=== PATIENT | male | born 1975 | race Caucasian/White ===

== ENCOUNTER 2016-09-19 11:01 | Inpatient (IN) | payer BC ==
[2016-09-19] MEDS ORDERED: SODIUM CHLORIDE 0.9% 1,000 ML IV STA (11:30)
--- NOTE | 2016-09-19 12:14 | ED ---
General Adult HPI - General Chief complaint: Recheck/Abnormal Lab/Rx Stated complaint: renal failure sent by pcp Time Seen by Provider: 09/19/16 11:14 Source: patient, RN notes reviewed Mode of arrival: ambulatory Limitations: no limitations - History of Present Illness Initial comments: Patient 40-year-old male who presents emergency room today with chief complaint of abnormal labs. He states it is all by his family doctor advised come in because the labs showed elevated kidney function. He does admit that last week he was having symptoms of nausea vomiting some diarrhea. He states he was having fevers. States he has been feeling better. He did have an outpatient ultrasound performed today and afterwards was called and advised come here to the emergency room. Patient states does not have any pain. States diarrhea and nausea vomiting have all stopped. He denies any other complaints at this time. Patient denies any recent fever, chills, shortness of breath, chest pain, back pain, numbness or tingling, dysuria or hematuria, constipation, headaches or visual changes, or any other complaints. - Related Data Home Medications Medication Instructions Recorded Confirmed Acetaminophen [Tylenol] 1,500 mg PO Q6H PRN 09/19/16 09/19/16 Cholecalciferol [Vitamin D3] 1,000 units PO DAILY 09/19/16 09/19/16 Levothyroxine Sodium [Synthroid] 137 mcg PO DAILY 09/19/16 09/19/16 Naproxen Sodium [Aleve] 660 mg PO DAILY PRN 09/19/16 09/19/16 [place]-3/Dha/Epa/Fish Oil [Fish Oil 1 cap PO DAILY 09/19/16 09/19/16 1,000 mg Softgel] Allergies Allergy/AdvReac Type Severity Reaction Status Date / Time aspirin AdvReac Swelling Verified 09/19/16 11:42 Review of Systems ROS Statement: Those systems with pertinent positive or pertinent negative responses have been documented in the HPI. ROS Other: All systems not noted in ROS Statement are negative. Past Medical History Past Medical History: No Reported History History of Any Multi-Drug Resistant Organisms: None Reported Additional Past Surgical History / Comment(s): right quad muscle Past Psychological History: No Psychological Hx Reported Smoking Status: Former smoker Past Alcohol Use History: None Reported Past Drug Use History: None Reported General Exam - General Exam Comments Initial Comments: General: The patient is awake and alert, in no distress, and does not appear acutely ill. Eye: Pupils are equal, round and reactive to light, extra-ocular movements are intact. No nystagmus. There is normal conjunctiva bilaterally. No signs of icterus. Ears, nose, mouth and throat: There are moist mucous membranes and no oral lesions. Neck: The neck is supple, there is no tenderness or JVD. Cardiovascular: There is a regular rate and rhythm. No murmur, rub or gallop is appreciated. Respiratory: Lungs are clear to auscultation, respirations are non-labored, breath sounds are equal. No wheezes, stridor, rales, or rhonchi. Gastrointestinal: Soft, non-distended, non-tender abdomen without masses or organomegaly noted. There is no rebound or guarding present. No CVA tenderness. Bowel sounds are unremarkable. Musculoskeletal: Normal ROM, no tenderness. Strength 5/5. Sensation intact. Pulses equal bilaterally 2+. Neurological: A&O x 3. CN II-XII intact, There are no obvious motor or sensory deficits. Coordination appears grossly intact. Speech is normal. Skin: Skin is warm and dry and no rashes or lesions are noted. Psychiatric: Cooperative, appropriate mood & affect, normal judgment. Limitations: no limitations Course Vital Signs 09/19/16 11:04 Temperature 97.5 F L Pulse Rate 82 Respiratory 20 Rate Blood Pressure 165/96 O2 Sat by Pulse 98 Oximetry Medical Decision Making - Medical Decision Making Patient's labs been reviewed. Does show mildly elevated white count and blood sugar. He does admit that he's been on steroids last 3 days. Patient does admit that his sugar was elevated once in the past with pills but has not been taking these for approximately 10 years. Patient's labs reviewed does show mildly elevated AST ALT. Mildly elevated lipase. Does show elevated BUN/ creatinine. 3. This is improved from outpatient labs provided which showed a creatinine greater than 5 just 2 days ago. Patient does admit to symptoms of diarrhea over the past week. States he had decreased appetite. Patient was met that his symptoms have been improving the last few days. he is pain-free at this time has no complaints. He'll be continued on IV fluids. Case was discussed with admitting physician Dr. Christopher. Patient is aware of the plan states understanding. - Lab Data Result diagrams: 09/19/16 12:00 09/19/16 12:00 Lab Results 09/19/16 09/19/16 09/19/16 Range/Units 12:00 12:00 12:00 WBC 14.9 H (3.8-10.6) k/uL RBC 4.02 L (4.30-5.90) m/uL Hgb 13.8 (13.0-17.5) gm/dL Hct 40.0 (39.0-53.0) % MCV 99.5 (80.0-100.0) fL MCH 34.5 (25.0-35.0) pg MCHC 34.6 (31.0-37.0) g/dL RDW 12.6 (11.5-15.5) % Plt Count 206 (150-450) k/uL Neutrophils % 86 % Lymphocytes % 7 % Monocytes % 4 % Eosinophils % 0 % Basophils % 0 % Neutrophils # 12.8 H (1.3-7.7) k/uL Lymphocytes # 1.1 (1.0-4.8) k/uL Monocytes # 0.6 (0-1.0) k/uL Eosinophils # 0.0 (0-0.7) k/uL Basophils # 0.0 (0-0.2) k/uL Sodium 136 L (137-145) mmol/L Potassium 4.7 (3.5-5.1) mmol/L Chloride 104 (98-107) mmol/L Carbon Dioxide 17 L (22-30) mmol/L Anion Gap 15 mmol/L BUN 78 H (9-20) mg/dL Creatinine 3.47 H (0.66-1.25) mg/dL Est GFR (MDRD) Af Amer 24 (>60 ml/min/1.73 sqM) Est GFR (MDRD) Non-Af 20 (>60 ml/min/1.73 sqM) Glucose 235 H (74-99) mg/dL Calcium 9.6 (8.4-10.2) mg/dL Total Bilirubin 1.0 (0.2-1.3) mg/dL AST 78 H (17-59) U/L ALT 92 H (21-72) U/L Alkaline Phosphatase 196 H (38-126) U/L Total Protein 6.9 (6.3-8.2) g/dL Albumin 3.3 L (3.5-5.0) g/dL Amylase 81 (30-110) U/L Lipase 516 H (23-300) U/L Urine Color Yellow Urine Appearance Cloudy (Clear) Urine pH 5.5 (5.0-8.0) Ur Specific [place] 1.014 (1.001-1.035) Urine Protein 1+ H (Negative) Urine Glucose (UA) Trace H (Negative) Urine Ketones Negative (Negative) Urine Blood Small H (Negative) Urine Nitrite Negative (Negative) Urine Bilirubin Negative (Negative) Urine Urobilinogen <2.0 (<2.0) mg/dL Ur Leukocyte Esterase Negative (Negative) Urine RBC 3 (0-5) /hpf Urine WBC 3 (0-5) /hpf Ur Squamous Epith Cells <1 (0-4) /hpf Urine Bacteria Rare H (None) /hpf Hyaline Casts 1 (0-2) /lpf Urine Mucus Rare H (None) /hpf Heterophile Antibody (Negative) 09/19/16 Range/Units 12:00 WBC (3.8-10.6) k/uL RBC (4.30-5.90) m/uL Hgb (13.0-17.5) gm/dL Hct (39.0-53.0) % MCV (80.0-100.0) fL MCH (25.0-35.0) pg MCHC (31.0-37.0) g/dL RDW (11.5-15.5) % Plt Count (150-450) k/uL Neutrophils % % Lymphocytes % % Monocytes % % Eosinophils % % Basophils % % Neutrophils # (1.3-7.7) k/uL Lymphocytes # (1.0-4.8) k/uL Monocytes # (0-1.0) k/uL Eosinophils # (0-0.7) k/uL Basophils # (0-0.2) k/uL Sodium (137-145) mmol/L Potassium (3.5-5.1) mmol/L Chloride (98-107) mmol/L Carbon Dioxide (22-30) mmol/L Anion Gap mmol/L BUN (9-20) mg/dL Creatinine (0.66-1.25) mg/dL Est GFR (MDRD) Af Amer (>60 ml/min/1.73 sqM) Est GFR (MDRD) Non-Af (>60 ml/min/1.73 sqM) Glucose (74-99) mg/dL Calcium (8.4-10.2) mg/dL Total Bilirubin (0.2-1.3) mg/dL AST (17-59) U/L ALT (21-72) U/L Alkaline Phosphatase (38-126) U/L Total Protein (6.3-8.2) g/dL Albumin (3.5-5.0) g/dL Amylase (30-110) U/L Lipase (23-300) U/L Urine Color Urine Appearance (Clear) Urine pH (5.0-8.0) Ur Specific [place] (1.001-1.035) Urine Protein (Negative) Urine Glucose (UA) (Negative) Urine Ketones (Negative) Urine Blood (Negative) Urine Nitrite (Negative) Urine Bilirubin (Negative) Urine Urobilinogen (<2.0) mg/dL Ur Leukocyte Esterase (Negative) Urine RBC (0-5) /hpf Urine WBC (0-5) /hpf Ur Squamous Epith Cells (0-4) /hpf Urine Bacteria (None) /hpf Hyaline Casts (0-2) /lpf Urine Mucus (None) /hpf Heterophile Antibody Negative (Negative) Disposition Clinical Impression: Acute renal injury, Elevated liver enzymes, Elevated lipase Disposition: ADMITTED IP TO THIS [facility] Condition: Stable Referrals: Kareem Randolph MD [Primary Care Provider] - 1-2 days Time of Disposition: 13:27
[2016-09-19 12:25] LABS: Basophils % (A) 0 %; CH 35.5; CHCM 35.8; Eosinophils % (A) 0 %; HDW 2.92; HGB 13.8 gm/dL (13.0-17.5); Luc # (Auto) 0.36; Luc % (Auto) 2; Lymphocytes # (A) 1.1 k/uL (1.0-4.8); Lymphocytes % (A) 7 %; MCH 34.5 pg (25.0-35.0); MCHC 34.6 g/dL (31.0-37.0); MCV 99.5 fL (80.0-100.0); Mean Platelet Volume 9.4; Monocytes # (A) 0.6 k/uL (0-1.0); Monocytes % (A) 4 %; Neutrophils # (A) 12.8 k/uL (1.3-7.7); Neutrophils % (A) 86 %; RBC 4.02 m/uL (4.30-5.90); RDW 12.6 % (11.5-15.5); WBC 14.9 k/uL (3.8-10.6); WBC (Perox) 15.55
[2016-09-19 12:31] LABS: Appearance,Urine Cloudy (Clear); Bacteria,Urine Rare /hpf; Bilirubin,Urine Negative (Negative); Glucose,Urine (UA) Trace (Negative); Ketones,Urine Negative (Negative); Leukocyte Esterase,Urine Negative (Negative); Mucus,Urine Rare /hpf; Nitrite,Urine Negative (Negative); PH, Urine 5.5 (5.0-8.0); Particle Count 6291; Protein,Urine 1+ (Negative); RBC,Urine 3 /hpf (0-5); Specific Gravity,Urine 1.014 (1.001-1.035); Squamous Epithelial Cell,Urine <1 /hpf (0-4); UA Billing (MACRO vs. MICRO) MICRO; Urobilinogen,Urine <2.0 mg/dL (<2.0); WBC,Urine 3 /hpf (0-5)
[2016-09-19 12:48] LABS: Calcium 9.6 mg/dL (8.4-10.2); Potassium 4.7 mmol/L (3.5-5.1); Total Protein 6.9 g/dL (6.3-8.2)
[2016-09-19] MEDS ORDERED: SODIUM CHLORIDE 0.9% 1,000 ML IV ONE (13:37)
[2016-09-19] MEDS ORDERED: ONDANSETRON 4 MG/2 ML VIAL IVP PRN (13:37)
[2016-09-19] MEDS ORDERED: HYDROmorphone 1 MG/ML 1 ML SYRINGE IV PRN ×2 (13:37→22:11)
[2016-09-19] MEDS ORDERED: HYDROcodone/APAP 5-325MG 1 EACH TAB PO PRN (13:37)
[2016-09-19] MEDS ORDERED: NALOXONE 0.4 MG/ML 1 ML VIAL IV PRN (13:37)
[2016-09-19] MEDS ORDERED: TEMAZEPAM 15 MG CAP PO PRN (22:10)
[2016-09-19] MEDS ORDERED: ALPRAZolam 0.25 MG TAB PO PRN (22:10)
[2016-09-19 22:54] LABS: INR 1.3 (<1.1); Prothrombin Time 12.9 sec (9.0-12.0)
[2016-09-19 22:58] LABS: Amylase 42 U/L (30-110)
[2016-09-19 23:30] LABS: Hepatitis B Surface Ag Index 0.08
[2016-09-19 23:35] LABS: Hepatitis B Core IgM Index 0.02
[2016-09-19 23:47] LABS: Hepatitis C Virus IgG Ab Negative (Negative); Hepatitis C Virus IgG Index 0.02
[2016-09-20] MEDS: ACETAMINOPHEN TAB 325 MG TAB PO PRN ×2 (00:24→17:20)
[2016-09-20] MEDS: SODIUM CHLORIDE 0.9% 1,000 ML IV SCH ×2 (00:25→12:40)
[2016-09-20 02:51] LABS: Appearance,Urine Clear (Clear); Bilirubin,Urine Negative (Negative); Glucose,Urine (UA) Negative (Negative); Ketones,Urine Negative (Negative); Leukocyte Esterase,Urine Negative (Negative); Mucus,Urine Rare /hpf; Nitrite,Urine Negative (Negative); PH, Urine 5.5 (5.0-8.0); Particle Count 3124; Protein,Urine 1+ (Negative); RBC,Urine 1 /hpf (0-5); Specific Gravity,Urine 1.011 (1.001-1.035); Squamous Epithelial Cell,Urine <1 /hpf (0-4); UA Billing (MACRO vs. MICRO) MICRO; Urobilinogen,Urine <2.0 mg/dL (<2.0); WBC,Urine 3 /hpf (0-5)
[2016-09-20 03:45] LABS: Aty Lym Flag Slight; CH 35.1; CHCM 35.4; HCT 36.2 % (39.0-53.0); HDW 2.87; HGB 12.5 gm/dL (13.0-17.5); MCH 34.4 pg (25.0-35.0); MCHC 34.5 g/dL (31.0-37.0); MCV 99.7 fL (80.0-100.0); RBC 3.63 m/uL (4.30-5.90); RDW 12.9 % (11.5-15.5); WBC 11.1 k/uL (3.8-10.6)
[2016-09-20 03:59] LABS: Calcium 9.3 mg/dL (8.4-10.2); Potassium 4.4 mmol/L (3.5-5.1); Total Bilirubin 0.6 mg/dL (0.2-1.3)
[2016-09-20 05:09] LABS: Add Differential Manual Differential
[2016-09-20 05:11] LABS: Nucleated Red Blood Cells 0 /100 WBC (0-0); Total Cells Counted 100
[2016-09-20 05:16] LABS: Manual Review Performed
[2016-09-20] MEDS: IOHEXOL 350 MG/ML 25 ML BOTTLE (ORAL USE) PO PRN ×2 (06:14→07:10)
[2016-09-20] MEDS: PANTOPRAZOLE 40 MG TABLET PO SCH (08:10)
[2016-09-20] MEDS: LEVOTHYROXINE 137 MCG TAB PO SCH (08:10)
[2016-09-20] MEDS: CHOLECALCIFEROL 1,000 UNIT TAB PO SCH (08:10)
--- NOTE | 2016-09-20 08:15 | XR ---
EXAMINATION TYPE: XR chest 1V DATE OF EXAM: 09/20/2016 COMPARISON: NONE HISTORY: Congestive heart failure TECHNIQUE: Single frontal view of the chest is obtained. FINDINGS: Abnormal increased attenuation is present at the right upper lobe. Central increased densi ty is present in the perihilar regions. Heart size within normal limits. No pneumothorax or pleural e ffusion. IMPRESSION: Findings could be indicative of a right upper lobe lung mass with postobstructive atelec tasis. There may be a central mass on the left perihilar region. Recommend chest CT with contrast.
--- NOTE | 2016-09-20 08:29 | HP ---
DATE OF ADMISSION: 09/19/2016 CHIEF COMPLAINT: Abnormal labs. HISTORY OF PRESENT ILLNESS: This 40-year-old gentleman with a past medical history of sleep apnea, history of hypothyroidism, history of weight loss, history of nicotine dependence, being followed by Dr. Kareem Randolph in the outpatient setting. Last week had one or two episodes of diarrhea. The patient also had some nausea, but the patient was also having some fevers. He was not feeling any better. The patient went to Dr. Kareem Randolph's office and the patient is referred for abnormal labs which showed multiple abnormalities for further evaluation and treatment. Labs showed primary leukocytosis 14.9, sodium 136, creatinine was 3.4 indicating acute renal failure, LFTs elevated, glucose 235 and the patient also had splenomegaly on the ultrasound. There is no history of rigors, no history of headache, loss of consciousness or seizures at this time. PAST MEDICAL HISTORY: sleep apnea, history of hypothyroidism, history of nicotine dependence. Medications prior to admission include home medications: 1. [place]-3 1 p.o. daily. 2. Synthroid 137 mcg p.o. daily. 3. Vitamin D3 1000 daily. 4. Tylenol 1500 mg q.6h p.r.n. 5. Aleve 650 mg p.o. daily p.r.n. ALLERGIES: ASPIRIN. FAMILY HISTORY: History of colon cancer in the family. SOCIAL HISTORY: Previous history of smoking. Occasional alcohol intake. REVIEW OF SYSTEMS: ENT: No diminished hearing. No diminished vision. CARDIOVASCULAR: No angina or palpitations. RESPIRATORY: As mentioned earlier. GASTROINTESTINAL: As mentioned earlier. : Mentioned earlier. Nervous system: No numbness or weakness. Allergy/immunology: No asthma or hayfever. MUSCULOSKELETAL: As mentioned earlier. HEMATOLOGY/ONCOLOGY: No history of anemia. ENDOCRINE: No history of diabetes, hypothyroidism. CONSTITUTIONAL: As mentioned earlier. DERMATOLOGY: Negative. RHEUMATOLOGY: Negative. PSYCHIATRY: As mentioned earlier. PHYSICAL EXAMINATION: The patient is alert and oriented times three. Pulse is 85, blood pressure 148/88, respiration 22, temperature 97 degrees, pulse ox 97% on room air. HEENT: Conjunctivae normal. NECK: No jugular venous distention. CARDIOVASCULAR: S1, S2 muffled. RESPIRATORY: Breath sounds diminished at the bases. A few scattered rhonchi, crackles. ABDOMEN: Soft obese, nontender. No mass palpable. Legs: No edema. No swelling. Nervous system: Higher functions as mentioned earlier. Moves all four limbs. LYMPHATICS: No lymph nodes palpable in the neck, axillae or groin. SKIN: No ulcer, rash or bleeding. LABS: WBC 14.9, hemoglobin 13.8, neutrophils 12.8, sodium 136, potassium 4.7, chloride is 104, CO2 17, creatinine 0.47, BUN is 78, glucose 235, AST 78, ALT is 92, alkaline phosphatase is 196, albumin is 2.8, lipase 516, amylase is 81, UA noted and negative. ASSESSMENT: 1. Acute renal failure, possible prerenal acute tubular necrosis with possible acute on chronic renal kidney failure. 2. Chronic liver disease and splenomegaly. 3. Increased AST, ALT rule out acute hepatitis. 4. Hypoalbuminemia. 5. Increased lipase with normal amylase, possible chronic pancreatitis. 6. Hyponatremia. 7. Increased WBC of undetermined etiology, possibly reactive. 8. Obesity body mass index 40. 9. History of sleep apnea. 10. Hypothyroidism. 11. History of CPAP. 12. Remote history of nicotine dependence. 13. FULL CODE. RECOMMENDATIONS AND DISCUSSION: In this 40-year-old gentleman who presented with multiple complex medical issues, we will monitor the patient closely. Continue the current medications. Continue symptomatic treatment. Otherwise, at this time, I would continue gentle hydration. Nephrology evaluation. I would also recommend a CT of the abdomen and pelvis. Repeat labs will be ordered. The exact etiology of multiple complications are unknown at this time but most likely the patient has renal failure, precipitated by acute tubular necrosis and acute kidney injury. Possibility of chronic renal disease needs to be ruled out. Prognosis extremely guarded because of multiple complex medical issues. Discussed with the patient who understands and agrees. Further recommendations to follow. A copy of dictation being forwarded to Dr. Kareem Randolph who is the primary care physician. I would also recommended hepatitis panel to rule out the possibility of cirrhosis of the liver also. MTDD
--- NOTE | 2016-09-20 09:21 | CT ---
EXAMINATION TYPE: CT abdomen pelvis wo con DATE OF EXAM: 09/20/2016 COMPARISON: Correlation ultrasound kidneys 09/19/2016 HISTORY: 40-year-old male Cirrhosis of Liver CT DLP: 2147.3 mGycm. Automated exposure control for dose reduction was used. TECHNIQUE: Contiguous axial scanning of the abdomen and pelvis without IV contrast. Coronal and sagit vinod reconstructions performed. FINDINGS: The heart is normal size without pericardial effusion respiratory motion artifact limiting assessment of the lung bases. No pleural effusion. Liver is enlarged measuring 25.9 cm craniocaudal. The lack of IV contrast limits assessment for hepat svitlana in the setting of cirrhosis. There is a 1.5 cm gallstone. No abnormal gallbladder distention. Adrenal glands, kidneys, and pancreas are grossly unremarkable by noncontrast CT. Spleen enlarged at 19.1 cm craniocaudal, coronal image 59. No dilated small bowel, free fluid, or free air. No mesenteric or retroperitoneal lymphadenopathy se en. Mild overall stool burden. No pericolonic inflammatory change. Bladder is nondistended. No abnormal fluid collection in the pelvis or pelvic lymphadenopathy. Bones: Mild degenerative changes of the hips. Endplate spondylosis lower thoracic spine and thoracolu mbar junction. No osseous destructive process. IMPRESSION: 1. Hepatomegaly (nearly 26 cm craniocaudal). Lack of IV contrast limits assessment of HCC in the set ting of cirrhosis. 2. Prominent splenomegaly (19.1 cm). This is nonspecific but in the setting of cirrhosis may indicat e underlying portal venous hypertension. Clinically correlate. 3. Cholelithiasis.
--- NOTE | 2016-09-20 14:07 | P.NPCON ---
History of Present Illness - Reason for Consult acute renal failure - History of Present Illness Reason for consultation: Acute kidney injury History of present illness: Patient is a 40-year-old male seen in renal consultation for acute kidney injury. Patient denies any prior history of kidney disease. His creatinine was 3.47 on admission and is down to 2.3. He had blood work done as an outpatient and was told by his primary care physician to go to the hospital due to acute kidney injury. Patient states 1 week ago he developed flulike symptoms. He did temperature 102 and his oral intake for the past week has been poor. He denies any vomiting. He had 1 episode of diarrhea. Additionally he admits to taking Aleve 3 times daily for pain control. He denies any family history of renal disease. Admits to good urine output. No hematuria or dysuria. Hemodynamically he stable. No evidence of hydronephrosis noted on renal uls however splenomegaly was noted. He also had CAT scan of the abdomen and pelvis done which revealed hepatomegaly. Vital signs are stable. General: The patient appeared well nourished and normally developed. HEENT: Head exam is unremarkable. Neck is without jugular venous distension. LUNGS: Lungs are clear to auscultation and percussion. Breath sounds decreased. HEART: Rate and Rhythm are regular. First and second heart sounds normal. No murmurs, rubs or gallops. ABDOMEN: Abdominal exam reveals normal bowel sounds. Non-tender and non- distended. No evidence of peritonitis. EXTREMITITES: No clubbing, cyanosis, or edema. Past Medical History Past Medical History: Sleep Apnea/CPAP/BIPAP, Thyroid Disorder Additional Past Medical History / Comment(s): CPAP MACHINE USED,PT STATED BS UP IN 2002 TOOK MEDS BUT AFTER LOSING WT DID'NT NEED MEDS ANYMORE-STOPPED MEDS IN 2003. History of Any Multi-Drug Resistant Organisms: None Reported Additional Past Surgical History / Comment(s): right quad muscle SX, POSTERIOR NECK I&D, OLONOSCOPY. Past Anesthesia/Blood Transfusion Reactions: No Reported Reaction Past Psychological History: No Psychological Hx Reported Additional Psychological History / Comment(s): PT LIVES WITH HIS MOM . NO PETS. HAS 10 STEPS TO ENTER HOME AND SLEEPS IN BASEMENT SO HE HAD 15 STEPS TO GO DOWN. NO OUTSIDE SERVICES RECIEVIED, HAS A CPAP MACHINE. Smoking Status: Former smoker Past Alcohol Use History: None Reported Additional Past Alcohol Use History / Comment(s): STARTED SMOKING IN 1993 ,QUIT 09-15-16 WAS SMOKING 1.5 PPD Past Drug Use History: None Reported - Past Family History Father Family Medical History: No Reported History Additional Family Medical History / Comment(s): FATHER'S DAD HAD COLON CANCER Mother Family Medical History: Cancer Additional Family Medical History / Comment(s): COLON CANCER Medications and Allergies Home Medications Medication Instructions Recorded Confirmed Type Acetaminophen [Tylenol] 1,500 mg PO Q6H PRN 09/19/16 09/19/16 History Cholecalciferol [Vitamin D3] 1,000 units PO DAILY 09/19/16 09/19/16 History Levothyroxine Sodium [Synthroid] 137 mcg PO DAILY 09/19/16 09/19/16 History Naproxen Sodium [Aleve] 660 mg PO DAILY PRN 09/19/16 09/19/16 History [place]-3/Dha/Epa/Fish Oil [Fish Oil 1 cap PO DAILY 09/19/16 09/19/16 History 1,000 mg Softgel] Allergies Allergy/AdvReac Type Severity Reaction Status Date / Time aspirin AdvReac Swelling Verified 09/19/16 11:42 Physical Exam Vitals: Vital Signs Temp Pulse Pulse Resp BP BP Pulse Ox 09/20/16 07:00 99.1 F 94 20 177/93 96 09/20/16 04:01 100.1 F H 09/20/16 01:15 101.1 F H 09/19/16 23:30 100.6 F H 91 20 161/87 97 09/19/16 16:06 18 09/19/16 15:30 97.0 F L 85 22 148/88 96 09/19/16 15:01 97.5 F L 72 18 163/86 97 Intake and Output 09/19/16 09/20/16 09/20/16 22:59 06:59 14:59 Intake Total 600 0 240 Balance 600 0 240 Intake: Oral 600 0 240 Other: Voiding Method Toilet Toilet Toilet # Voids 1 1 Results - Lab Results Most recent lab results Calcium 9.3 mg/dL (8.4-10.2) 09/20/16 02:59 09/20/16 02:59 06/08/17 02:59 Assessment and Plan Plan: Assessment: #1. Nonoliguric acute kidney injury mostly prerenal in nature secondary to poor oral intake and use of NSAIDs. Creatinine was 3.47 on admission and is down to 2.3 today. #2. Metabolic acidosis secondary to acute kidney injury and IV fluids. #3. Fever and leukocytosis. Blood cultures have been drawn. Patient's been having flulike symptoms. #4. Transaminitis with hepatomegaly and splenomegaly. Hepatitis panel negative. Plan: Continue normal saline to be run at 75 mL an hour. Start oral sodium bicarbonate 650 mg twice daily. Encouraged oral intake. Avoid nephrotoxic agents and hypotensive episodes. Follow-up cultures. Repeat electrolytes in the morning. Thank you for the consultation. I will continue to follow the patient with you during his hospital stay.
[2016-09-20] MEDS: SODIUM BICARBONATE TAB 650 MG TAB PO SCH ×2 (14:24→20:56)
[2016-09-20] MEDS ORDERED: RX INFO: IV CONTRAST WAS GIVEN 1 EACH MISC MISCELLANE PRN (14:50)
[2016-09-20] MEDS: PIPERACILLIN-TAZOBACTAM 3.375 GM in DEXTROSE/WATER 1 50ML.BAG IVPB SCH (16:20)
--- NOTE | 2016-09-20 16:47 | CT ---
EXAMINATION TYPE: CT chest wo con DATE OF EXAM: 09/20/2016 COMPARISON: Radiograph same day HISTORY: 40-year-old male with pneumonia TECHNIQUE: Contiguous axial scanning of the chest without IV contrast. Coronal and sagittal reconstru ctions performed. CT DLP: 838.0 mGycm Automated exposure control for dose reduction was used. FINDINGS: The heart is normal size with trace basilar pericardial fluid. Coronary vessel calcifications are mil d and a marker for coronary artery disease. Ascending aorta is ectatic and 3.8 cm. There is conventional arterial vessel branching anatomy. Nonenlarged and mildly enlarged mediastinal lymph nodes measure up to 1.0 cm in the paratracheal charly on. There is dense consolidation throughout the right upper lobe but additional multifocal consolidation such as in the superior segment both lower lobes and to lesser extent within the left upper lobe. Mild emphysematous change. No pleural effusion. Visualized upper abdomen shows a 1.4 cm gallstone. Spleen is enlarged at 16.2 cm. Bones: Endplate spondylosis mid to lower thoracic spine. Accentuated lower thoracic kyphosis. IMPRESSION: 1. MULTIFOCAL BILATERAL CONSOLIDATION MOST EXTENSIVE WITHIN THE RIGHT UPPER LOBE. CORRELATE FOR MULTI FOCAL PNEUMONIA. FOLLOW-UP AFTER TREATMENT TO ENSURE COMPLETE CLEARANCE. 2. BACKGROUND OF COPD WITH MILD EMPHYSEMA. 3. NONENLARGED AND MILDLY ENLARGED MEDIASTINAL LYMPHADENOPATHY LIKELY REACTIVE. 4. CHOLELITHIASIS AND SPLENOMEGALY (16.2 CM).
--- NOTE | 2016-09-20 18:02 | P.CNPUL ---
History of Present Illness Consult date: 09/20/16 Reason for consult: dyspnea History of present illness: [age] male patient, morbidly obese with history of obstructive sleep apnea, comes in to the hospital upon the request of his primary care physician for diminished urine output and acute kidney injury. The patient apparently had symptoms of upper is been checked infection approximately 10 days ago. Subsequently started having increased cough and congestion diminished appetite and nausea. He was unable to take oral intake and he was trying to keep up with his fluid intake. He was not feeling better. He went to his primary care physician's office and he was found to have abnormal labs where he was found to be in acute kidney injury with a creatinine of 3.4 and he also had some leukocytosis with a white cell count of 14.9. Based on that, the patient was advised to come into the hospital for further evaluation and treatment. Since his arrival, the patient was started on IV fluids and the creatinine is over the improving. The chest x-ray showed abnormal increased attenuation in the right upper lobe and central increased density in the perihilar area. Based on that a CAT scan of the chest was ordered which obviously got done without contrast and it showed multifocal bilateral consolidation which is quite extensive within the right upper lobe. There was also nonenlarged and mildly enlarged magistral live adenopathy that were likely reactive. The patient also has cholelithiasis and splenomegaly. CAT scan of the abdomen and pelvis was also completed and showed hepatosplenomegaly and some nonspecific findings to indicate portal hypertension. The patient is nonalcoholic. He is a nonsmoker. No 70 chronic lung disease. Previous bouts of pneumonias. No history of any GI bleeding. He is currently on IV Zosyn. He was seen by nephrology and the creatinine is improving with fluid resuscitation. The hepatitis profile is negative. Urine drug screen is also negative. UA is also negative. Review of Systems All systems: negative Constitutional: Denies chills, Denies fever Eyes: denies blurred vision, denies pain Ears, nose, mouth and throat: Denies headache, Denies sore throat Cardiovascular: Denies chest pain, Denies shortness of breath Respiratory: Denies cough Gastrointestinal: Denies abdominal pain, Denies diarrhea, Denies nausea, Denies vomiting Musculoskeletal: Denies myalgias Integumentary: Denies pruritus, Denies rash Neurological: Denies numbness, Denies weakness Psychiatric: Denies anxiety, Denies depression Endocrine: Denies fatigue, Denies weight change Past Medical History Past Medical History: Sleep Apnea/CPAP/BIPAP, Thyroid Disorder Additional Past Medical History / Comment(s): Morbid obesity with interval weight loss, obstructive sleep apnea maintained on CPAP, hypothyroidism History of Any Multi-Drug Resistant Organisms: None Reported Additional Past Surgical History / Comment(s): right quad muscle tendon repair, POSTERIOR NECK I&D, OLONOSCOPY. Past Anesthesia/Blood Transfusion Reactions: No Reported Reaction Past Psychological History: No Psychological Hx Reported Additional Psychological History / Comment(s): PT LIVES WITH HIS MOM . NO PETS. HAS 10 STEPS TO ENTER HOME AND SLEEPS IN BASEMENT SO HE HAD 15 STEPS TO GO DOWN. NO OUTSIDE SERVICES RECIEVIED, HAS A CPAP MACHINE. Smoking Status: Former smoker Past Alcohol Use History: None Reported Additional Past Alcohol Use History / Comment(s): STARTED SMOKING IN 1993 ,QUIT 09-15-16 WAS SMOKING 1.5 PPD Past Drug Use History: None Reported - Past Family History Father Family Medical History: No Reported History Additional Family Medical History / Comment(s): FATHER'S DAD HAD COLON CANCER Mother Family Medical History: Cancer Additional Family Medical History / Comment(s): COLON CANCER Medications and Allergies Home Medications Medication Instructions Recorded Confirmed Type Acetaminophen [Tylenol] 1,500 mg PO Q6H PRN 09/19/16 09/19/16 History Cholecalciferol [Vitamin D3] 1,000 units PO DAILY 09/19/16 09/19/16 History Levothyroxine Sodium [Synthroid] 137 mcg PO DAILY 09/19/16 09/19/16 History Naproxen Sodium [Aleve] 660 mg PO DAILY PRN 09/19/16 09/19/16 History [place]-3/Dha/Epa/Fish Oil [Fish Oil 1 cap PO DAILY 09/19/16 09/19/16 History 1,000 mg Softgel] Allergies Allergy/AdvReac Type Severity Reaction Status Date / Time aspirin AdvReac Swelling Verified 09/19/16 11:42 Physical Exam Vitals: Vital Signs Temp Pulse Resp BP Pulse Ox 09/20/16 15:00 97.0 F L 90 20 136/91 95 09/20/16 07:00 99.1 F 94 20 177/93 96 09/20/16 04:01 100.1 F H 09/20/16 01:15 101.1 F H 09/19/16 23:30 100.6 F H 91 20 161/87 97 Intake and Output 09/20/16 09/20/16 09/20/16 06:59 14:59 22:59 Intake Total 0 480 Balance 0 480 Intake: Oral 0 480 Other: Voiding Method Toilet Toilet # Voids 1 2 Head exam was generally normal. There was no scleral icterus or corneal arcus. Mucous membranes were moist.Neck was supple and without jugular venous distension, thyromegaly, or carotid bruits. Carotids were easily palpable bilaterally. There was no adenopathy. The patient has significant crowding of the posterior oropharynx. No goiter or neck masses. Lungs are diminished bilaterally along with some few scattered crackles over the anterior part of the right chest.Cardiac exam revealed the PMI to be normally situated and sized. The rhythm was regular and no extrasystoles were noted during several minutes of auscultation. The first and second heart sounds were normal and physiologic splitting of the second heart sound was noted. There were no murmurs , rubs, clicks, or gallops. Abdomen soft nontender obese and the patient's has no organomegaly. No direct tenderness or rebound tenderness or guarding.Examination of the extremities revealed easily palpable radial, femoral and pedal pulses. There was no cyanosis, clubbing or edema. Results - Laboratory Findings CBC and BMP: 09/20/16 02:59 09/20/16 02:59 PT/INR, D-dimer PT 12.9 sec (9.0-12.0) H 09/19/16 22:29 INR 1.3 (<1.1) 09/19/16 22:29 Abnormal lab findings: Abnormal Labs 09/19/16 09/19/16 09/19/16 12:00 12:00 12:00 WBC 14.9 H RBC 4.02 L Hgb Hct Neutrophils # 12.8 H Neutrophils # (Manual) Monocytes # (Manual) PT Sodium 136 L Chloride Carbon Dioxide 17 L BUN 78 H Creatinine 3.47 H Glucose 235 H AST 78 H ALT 92 H Alkaline Phosphatase 196 H Total Protein Albumin 3.3 L Triglycerides HDL Cholesterol Lipase 516 H Urine Protein 1+ H Urine Glucose (UA) Trace H Urine Blood Small H Urine Bacteria Rare H Urine Mucus Rare H 09/19/16 09/20/16 09/20/16 22:29 02:35 02:59 WBC RBC Hgb Hct Neutrophils # Neutrophils # (Manual) Monocytes # (Manual) PT 12.9 H Sodium Chloride 109 H Carbon Dioxide 17 L BUN 69 H Creatinine 2.30 H Glucose 114 H AST 66 H ALT 91 H Alkaline Phosphatase 155 H Total Protein 6.0 L Albumin 2.9 L Triglycerides 224 H HDL Cholesterol 21 L Lipase Urine Protein 1+ H Urine Glucose (UA) Urine Blood Small H Urine Bacteria Urine Mucus Rare H 09/20/16 02:59 WBC 11.1 H RBC 3.63 L Hgb 12.5 L Hct 36.2 L Neutrophils # Neutrophils # (Manual) 8.0 H Monocytes # (Manual) 1.3 H PT Sodium Chloride Carbon Dioxide BUN Creatinine Glucose AST ALT Alkaline Phosphatase Total Protein Albumin Triglycerides HDL Cholesterol Lipase Urine Protein Urine Glucose (UA) Urine Blood Urine Bacteria Urine Mucus - Diagnostic Findings Chest x-ray: image reviewed CT scan - chest: image reviewed Assessment and Plan Plan: Assessment 1 acute bilateral multi lobar pneumonia mostly involving the right upper lobe. Despite the extensive consolidation, the patient is still maintaining a pulse ox of above 90% on room air. No signs of an acute septicemia this point 2 mild leukocytosis, improving 3 acute kidney injury secondary to intravascular volume depletion improving with fluid resuscitation 4 morbid obesity 5 obstructive sleep apnea maintained on CPAP on outpatient basis 6 hypothyroidism 7 hepatoslenomegaly with abnormal liver function tests. Rule out fatty liver. Rule out non-alcoholics and hepatitis. 8 nonspecific elevation of lipase, improved. Plan Proceed with broad-spectrum antibiotics. The patient will be given a combination of Zosyn and Levaquin. Obtain sputum Gram stain and culture. Repeat chest x-ray with next 24 hours to assess progression of the underlying pneumonia. Obtain Legionella urine antigen. The tear fluid resuscitation with normal saline at the rate of 75 mL an hour. Monitor renal function. Nephrology consultation. Monitor liver function tests. Asked the patient to bring his own CPAP machine from home. Necessary CPAP adjustments will be done. We'll continue to follow.
--- NOTE | 2016-09-20 18:09 | P.PN ---
Subjective Date of service 09/20/2016. Personal being dictated for Dr. Christopher. Interval history: This a 40-year-old gentleman admitted with acute renal failure , possible acute hepatitis, hyponatremia and multiple other medical issues. CT of abdomen and pelvis reporting hepatosplenomegaly, possible portal venous hypertension, cholelithiasis. Chest x-ray reported right upper lobe lung mass with postobstructive atelectasis and possible central mass in the left perihilar region. Chest CT reporting multifocal bilateral consolidation most extensive in and right upper lobe, possible multifocal pneumonia, COPD with mild emphysema, mediastinal lymphadenopathy, likely reactive, mildly enlarged mediastinal lymph nodes in the paratracheal region, cholelithiasis, ectatic ascending aorta, 3.8 cm. maintaining O2 sats of 95% on room air.Maintained on gentle IV fluid hydration, Zosyn. Feels better today. Afebrile, T-max 101.1. Blood cultures ordered and pending. Evaluated by nephrology with recommendations noted. Review of systems: HEENT: Denies headache or focal deficits. Denies any dizziness or lightheadedness. Respiratory: Denies any increased shortness of breath. Cardiac: Denies any chest pain, palpitations. GI: Denies any nausea, vomiting, or diarrhea. Denies any abdominal tenderness. : Denies any dysuria. Denies frequency, denies urgency Psychiatry: Denies any anxiety or depression. Active Medications Acetaminophen (Tylenol Tab) 650 mg PO Q6HR PRN PRN Reason: Mild Pain or Fever > 100.5 Last Admin: 09/20/16 17:20 Dose: 650 mg Hydrocodone Bitart/Acetaminophen ([place] 5-325) 1 each PO Q4HR PRN PRN Reason: Moderate Pain Alprazolam (Xanax) 0.25 mg PO TID PRN PRN Reason: Anxiety Cholecalciferol (Vitamin D3) 1,000 unit PO DAILY [facility] Last Admin: 09/20/16 08:10 Dose: 1,000 unit Hydromorphone HCl (Dilaudid) 0.5 mg IV Q3HR PRN PRN Reason: Severe Pain Sodium Chloride (Saline 0.9%) 1,000 mls @ 75 mls/hr IV .[id number] [facility] Last Admin: 09/20/16 12:40 Dose: 75 mls/hr Piperacillin/Tazobactam/ (Dextrose 3.375 gm/ IV Solution) 50 mls @ 12.5 mls/hr IVPB Q8HR [facility] Last Admin: 09/20/16 16:20 Dose: 12.5 mls/hr Iohexol (Omnipaque 350 Mg/Ml (For Oral Use)) 25 ml PO Q60M PRN PRN Reason: CT Scan Stop: 09/20/16 22:10 Last Admin: 09/20/16 07:10 Dose: 25 ml Levothyroxine Sodium (Synthroid) 137 mcg PO DAILY [facility] Last Admin: 09/20/16 08:10 Dose: 137 mcg Miscellaneous Information (Rx Info: Iv Contrast Was Given) 1 each MISCELLANE DAILY PRN PRN Reason: Per Protocol Stop: 09/22/16 14:51 Naloxone HCl (Narcan) 0.2 mg IV Q2M PRN PRN Reason: Opioid Reversal Ondansetron HCl (Zofran) 4 mg IVP Q8HR PRN PRN Reason: Nausea And Vomiting Pantoprazole Sodium (Protonix) 40 mg PO AC-BRKFST [facility] Last Admin: 09/20/16 08:10 Dose: 40 mg Sodium Bicarbonate (Sodium Bicarbonate Tab) 650 mg PO BID [facility] Last Admin: 09/20/16 14:24 Dose: 650 mg Temazepam (Restoril) 15 mg PO HS PRN PRN Reason: Insomnia Objective - Vital Signs Vital signs: Vital Signs Temp 97.0 F L 09/20/16 15:00 Pulse 90 09/20/16 15:00 Resp 20 09/20/16 15:00 BP 136/91 09/20/16 15:00 Pulse Ox 95 09/20/16 15:00 Intake & Output 09/19/16 09/20/16 09/20/16 18:59 06:59 18:59 Intake Total 600 480 Balance 600 480 Weight 133.81 kg Intake: Oral 600 480 Other: Voiding Method Toilet Toilet Toilet # Voids 1 2 - Exam PHYSICAL EXAM: VITAL SIGNS: As above GENERAL: [Sitting up in bed, no acute distress] HEENT: [Pupils equal conjunctiva normal. No conjunctival pallor, oral mucosa moist] NECK: [Supple, no JVD] RESPIRATORY EFFORT:[ Normal] LUNGS: [Clear to auscultation, fine rate basilar crackles, no wheezes or rhonchi] CARDIOVASCULAR[ regular S1 and S2, no murmurs rubs or gallops, no edema] GI: [Abdomen soft, nontender, positive bowel sounds. No mass palpable. No guarding, no rigidity] PSYCH: [Alert and oriented -3, mood and affect normal.] NEURO: [No focal deficits, moves all 4 extremities, strength and sensation grossly intact] - Labs CBC & Chem 7: 09/20/16 02:59 09/20/16 02:59 Labs: Abnormal Lab Results - Last 24 Hours (Table) 09/19/16 09/20/16 09/20/16 Range/Units 22:29 02:35 02:59 WBC (3.8-10.6) k/uL RBC (4.30-5.90) m/uL Hgb (13.0-17.5) gm/dL Hct (39.0-53.0) % Neutrophils # (Manual) (1.3-7.7) k/uL Monocytes # (Manual) (0-1.0) k/uL PT 12.9 H (9.0-12.0) sec Chloride 109 H (98-107) mmol/L Carbon Dioxide 17 L (22-30) mmol/L BUN 69 H (9-20) mg/dL Creatinine 2.30 H (0.66-1.25) mg/dL Glucose 114 H (74-99) mg/dL AST 66 H (17-59) U/L ALT 91 H (21-72) U/L Alkaline Phosphatase 155 H (38-126) U/L Total Protein 6.0 L (6.3-8.2) g/dL Albumin 2.9 L (3.5-5.0) g/dL Triglycerides 224 H (<150) mg/dL HDL Cholesterol 21 L (40-60) mg/dL Urine Protein 1+ H (Negative) Urine Blood Small H (Negative) Urine Mucus Rare H (None) /hpf 09/20/16 Range/Units 02:59 WBC 11.1 H (3.8-10.6) k/uL RBC 3.63 L (4.30-5.90) m/uL Hgb 12.5 L (13.0-17.5) gm/dL Hct 36.2 L (39.0-53.0) % Neutrophils # (Manual) 8.0 H (1.3-7.7) k/uL Monocytes # (Manual) 1.3 H (0-1.0) k/uL PT (9.0-12.0) sec Chloride (98-107) mmol/L Carbon Dioxide (22-30) mmol/L BUN (9-20) mg/dL Creatinine (0.66-1.25) mg/dL Glucose (74-99) mg/dL AST (17-59) U/L ALT (21-72) U/L Alkaline Phosphatase (38-126) U/L Total Protein (6.3-8.2) g/dL Albumin (3.5-5.0) g/dL Triglycerides (<150) mg/dL HDL Cholesterol (40-60) mg/dL Urine Protein (Negative) Urine Blood (Negative) Urine Mucus (None) /hpf Assessment and Plan Plan: 1. [ Acute renal failure, possibly prerenal acute tubular necrosis with possible acute on chronic renal kidney failure, secondary to poor oral intake, and NSAID use]. 2. [ Elevated LFTs, hepatitis panel negative. 3. [ Chronic liver disease,hepatosplenomegaly]. 4. [ Hypoalbuminemia]. 5. [ Possible chronic pancreatitis with increased lipase and normal amylase]. 6. [ Hyponatremia, resolved]. 7. [ Leukocytosis, possibly reactive]. 8. Obesity, BMI 40 9. History of sleep apnea, uses CPAP 10. Hypothyroidism 11. Nicotine dependence, recently quit on 09/15/2016 12. Cholelithiasis 13. Multifocal bilateral consolidation most extensive in right upper lobe, possible multifocal pneumonia. Postobstructive atelectasis 14. Mediastinal lymphadenopathy, likely reactive 15. COPD, mild emphysema 16. Ectatic ascending aorta 3.8 cm 17. Metabolic acidosis secondary to acute renal failure Plan: Continue on current medication regime , oral sodium bicarb, monitoring and symptomatic treatment. Maintain gentle IV fluid hydration. Pulmonary consult initiated regarding chest CT. GI consulted. Cultures pending.Close monitoring of renal function and electrolytes with repeat labs ordered for a.m. Sister updated including plan a care. Prognosis guarded given multiple complex medical issues. Further recommendations to follow. The impression and plan of care has been dictated as directed. : I performed a H&P examination of this patient and discussed the same with the dictator. I agree with the dictator's note. Any additional findings/opinions/ etc. will be noted.
[2016-09-20] MEDS: LEVOFLOXACIN 750MG-D5W PMX 750 MG in DEXTROSE/WATER 1 150ML.BAG IVPB SCH (20:45)
[2016-09-20] MEDS ORDERED: guaiFENesin SYRUP 100MG/5ML 200 MG/10 ML CUP PO PRN (21:34)
[2016-09-21] MEDS: PIPERACILLIN-TAZOBACTAM 3.375 GM in DEXTROSE/WATER 1 50ML.BAG IVPB SCH ×3 (01:12→15:24)
[2016-09-21] MEDS: SODIUM CHLORIDE 0.9% 1,000 ML IV SCH ×2 (01:13→14:58)
--- NOTE | 2016-09-21 07:15 | XR ---
EXAMINATION TYPE: XR chest 2V DATE OF EXAM: 09/21/2016 HISTORY: pneumonia. REFERENCE: Previous study dated 09/20/2016. FINDINGS: There is slight improvement in the aeration of the right upper lobe. There is improved aera tion in the left upper lobe. The heart is not enlarged. Pleural spaces are clear. IMPRESSION: IMPROVED AERATION, BOTH LUNGS.
[2016-09-21] MEDS: LEVOTHYROXINE 137 MCG TAB PO SCH (07:35)
[2016-09-21] MEDS: SODIUM BICARBONATE TAB 650 MG TAB PO SCH ×2 (07:35→22:26)
[2016-09-21] MEDS: CHOLECALCIFEROL 1,000 UNIT TAB PO SCH (07:36)
[2016-09-21] MEDS: PANTOPRAZOLE 40 MG TABLET PO SCH (07:36)
[2016-09-21 09:02] LABS: ALT 83 U/L (21-72); AST 49 U/L (17-59); Alkaline Phosphatase 125 U/L (38-126); Anion Gap 12 mmol/L; Blood Urea Nitrogen 45 mg/dL (9-20); Calcium 8.9 mg/dL (8.4-10.2); Carbon Dioxide 18 mmol/L (22-30); Chloride 110 mmol/L (98-107); Glucose 197 mg/dL (74-99); Non-African American GFR(MDRD) 52 (>60 ml/min/1.73 sqM); Potassium 4.3 mmol/L (3.5-5.1); Sodium 140 mmol/L (137-145); Total Bilirubin 0.8 mg/dL (0.2-1.3); Total Protein 6.4 g/dL (6.3-8.2)
[2016-09-21 09:12] LABS: Aty Lym Flag Slight; CH 34.9; CHCM 33.8; HCT 38.8 % (39.0-53.0); HDW 2.75; HGB 12.7 gm/dL (13.0-17.5); MCH 34.1 pg (25.0-35.0); MCHC 32.9 g/dL (31.0-37.0); MCV 103.7 fL (80.0-100.0); Macrocytosis Slight; Mean Platelet Volume 9.5; RBC 3.74 m/uL (4.30-5.90); RDW 13.3 % (11.5-15.5); WBC 8.5 k/uL (3.8-10.6); WBC (Perox) 8.24
--- NOTE | 2016-09-21 10:40 | P.CONS ---
History of Present Illness - Reason for Consult Consult date: 09/21/16 Elevated liver enzymes abdominal pain Requesting physician: Guille Christopher - History of Present Illness 40-year-old male with a history of morbid obesity BMI 40, obstructive sleep apnea, diabetes mellitus 2003 presently not on hypoglycemics, hypothyroidism presents with diffuse abdominal discomfort of one week duration with dehydration and decreased urine output flulike symptoms such as fever malaise and weakness. T-max 101.1. Premature blood cultures no growth. Receiving IV antibiotics for pneumonia. Consultation requested for elevated liver enzymes and abdominal pain. CT abdomen and pelvis without contrast secondary to elevated creatinine reported hepatosplenomegaly. Liver 25.9 cm. Cholelithiasis 1.5 cm. No abnormal gallbladder distention. No dilated small bowel free fluid or free air. Splenomegaly 19.1 cm. Lack of IV contrast limited exam therefore 8 mL in the setting of cirrhosis cannot be excluded. No history of known liver disorders. No history of autoimmune disorders. No changes in medications. No history of IVDA or alcoholism. Denies excessive usage of NSAIDs or aspirin. Intentional 25 pound weight loss over the last year secondary to diet and exercise modification. White count 8.5-14.9. Hemoglobin 12.7-13.8. MCV 99- 103. INR 1.3. BUN 78. Creatinine 3.4. Presently creatinine is 1.4. BUN 45. Abdominal pain has improved. No diarrhea. No hematemesis hematochezia or melena. Total bilirubin 0.6-1.0. AST 49-78. ALT 83-92. Alkaline phosphatase 125-196. Lipase 205-516. Triglycerides 224. Review of Systems MConstitutional: Denies fever, chills, sweats, weight gain, or loss. HEENT: Negative for migraines, blurred vision or loss, earaches, drainage, tinnitus, oral mucosal lesions, dysphagia, or odynophagia. Cardiac: Negative for chest pain, arrhythmias, or palpitation. Respiratory: Obstructive sleep apnea. Negative for shortness of breath, hemoptysis, cough, or sputum production. Gastrointestinal: See HPI for pertinent findings. Genitourinary: Negative for hematuria, urgency, frequency, polyuria, dysuria, or penile discharge. Musculoskeletal: Negative for muscle aches, swelling, arthritis, and arthralgias. Neurologic: Negative for stroke or TIA. Endocrine: Diabetes mellitus. Negative for thyroid problems. Skin: Negative for rash or itching. Psychiatric: Negative history for depression and anxiety All systems: negative (See HPI) Past Medical History Past Medical History: Sleep Apnea/CPAP/BIPAP, Thyroid Disorder Additional Past Medical History / Comment(s): Morbid obesity with interval weight loss, obstructive sleep apnea maintained on CPAP, hypothyroidism History of Any Multi-Drug Resistant Organisms: None Reported Additional Past Surgical History / Comment(s): right quad muscle tendon repair, POSTERIOR NECK I&D, OLONOSCOPY. Past Anesthesia/Blood Transfusion Reactions: No Reported Reaction Past Psychological History: No Psychological Hx Reported Additional Psychological History / Comment(s): PT LIVES WITH HIS MOM . NO PETS. HAS 10 STEPS TO ENTER HOME AND SLEEPS IN BASEMENT SO HE HAD 15 STEPS TO GO DOWN. NO OUTSIDE SERVICES RECIEVIED, HAS A CPAP MACHINE. Smoking Status: Former smoker Past Alcohol Use History: None Reported Additional Past Alcohol Use History / Comment(s): STARTED SMOKING IN 1993 ,QUIT 09-15-16 WAS SMOKING 1.5 PPD Past Drug Use History: None Reported - Past Family History Father Family Medical History: No Reported History Additional Family Medical History / Comment(s): FATHER'S DAD HAD COLON CANCER Mother Family Medical History: Cancer Additional Family Medical History / Comment(s): COLON CANCER Medications and Allergies Home Medications Medication Instructions Recorded Confirmed Type Acetaminophen [Tylenol] 1,500 mg PO Q6H PRN 09/19/16 09/19/16 History Cholecalciferol [Vitamin D3] 1,000 units PO DAILY 09/19/16 09/19/16 History Levothyroxine Sodium [Synthroid] 137 mcg PO DAILY 09/19/16 09/19/16 History Naproxen Sodium [Aleve] 660 mg PO DAILY PRN 09/19/16 09/19/16 History [place]-3/Dha/Epa/Fish Oil [Fish Oil 1 cap PO DAILY 09/19/16 09/19/16 History 1,000 mg Softgel] Allergies Allergy/AdvReac Type Severity Reaction Status Date / Time aspirin AdvReac Swelling Verified 09/19/16 11:42 Physical Exam Vitals: Vital Signs Temp Pulse Resp BP Pulse Ox 09/21/16 07:00 98.5 F 86 18 137/83 94 L 09/20/16 23:00 99.2 F 20 144/87 97 09/20/16 15:00 97.0 F L 90 20 136/91 95 Intake and Output 09/20/16 09/21/16 09/21/16 22:59 06:59 14:59 Intake Total 400 100 200 Balance 400 100 200 Intake: Oral 400 100 200 Other: Voiding Method Toilet Toilet # Voids 2 General appearance: The patient is alert, oriented, in no acute distress. HET: Head is normocephalic and atraumatic. Pupils are equal and reactive. Oropharynx is clear without lesions. Neck: Supple without lymphadenopathy. Trachea midline. Heart: S1 S2. Regular rate and rhythm. Lungs: No crackles or wheezes are heard. Abdomen: Soft, very mild tenderness to the midabdomen, nondistended with bowel sounds. No peritoneal signs. Palpable hepatomegaly; 4 finger breath below right costal margin. Extremities: Normal skin color and turgor. No cyanosis, rash, ulceration, clubbing, or edema. Radial and pedal pulses are 2/4 bilaterally. Neurological: No focal deficits. Strength and sensation are grossly intact. Results CBC & Chem 7: 09/21/16 08:24 09/21/16 08:24 Labs: Abnormal Lab Results - Last 24 Hours (Table) 09/21/16 09/21/16 Range/Units 08:24 08:24 RBC 3.74 L (4.30-5.90) m/uL Hgb 12.7 L (13.0-17.5) gm/dL Hct 38.8 L (39.0-53.0) % MCV 103.7 H (80.0-100.0) fL Chloride 110 H (98-107) mmol/L Carbon Dioxide 18 L (22-30) mmol/L BUN 45 H (9-20) mg/dL Creatinine 1.48 H (0.66-1.25) mg/dL Glucose 197 H (74-99) mg/dL ALT 83 H (21-72) U/L Albumin 3.0 L (3.5-5.0) g/dL Microbiology - Last 24 Hours (Table) 09/20/16 02:59 Blood Culture - Preliminary Blood No Growth after 24 hours 09/20/16 02:31 Blood Culture - Preliminary Blood No Growth after [address] scan - abdomen: report reviewed (Dr. Harley) Assessment and Plan (1) Elevated liver enzymes Narrative/Plan: Possible NAFLD steatohepatitis. Autoimmune disease cannot be excluded. Status: Acute (2) Hepatosplenomegaly Status: Chronic (3) Morbid obesity with BMI of 40.0-44.9, adult Status: Chronic (4) Pneumonia Status: Acute (5) Cholelithiasis Status: Chronic (6) Acute renal injury Status: Acute Plan: 1. We'll start with MRCP as it does not require IV contrast secondary patient' s acute kidney injury on admission. If unable to proceed with MR imaging secondary to body habitus would advise repeat computed tomography scan with IV contrast in the next 24-48 hours secondary to stabilization of kidney function. 2. Full serologic workup for chronic liver disease/autoimmune. AFP/CEA. 3. Liver biopsy not planned at this time but contingent on clinical course and abdominal imaging. Outpatient open MRI consideration if unable to be pursued during this hospitalization. 4. Will follow with you. Thank you for this kind referral and the opportunity to participate in the care of your patient. This consultation was discussed with Dr. Harley. The impression and plan of care have been directed as dictated.
[2016-09-21] MEDS ORDERED: RX INFO: IV CONTRAST WAS GIVEN 1 EACH MISC MISCELLANE PRN (11:01)
[2016-09-21 11:04] LABS: Add Differential Manual Differential
[2016-09-21 11:06] LABS: Nucleated Red Blood Cells 0 /100 WBC (0-0)
[2016-09-21 11:08] LABS: Band Neutrophils % 1.5 %; Manual Review Performed; Myelocytes % 2.5 %; Total Cells Counted 200
--- NOTE | 2016-09-21 11:33 | PN ---
DATE OF SERVICE: 09/20/2016 This is a 40-year-old gentleman who was admitted with acute renal failure, also possibly had . Patient also had right upper lobe lung lesions also. Seen and evaluated the patient with the nurse practitioner, please see the nurse practitioner notes and impression document as ascribed for further information. The renal failure is slightly improved, but I would recommend a CAT scan of the chest and empiric antibiotics as well as consult Dr. Kline and also Gastroenterology consultation, possibly. Liver biopsy for further evaluation, also. Once again, overall prognosis extremely guarded and further recommendations to follow. Discussed with the family at length and patient. MTDD
--- NOTE | 2016-09-21 13:37 | PN ---
Patient is seen for followup for acute kidney injury. He is admitted with a creatinine of 3.47. Patient had a history of use of NSAIDs prior to admission. His blood pressure was not significantly low. He is currently maintained on IV fluids. Renal function has improved with creatinine now down to 1.48 mg/dL. On examination, blood pressure is 137/83, heart rate 86 per minute. He is afebrile. HEART: S1 and S2. LUNGS: Bilateral breath sounds are heard. ABDOMEN: Soft, nontender. Lower extremities show no significant edema. 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 Labs show serum creatinine down to 1.48, sodium 140, potassium 4.3. Hemoglobin 12.7 g/dL. ASSESSMENT: 1. Acute kidney injury secondary to nonsteroidal anti-inflammatory drugs, currently improved. 2. Elevated liver enzymes being worked up by Gastroenterology. 3. Metabolic acidosis associated with renal failure, maintained on oral sodium bicarb. PLAN: Continue IV fluids. Continue to encourage increased oral intake. Patient is advised regarding avoiding use of NSAIDs.
--- NOTE | 2016-09-21 13:47 | P.PN ---
Subjective [id number]old male patient, morbidly obese with history of obstructive sleep apnea, comes in to the hospital upon the request of his primary care physician for diminished urine output and acute kidney injury. The patient apparently had symptoms of upper is been checked infection approximately 10 days ago. Subsequently started having increased cough and congestion diminished appetite and nausea. He was unable to take oral intake and he was trying to keep up with his fluid intake. He was not feeling better. He went to his primary care physician's office and he was found to have abnormal labs where he was found to be in acute kidney injury with a creatinine of 3.4 and he also had some leukocytosis with a white cell count of 14.9. Based on that, the patient was advised to come into the hospital for further evaluation and treatment. Since his arrival, the patient was started on IV fluids and the creatinine is over the improving. The chest x-ray showed abnormal increased attenuation in the right upper lobe and central increased density in the perihilar area. Based on that a CAT scan of the chest was ordered which obviously got done without contrast and it showed multifocal bilateral consolidation which is quite extensive within the right upper lobe. There was also nonenlarged and mildly enlarged magistral live adenopathy that were likely reactive. The patient also has cholelithiasis and splenomegaly. CAT scan of the abdomen and pelvis was also completed and showed hepatosplenomegaly and some nonspecific findings to indicate portal hypertension. The patient is nonalcoholic. He is a nonsmoker. No 70 chronic lung disease. Previous bouts of pneumonias. No history of any GI bleeding. He is currently on IV Zosyn. He was seen by nephrology and the creatinine is improving with fluid resuscitation. The hepatitis profile is negative. Urine drug screen is also negative. UA is also negative. On 09/21/2016 the patient is being seen in follow-up. He has no specific complaints. Is improving considerably. He is less short of breath. Minimal cough and congestion. Chest x-ray shows marked improvement in aeration in the right upper lobe. The pneumonia is also improving. At the same time the patient is being resuscitated IV fluids. The patient has improvement in renal function. He is producing adequate amount of urine output. The patient was also able to bring in his CPAP machine from home. I checked a CPAP machine and the pressure was set at a pressure of 13 cm of water which the patient was unable to tolerate. I dropped a CPAP pressure to 11 cm of water to make him more comfortable as the patient lost weight and he may require lower CPAP pressures regarding his obstructive sleep apnea. Objective - Vital Signs Vital signs: Vital Signs Temp 98.5 F 09/21/16 07:00 Pulse 86 09/21/16 07:00 Resp 18 09/21/16 07:00 BP 137/83 09/21/16 07:00 Pulse Ox 94 L 09/21/16 07:00 Intake & Output 09/20/16 09/21/16 09/21/16 18:59 06:59 18:59 Intake Total 480 500 200 Balance 480 500 200 Intake: Oral 480 500 200 Other: Voiding Method Toilet Toilet Toilet # Voids 2 2 2 - Exam Head exam was generally normal. There was no scleral icterus or corneal arcus. Mucous membranes were moist.Neck was supple and without jugular venous distension, thyromegaly, or carotid bruits. Carotids were easily palpable bilaterally. There was no adenopathy. The patient has significant crowding of the posterior oropharynx. No goiter or neck masses. Lungs are diminished bilaterally along with some few scattered crackles over the anterior part of the right chest.Cardiac exam revealed the PMI to be normally situated and sized. The rhythm was regular and no extrasystoles were noted during several minutes of auscultation. The first and second heart sounds were normal and physiologic splitting of the second heart sound was noted. There were no murmurs , rubs, clicks, or gallops. Abdomen soft nontender obese and the patient's has no organomegaly. No direct tenderness or rebound tenderness or guarding.Examination of the extremities revealed easily palpable radial, femoral and pedal pulses. There was no cyanosis, clubbing or edema. - Labs CBC & Chem 7: 09/21/16 08:24 09/21/16 08:24 Labs: Abnormal Lab Results - Last 24 Hours (Table) 09/21/16 09/21/16 Range/Units 08:24 08:24 RBC 3.74 L (4.30-5.90) m/uL Hgb 12.7 L (13.0-17.5) gm/dL Hct 38.8 L (39.0-53.0) % MCV 103.7 H (80.0-100.0) fL Chloride 110 H (98-107) mmol/L Carbon Dioxide 18 L (22-30) mmol/L BUN 45 H (9-20) mg/dL Creatinine 1.48 H (0.66-1.25) mg/dL Glucose 197 H (74-99) mg/dL ALT 83 H (21-72) U/L Albumin 3.0 L (3.5-5.0) g/dL Microbiology - Last 24 Hours (Table) 09/20/16 02:59 Blood Culture - Preliminary Blood No Growth after 24 hours 09/20/16 02:31 Blood Culture - Preliminary Blood No Growth after 24 hours Assessment and Plan Plan: Assessment 1 acute bilateral multi lobar pneumonia mostly involving the right upper lobe. Despite the extensive consolidation, the patient is still maintaining a pulse ox of above 90% on room air. No signs of an acute septicemia this point. 2 mild leukocytosis, improving 3 acute kidney injury secondary to intravascular volume depletion improving with fluid resuscitation ,improving and the creatinine is down to 1.4 4 morbid obesity 5 obstructive sleep apnea maintained on CPAP on outpatient basis 6 hypothyroidism 7 hepatoslenomegaly with abnormal liver function tests. Rule out fatty liver. Rule out non-alcoholics and hepatitis. 8 nonspecific elevation of lipase, improved. Plan Proceed with broad-spectrum antibiotics. The patient will be given a combination of Zosyn and Levaquin. All of the cultures of been negative thus far. Meanwhile the patient is clinically improving. Chest x-ray shows marked improvement in aeration bilaterally especially in the patient's present in the right upper lobe. The patient will continue with IV fluids. Renal function is improving and creatinine is down to 1.4. White cell count is also improving. His CPAP pressure was lowered down to 11 cm of water. We will continue to follow make further recommendations based on his progress. Liver functions also improved. Follow-up chest x-ray in a.m.
[2016-09-21 16:06] LABS: % Iron Saturation 36.1 % (20-50)
--- NOTE | 2016-09-21 18:54 | P.PN ---
Subjective Date of service 09/21/2016. Personal being dictated for Dr. Christopher. Interval history: This a 40-year-old gentleman admitted with acute renal failure , possible acute hepatitis, hepatosplenomegaly ,hyponatremia and multiple other medical issues. Evaluated by GI with recommendations noted. MRCP pending. Feels significantly better today, maintaining O2 sats of 97% on room air.chest x -ray reporting improved aeration of bilateral lungs. Maintained on gentle IV fluid hydration, antibiotics. Renal function continues to improve. Afebrile. Pulmonary Blood cultures negative. Patient has his own CPAP machine at bedside, settings adjusted as per pulmonary. Review of systems: HEENT: Denies headache or focal deficits. Respiratory: Denies any increased shortness of breath. Cardiac: Denies any chest pain, palpitations. GI: Denies any nausea, vomiting, or diarrhea. Denies any abdominal tenderness. : Denies any dysuria. Denies frequency, denies urgency Psychiatry: Denies any anxiety or depression. Active Medications Generic Name Dose Route Start Last Admin Trade Name Freq PRN Reason Stop Dose Admin Acetaminophen 650 mg 09/19/16 13:37 09/20/16 17:20 Tylenol Tab PO 650 mg Q6HR PRN Administration Mild Pain or Fever > 100.5 Hydrocodone Bitart/Acetaminophen 1 each 09/19/16 13:37 [place] 5-325 PO Q4HR PRN Moderate Pain Alprazolam 0.25 mg 09/19/16 22:10 Xanax PO TID PRN Anxiety Cholecalciferol 1,000 unit 09/20/16 09:00 09/21/16 07:36 Vitamin D3 PO 1,000 unit DAILY DEA Administration Guaifenesin 200 mg 09/20/16 21:34 Robitussin PO TID PRN Cough Hydromorphone HCl 0.5 mg 09/19/16 22:11 Dilaudid IV Q3HR PRN Severe Pain Sodium Chloride 1,000 mls @ 75 mls/hr 09/19/16 22:15 09/21/16 14:58 Saline 0.9% IV Not Given .[id number] DEA Piperacillin/Tazobactam/ 50 mls @ 12.5 mls/hr 09/20/16 16:00 09/21/16 15:24 Dextrose 3.375 gm/ IV Solution IVPB 12.5 mls/hr Q8HR DEA Administration Levofloxacin 750 mg/ IV 150 mls @ 100 mls/hr 09/20/16 19:00 09/20/16 20:45 Solution IVPB 100 mls/hr Q24H DEA Administration Levothyroxine Sodium 137 mcg 09/20/16 09:00 09/21/16 07:35 Synthroid PO 137 mcg DAILY DEA Administration Miscellaneous Information 1 each 09/20/16 14:50 Rx Info: Iv Contrast Was Given MISCELLANE 09/22/16 14:51 DAILY PRN Per Protocol Miscellaneous Information 1 each 09/21/16 11:01 Rx Info: Iv Contrast Was Given MISCELLANE 09/23/16 11:01 DAILY PRN Per Protocol Naloxone HCl 0.2 mg 09/19/16 13:37 Narcan IV Q2M PRN Opioid Reversal Ondansetron HCl 4 mg 09/19/16 13:37 Zofran IVP Q8HR PRN Nausea And Vomiting Pantoprazole Sodium 40 mg 09/20/16 07:30 09/21/16 07:36 Protonix PO 40 mg [id number] DEA Administration Sodium Bicarbonate 650 mg 09/20/16 13:00 09/21/16 07:35 Sodium Bicarbonate Tab PO 650 mg BID DEA Administration Temazepam 15 mg 09/19/16 22:10 Restoril PO HS PRN Insomnia Objective - Vital Signs Vital signs: Vital Signs Temp 97.1 F L 09/21/16 15:00 Pulse 101 H 09/21/16 15:00 Resp 16 09/21/16 15:00 BP 148/80 09/21/16 15:00 Pulse Ox 97 09/21/16 15:00 Intake & Output 09/20/16 09/21/16 09/21/16 18:59 06:59 18:59 Intake Total 480 500 200 Balance 480 500 200 Intake: Oral 480 500 200 Other: Voiding Method Toilet Toilet Toilet # Voids 2 2 2 - Exam PHYSICAL EXAM: VITAL SIGNS: As above GENERAL: [Sitting up in bed, no acute distress] HEENT: [Pupils equal conjunctiva normal. No conjunctival pallor, oral mucosa moist] NECK: [Supple, no JVD] RESPIRATORY EFFORT:[ Normal] LUNGS: [Clear to auscultation, fine rate basilar crackles, no wheezes or rhonchi] CARDIOVASCULAR[ regular S1 and S2, no murmurs rubs or gallops, no edema] GI: [Abdomen soft, nontender, positive bowel sounds. No mass palpable. No rebound, No guarding, no rigidity] PSYCH: [Alert and oriented -3, mood and affect normal.] NEURO: [No focal deficits, moves all 4 extremities, strength and sensation grossly intact] - Labs CBC & Chem 7: 09/21/16 08:24 09/21/16 08:24 Labs: Abnormal Lab Results - Last 24 Hours (Table) 09/21/16 09/21/16 09/21/16 Range/Units 08:24 08:24 08:24 RBC 3.74 L (4.30-5.90) m/uL Hgb 12.7 L (13.0-17.5) gm/dL Hct 38.8 L (39.0-53.0) % MCV 103.7 H (80.0-100.0) fL Chloride 110 H (98-107) mmol/L Carbon Dioxide 18 L (22-30) mmol/L BUN 45 H (9-20) mg/dL Creatinine 1.48 H (0.66-1.25) mg/dL Glucose 197 H (74-99) mg/dL TIBC 252 L (261-462) ug/dL Ferritin 587 H (18-464) ng/mL ALT 83 H (21-72) U/L Albumin 3.0 L (3.5-5.0) g/dL Microbiology - Last 24 Hours (Table) 09/20/16 02:59 Blood Culture - Preliminary Blood No Growth after 24 hours 09/20/16 02:31 Blood Culture - Preliminary Blood No Growth after 24 hours Assessment and Plan Plan: 1. [ Acute renal failure, possibly prerenal acute tubular necrosis with possible acute on chronic renal kidney failure, secondary to poor oral intake, and NSAID use, improving]. 2. [ Elevated LFTs, hepatitis panel negative. 3. [ Chronic liver disease,hepatosplenomegaly]. 4. [ Hypoalbuminemia]. 5. [ Possible chronic pancreatitis with increased lipase and normal amylase]. 6. [ Hyponatremia, resolved]. 7. [ Leukocytosis, possibly reactive, improving]. 8. Obesity, BMI 40 9. History of sleep apnea, uses CPAP 10. Hypothyroidism 11. Nicotine dependence, recently quit on 09/15/2016 12. Cholelithiasis, chronic 13. Multifocal-multilobar pneumonia-most extensive in the right upper lobe. Postobstructive atelectasis 14. Mediastinal lymphadenopathy, likely reactive 15. COPD, mild emphysema 16. Ectatic ascending aorta 3.8 cm 17. Metabolic acidosis secondary to acute renal failure Plan: Continue on current medication regime , oral sodium bicarb, Zosyn, Levaquin ,monitoring and symptomatic treatment. GI workup in progress. Liver biopsy on hold, pending MRCP. Possible outpatient MRI. Maintain gentle IV fluid hydration. Follow Cultures closely.Close monitoring of renal function and electrolytes with repeat labs ordered for a.m. Prognosis guarded given multiple complex medical issues. Further recommendations to follow. The impression and plan of care has been dictated as directed. : I performed a H&P examination of this patient and discussed the same with the dictator. I agree with the dictator's note. Any additional findings/opinions/ etc. will be noted.
[2016-09-21] MEDS: LEVOFLOXACIN 750MG-D5W PMX 750 MG in DEXTROSE/WATER 1 150ML.BAG IVPB SCH (22:26)
--- NOTE | 2016-09-21 22:56 | PN ---
DATE OF SERVICE: 09/21/2016 This 40-year-old gentleman who was admitted with acute renal failure also had hepatosplenomegaly. Multiple consultants are following the patient closely. Seen and evaluated the patient along with the nurse practitioner. Please refer to the nurse practitioner's notes and impressions documented as a scribe for further information. MRI has been recommended. The liver function is improving at this time. Further recommendations to follow.
[2016-09-22] MEDS: PIPERACILLIN-TAZOBACTAM 3.375 GM in DEXTROSE/WATER 1 50ML.BAG IVPB SCH ×3 (00:21→15:24)
[2016-09-22] MEDS: SODIUM CHLORIDE 0.9% 1,000 ML IV SCH (06:30)
--- NOTE | 2016-09-22 07:32 | XR ---
EXAMINATION TYPE: XR chest 2V DATE OF EXAM: 09/22/2016 COMPARISON: Chest x-ray from yesterday and older exams through September 20, 2016. CT chest September 20, 2016. HISTORY: Pneumonia progress study. TECHNIQUE: Frontal and lateral views of the chest are obtained. FINDINGS: There is is persistent right upper lobe opacity and less pronounced left suprahilar opacit y. No pleural effusion or pneumothorax is seen bilaterally. No distinct mediastinal shift is noted. The cardiac silhouette size is within normal limits. The osseous structures are intact. IMPRESSION: Dense right upper lobe pneumonia and superior left lower lobe pneumonia both redemonstra [place]. No significant change from prior studies.
[2016-09-22] MEDS: SODIUM BICARBONATE TAB 650 MG TAB PO SCH ×2 (08:53→20:18)
[2016-09-22] MEDS: CHOLECALCIFEROL 1,000 UNIT TAB PO SCH (08:53)
[2016-09-22] MEDS: LEVOTHYROXINE 137 MCG TAB PO SCH (08:53)
[2016-09-22] MEDS: PANTOPRAZOLE 40 MG TABLET PO SCH (08:54)
[2016-09-22 09:25] LABS: ALT 68 U/L (21-72); AST 36 U/L (17-59); Alkaline Phosphatase 109 U/L (38-126); Anion Gap 7 mmol/L; Blood Urea Nitrogen 30 mg/dL (9-20); Calcium 8.9 mg/dL (8.4-10.2); Carbon Dioxide 24 mmol/L (22-30); Chloride 111 mmol/L (98-107); Glucose 124 mg/dL (74-99); Non-African American GFR(MDRD) 60 (>60 ml/min/1.73 sqM); Potassium 4.5 mmol/L (3.5-5.1); Sodium 142 mmol/L (137-145); Total Bilirubin 0.8 mg/dL (0.2-1.3); Total Protein 6.6 g/dL (6.3-8.2)
[2016-09-22 09:57] LABS: Aty Lym Flag Slight; CH 34.7; CHCM 34.3; HCT 36.8 % (39.0-53.0); HDW 2.92; HGB 12.9 gm/dL (13.0-17.5); MCH 35.6 pg (25.0-35.0); MCHC 35.1 g/dL (31.0-37.0); MCV 101.5 fL (80.0-100.0); Mean Platelet Volume 8.8; RBC 3.63 m/uL (4.30-5.90); RDW 12.7 % (11.5-15.5); WBC 9.5 k/uL (3.8-10.6); WBC (Perox) 10.01
[2016-09-22 10:39] LABS: Add Differential Manual Differential
[2016-09-22 10:41] LABS: Nucleated Red Blood Cells 0 /100 WBC (0-0); Polychromasia Present; Total Cells Counted 200
--- NOTE | 2016-09-22 13:49 | P.PN ---
Subjective 40-year-old male patient, morbidly obese with history of obstructive sleep apnea , comes in to the hospital upon the request of his primary care physician for diminished urine output and acute kidney injury. The patient apparently had symptoms of upper is been checked infection approximately 10 days ago. Subsequently started having increased cough and congestion diminished appetite and nausea. He was unable to take oral intake and he was trying to keep up with his fluid intake. He was not feeling better. He went to his primary care physician's office and he was found to have abnormal labs where he was found to be in acute kidney injury with a creatinine of 3.4 and he also had some leukocytosis with a white cell count of 14.9. Based on that, the patient was advised to come into the hospital for further evaluation and treatment. Since his arrival, the patient was started on IV fluids and the creatinine is over the improving. The chest x-ray showed abnormal increased attenuation in the right upper lobe and central increased density in the perihilar area. Based on that a CAT scan of the chest was ordered which obviously got done without contrast and it showed multifocal bilateral consolidation which is quite extensive within the right upper lobe. There was also nonenlarged and mildly enlarged magistral live adenopathy that were likely reactive. The patient also has cholelithiasis and splenomegaly. CAT scan of the abdomen and pelvis was also completed and showed hepatosplenomegaly and some nonspecific findings to indicate portal hypertension. The patient is nonalcoholic. He is a nonsmoker. No 70 chronic lung disease. Previous bouts of pneumonias. No history of any GI bleeding. He is currently on IV Zosyn. He was seen by nephrology and the creatinine is improving with fluid resuscitation. The hepatitis profile is negative. Urine drug screen is also negative. UA is also negative. On 09/21/2016 the patient is being seen in follow-up. He has no specific complaints. Is improving considerably. He is less short of breath. Minimal cough and congestion. Chest x-ray shows marked improvement in aeration in the right upper lobe. The pneumonia is also improving. At the same time the patient is being resuscitated IV fluids. The patient has improvement in renal function. He is producing adequate amount of urine output. The patient was also able to bring in his CPAP machine from home. I checked a CPAP machine and the pressure was set at a pressure of 13 cm of water which the patient was unable to tolerate. I dropped a CPAP pressure to 11 cm of water to make him more comfortable as the patient lost weight and he may require lower CPAP pressures regarding his obstructive sleep apnea. The patient is seen again today 09/22/2016 on the regular medical floor. He is awake and alert in no acute distress. He is feeling pretty much back to his baseline. Unfortunately his chest x-ray continues to show significant right upper lobe infiltrate. He denies any worsening shortness of breath. He has a dry nonproductive cough. No chills or night sweats. He is maintaining good O2 saturations in the upper 90s on room air. He's been afebrile. No leukocytosis. Hemoglobin 12.9. Creatinine improved to 1.32. He remains on Levaquin and Zosyn. Objective - Vital Signs Vital signs: Vital Signs Temp 97.6 F 09/22/16 07:00 Pulse 77 09/22/16 07:00 Resp 16 09/22/16 07:00 BP 145/74 09/22/16 07:00 Pulse Ox 96 09/22/16 07:00 Intake & Output 09/21/16 09/22/16 09/22/16 18:59 06:59 18:59 Intake Total 200 Balance 200 Intake: Oral 200 Other: Voiding Method Toilet Toilet # Voids 2 0 - Exam GENERAL EXAM: Alert, active, comfortable in no apparent distress. HEAD: Normocephalic. EYES: Normal reaction of pupils, equal size. NOSE: Clear with pink turbinates. THROAT: No erythema or exudates. NECK: No masses, no JVD. CHEST: No chest wall deformity. LUNGS: Equal air entry with no crackles, wheeze, rhonchi or dullness. CVS: S1 and S2 normal with no audible murmurs, regular rhythm. ABDOMEN: No hepatosplenomegaly, normal bowel sounds, no guarding or rigidity. SPINE: No scoliosis or deformity SKIN: No rashes CENTRAL NERVOUS SYSTEM: No focal deficits, tone is normal in all 4 extremities. Extremities: There is no significant peripheral edema. No clubbing, no cyanosis. Peripheral pulses are intact. - Labs CBC & Chem 7: 09/22/16 08:32 09/22/16 08:32 Labs: Abnormal Lab Results - Last 24 Hours (Table) 09/21/16 09/22/16 09/22/16 Range/Units 08:24 08:32 08:32 RBC 3.63 L (4.30-5.90) m/uL Hgb 12.9 L (13.0-17.5) gm/dL Hct 36.8 L (39.0-53.0) % MCV 101.5 H (80.0-100.0) fL MCH 35.6 H (25.0-35.0) pg Monocytes # (Manual) 1.1 H (0-1.0) k/uL Chloride 111 H (98-107) mmol/L BUN 30 H (9-20) mg/dL Creatinine 1.32 H (0.66-1.25) mg/dL Glucose 124 H (74-99) mg/dL TIBC 252 L (261-462) ug/dL Ferritin 587 H (18-464) ng/mL Albumin 2.9 L (3.5-5.0) g/dL Microbiology - Last 24 Hours (Table) 09/20/16 02:59 Blood Culture - Preliminary Blood No Growth after 48 hours 09/20/16 02:31 Blood Culture - Preliminary Blood No Growth after 48 hours 09/21/16 07:55 Gram Stain - Preliminary Sputum Assessment and Plan Plan: Assessment 1 acute bilateral multi lobar pneumonia mostly involving the right upper lobe. Despite the extensive consolidation, the patient is still maintaining a pulse ox of above 90% on room air. No signs of an acute septicemia this point. 2 mild leukocytosis, improving 3 acute kidney injury secondary to intravascular volume depletion improving with fluid resuscitation ,improving and the creatinine is down to 1.32 4 morbid obesity 5 obstructive sleep apnea maintained on CPAP on outpatient basis 6 hypothyroidism 7 hepatoslenomegaly with abnormal liver function tests. Rule out fatty liver. Rule out non-alcoholics and hepatitis. 8 nonspecific elevation of lipase, improved. Plan The patient was seen and evaluated by Dr. Kline. His chest x-ray and labs were reviewed. There is continued bilateral multilobar pneumonia more so on the right upper lobe. The patient is improved clinically however. We'll continue his current antibiotics. We will increase his activity as tolerated. We'll continue to follow.
--- NOTE | 2016-09-22 15:12 | PN ---
Patient is being followed for acute kidney injury; creatinine at admission 3.5 and has been improving, down to 1.48 yesterday. There was concern about NSAID-related nephrotoxicity. Patient overall has been doing well with his cramps, pain, sputum from yesterday showing a few yeast along with Gram-positive bacilli along with rare Gram-negative bacilli. He is overall feeling well and wants to go home. No overnight events. Patient was also noticed to have some elevation in liver enzymes. He denies any heavy alcohol intake. GI consultation has been placed. PHYSICAL EXAMINATION: VITAL SIGNS: Afebrile. Blood pressure 145/74. Saturations 96% on room air. GENERAL APPEARANCE: Patient is sitting comfortably in bed. No acute distress. LUNGS: Clear to auscultation bilaterally. CARDIOVASCULAR: Regular rate, rhythm. S1, S2. ABDOMEN: Soft, nontender, obese. EXTREMITIES: Bilateral pulses. No edema. LABS: Not done today. Yesterday creatinine was 1.49. IMPRESSION: 1. Non-oliguric acute kidney injury, likely some competent of heavy non-steroidal anti-inflammatory drugs use. Creatinine improved down to 1.5. No previous known creatinine. 2. Metabolic acidosis; component of dilutional acidosis along with underlying renal insufficiency. RECOMMENDATIONS: 1. Monitor off the IV fluids. 2. Check BMP. 3. From nephro standpoint, if creatinine continues to improve or remains stable, patient okay to be discharged with close followup with Dr. Desai outpatient. 4. If bicarbonate continues to remain, can start on oral sodium bicarbonate 650 b.i.d. Expect the bicarb to improve as the renal function continues to improve also after stopping IV fluids.
[2016-09-22] MEDS: LEVOFLOXACIN 750MG-D5W PMX 750 MG in DEXTROSE/WATER 1 150ML.BAG IVPB SCH (20:18)
[2016-09-23] MEDS: PIPERACILLIN-TAZOBACTAM 3.375 GM in DEXTROSE/WATER 1 50ML.BAG IVPB SCH ×2 (00:14→07:52)
[2016-09-23 07:19] VITALS: RESP 16
--- NOTE | 2016-09-23 07:22 | XR ---
EXAMINATION TYPE: XR chest 2V DATE OF EXAM: 09/23/2016 COMPARISON: Chest x-ray from yesterday and older studies through September 20, 2016. HISTORY: Pneumonia progress study. TECHNIQUE: Frontal and lateral views of the chest are obtained. FINDINGS: There is is persistent right upper lobe opacity and less pronounced left suprahilar opacit y. No new focal airspace opacity, pleural effusion, or pneumothorax is seen bilaterally. No distinct mediastinal shift is noted. The cardiac silhouette size remains within normal limits. The osseous str uctures are intact. IMPRESSION: Overall stable findings, dense right upper lobe consolidation with left suprahilar infil trate. No new infiltrate is seen.
[2016-09-23] MEDS: LEVOTHYROXINE 137 MCG TAB PO SCH (07:51)
[2016-09-23] MEDS: PANTOPRAZOLE 40 MG TABLET PO SCH (07:51)
[2016-09-23] MEDS: CHOLECALCIFEROL 1,000 UNIT TAB PO SCH (07:51)
[2016-09-23] MEDS: SODIUM BICARBONATE TAB 650 MG TAB PO SCH (07:52)
--- NOTE | 2016-09-23 09:18 | PN ---
DATE OF SERVICE: 09/22/2016 This 40-year-old gentleman who was admitted with acute renal failure with possible acute tubular necrosis being closely monitored at this time. The patient's LFTs are also much improved significantly. No fever. No cough. On exam, alert and oriented x3. Pulse is 79, blood pressure 137/70, respirations 18, temperature 96.4, pulse ox 98% on room air. HEENT: Conjunctivae normal. NECK: No jugular venous distention. CARDIOVASCULAR: S1 and S2, muffled. RESPIRATORY: Breath sounds diminished at the bases. Scattered rhonchi. ABDOMEN: Soft, nontender. LEGS: No edema, no swelling. NERVOUS SYSTEM: No focal deficits. LABS: WBC 9, hemoglobin 12.9. LFTs are noted significantly improved. Chest x-ray, which I personally reviewed, shows bilateral shadows, which is improving. ASSESSMENT: 1. Acute renal failure, possibly prerenal acute tubular necrosis with acute on chronic renal failure secondary to poor p.o. intake, NSAIDs, improving. 2. Elevated liver function tests, hepatitis panel negative. 3. Chronic liver disease, hepatosplenomegaly for evaluation. 4. Right upper lobe and bilateral pneumonia, possibly gram-negative. 5. Hypoalbuminemia. 6. Possible chronic pancreatitis, increased amylase and lipase. 7. Hyponatremia resolved. 8. Leukocytosis, possibly reactive. 9. Obesity with body mass index of 40. 10. Obstructive sleep apnea, uses CPAP. 11. Hypothyroidism. 12. History of nicotine dependence. 13. History of cholelithiasis, chronic. 14. Multifocal multilobar pneumonia, most extensive in the right upper lobe with a postobstructive atelectasis. 15. lymphadenopathy likely reactive. 16. Chronic obstructive pulmonary disease and mild emphysema. 17. Ectatic ascending aortic aneurysm of 3.8 cm. 18. Metabolic secondary to acute renal failure. 19. FULL CODE. 20. Obesity with body mass index of 40. RECOMMENDATIONS AND DISCUSSION: This 40-year-old gentleman who presented the multiple complex medical issues, we will monitor the patient closely, continue the current medications, continue with symptomatic treatment. I recommend to continue broad spectrum IV antibiotics. Otherwise, closely follow with Dr. Kline. Guarded prognosis because of multiple complex medical issues. Further recommendations to follow. See orders for details. MTDD
[2016-09-23 09:19] LABS: Aty Lym Flag Slight; HCT 36.4 % (39.0-53.0); HDW 2.94; HGB 12.6 gm/dL (13.0-17.5); MCH 34.7 pg (25.0-35.0); MCHC 34.6 g/dL (31.0-37.0); MCV 100.4 fL (80.0-100.0); Mean Platelet Volume 8.7; RBC 3.63 m/uL (4.30-5.90); RDW 12.6 % (11.5-15.5); WBC 9.7 k/uL (3.8-10.6)
[2016-09-23 09:28] LABS: ALT 54 U/L (21-72); AST 29 U/L (17-59); Alkaline Phosphatase 96 U/L (38-126); Anion Gap 9 mmol/L; Blood Urea Nitrogen 22 mg/dL (9-20); Calcium 8.7 mg/dL (8.4-10.2); Carbon Dioxide 23 mmol/L (22-30); Chloride 110 mmol/L (98-107); Glucose 119 mg/dL (74-99); Non-African American GFR(MDRD) >60 (>60 ml/min/1.73 sqM); Potassium 4.3 mmol/L (3.5-5.1); Sodium 142 mmol/L (137-145); Total Bilirubin 0.9 mg/dL (0.2-1.3); Total Protein 6.6 g/dL (6.3-8.2)
[2016-09-23 09:44] LABS: Add Differential Manual Differential
[2016-09-23 09:45] LABS: Nucleated Red Blood Cells 0 /100 WBC (0-0); Total Cells Counted 100
[2016-09-23 09:46] LABS: Polychromasia Present
--- NOTE | 2016-09-23 13:14 | P.PN ---
Subjective 40-year-old male patient, morbidly obese with history of obstructive sleep apnea , comes in to the hospital upon the request of his primary care physician for diminished urine output and acute kidney injury. The patient apparently had symptoms of upper is been checked infection approximately 10 days ago. Subsequently started having increased cough and congestion diminished appetite and nausea. He was unable to take oral intake and he was trying to keep up with his fluid intake. He was not feeling better. He went to his primary care physician's office and he was found to have abnormal labs where he was found to be in acute kidney injury with a creatinine of 3.4 and he also had some leukocytosis with a white cell count of 14.9. Based on that, the patient was advised to come into the hospital for further evaluation and treatment. Since his arrival, the patient was started on IV fluids and the creatinine is over the improving. The chest x-ray showed abnormal increased attenuation in the right upper lobe and central increased density in the perihilar area. Based on that a CAT scan of the chest was ordered which obviously got done without contrast and it showed multifocal bilateral consolidation which is quite extensive within the right upper lobe. There was also nonenlarged and mildly enlarged magistral live adenopathy that were likely reactive. The patient also has cholelithiasis and splenomegaly. CAT scan of the abdomen and pelvis was also completed and showed hepatosplenomegaly and some nonspecific findings to indicate portal hypertension. The patient is nonalcoholic. He is a nonsmoker. No 70 chronic lung disease. Previous bouts of pneumonias. No history of any GI bleeding. He is currently on IV Zosyn. He was seen by nephrology and the creatinine is improving with fluid resuscitation. The hepatitis profile is negative. Urine drug screen is also negative. UA is also negative. On 09/21/2016 the patient is being seen in follow-up. He has no specific complaints. Is improving considerably. He is less short of breath. Minimal cough and congestion. Chest x-ray shows marked improvement in aeration in the right upper lobe. The pneumonia is also improving. At the same time the patient is being resuscitated IV fluids. The patient has improvement in renal function. He is producing adequate amount of urine output. The patient was also able to bring in his CPAP machine from home. I checked a CPAP machine and the pressure was set at a pressure of 13 cm of water which the patient was unable to tolerate. I dropped a CPAP pressure to 11 cm of water to make him more comfortable as the patient lost weight and he may require lower CPAP pressures regarding his obstructive sleep apnea. The patient is seen again today 09/22/2016 on the regular medical floor. He is awake and alert in no acute distress. He is feeling pretty much back to his baseline. Unfortunately his chest x-ray continues to show significant right upper lobe infiltrate. He denies any worsening shortness of breath. He has a dry nonproductive cough. No chills or night sweats. He is maintaining good O2 saturations in the upper 90s on room air. He's been afebrile. No leukocytosis. Hemoglobin 12.9. Creatinine improved to 1.32. He remains on Levaquin and Zosyn. On , the patient is doing well. No respiratory difficulties. They'll function improved. Chest x-ray still showing extensive consolidation of the right upper lobe. Despite this, the patient has no major respiratory difficulties. No fever. No chills no significant white count. His condition is stable on a combination of Zosyn and Levaquin. Objective - Vital Signs Vital signs: Vital Signs Temp 97.6 F 09/23/16 07:00 Pulse 79 09/23/16 07:00 Resp 16 09/23/16 07:00 BP 137/76 09/23/16 07:00 Pulse Ox 96 09/23/16 07:00 Intake & Output 09/22/16 09/23/16 09/23/16 18:59 06:59 18:59 Other: Voiding Method Toilet # Voids 3 1 - Exam Head exam was generally normal. There was no scleral icterus or corneal arcus. Mucous membranes were moist.Neck was supple and without jugular venous distension, thyromegaly, or carotid bruits. Carotids were easily palpable bilaterally. There was no adenopathy. The patient has significant crowding of the posterior oropharynx. No goiter or neck masses. Lungs are diminished bilaterally along with some few scattered crackles over the anterior part of the right chest.Cardiac exam revealed the PMI to be normally situated and sized. The rhythm was regular and no extrasystoles were noted during several minutes of auscultation. The first and second heart sounds were normal and physiologic splitting of the second heart sound was noted. There were no murmurs , rubs, clicks, or gallops. Abdomen soft nontender obese and the patient's has no organomegaly. No direct tenderness or rebound tenderness or guarding.Examination of the extremities revealed easily palpable radial, femoral and pedal pulses. There was no cyanosis, clubbing or edema. - Labs CBC & Chem 7: 09/23/16 08:00 09/23/16 08:00 Labs: Abnormal Lab Results - Last 24 Hours (Table) 09/23/16 09/23/16 Range/Units 08:00 08:00 RBC 3.63 L (4.30-5.90) m/uL Hgb 12.6 L (13.0-17.5) gm/dL Hct 36.4 L (39.0-53.0) % MCV 100.4 H (80.0-100.0) fL Chloride 110 H (98-107) mmol/L BUN 22 H (9-20) mg/dL Glucose 119 H (74-99) mg/dL Albumin 2.9 L (3.5-5.0) g/dL Microbiology - Last 24 Hours (Table) 09/21/16 07:55 Gram Stain - Final Sputum Sputum Culture - Final 09/20/16 02:59 Blood Culture - Preliminary Blood No Growth after 72 hours 09/20/16 02:31 Blood Culture - Preliminary Blood No Growth after 72 hours Assessment and Plan Plan: Assessment 1 acute bilateral multi lobar pneumonia mostly involving the right upper lobe. Despite the extensive consolidation, the patient is still maintaining a pulse ox of above 90% on room air. No signs of an acute septicemia this point. Clinically the patient is improved. There has been some improvement in the right upper lobe consolidation on subsequent chest x-rays yet the findings have been stable for the past 24-48 hours. 2 mild leukocytosis, improving 3 acute kidney injury secondary to intravascular volume depletion , recovered 4 morbid obesity 5 obstructive sleep apnea maintained on CPAP on outpatient basis 6 hypothyroidism 7 hepatoslenomegaly with abnormal liver function tests. Rule out fatty liver. Rule out non-alcoholics and hepatitis. 8 nonspecific elevation of lipase, improved. Plan Likely the patient is doing good. I think based on the absence of any respiratory difficulties, the patient can be discharged home on Levaquin 750 mg for the next 10 days to be followed up with me in the office in a week or 2 for a follow-up chest x-ray. Will consider bronchoscopy and has bronchial biopsy if no improvement and x-ray findings. He will need a follow-up chest x-ray with the next week or so. Meanwhile his renal function tests improved. Hemoglobin stable at 12.6. No significant leukocytosis. Creatinine is down to 1.1. He is good for discharge on oral Levaquin.
--- NOTE | 2016-09-23 14:59 | PN ---
The patient is being followed for acute kidney injury resulting from NSAIDS use. Creatinine continues to improve 1.3 yesterday. Labs today pending. Last chest x-ray done showing right upper lobe consolidation with left suprahilar infiltrate, concern for pneumonia, currently on levofloxacin and Zosyn. Overall doing much better. Denying any complaints. VITAL SIGNS: Afebrile, blood pressure 137/76, sats 96 on room air, pulse 99 per minute. GENERAL APPEARANCE: The patient is lying comfortably in bed. No acute distress. LUNGS: Clear to auscultation. CARDIOVASCULAR: Regular rate and rhythm. S1, S2. ABDOMEN: Soft and nontender. EXTREMITIES: Bilateral pulses, no edema. Labs pending today. IMPRESSION: 1. Nonoliguric acute kidney injury secondary to mild acute tubular necrosis resulting from volume depletion and NSAID use. Creatinine continues to improve. Labs pending today. 2. Bilateral multilobar pneumonia. 3. Right upper lobe pneumonia currently requiring IV antibiotics, though clinically doing much better. 4. Obstructive sleep apnea on CPAP at home. RECOMMENDATIONS: 1. Check BMP today. 2. From nephro standpoint, patient can be discharged any time if medically clear by pulmonology and ( ) team. 3. Continue to monitor off the IV fluids.
[2016-09-23 15:04] VITALS: BP 140/79; PULSE 80; TEMP 97.4
--- NOTE | 2016-09-23 17:04 | DS ---
DATE OF ADMISSION: 09/19/2016 DATE OF DISCHARGE: 09/23/2016 FINAL DIAGNOSES: 1. Acute renal failure, possibly prerenal with acute tubular necrosis with acute on chronic renal failure secondary to poor p.o. intake improving. 2. Elevated LFTs, hepatitis panel negative. 3. Chronic liver disease, hepatosplenomegaly for evaluation. 4. Right upper lobe pneumonia, bilateral pneumonia, possibly gram-negative, improving. 5. Hypoalbuminemia. 6. Possibly chronic pancreatitis increased amylase and lipase. 7. Hyponatremia. Resolved. 8. Leukocytosis, possibly reactive. 9. Obesity with body mass index of 40. 10. Obstructive sleep apnea on CPAP. 11. Hypothyroidism. 12. History of nicotine dependence. 13. History of cholelithiasis, chronic. 14. Multifocal multilobar, pneumonia right upper lobe with postobstructive atelectasis. 15. Lymphadenopathy likely reactive. 16. Chronic obstructive pulmonary disease and mild emphysema. 18. Metabolic acidosis secondary to acute renal failure. 19. FULL CODE. DISCHARGE DISPOSITION: Patient will be discharged in a stable condition with guarded prognosis. Total time taken 35 minutes. HISTORY OF PRESENT ILLNESS: This 40-year-old gentleman with a past medical history of multiple medical problems, multiple complications including acute renal failure and elevated liver function tests. The patient also had hepatosplenomegaly. The patient was treated symptomatically. The patient was found to have pneumonia. Antibiotics also given. LFTs though improved significantly. Patient is seen by multiple consultants and recommended outpatient follow-up. Pneumonia treated with antibiotics. The patient being followed by Dr. Kareem Randolph in the outpatient setting. On exam, vitals stable. CARDIOVASCULAR: S1, S2 muffled. RESPIRATORY: A few scattered rhonchi. ABDOMEN: Soft. Nontender. CENTRAL NERVOUS SYSTEM: No focal deficits. DISCHARGE ADVICE AND MEDICATIONS: 1. Diet is cardiac. 2. Activity limited until follow-up. 3. Follow-up with Dr. Kareem Randolph in 2-3 days. 4. Follow-up with Dr. Kline as advised. 5. Follow-up with Dr. Joe as advised. 6. Medications discontinue Tylenol. 7. Vitamin D3 1000 daily. 8. Discontinue [place]. 9. Levaquin 750 p.o. daily for 7 days. 10. Synthroid 137 mcg p.o. daily. 11. Fish oil one p.o. daily. 12. Protonix 40 mg p.o. b.i.d. 13. Ultram 50 mg q.6 p.r.n. 14. Follow up with nephrology and gastroenterology as advised. MTDD
== END 2016-09-23 15:45 | disposition home or self-care (01) | DRG 682 ==
LOC: EC 11:01 → 4MS4W 14:32
PROVIDERS: ADMIT Hospitalist; ATTEND Hospitalist
DX: N17.0 Acute kidney failure with tubular necrosis (principal); J15.6 Pneumonia due to other Gram-negative bacteria; E87.2 Acidosis; K76.6 Portal hypertension; J44.0 Chronic obstructive pulmonary disease with (acute) lower respiratory infection; E87.1 Hypo-osmolality and hyponatremia; I71.2 Thoracic aortic aneurysm, without rupture; Z68.41 Body mass index [BMI] 40.0-44.9, adult; J98.11 Atelectasis; K86.1 Other chronic pancreatitis; T39.395A Adverse effect of other nonsteroidal anti-inflammatory drugs [NSAID], initial encounter; E86.0 Dehydration; R74.0 Nonspecific elevation of levels of transaminase and lactic acid dehydrogenase [LDH]; D72.829 Elevated white blood cell count, unspecified; R59.0 Localized enlarged lymph nodes; K80.20 Calculus of gallbladder without cholecystitis without obstruction; R16.2 Hepatomegaly with splenomegaly, not elsewhere classified; G47.33 Obstructive sleep apnea (adult) (pediatric); E03.9 Hypothyroidism, unspecified; E88.09 Other disorders of plasma-protein metabolism, not elsewhere classified; R74.8 Abnormal levels of other serum enzymes; E66.01 Morbid (severe) obesity due to excess calories; Z79.1 Long term (current) use of non-steroidal anti-inflammatories (NSAID); Z79.899 Other long term (current) drug therapy; Z87.891 Personal history of nicotine dependence; Z80.0 Family history of malignant neoplasm of digestive organs; Z88.6 Allergy status to analgesic agent; Z86.19 Personal history of other infectious and parasitic diseases
CPT/HCPCS: 36415; 71010; 71020; 71250; 74176; 76770; 80053; 80061; 80074; 80306; 81001; 82103; 82105; 82150; 82378; 82390; 82728; 83516; 83540; 83550; 83690; 84165; 85025; 85610; 86038; 86308; 87040; 87070; 87205; 87449; 96360; 96361; 99285

== ENCOUNTER → 2016-09-19 | Outpatient (CLI) | payer BC ==
--- NOTE | 2016-09-19 10:56 | US ---
EXAMINATION TYPE: US kidneys/renal and bladder DATE OF EXAM: 09/19/2016 COMPARISON: NONE CLINICAL HISTORY: N17.8 ACUTE RENAL FAILURE. Acute Renal Failure EXAM MEASUREMENTS: Right Kidney: 11.2 x 5.7 x 6.0 cm Left Kidney: 13.5 x 5.7 x 6.1 cm Right Kidney: wnl Left Kidney: wnl Bladder: wnl Bilateral Jets seen: No There is no evidence for hydronephrosis at this point in time. No nephrolithiasis is seen. No yasmin s are identified. The urinary bladder is anechoic. Bilateral ureteral jets are seen. Incidental finding enlarged Spleen Results called to Linsey at 's office at time of exam IMPRESSION: The spleen is enlarged at 16.7 cm craniocaudal dimension. Evaluation of the kidneys is unremarkable.
== END | disposition home or self-care (01) ==
LOC: RADUSWWP 10:23
PROVIDERS: ATTEND Family Medicine
DX: N17.9 Acute kidney failure, unspecified (principal)
CPT/HCPCS: 76770

== ENCOUNTER → 2016-10-08 | Outpatient (CLI) | payer BC ==
[2016-10-08 09:55] LABS: Basophils # (A) 0.1 k/uL (0-0.2); Basophils % (A) 1 %; CH 35.3; CHCM 35.2; Eosinophils # (A) 0.4 k/uL (0-0.7); Eosinophils % (A) 4 %; HCT 37.7 % (39.0-53.0); HDW 3.12; HGB 12.9 gm/dL (13.0-17.5); Luc # (Auto) 0.27; Luc % (Auto) 3; Lymphocytes % (A) 51 %; MCH 34.4 pg (25.0-35.0); MCHC 34.1 g/dL (31.0-37.0); MCV 100.8 fL (80.0-100.0); Macrocytosis Slight; Mean Platelet Volume 8.2; Monocytes # (A) 0.3 k/uL (0-1.0); Monocytes % (A) 3 %; Neutrophils # (A) 3.7 k/uL (1.3-7.7); Neutrophils % (A) 38 %; RBC 3.74 m/uL (4.30-5.90); RDW 13.8 % (11.5-15.5); WBC 9.8 k/uL (3.8-10.6); WBC (Perox) 9.24
[2016-10-08 11:03] LABS: ALT 37 U/L (21-72); AST 29 U/L (17-59); Alkaline Phosphatase 88 U/L (38-126); Anion Gap 12 mmol/L; Blood Urea Nitrogen 13 mg/dL (9-20); Carbon Dioxide 20 mmol/L (22-30); Chloride 110 mmol/L (98-107); Glucose 123 mg/dL (74-99); Non-African American GFR(MDRD) >60 (>60 ml/min/1.73 sqM); Sodium 142 mmol/L (137-145); Total Bilirubin 0.5 mg/dL (0.2-1.3); Total Protein 7.1 g/dL (6.3-8.2)
== END | disposition home or self-care (01) ==
LOC: LABWHC1 09:29
PROVIDERS: ATTEND Hospitalist
DX: R79.89 Other specified abnormal findings of blood chemistry (principal)
CPT/HCPCS: 36415; 80053; 85025

== ENCOUNTER → 2017-08-27 | Outpatient (CLI) | payer BC ==
--- NOTE | 2017-08-27 17:46 | CONS ---
CONSULTATION CONSULTATION: Sleep apnea. 41-year-old male patient, known to have obstructive sleep apnea that was initially diagnosed back in 2009. Back then the patient had moderately severe disease with an AHI of 23. The patient was offered CPAP therapy at a pressure of 13 cm of water with a C-flex of 3. He used CPAP therapy for quite some time and ultimately he ended up quitting the treatment. He is coming in for reevaluation. His condition has gotten worse. He has gained no major weight over the past 8 years. However he has become much more symptomatic where his sleep has become very fragmented and he snores loud and he is having excessive hypersomnia and sleepiness. [place] score is at 20. He goes to bed between 1:20 am and he wakes up 8:00 am in the morning. He is averaging about 6 hours of sleep. I treated this patient last year for extensive right lung pneumonia which turned out to be legionnaires disease and he recovered from that. His main concern for now is his obstructive sleep apnea. He is requesting to be reevaluated. He has a very much anxious to go back to the CPAP therapy taking into consideration that he has become very symptomatic. PAST MEDICAL HISTORY: 1. Obstructive sleep apnea. Details discussed above. Baseline AHI of 23, based on a sleep study that was done in 2009. 2. Degenerative disease. 3. Hypothyroidism. 4. Obesity. PAST SURGICAL HISTORY: Includes right quad muscle surgery in October of 1991. DRUG ALLERGIES: Not known. Patient has seasonal allergies. OUTPATIENT MEDICATION: Includes Synthroid. SOCIAL HISTORY: Nonsmoker. No history of alcohol. No history of IV drugs. FAMILY HISTORY: Noncontributory. Negative for obstructive sleep apnea. REVIEW OF SYSTEMS: 12-point review of system was done. Constitutional negative for recent weight gain or weight loss. Head is HEENT loud snoring and wakes up with dry mouth. No sinus disease. Mouth breather. CARDIOVASCULAR: No angina. No palpitations. Pulmonary: No cough or sputum production. No dyspnea. GI is negative for nausea, and vomiting. He has heartburn. negative for dysuria, frequency, urgency. He has nocturia. Musculoskeletal negative for any active arthritis and skin is negative for any wounds or ulcerations. In addition, the patient denies having any grinding of the teeth. No anxiety or panic attacks. No heartburn. No sleepwalking or sleep talking. No restlessness in lower extremities. No claustrophobia. He is having no problems with memory or concentration. Very much worried about his sleep knowing that he has significant sleep fragmentation. PHYSICAL EXAMINATION: BP is 160/89, pulse is 78, respirations 16, temperature 97.5, saturation 98% on room air. Weight is 312, height is 5 feet 11 inches. Neck size is 22. GENERAL APPEARANCE: Calm comfortable in no acute distress. Head is atraumatic, normocephalic. Neck is short, supple. Mallampati grade 4. LUNGS: Clear to auscultation. HEART: Sounds regular rate and rhythm. Normal S1, S2. No S3, S4. No murmurs. ABDOMEN: Soft, nontender. EXTREMITIES: No edema. No cyanosis or clubbing. SKIN: Negative for any wounds or ulceration. IMPRESSION: 1. Obstructive sleep apnea. Historically the patient has an AHI of 23, and currently he is coming in for increased drowsiness and sleepiness with an [place] score of 20. 2. Hypersomnia as above. 3. Obesity BMI of 43. 4. Hypothyroidism. 5. History of Legionnaire's disease. PLAN: Patient is symptomatic from obstructive sleep apnea. He will be encouraged to lose weight. He is implementing good sleep hygiene measures. There may be a component of the insufficient sleep syndrome. The patient needs to extend his sleep hours to an average of 7-8 hours of sleep per night. May reintroduce back his CPAP therapy. The patient will be asked to come [facility] to undergo a CPAP titration and further recommendations are to follow based on the titration results. May anticipate improvement in his sleep quality while being on CPAP. MMODL / IJN: [id number] /
== END | disposition home or self-care (01) ==
LOC: SLEEP 10:33
PROVIDERS: ATTEND Internal Medicine Critical Care Medicine
DX: G47.33 Obstructive sleep apnea (adult) (pediatric) (principal); E03.9 Hypothyroidism, unspecified; E66.9 Obesity, unspecified; J30.2 Other seasonal allergic rhinitis; R40.0 Somnolence; Z68.41 Body mass index [BMI] 40.0-44.9, adult; Z79.899 Other long term (current) drug therapy; Z98.890 Other specified postprocedural states; Z86.19 Personal history of other infectious and parasitic diseases
CPT/HCPCS: 99211

== ENCOUNTER → 2017-11-19 | Outpatient (CLI) | payer BC ==
--- NOTE | 2017-11-19 12:51 | PN ---
PROGRESS NOTE Oli is 42 coming in for a compliance check regarding his sleep apnea and his new CPAP machine. He was diagnosed having BERNICE back in 2009 with an AHI of 23. He has become significantly symptomatic and the patient underwent a CPAP titration. Following that, he was given an APAP with a minimum pressure of 10 maximum pressure of 17. On today's evaluation, the patient is using his CPAP every night. He is very compliant and benefitting from treatment. His sleep quality is improved and he is waking up much more alert and refreshed during the day. Based on the compliance data over the past 30 days, he has used his CPAP 28 out of 30 days for more than 4 hours. His average pressure is 15.7. Leak factor 12 L/minute. AHI while on treatment is down to 0.4. [place] score was 19 and it is improving. He is using a full face mask AirFit F 20 large size. He has no specific complaints for now. Treatment is successful. REVIEW OF SYSTEMS: Twelve organ review of system was done. Positive findings were mentioned in the history of present illness. PHYSICAL EXAMINATION: BP is 155/87, pulse 72, respirations 18, temperature 97.9. Weight is 313. Saturation 98% on room air. GENERAL APPEARANCE: Calm, comfortable. HEAD: Atraumatic, normocephalic. NECK: Supple. There is no JVD. No goiter or neck mass. Mallampati class IV. LUNGS: Clear to auscultation. HEART: Sounds are regular rate and rhythm. Normal S1, S2. No S3. No murmurs. ABDOMEN: Soft, nontender. No organomegaly. EXTREMITIES: No edema, cyanosis or clubbing. IMPRESSION: 1. Symptomatic obstructive sleep apnea with AHI of 23, based on a sleep study that was done in 2009 currently on CPAP. The patient is using an APAP, minimum pressure of 10, maximum pressure of 17. 2. Obesity, body mass index of 43.7. 3. Hypersomnia. 4. Hypothyroidism. 5. Degenerative arthritis. PLAN: 1. Continue CPAP at same level of pressure. This in an APAP, minimum pressure of 10, maximum pressure of 17. 2. Use a AirFit F20 full face mask, large size. 3. Encourage weight loss. 4. Treatment is successful. 5. Compliance data looks adequate. 6. See me back in followup in a year's time, earlier if needed. MMODL / IJN: [id number] /
== END | disposition home or self-care (01) ==
LOC: SLEEP 10:59
PROVIDERS: ATTEND Internal Medicine Critical Care Medicine
DX: G47.33 Obstructive sleep apnea (adult) (pediatric) (principal); E03.9 Hypothyroidism, unspecified; M19.90 Unspecified osteoarthritis, unspecified site; E66.9 Obesity, unspecified; Z68.41 Body mass index [BMI] 40.0-44.9, adult; Z99.89 Dependence on other enabling machines and devices

== ENCOUNTER → 2018-12-09 | Outpatient (CLI) | payer BC ==
--- NOTE | 2018-12-09 12:50 | P.PN ---
Subjective Progress Note Date: 12/09/18 Principal diagnosis: BERNICE This is a very pleasant 43-year-old male patient with known history of obstructive sleep apnea. The patient has moderately severe disease. His established to have obstructive sleep apnea back in 2009 with an AHI of 23. The patient since then has been on CPAP therapy. Currently he has an APAP unit which is set at a minimum pressure of 10 and a maximum pressure of 17. He continues to use the machine without any major issues. His weight has been s table. He wanted a higher pressure in the liver. Also wanted his ramp time to be eliminated. The patient otherwise looking well. Based on the compliance data, his been averaging around 5.5 hours of CPAP use per night with his CPAP use of more than 4 hours approaching 24 out of 30 and the average pressure utilizes at 14.2 cm of water with a leak of 1 L per minute and the AHI of 0.2 while on treatment. Otherwise he has no specific complaints. Is looking very well. No heart attack. No stroke. No seizure activity. No syncope. No altered mentation. Review of system. 14 point review of system was done and the positive findings are almost above history of present illness Objective - Vital Signs Vital signs: BP is 157/90, pulse is 88, respirations 14, temperature is 98.0, BMI is 43.6, weight is 213, height is 5 foot 11 inches. The patient appeared well nourished and normally developed. Vital signs as documented. Head exam is unremarkable. No scleral icterus or corneal arcus noted. Neck is without jugular venous distension, thyromegaly, or carotid bruits. Carotid upstrokes are brisk bilaterally. Lungs are clear to auscultation and percussion. Cardiac exam reveals the PMI to be normally sized and situated. Rhythm is regular. First and second heart sounds normal. No murmurs, rubs or gallops. Abdominal exam reveals normal bowel sounds, no masses, no organomegaly and no aortic enlargement. Extremities are nonedematous and both femoral and pedal pulses are normal.Examination of the skin revealed no evidence of significant rashes, suspicious appearing nevi or other concerning lesions. Neurologically awake and alert and there is no focal neurological deficits. Assessment and Plan Plan: 1 obstructive sleep apnea, moderate in severity with an AHI of 23 and the patient continues to be receiving successful APAP therapy 2 hypersomnia improved 3 obesity 4 hypothyroidism 5 osteoarthritis Plan I'm going to eliminate the ramp time. Change the APAP mode to a minimum pressure of 12 and a maximal pressure of 17 and this will be offering this patient a higher starting pressure. Treatment is successful. Encourage weight loss. Recommended good sleep hygiene measures. See him back in the time, earlier if needed. All of his CPAP supplies will be continued.
== END ==
LOC: SLEEP 10:02
PROVIDERS: ATTEND Internal Medicine Critical Care Medicine
DX: G47.33 Obstructive sleep apnea (adult) (pediatric) (principal); E66.9 Obesity, unspecified; E03.9 Hypothyroidism, unspecified; M19.90 Unspecified osteoarthritis, unspecified site; Z99.89 Dependence on other enabling machines and devices; Z68.41 Body mass index [BMI] 40.0-44.9, adult

== ENCOUNTER → 2019-12-15 | Outpatient (CLI) | payer BC ==
--- NOTE | 2019-12-15 14:20 | PN ---
PROGRESS NOTE Oli is 44, he is coming in for annual check regarding obstructive sleep apnea. Since last visit, he has lost a considerable amount of weight. He used to weight 313 pounds and currently is down to 253. He is still using his APAP at a pressure of minimum 12, maximum 17. Treatment remains quite effective. He is averaging around 5.6 hours of APAP use per night. His average pressure is at 13.9. His AHI is down to 0.3 with a leak of 1 L/minute and the patient is using AirFit full-face mask, large size. No new complaint. No exposure for COVID-19. No respiratory difficulties. No chest pain. No hypersomnia. No tiredness, headache, or fatigue or sleepiness during the day. No history of anxiety or depression. No substance abuse. REVIEW OF SYSTEMS: Fourteen-point review of system was done, positive hypothyroidism. The patient is taking thyroid pills. The patient has lost a significant amount of weight due to diet and exercise. PHYSICAL EXAMINATION: BP is 125/80, pulse 74, respirations 16, temperature 98.0, saturation 99% on room air. Height is 5, 11, weight is 253, BMI is 35.2. GENERAL APPEARANCE: Calm, comfortable. HEAD: Atraumatic, normocephalic. NECK: Supple. No JVD. No goiter or neck mass, Mallampati class 4. LUNGS: Clear to auscultation. HEART: Sounds are regular rate and rhythm, normal S1, S2. No S3, S4. No murmurs. ABDOMEN: Soft, nontender. No organomegaly. EXTREMITIES: No edema, no cyanosis, or clubbing. NEUROLOGIC: Awake, alert, there is no focal neurological deficit. IMPRESSION: 1. Moderate severe BERNICE, AHI of 23. 2. Morbid obesity with interval weight loss, current body weight is down to 253 with a BMI of 35.2. 3. Hypersomnia, improved and [place] score is down. 4. Hypothyroidism on thyroid hormone supplements. PLAN: 1. Switch this patient to an APAP for minimum of 7, a maximum of 15. 2. Renew the patient AirFit full-face mask. 3. Encourage further weight loss. 4. He is still in need for CPAP therapy as the patient is still receiving considerable amount of support with an average pressure of 15.9 on his APAP unit. 5. Will continue to follow. MMODL / IJN: [id number] / MTDD
== END | disposition home or self-care (01) ==
LOC: SLEEP 13:04
PROVIDERS: ATTEND Internal Medicine Critical Care Medicine
DX: G47.33 Obstructive sleep apnea (adult) (pediatric) (principal); E66.01 Morbid (severe) obesity due to excess calories; E03.9 Hypothyroidism, unspecified; G47.10 Hypersomnia, unspecified; Z68.35 Body mass index [BMI] 35.0-35.9, adult; Z99.89 Dependence on other enabling machines and devices

== ENCOUNTER 2020-05-09 20:01 | Emergency (ER) | payer BC ==
[2020-05-09 20:17] VITALS: BP 121/73; PULSE 83; RESP 18; TEMP 98.6
[2020-05-09 20:59] LABS: Appearance,Urine Clear (Clear); Bilirubin,Urine Negative (Negative); Blood,Urine Large (Negative); Color,Urine Light Red; Glucose,Urine (UA) 4+ (Negative); Ketones,Urine Negative (Negative); Leukocyte Esterase,Urine Negative (Negative); Nitrite,Urine Negative (Negative); PH, Urine 5.5 (5.0-8.0); Protein,Urine Trace (Negative); RBC,Urine >182 /hpf (0-5); Specific Gravity,Urine 1.025 (1.001-1.035); Urobilinogen,Urine <2.0 mg/dL (<2.0); WBC,Urine 150 /hpf (0-5)
--- NOTE | 2020-05-09 21:24 | ED ---
General Adult HPI - General Chief complaint: Urogenital Stated complaint: Peeing blood Time Seen by Provider: 05/09/20 20:25 Source: patient Mode of arrival: ambulatory Limitations: no limitations - History of Present Illness Initial comments: 44-year-old male with a past medical history of NIDDM, sleep apnea, thyroid disorder, obesity presents to the emergency room for blood in urine. Patient reports that earlier today he noticed there was red blood in his urine. States this has happened only a handful of times today. Patient states he does have slight burning with urination. He denies any abdominal or back pain. He denies fevers or chills. Patient denies any history of renal masses or bladder or lesions. Patient does not take anticoagulants.Patient has no other complaints at this time including shortness of breath, chest pain, abdominal pain, nausea or vomiting, headache, or visual changes. - Related Data Home Medications Medication Instructions Recorded Confirmed Atorvastatin Calcium [Lipitor] 40 mg PO DAILY 05/09/20 05/09/20 Cholecalciferol [Vitamin D3 (25 25 mcg PO DAILY 05/09/20 05/09/20 Mcg = 1000 Iu)] Levothyroxine Sodium [Synthroid] 200 mcg PO DAILY 05/09/20 05/09/20 Multivitamins, Thera [Multivitamin 1 tab PO DAILY 05/09/20 05/09/20 (formulary)] Naproxen Sodium [Aleve] 880 mg PO BID PRN 05/09/20 05/09/20 [place]-3 Fatty Acids/Fish Oil [Fish 1 cap PO DAILY 05/09/20 05/09/20 Oil 1,000 mg Softgel] lisinopriL [Prinivil] 20 mg PO HS 05/09/20 05/09/20 metFORMIN HCL [Glucophage] 1,000 mg PO BID 05/09/20 05/09/20 Previous Rx's Medication Instructions Recorded Cephalexin [Keflex] 500 mg PO TID 7 Days #21 cap 05/09/20 Allergies Allergy/AdvReac Type Severity Reaction Status Date / Time aspirin AdvReac Swelling Verified 05/09/20 21:15 Review of Systems ROS Statement: Those systems with pertinent positive or pertinent negative responses have been documented in the HPI. ROS Other: All systems not noted in ROS Statement are negative. Past Medical History Past Medical History: Sleep Apnea/CPAP/BIPAP, Thyroid Disorder Additional Past Medical History / Comment(s): Morbid obesity with interval weight loss, obstructive sleep apnea maintained on CPAP, hypothyroidism History of Any Multi-Drug Resistant Organisms: None Reported Past Surgical History: No Surgical Hx Reported Additional Past Surgical History / Comment(s): right quad muscle tendon repair, POSTERIOR NECK I&D, OLONOSCOPY. Past Anesthesia/Blood Transfusion Reactions: No Reported Reaction Past Psychological History: No Psychological Hx Reported Smoking Status: Current every day smoker Past Alcohol Use History: Rare Past Drug Use History: None Reported - Past Family History Father Family Medical History: No Reported History Additional Family Medical History / Comment(s): FATHER'S DAD HAD COLON CANCER Mother Family Medical History: Cancer Additional Family Medical History / Comment(s): COLON CANCER General Exam Limitations: no limitations General appearance: alert, in no apparent distress Head exam: Present: atraumatic, normal inspection Eye exam: Present: normal appearance, PERRL, EOMI. Absent: scleral icterus, conjunctival injection ENT exam: Present: normal exam, mucous membranes moist Neck exam: Present: normal inspection, full ROM. Absent: tenderness, meningismus, lymphadenopathy Respiratory exam: Present: normal lung sounds bilaterally. Absent: respiratory distress, wheezes, rales, rhonchi, stridor Cardiovascular Exam: Present: regular rate, normal rhythm, normal heart sounds. Absent: systolic murmur, diastolic murmur, rubs, gallop, clicks GI/Abdominal exam: Present: soft, normal bowel sounds. Absent: distended, tenderness, guarding, rebound, rigid Back exam: Absent: CVA tenderness (R), CVA tenderness (L) Neurological exam: Present: alert Course Vital Signs 05/09/20 20:13 Temperature 98.6 F Pulse Rate 83 Respiratory 18 Rate Blood Pressure 121/73 O2 Sat by Pulse 100 Oximetry Medical Decision Making - Medical Decision Making Urinalysis was obtained. This did show greater than 182 red blood cells. Urine appearance was clear with a light red tinged. Patient does have 150 white blood cells. He will be treated with Keflex. However I did recommend he follow-up closely with urology for further management. He'll likely need cystoscopy and further outpatient workup for hematuria. However if he develops worsening symptoms or cannot urinate he will return to the emergency room. I discussed this case with attending Dr. Nino who agrees with this assessment and treatment plan. - Lab Data Lab Results 05/09/20 Range/Units 20:49 Urine Color Light Red Urine Appearance Clear (Clear) Urine pH 5.5 (5.0-8.0) Ur Specific [place] 1.025 (1.001-1.035) Urine Protein Trace H (Negative) Urine Glucose (UA) 4+ H (Negative) Urine Ketones Negative (Negative) Urine Blood Large H (Negative) Urine Nitrite Negative (Negative) Urine Bilirubin Negative (Negative) Urine Urobilinogen <2.0 (<2.0) mg/dL Ur Leukocyte Esterase Negative (Negative) Urine RBC >182 H (0-5) /hpf Urine WBC 150 H (0-5) /hpf Disposition Clinical Impression: Hematuria Disposition: HOME SELF-CARE Condition: Good Instructions (If sedation given, give patient instructions): Hematuria (ED) Additional Instructions: Please take antibiotics as directed. Please follow-up with your doctor in one to 2 days. Please call urology tomorrow to follow-up for further management. If you are unable to urinate or develop fevers return to the emergency room. Return to the emergency room for any other worsening symptoms. Prescriptions: Cephalexin [Keflex] 500 mg PO TID 7 Days #21 cap Is patient prescribed a controlled substance at d/c from ED?: No Referrals: Peterson Moya [Primary Care Provider] - 1-2 days Brock Reese MD [STAFF PHYSICIAN] - 1-2 days Time of Disposition: 21:41
[2020-05-09] MEDS ORDERED: CEPHALEXIN 500MG STARTER PACK 4 CAP BTL PO STA (21:45)
== END 2020-05-09 21:53 | disposition home or self-care (01) ==
LOC: EC 20:01
DX: R31.9 Hematuria, unspecified (principal); R30.0 Dysuria; E03.9 Hypothyroidism, unspecified; G47.33 Obstructive sleep apnea (adult) (pediatric); E66.01 Morbid (severe) obesity due to excess calories; Z68.38 Body mass index [BMI] 38.0-38.9, adult; F17.200 Nicotine dependence, unspecified, uncomplicated; Z79.890 Hormone replacement therapy; Z79.899 Other long term (current) drug therapy; Z79.84 Long term (current) use of oral hypoglycemic drugs; Z88.6 Allergy status to analgesic agent; Z99.89 Dependence on other enabling machines and devices
CPT/HCPCS: 81001; 87086; 99283

== ENCOUNTER 2020-05-20 08:05 | Day surgery (SDC) | payer BC ==
[2020-05-18 15:54] VITALS: BMI 38.0
[~2020-05-20 08:05] MED LIST: LACTATED RINGERS 1,000 ML IV SCH
[2020-05-20] MEDS ORDERED: LIDOCAINE 1% (10MG/ML) FOR IV START INTRADERMA ONE (08:50)
[2020-05-20 09:01] VITALS: TEMP 98
[2020-05-20 09:05] LABS: Glucose,Whole Blood 186 mg/dL (75-99)
[2020-05-20] MEDS ORDERED: PROPOFOL 10 MG/ML 20 ML VIAL IV ONE (09:28)
[2020-05-20] MEDS ORDERED: LIDOCAINE 1% INJ 10MG/ML (20 ML MDV) ONE (09:28)
--- NOTE | 2020-05-20 09:33 | P.GSHP ---
History of Present Illness H&P Date: 05/20/20 Chief Complaint: Family history: Cancer This is a 44-year-old male with the family history of colon cancer. Patient presents today for colonoscopy. Past Medical History Past Medical History: Diabetes Mellitus, Hyperlipidemia, Hypertension, Sleep Apnea/CPAP/BIPAP, Thyroid Disorder Additional Past Medical History / Comment(s): Morbid obesity with interval weight loss, obstructive sleep apnea maintained on CPAP, hypothyroidism History of Any Multi-Drug Resistant Organisms: None Reported Past Surgical History: No Surgical Hx Reported Additional Past Surgical History / Comment(s): right quad muscle tendon repair, POSTERIOR NECK I&D, COLONOSCOPY. Past Anesthesia/Blood Transfusion Reactions: No Reported Reaction Past Psychological History: No Psychological Hx Reported Additional Psychological History / Comment(s): PT LIVES WITH HIS MOM . NO PETS. HAS 10 STEPS TO ENTER HOME AND SLEEPS IN BASEMENT SO HE HAD 15 STEPS TO GO DOWN. NO OUTSIDE SERVICES RECIEVIED, HAS A CPAP MACHINE. Smoking Status: Current every day smoker Past Alcohol Use History: None Reported Additional Past Alcohol Use History / Comment(s): STARTED SMOKING IN 1993 ,QUIT 09-15-16 WAS SMOKING 1.5 PPD-BACK TO SMOKING ABOUT 1/2-1 PPD Past Drug Use History: None Reported - Past Family History Father Family Medical History: No Reported History Additional Family Medical History / Comment(s): FATHER'S DAD HAD COLON CANCER Mother Family Medical History: Cancer Additional Family Medical History / Comment(s): COLON CANCER Medications and Allergies Home Medications Medication Instructions Recorded Confirmed Type Atorvastatin Calcium [Lipitor] 40 mg PO DAILY 05/09/20 05/20/20 History Cholecalciferol [Vitamin D3 (25 25 mcg PO DAILY 05/09/20 05/20/20 History Mcg = 1000 Iu)] Levothyroxine Sodium [Synthroid] 200 mcg PO DAILY 05/09/20 05/20/20 History Multivitamins, Thera [Multivitamin 1 tab PO DAILY 05/09/20 05/20/20 History (formulary)] Naproxen Sodium [Aleve] 880 mg PO BID PRN 05/09/20 05/20/20 History [place]-3 Fatty Acids/Fish Oil [Fish 1 cap PO DAILY 05/09/20 05/20/20 History Oil 1,000 mg Softgel] lisinopriL [Prinivil] 20 mg PO HS 05/09/20 05/20/20 History metFORMIN HCL [Glucophage] 1,000 mg PO BID 05/09/20 05/20/20 History Allergies Allergy/AdvReac Type Severity Reaction Status Date / Time aspirin AdvReac Swelling Verified 05/18/20 15:47 Surgical - Exam Vital Signs Temp Pulse Resp BP Pulse Ox 98 F 75 20 111/67 97 05/20/20 09:00 05/20/20 09:00 05/20/20 09:00 05/20/20 09:00 05/20/20 09:00 - General well developed, well nourished, no distress - Eyes PERRL - ENT normal pinna - Neck no masses - Respiratory normal expansion - Cardiovascular Rhythm: regular - Abdomen Abdomen: soft, non tender Results - Labs Abnormal Lab Results - Last 24 Hours (Table) 05/20/20 Range/Units 08:56 POC Glucose (mg/dL) 186 H (75-99) mg/dL Assessment and Plan Assessment: Family History of colon cancer. We'll perform colonoscopy.
--- NOTE | 2020-05-20 09:44 | P.OP ---
Date of Procedure: 05/20/20 Preoperative Diagnosis: Family history of colon cancer Postoperative Diagnosis: Rectal polyp Procedure(s) Performed: Colonoscopy Anesthesia: MAC Surgeon: Jeffrey Rivera Pathology: other (Rectal polyp) Condition: stable Disposition: PACU Description of Procedure: The patient's placed on the endoscopy table lateral position. He received IV sedation. Digital rectal exam was performed which revealed a few internal hemorrhoids. Flexible colonoscope was then placed patient anus and passed throughout the entire colon. The ileocecal valve was visualized. The cecum, ascending and transverse colon appeared normal. In the descending and sigmoid colon was normal. Scope was then brought back the rectum and a small sessile polyp was visualized. A biopsy the cold forcep was performed. Scope was withdrawn for patient.
[2020-05-20 10:05] VITALS: BP 127/80; PULSE 81; RESP 16
== END 2020-05-20 10:22 | disposition home or self-care (01) ==
LOC: ORWHC2ENDO 08:05
PROVIDERS: ATTEND Surgery
DX: Z12.11 Encounter for screening for malignant neoplasm of colon (principal); K62.1 Rectal polyp; K64.8 Other hemorrhoids; E11.9 Type 2 diabetes mellitus without complications; E78.5 Hyperlipidemia, unspecified; I10 Essential (primary) hypertension; G47.33 Obstructive sleep apnea (adult) (pediatric); Z99.89 Dependence on other enabling machines and devices; E03.9 Hypothyroidism, unspecified; E66.01 Morbid (severe) obesity due to excess calories; Z68.36 Body mass index [BMI] 36.0-36.9, adult; Z98.890 Other specified postprocedural states; Z87.891 Personal history of nicotine dependence; Z80.0 Family history of malignant neoplasm of digestive organs; Z79.84 Long term (current) use of oral hypoglycemic drugs; Z79.890 Hormone replacement therapy; Z79.899 Other long term (current) drug therapy; Z88.6 Allergy status to analgesic agent
CPT/HCPCS: 88305; 45380; J2001; J2704

== ENCOUNTER → 2020-12-27 | Outpatient (CLI) | payer BC ==
--- NOTE | 2020-12-27 18:01 | PN ---
PROGRESS NOTE Oli is 45, coming in for a regular check. No complaints. He has moderate to severe BERNICE with an AHI of 23. He has lost some weight and he has plateaued since. His weight is currently pounds. He is using an APAP unit, pressure minimum of 7, maximum of 15, with a [employer] large-sized full-face mask. Compliance data reflects adequate use. He is achieving more than 4 hours 80% of the time. He is utilizing his machine 27 out of the past 30 days, averaging around 5.3 hours of CPAP use per night at an average pressure of 13.1. Leak is on the order of 11 L/minute and his AHI is down to 0.4. No chest pain. No shortness of breath. No heartburn. No cardiac arrhythmias. He is doing much better. He says sleep is improved while on CPAP therapy; in fact, he tells me that he cannot go to sleep without it, as his sleep quality goes very poor while off treatment. PHYSICAL EXAMINATION: VITAL SIGNS: BP is 149/81, pulse 89, respirations 20, temperature 97.3, saturation 99% on room air. [place] score is 18 and BMI 34.9. GENERAL APPEARANCE: Calm, comfortable. HEAD: Atraumatic, normocephalic. NECK: Supple. No JVD. No goiter or neck masses. Mallampati class 4. LUNGS: Diminished. Otherwise clear. HEART: Heart sounds are regular rate and rhythm. Normal S1, S2. No S3, S4. No murmurs. ABDOMEN: Soft, nontender. No organomegaly. EXTREMITIES: No edema. No cyanosis or clubbing. NEUROLOGIC: Awake and alert. There is no focal neurological deficit. REVIEW OF SYSTEMS: Fourteen-point review of system was done. Positive findings are all mentioned above in the history of present illness. No significant weight change since last year. He is dieting and he is also doing exercise. IMPRESSION: 1. Symptomatic obstructive sleep apnea, moderate in severity. AHI of 23, currently on APAP. 2. Hypersomnia, improved. 3. Obesity, stable weight. BMI 34.9. 4. Hypothyroidism. PLAN: 1. Continue APAP therapy at the same level of pressure. 2. Refill the [employer] large-sized full-face mask. 3. Refill the supplies and see me back in 2 years' time in followup. His treatment is successful. MMODL / IJN: [id number] /
== END ==
LOC: SLEEP 15:30
PROVIDERS: ATTEND Internal Medicine Critical Care Medicine
DX: G47.33 Obstructive sleep apnea (adult) (pediatric) (principal); E66.9 Obesity, unspecified; E03.9 Hypothyroidism, unspecified; Z68.34 Body mass index [BMI] 34.0-34.9, adult; Z99.89 Dependence on other enabling machines and devices

== ENCOUNTER → 2021-06-10 | Outpatient (CLI) | payer BC ==
[2021-06-10 10:26] LABS: Appearance,Urine Clear (Clear); Bilirubin,Urine Negative (Negative); Blood,Urine Trace (Negative); Color,Urine Yellow; Glucose,Urine (UA) 4+ (Negative); Ketones,Urine Negative (Negative); Leukocyte Esterase,Urine Negative (Negative); Nitrite,Urine Negative (Negative); PH, Urine 5.5 (5.0-8.0); Protein,Urine 1+ (Negative); RBC,Urine 1 /hpf (0-5); Specific Gravity,Urine 1.027 (1.001-1.035); Urobilinogen,Urine <2.0 mg/dL (<2.0); WBC,Urine <1 /hpf (0-5)
[2021-06-10 14:08] LABS: Basophils % (A) 0.9 %; Eosinophils # (A) 0.28 X 10*3/uL (0.04-0.35); Eosinophils % (A) 2.5 %; HCT 42.7 % (39.6-50.0); HGB 14.3 g/dL (13.0-17.0); Immature Grans, Automated 0.5 %; Lymphocytes # (A) 3.85 X 10*3/uL (0.90-5.00); Lymphocytes % (A) 33.7 %; MCH 34.7 pg (27.0-32.0); MCHC 33.5 g/dL (32.0-37.0); MCV 103.6 fL (80.0-97.0); Mean Platelet Volume 12.1 fL (9.5-12.2); Monocytes % (A) 6.1 %; NRBC Per 100 WBC 0 /100 WBCS (0.0-0.0); Neutrophils # (A) 6.43 X 10*3/uL (1.80-7.70); Neutrophils % (A) 56.3 %; Platelet Count 212 X 10*3/uL (140-440); RBC 4.12 X 10*6/uL (4.40-5.60); RDW 12.5 % (11.5-14.5); WBC 11.42 X 10*3/uL (4.50-10.00)
[2021-06-10 14:27] LABS: African American GFR (CKD) 131.2 (60.0-200.0); Albumin 4.2 g/dL (3.8-4.9); Albumin/Globulin Ratio 1.56 (1.60-3.17); BUN/Creat Ratio 14.29 Ratio (12.00-20.00); Calcium 9.7 mg/dL (8.7-10.3); Globulin 2.7 g/dL (1.6-3.3); HDL Cholesterol 41.3 mg/dL (40.00-60.00); Non-African American GFR(CKD) 113.2 (60.0-200.0); Potassium 4.8 mmol/L (3.5-5.5); Total Bilirubin 0.3 mg/dL (0.30-1.20); Total Protein 6.9 g/dL (6.2-8.2)
[2021-06-10 14:46] LABS: Chol/HDL Ratio 8.16 Ratio
== END | disposition home or self-care (01) ==
LOC: LABWHC1 09:46
PROVIDERS: ATTEND Family Medicine
DX: I10 Essential (primary) hypertension (principal); E11.9 Type 2 diabetes mellitus without complications; E03.9 Hypothyroidism, unspecified; Z72.0 Tobacco use
CPT/HCPCS: 36415; 80053; 80061; 81001; 83721; 84439; 84443; 85025

== ENCOUNTER → 2021-08-14 | Outpatient (CLI) | payer BC | END | disposition home or self-care (01) | LOC: LABWHC1 10:05 | PROVIDERS: ATTEND Family Medicine | DX: E11.9 Type 2 diabetes mellitus without complications (principal) | CPT/HCPCS: 36415; 83036 ==

== ENCOUNTER 2022-08-29 04:05 | Inpatient (IN) | payer BC ==
[2022-08-29] MEDS ORDERED: MORPHINE SULFATE 4 MG/ML SYRINGE IVP STA (04:32)
[2022-08-29] MEDS ORDERED: DICYCLOMINE 10 MG/ML 2 ML AMP IM STA (04:51)
[2022-08-29 04:56] LABS: Basophils % (A) 0 %; Eosinophils # (A) 0.1 k/uL (0-0.7); Eosinophils % (A) 1 %; HCT 35.7 % (39.0-53.0); HGB 11.8 gm/dL (13.0-17.5); Hypochromasia Slight; Lymphocytes # (A) 2.2 k/uL (1.0-4.8); Lymphocytes % (A) 17 %; MCH 32.8 pg (25.0-35.0); MCV 99.6 fL (80.0-100.0); Mean Platelet Volume 8.7; Monocytes # (A) 0.3 k/uL (0-1.0); Monocytes % (A) 2 %; Neutrophils # (A) 10.3 k/uL (1.3-7.7); Neutrophils % (A) 78 %; Platelet Count 503 k/uL (150-450); RBC 3.59 m/uL (4.30-5.90); RDW 13.6 % (11.5-15.5); WBC 13.2 k/uL (3.8-10.6)
[2022-08-29 05:09] LABS: ALT 22 U/L (4-49); AST 23 U/L (17-59); African American GFR (CKD) >90 (>60 ml/min/1.73 sqM); Albumin 4.2 g/dL (3.5-5.0); Alkaline Phosphatase 123 U/L (38-126); Anion Gap 16 mmol/L; Blood Urea Nitrogen 18 mg/dL (9-20); Calcium 9.4 mg/dL (8.4-10.2); Carbon Dioxide 19 mmol/L (22-30); Chloride 102 mmol/L (98-107); Glucose 214 mg/dL (74-99); Lipase 165 U/L (23-300); Magnesium 1.8 mg/dL (1.6-2.3); Non-African American GFR(CKD) >90 (>60 ml/min/1.73 sqM); Potassium 3.8 mmol/L (3.5-5.1); Sodium 137 mmol/L (137-145); Total Bilirubin 0.6 mg/dL (0.2-1.3); Total Protein 7.5 g/dL (6.3-8.2)
[2022-08-29 05:13] LABS: Partial Thromboplastin Time 26.6 sec (22.0-30.0); Prothrombin Time 10.2 sec (9.0-12.0)
--- NOTE | 2022-08-29 05:17 | ED ---
General Adult HPI - General Chief complaint: Abdominal Pain Stated complaint: Abdominal Pain Time Seen by Provider: 08/29/22 04:15 Source: patient Mode of arrival: ambulatory Limitations: no limitations - History of Present Illness Initial comments: This is a 46-year-old male with a past medical history including hypertension, diabetes and hypothyroidism presents emergency department for epigastric abdominal pain. The patient stated that he was leaving work around 1 AM when he started to have acute, immediate pain in the epigastric region. The patient stated that his been persistent over the last 4 hours we came to the emergency department for evaluation. The patient stated that he feels as if his abdomen is spasming and stated that the pain is consistent and sharp and stabbing. The patient denied any nausea and vomiting however. The patient stated his last bowel movement was 2 days ago which was unusual for him. The patient did have a past medical history including previous spontaneous ileus 8 years ago and it was reported that the symptoms are similar to that episode. - Related Data Home Medications Medication Instructions Recorded Confirmed Atorvastatin Calcium [Lipitor] 40 mg PO DAILY 05/09/20 05/20/20 Cholecalciferol [Vitamin D3 (25 25 mcg PO DAILY 05/09/20 05/20/20 Mcg = 1000 Iu)] Levothyroxine Sodium [Synthroid] 200 mcg PO DAILY 05/09/20 05/20/20 Multivitamins, Thera [Multivitamin 1 tab PO DAILY 05/09/20 05/20/20 (formulary)] Naproxen Sodium [Aleve] 880 mg PO BID PRN 05/09/20 05/20/20 Temple-3 Fatty Acids/Fish Oil [Fish 1 cap PO DAILY 05/09/20 05/20/20 Oil 1,000 mg Softgel] lisinopriL [Prinivil] 20 mg PO HS 05/09/20 05/20/20 metFORMIN HCL [Glucophage] 1,000 mg PO BID 05/09/20 05/20/20 Allergies Allergy/AdvReac Type Severity Reaction Status Date / Time ibuprofen [From Motrin] Allergy Swelling Verified 08/29/22 04:10 aspirin AdvReac Swelling Verified 05/18/20 15:47 Review of Systems ROS Statement: Those systems with pertinent positive or pertinent negative responses have been documented in the HPI. ROS Other: All systems not noted in ROS Statement are negative. Past Medical History Past Medical History: Sleep Apnea/CPAP/BIPAP, Thyroid Disorder Additional Past Medical History / Comment(s): Morbid obesity with interval weight loss, obstructive sleep apnea maintained on CPAP, hypothyroidism History of Any Multi-Drug Resistant Organisms: None Reported Past Surgical History: Orthopedic Surgery Additional Past Surgical History / Comment(s): right quad muscle tendon repair, POSTERIOR NECK I&D, COLONOSCOPY. Past Anesthesia/Blood Transfusion Reactions: No Reported Reaction Past Psychological History: No Psychological Hx Reported Smoking Status: Current every day smoker Past Alcohol Use History: Rare Past Drug Use History: None Reported - Past Family History Father Family Medical History: No Reported History Additional Family Medical History / Comment(s): FATHER'S DAD HAD COLON CANCER Mother Family Medical History: Cancer Additional Family Medical History / Comment(s): COLON CANCER General Exam Limitations: no limitations General appearance: alert, in distress (In moderate distress secondary to abdominal pain), obese Head exam: Present: atraumatic, normocephalic, normal inspection Eye exam: Present: normal appearance, PERRL Pupils: Present: normal accommodation ENT exam: Present: normal exam, normal oropharynx, mucous membranes moist Neck exam: Present: normal inspection, full ROM Respiratory exam: Present: normal lung sounds bilaterally Cardiovascular Exam: Present: regular rate, normal rhythm, normal heart sounds GI/Abdominal exam: Present: soft, tenderness (Tenderness noted in the epigastric region with guarding noted), guarding, normal bowel sounds Extremities exam: Present: normal inspection, full ROM Back exam: Present: normal inspection, full ROM Neurological exam: Present: alert, oriented X3, CN II-XII intact Psychiatric exam: Present: normal affect, normal mood Skin exam: Present: warm, dry Course Vital Signs 08/29/22 08/29/22 04:10 05:26 Temperature 97.7 F Pulse Rate 95 100 Respiratory 18 Rate Blood Pressure 122/77 116/82 O2 Sat by Pulse 100 Oximetry EKG Findings - EKG Comments: EKG Findings:: An EKG was obtained and was interpreted by myself showing a rate of 94, NV interval 145, QRS duration of 105 and QTC of 421. This EKG showed a normal sinus rhythm with no ST segment elevation or depression noted. Medical Decision Making - Medical Decision Making Was pt. sent in by a medical professional or institution (, PA, VALVE SEATER OPERATOR, urgent care, hospital, or skilled nursing...) When possible be specific @ -No Did you speak to anyone other than the patient for history (EMS, parent, family, police, friend...)? What history was obtained from this source @ -No Did you review nursing and triage notes (agree or disagree)? Why? @ -I reviewed and agree with nursing and triage notes Were old charts reviewed (outside hosp., previous admission, EMS record, old EKG, old radiological studies, urgent care reports/EKG's, skilled nursing records)? Report findings @ -No old charts were reviewed Differential Diagnosis (chest pain, altered mental status, abdominal pain women, abdominal pain men, vaginal bleeding, weakness, fever, dyspnea, syncope, headache, dizziness, GI bleed, back pain, seizure, CVA, palpatations, mental health)? @ -Pancreatitis, small bowel obstruction, ileus, ruptured ulcer with free air EKG interpreted by me (3pts min.). @ -As above X-rays interpreted by me (1pt min.). @ -Chest x-ray was obtained and was interpreted by myself showing mild bilat eral perihilar reticular opacities which may due to edema or atypical infection. CT interpreted by me (1pt min.). @ -CT abdomen and pelvis with IV contrast was obtained and was interpreted by myself showing scattered foci of nondependent free air in the right upper quadrant with a small perihepatic free fluid an extensive periduodenal stranding, suspicious for perforated duodenal ulcer. There was also a right middle lobe, lingula and bilateral lateral lower lobe groundglass consolidations or she may be due to edema or infection. U/S interpreted by me (1pt. min.). @ -None done What testing was considered but not performed or refused? (CT, X-rays, U/S, labs)? Why? @ -None What meds were considered but not given or refused? Why? @ -None Did you discuss the management of the patient with other professionals (professionals i.e. , PA, VALVE SEATER OPERATOR, lab, RT, psych nurse, social human services assistants, supervisor framing mill, teacher, forestry technical officer, casework specialist)? Give summary @ -Yes, Dr. Rivera was contacted regarding the findings on patient's computed tomography scan and he did agree to taking the patient to OR for operative management. Was smoking cessation discussed for >3mins.? @ -No Was critical care preformed (if so, how long)? @ -No Were there social determinants of health that impacted care today? How? (Homelessness, low income, unemployed, alcoholism, drug addiction, transportation, low edu. Level, literacy, decrease access to med. care, prison, rehab)? @ -No Was there de-escalation of care discussed even if they declined (Discuss DNR or withdrawal of care, Hospice)? DNR status @ -No What co-morbidities impacted this encounter? (DM, HTN, Smoking, COPD, CAD, Cancer, CVA, ARF, Chemo, Hep., AIDS, mental health diagnosis, sleep apnea, morbid obesity)? @ -Diabetes, hypertension, hypothyroidism Was patient admitted / discharged? Hospital course, mention meds given and route, prescriptions, significant lab abnormalities, going to OR and other pertinent info. @ -The patient was seen and evaluated in emergency department. Physical exam, the patient was resting in bed with moderate distress secondary to abdominal pain and discomfort. Vital signs admission were stable. The patient did r equire multiple doses of pain medications in the emergency department. Laboratory workup was largely within normal limits. Computed tomography scan was concerning for a ruptured duodenal ulcer with free air. Due to these findings, the surgeon on-call, Dr. Rivera was contacted. He did agree to accept the patient for operative management. The patient was told of this plan and was agreeable. A COVID-19 test was also ordered at this time. The patient was admitted in stable condition. Undiagnosed new problem with uncertain prognosis? @ -No Drug Therapy requiring intensive monitoring for toxicity (Heparin, Nitro, Insulin, Cardizem)? @ -No Were any procedures done? @ -No Diagnosis/symptom? @ -Ruptured duodenal ulcer with abdominal free air Acute, or Chronic, or Acute on Chronic? @ -Acute Uncomplicated (without systemic symptoms) or Complicated (systemic symptoms)? @ -Complicated Side effects of treatment? @ -No Exacerbation, Progression, or Severe Exacerbation? @ -No Poses a threat to life or bodily function? How? (Chest pain, [place], CO, pneumonia, PE, COPD, DKA, ARF, appy, cholecystitis, CVA, Diverticulitis, Homicidal, Suicidal, threat to staff... and all critical care pts) @ -Yes, continued free air without surgical intervention can lead to significant infection, permanent damage and possible . - Lab Data Result diagrams: 08/29/22 04:50 08/29/22 04:50 Lab Results 08/29/22 08/29/22 08/29/22 Range/Units 04:50 04:50 04:50 WBC 13.2 H (3.8-10.6) k/uL RBC 3.59 L (4.30-5.90) m/uL Hgb 11.8 L (13.0-17.5) gm/dL Hct 35.7 L (39.0-53.0) % MCV 99.6 (80.0-100.0) fL MCH 32.8 (25.0-35.0) pg MCHC 33.0 (31.0-37.0) g/dL RDW 13.6 (11.5-15.5) % Plt Count 503 H (150-450) k/uL MPV 8.7 Neutrophils % 78 % Lymphocytes % 17 % Monocytes % 2 % Eosinophils % 1 % Basophils % 0 % Neutrophils # 10.3 H (1.3-7.7) k/uL Lymphocytes # 2.2 (1.0-4.8) k/uL Monocytes # 0.3 (0-1.0) k/uL Eosinophils # 0.1 (0-0.7) k/uL Basophils # 0.0 (0-0.2) k/uL Hypochromasia Slight PT 10.2 (9.0-12.0) sec INR 1.0 (<1.2) APTT 26.6 (22.0-30.0) sec Sodium 137 (137-145) mmol/L Potassium 3.8 (3.5-5.1) mmol/L Chloride 102 (98-107) mmol/L Carbon Dioxide 19 L (22-30) mmol/L Anion Gap 16 mmol/L BUN 18 (9-20) mg/dL Creatinine 0.78 (0.66-1.25) mg/dL Est GFR (CKD-EPI)AfAm >90 (>60 ml/min/1.73 sqM) Est GFR (CKD-EPI)NonAf >90 (>60 ml/min/1.73 sqM) Glucose 214 H (74-99) mg/dL Calcium 9.4 (8.4-10.2) mg/dL Magnesium 1.8 (1.6-2.3) mg/dL Total Bilirubin 0.6 (0.2-1.3) mg/dL AST 23 (17-59) U/L ALT 22 (4-49) U/L Alkaline Phosphatase 123 (38-126) U/L Troponin I (0.000-0.034) ng/mL NT-Pro-B Natriuret Pep pg/mL Total Protein 7.5 (6.3-8.2) g/dL Albumin 4.2 (3.5-5.0) g/dL Lipase 165 (23-300) U/L 08/29/22 08/29/22 Range/Units 04:50 04:50 WBC (3.8-10.6) k/uL RBC (4.30-5.90) m/uL Hgb (13.0-17.5) gm/dL Hct (39.0-53.0) % MCV (80.0-100.0) fL MCH (25.0-35.0) pg MCHC (31.0-37.0) g/dL RDW (11.5-15.5) % Plt Count (150-450) k/uL MPV Neutrophils % % Lymphocytes % % Monocytes % % Eosinophils % % Basophils % % Neutrophils # (1.3-7.7) k/uL Lymphocytes # (1.0-4.8) k/uL Monocytes # (0-1.0) k/uL Eosinophils # (0-0.7) k/uL Basophils # (0-0.2) k/uL Hypochromasia PT (9.0-12.0) sec INR (<1.2) APTT (22.0-30.0) sec Sodium (137-145) mmol/L Potassium (3.5-5.1) mmol/L Chloride (98-107) mmol/L Carbon Dioxide (22-30) mmol/L Anion Gap mmol/L BUN (9-20) mg/dL Creatinine (0.66-1.25) mg/dL Est GFR (CKD-EPI)AfAm (>60 ml/min/1.73 sqM) Est GFR (CKD-EPI)NonAf (>60 ml/min/1.73 sqM) Glucose (74-99) mg/dL Calcium (8.4-10.2) mg/dL Magnesium (1.6-2.3) mg/dL Total Bilirubin (0.2-1.3) mg/dL AST (17-59) U/L ALT (4-49) U/L Alkaline Phosphatase (38-126) U/L Troponin I <0.012 (0.000-0.034) ng/mL NT-Pro-B Natriuret Pep 96 pg/mL Total Protein (6.3-8.2) g/dL Albumin (3.5-5.0) g/dL Lipase (23-300) U/L Disposition Clinical Impression: Duodenal ulcer perforation, Free intraperitoneal air Disposition: ADMITTED IP TO THIS [facility] Condition: Stable Is patient prescribed a controlled substance at d/c from ED?: No Referrals: Nasim Muller MD [Primary Care Provider] - 1-2 days Time of Disposition: 06:15 Decision to Admit Reason: Admit from EC Decision Date: 08/29/22 Decision Time: 06:15
[2022-08-29] MEDS ORDERED: fentaNYL (PF) 50 MCG/ML 2 ML AMP IVP STA (05:18)
--- NOTE | 2022-08-29 06:10 | CT ---
EXAM: CT Abdomen and Pelvis With Intravenous Contrast CLINICAL HISTORY: ITS.REASON CT Reason: Acute epigastric abdominal pain TECHNIQUE: Axial computed tomography images of the abdomen and pelvis with intravenous contrast. CTDI is 33 mGy and DLP is 2030.7 mGy-cm. This CT exam was performed using one or more of the following dose reduction techniques: automated exposure control, adjustment of the mA and/or kV according to patient size, and/or use of iterative reconstruction technique. COMPARISON: No relevant prior studies available. FINDINGS: Lung bases: Right middle lobe, lingula, and bilateral lateral lower lobe ground-glass consolidations. No mass. ABDOMEN: Liver: Unremarkable. No mass. Gallbladder and bile ducts: Contracted with calcified gallstone in the gallbladder fundus and circumferential gallbladder wall thickening. No ductal dilation. Pancreas: Unremarkable. No mass. No ductal dilation. Spleen: Unremarkable. No splenomegaly. Adrenals: Unremarkable. No mass. Kidneys and ureters: Unremarkable. No solid mass. No hydronephrosis. Stomach and bowel: Extensive periduodenal stranding. No obstruction. No significant diverticular disease. No colonic wall thickening. PELVIS: Appendix: No findings to suggest acute appendicitis. Bladder: Unremarkable. No mass. Reproductive: Unremarkable as visualized. ABDOMEN and PELVIS: Intraperitoneal space: Small pelvic free fluid. Few scattered foci of free air seen in the right upper quadrant. Small perihepatic free fluid. Bones/joints: No acute fracture. No dislocation. Soft tissues: Unremarkable. Vasculature: Unremarkable. No abdominal aortic aneurysm. Lymph nodes: Unremarkable. No enlarged lymph nodes. IMPRESSION: 1. Scattered foci of nondependent free air in the right upper quadrant with a small perihepatic free fluid and extensive lisa-duodenal stranding suspicious for perforated duodenal ulcer. 2. Right middle lobe, lingula, and bilateral lateral lower lobe ground- glass consolidations which may be due to edema or infection. <MYCVCSECTION> Communications: 08/29/22 06:10 Call Doctor Regarding Pneumoperitoneum, new or unexpected, called Dr. Fab Lovelace on 08/29 06:10 (-04:00)
--- NOTE | 2022-08-29 06:18 | XR ---
EXAM: XR Chest, 2 Views CLINICAL HISTORY: ITS.REASON XR Reason: CP TECHNIQUE: Frontal and lateral views of the chest. COMPARISON: 10/17/2016 FINDINGS: Lungs: Mild bilateral perihilar reticular opacities. No consolidation. Pleural space: Unremarkable. No pneumothorax. Heart: Unremarkable. No cardiomegaly. Mediastinum: Unremarkable. Bones/joints: Unremarkable. IMPRESSION: Mild bilateral perihilar reticular opacities which may be due to edema or atypical infection.
[2022-08-29] MEDS ORDERED: MORPHINE SULFATE 4 MG/ML SYRINGE IV PRN (06:28)
[2022-08-29] MEDS ORDERED: NALOXONE 0.4 MG/ML 1 ML VIAL IV PRN ×2 (06:28→08:33)
[2022-08-29] MEDS ORDERED: HYDROmorphone 1 MG/ML 1 ML SYRINGE IVP STA (06:35)
[2022-08-29] MEDS: SODIUM CHLORIDE 0.9% 1,000 ML IV ONE ×2 (07:00→14:59)
[2022-08-29] MEDS ORDERED: SUCCINYLCHOLINE CHLORIDE 200 MG/10 ML VIAL IV ONE (07:17)
[2022-08-29] MEDS ORDERED: GLYCOPYRROLATE 0.2 MG/ML 2 ML VIAL ONE (07:17)
[2022-08-29] MEDS ORDERED: ONDANSETRON 4 MG/2 ML VIAL ONE (07:17)
[2022-08-29] MEDS ORDERED: NEOSTIGMINE 1 MG/ML 10 ML VIAL ONE (07:17)
[2022-08-29] MEDS ORDERED: PROPOFOL 10 MG/ML 20 ML VIAL IV ONE (07:17)
[2022-08-29] MEDS ORDERED: HEPARIN SODIUM,PORCINE 10,000 UNIT/ML 1 ML VIAL ONE (07:17)
[2022-08-29] MEDS ORDERED: MIDAZOLAM 2 MG/2 ML VIAL ONE (07:17)
[2022-08-29] MEDS ORDERED: LIDOCAINE 2% INJ 20 MG/ML (2 ML VIAL) ONE (07:17)
[2022-08-29] MEDS ORDERED: PHENYLEPHRINE-0.9% NACL SYG 1,000 MCG/10 ML SYRINGE ONE (07:17)
[2022-08-29] MEDS ORDERED: ROCURONIUM 10 MG/ML (5 ML VIAL) IV ONE (07:17)
[2022-08-29] MEDS ORDERED: KETAMINE 10 MG/ML 20 ML VIAL ONE (07:17)
[2022-08-29] MEDS ORDERED: fentaNYL (PF) 50 MCG/ML 2 ML AMP ONE (07:17)
[2022-08-29] MEDS ORDERED: HEPARIN SODIUM,PORCINE/PF 5,000 UNIT/0.5 ML SYRINGE SQ ONE (07:18)
[2022-08-29] MEDS ORDERED: SODIUM CHLORIDE 0.9% 1,000 ML IV ONE (07:22)
[2022-08-29] MEDS ORDERED: LACTATED RINGERS 1,000 ML IV ONE ×2 (08:26→08:33)
--- NOTE | 2022-08-29 08:31 | P.GSHP ---
History of Present Illness H&P Date: 08/29/22 Chief Complaint: Perforated duodenal ulcer This a 46-year-old male who had acute onset of abdominal pain approximately 1 AM this morning. Patient worked up emergency room. His CAT scan is suggestive of perforated duodenal ulcer. Patient states he takes Aleve 8 tablets per day. He states he uses for back pain. Past Medical History Past Medical History: Sleep Apnea/CPAP/BIPAP, Thyroid Disorder Additional Past Medical History / Comment(s): Morbid obesity with interval weight loss, obstructive sleep apnea maintained on CPAP, hypothyroidism History of Any Multi-Drug Resistant Organisms: None Reported Past Surgical History: Orthopedic Surgery Additional Past Surgical History / Comment(s): right quad muscle tendon repair, POSTERIOR NECK I&D, COLONOSCOPY. Past Anesthesia/Blood Transfusion Reactions: No Reported Reaction Past Psychological History: No Psychological Hx Reported Smoking Status: Current every day smoker Past Alcohol Use History: Rare Past Drug Use History: None Reported - Past Family History Father Family Medical History: No Reported History Additional Family Medical History / Comment(s): FATHER'S DAD HAD COLON CANCER Mother Family Medical History: Cancer Additional Family Medical History / Comment(s): COLON CANCER Medications and Allergies Home Medications Medication Instructions Recorded Confirmed Type Levothyroxine Sodium [Synthroid] 200 mcg PO DAILY 05/09/20 08/29/22 History metFORMIN HCL [Glucophage] 1,000 mg PO BID 05/09/20 08/29/22 History Levothyroxine Sodium [Synthroid] 25 mcg PO DAILY 08/29/22 08/29/22 History Naproxen Sodium [Aleve] 1 tab 08/29/22 History amLODIPine [Norvasc] 5 mg PO DAILY 08/29/22 08/29/22 History Allergies Allergy/AdvReac Type Severity Reaction Status Date / Time ibuprofen [From Motrin] Allergy Swelling Verified 08/29/22 07:39 aspirin AdvReac Swelling Verified 08/29/22 07:39 Surgical - Exam Vital Signs Temp Pulse Resp BP Pulse Ox 97.7 F 95 18 122/77 100 08/29/22 04:10 08/29/22 04:10 08/29/22 04:10 08/29/22 04:10 08/29/22 04:10 - General well developed, moderate distress - Eyes PERRL - ENT normal pinna - Neck no masses - Respiratory normal expansion - Cardiovascular Rhythm: regular - Abdomen Acute abdomen with peritoneal signs. Patient is diffusely tender Abdomen: tender Results - Labs 08/29/22 04:50 08/29/22 04:50 Abnormal Lab Results - Last 24 Hours (Table) 08/29/22 08/29/22 Range/Units 04:50 04:50 WBC 13.2 H (3.8-10.6) k/uL RBC 3.59 L (4.30-5.90) m/uL Hgb 11.8 L (13.0-17.5) gm/dL Hct 35.7 L (39.0-53.0) % Plt Count 503 H (150-450) k/uL Neutrophils # 10.3 H (1.3-7.7) k/uL Carbon Dioxide 19 L (22-30) mmol/L Glucose 214 H (74-99) mg/dL Diabetes panel 08/29/22 Range/Units 04:50 Sodium 137 (137-145) mmol/L Potassium 3.8 (3.5-5.1) mmol/L Chloride 102 (98-107) mmol/L Carbon Dioxide 19 L (22-30) mmol/L BUN 18 (9-20) mg/dL Creatinine 0.78 (0.66-1.25) mg/dL Glucose 214 H (74-99) mg/dL Calcium 9.4 (8.4-10.2) mg/dL AST 23 (17-59) U/L ALT 22 (4-49) U/L Alkaline Phosphatase 123 (38-126) U/L Total Protein 7.5 (6.3-8.2) g/dL Albumin 4.2 (3.5-5.0) g/dL Calcium panel 08/29/22 Range/Units 04:50 Calcium 9.4 (8.4-10.2) mg/dL Albumin 4.2 (3.5-5.0) g/dL Pituitary panel 08/29/22 Range/Units 04:50 Sodium 137 (137-145) mmol/L Potassium 3.8 (3.5-5.1) mmol/L Chloride 102 (98-107) mmol/L Carbon Dioxide 19 L (22-30) mmol/L BUN 18 (9-20) mg/dL Creatinine 0.78 (0.66-1.25) mg/dL Glucose 214 H (74-99) mg/dL Calcium 9.4 (8.4-10.2) mg/dL Adrenal panel 08/29/22 Range/Units 04:50 Sodium 137 (137-145) mmol/L Potassium 3.8 (3.5-5.1) mmol/L Chloride 102 (98-107) mmol/L Carbon Dioxide 19 L (22-30) mmol/L BUN 18 (9-20) mg/dL Creatinine 0.78 (0.66-1.25) mg/dL Glucose 214 H (74-99) mg/dL Calcium 9.4 (8.4-10.2) mg/dL Total Bilirubin 0.6 (0.2-1.3) mg/dL AST 23 (17-59) U/L ALT 22 (4-49) U/L Alkaline Phosphatase 123 (38-126) U/L Total Protein 7.5 (6.3-8.2) g/dL Albumin 4.2 (3.5-5.0) g/dL Assessment and Plan Assessment: Acute perforated duodenal ulcer. Patient undergo exploratory laparotomy with repair of duodenal ulcer
[2022-08-29] MEDS ORDERED: ONDANSETRON 4 MG/2 ML VIAL IVP PRN (08:33)
[2022-08-29] MEDS ORDERED: METOCLOPRAMIDE 5 MG/ML 2 ML VIAL IVP PRN (08:33)
--- NOTE | 2022-08-29 08:33 | P.OP ---
Date of Procedure: 08/29/22 Preoperative Diagnosis: Perforated ulcer Postoperative Diagnosis: Perforated duodenal ulcer Procedure(s) Performed: Exploratory laparotomy Repair of perforated duodenal ulcer with modified Osmany patch Anesthesia: JOHN Surgeon: Jeffrey Rivera Estimated Blood Loss (ml): 50 Pathology: none sent Condition: stable Disposition: PACU Description of Procedure: The patient's placed on the operative table in supine position. He received general anesthesia. His abdomen was prepped and draped usual fashion. The abdomen was entered through an upper midline incision. The Bookwalter tract with a wound. Upon entering the abdomen there was bilious ascites seen. The prostate 100 mL of bilious fluid was aspirated. The abdomen explored. There was a dense inflammatory reaction in the right upper quadrant. The ulcer was found anterior wall of the second portion of the duodenum. The ulcer was quite large measuring approximately 4 cm in diameter. There was significant inflammatory changes of the duodenum suggestive chronic disease. At this point the ulcer was closed using 3-0 GI silk sutures. And then a piece of omentum was placed over top the repair as a modified Osmany patch was secured with 3-0 GI silk suture. The abdomen was then irrigated with 5 L of normal saline. A DARIUS drains placed over top the repair and brought through separate stab incision. Nasogastric tube was placed and stomach by anesthesia. The fascia was closed with looped #1 PDS suture. Skin was closed ngoc. Patient tolerated the will was sent to recovery room stable condition.
[2022-08-29] MEDS: HYDROmorphone 0.5 MG/0.5 ML SYRINGE IVP PRN ×4 (08:46→10:29)
[2022-08-29] MEDS: HYDROmorphone 1 MG/ML 1 ML SYRINGE IVP PRN ×3 (13:32→21:13)
[2022-08-29] MEDS ORDERED: DEXTROSE 50% SYRINGE 50 ML IVP PRN ×2 (14:23)
--- NOTE | 2022-08-29 14:24 | P.HPIM ---
History of Present Illness H&P Date: 08/29/22 Patient is a 46-year-old male with osteoarthritis, hypothyroidism, hypertension, and diabetes who presented to the hospital complaining of abdominal pain. In the ER he underwent an extensive evaluation and was found to have possible perforated duodenal ulcer on CT abdomen and pelvis. He was emergently taken to the OR where they perforated duodenal ulcer was confirmed and he had a Osmany patch placed. We are consulted for medical management. Patient seen and examined at bedside. He is quite lethargic due to just getting pain medications. He continues to have pain in his abdomen. He denies any chest pain, shortness of breath, nausea, vomiting. He is very tired and his mother provides medical history. He has been having knee pain and recently had a scope and has been taking naproxen often. He has no history of acid reflux in the past. He does typically wear a CPAP. Vital signs reviewed General: nontoxic, no distress, appears at stated age Derm: warm, dry Eyes: EOMI, no lid lag, anicteric sclera, pupils equal round reactive to light ENT: Nose and ears atraumatic, no thrush, no pharyngeal erythema Cardiovascular: S1S2 reg, no murmur, positive posterior tibial pulse bilateral, no edema, capillary refill less than 2 seconds Lungs: clear to auscultation bilateral, no rhonchi, no rales, no wheeze, no accessory muscle use Abdominal: soft, + tender to palpation, no guarding, no appreciable organomegaly, normal bowel sounds Ext: no gross muscle atrophy, no contractures Neuro: CN II-XII grossly intact, no focal neuro deficits noted Psych: Lethargic, oriented, appropriate affect Assessment: Perforated duodenal ulcer Hypertension Diabetes mellitus type 2 [id number] Obstructive sleep apnea Obesity with BMI 34.3 Nicotine dependency Imaging: CT abdomen and pelvis-foci nondependent free air in the right upper quadrant with small perihepatic free fluid an extensive. Duodenal stranding suspicious for perforated duodenal ulcer, right middle lobe, lingula, and bilateral lower lobe ground glass opacities Data Review: Laboratory analysis remarkable for white blood cell count 13.2, hemoglobin 11.8, platelets 503, carbon dioxide 19, glucose 214. Influenza A/B/RC/COVID-19 testing was negative Plan: -Protonix 40 mg IV push twice daily -Hold Norvasc -Hold metformin -Start sliding scale insulin -Start nicotine patch 21 g daily -Currently unable to use CPAP due to NG tube in place Thank you for allowing us to participate in the care of this pleasant patient. Do not hesitate to contact us with questions. Someone can be reached from the [facility] hospitalist group all hours of the day at [phone] or via [employer]. This dictation was prepared using [employer] voice recognition software. Though every attempt is made to correct errors during during dictation some may still exist. Past Medical History Past Medical History: Diabetes Mellitus, Hypertension, Sleep Apnea/CPAP/BIPAP, Thyroid Disorder Additional Past Medical History / Comment(s): Morbid obesity with interval weight loss, obstructive sleep apnea maintained on CPAP, hypothyroidism History of Any Multi-Drug Resistant Organisms: None Reported Past Surgical History: Orthopedic Surgery Additional Past Surgical History / Comment(s): right quad muscle tendon repair, POSTERIOR NECK I&D, COLONOSCOPY, Right knee arthroscopy, Perforated duodenal ulcer repair with grahm patch 08/27/2022. Past Anesthesia/Blood Transfusion Reactions: No Reported Reaction Past Psychological History: No Psychological Hx Reported Smoking Status: Current every day smoker (1 ppd) Past Alcohol Use History: Rare Past Drug Use History: None Reported - Past Family History Father Family Medical History: No Reported History Additional Family Medical History / Comment(s): FATHER'S DAD HAD COLON CANCER Mother Family Medical History: Cancer Additional Family Medical History / Comment(s): COLON CANCER Medications and Allergies Home Medications Medication Instructions Recorded Confirmed Type Levothyroxine Sodium [Synthroid] 200 mcg PO DAILY 05/09/20 08/29/22 History metFORMIN HCL [Glucophage] 1,000 mg PO BID 05/09/20 08/29/22 History Levothyroxine Sodium [Synthroid] 25 mcg PO DAILY 08/29/22 08/29/22 History Naproxen Sodium [Aleve] 1 tab 08/29/22 History amLODIPine [Norvasc] 5 mg PO DAILY 08/29/22 08/29/22 History Allergies Allergy/AdvReac Type Severity Reaction Status Date / Time ibuprofen [From Motrin] Allergy Swelling Verified 08/29/22 07:39 aspirin AdvReac Swelling Verified 08/29/22 07:39 Physical Exam Osteopathic Statement: *. No significant issues noted on an osteopathic structural exam other than those noted in the History and Physical/Consult. Vitals: Vital Signs Temp Pulse Pulse Pulse Resp BP BP 08/29/22 13:48 89 144/85 08/29/22 13:31 91 144/84 08/29/22 13:30 98.2 F 98 16 153/93 08/29/22 12:00 93 20 107/56 08/29/22 11:30 96 16 111/63 08/29/22 11:00 95 16 101/62 08/29/22 10:30 95 16 102/73 08/29/22 10:15 93 16 115/66 08/29/22 10:00 93 16 110/67 08/29/22 09:45 95 16 113/70 08/29/22 09:30 90 16 123/62 08/29/22 09:19 90 16 119/69 08/29/22 09:04 90 16 141/75 08/29/22 08:49 86 16 154/69 08/29/22 08:34 97.3 F L 93 14 164/69 08/29/22 07:15 99.2 F 91 18 08/29/22 05:26 100 116/82 08/29/22 04:10 97.7 F 95 18 122/77 BP Pulse Ox 08/29/22 13:48 95 08/29/22 13:31 96 08/29/22 13:30 95 08/29/22 12:00 96 08/29/22 11:30 94 L 08/29/22 11:00 96 08/29/22 10:30 93 L 08/29/22 10:15 98 08/29/22 10:00 98 08/29/22 09:45 96 08/29/22 09:30 99 08/29/22 09:19 94 L 08/29/22 09:04 95 08/29/22 08:49 97 08/29/22 08:34 96 08/29/22 07:15 121/66 99 08/29/22 05:26 08/29/22 04:10 100 Intake and Output 08/28/22 08/29/22 08/29/22 22:59 06:59 14:59 Intake Total 1650 Output Total 665 Balance 985 Intake: IV 1650 Output: Urine 615 Estimated Blood Loss 50 Other: Weight 114.759 kg Results CBC & Chem 7: 08/29/22 04:50 08/29/22 04:50 Labs: Abnormal Lab Results - Last 24 Hours (Table) 08/29/22 08/29/22 Range/Units 04:50 04:50 WBC 13.2 H (3.8-10.6) k/uL RBC 3.59 L (4.30-5.90) m/uL Hgb 11.8 L (13.0-17.5) gm/dL Hct 35.7 L (39.0-53.0) % Plt Count 503 H (150-450) k/uL Neutrophils # 10.3 H (1.3-7.7) k/uL Carbon Dioxide 19 L (22-30) mmol/L Glucose 214 H (74-99) mg/dL Thrombosis Risk Factor Assmnt - Choose All That Apply Each Factor Represents 1 point: Age 41-60 years, Obesity (BMI >25) Each Risk Factor Represents 2 Points: Major surgery Thrombosis Risk Factor Assessment Total Risk Factor Score: 4 Thrombosis Risk Factor Assessment Level: Moderate Risk
[2022-08-29] MEDS: PANTOPRAZOLE 40 MG/10 ML VIAL IVP SCH ×2 (15:00→21:12)
[2022-08-29] MEDS: ENOXAPARIN 40 MG/0.4 ML SYRINGE SQ SCH (15:00)
[2022-08-29] MEDS: SODIUM CHLORIDE 0.9% 1,000 ML IV SCH (15:00)
[2022-08-29] MEDS: NICOTINE 21MG/24HR PATCH TRANSDERM SCH (15:19)
[2022-08-29 16:03] LABS: Glucose,Whole Blood 224 mg/dL (70-110)
[2022-08-29] MEDS: INSULIN ASPART (NovoLOG) 100 UNIT/ML VIAL SQ SCH ×2 (17:18→21:13)
[2022-08-29 20:51] LABS: Glucose,Whole Blood 201 mg/dL (70-110)
[2022-08-30] MEDS: HYDROmorphone 1 MG/ML 1 ML SYRINGE IVP PRN ×2 (01:06→09:04)
[2022-08-30] MEDS: SODIUM CHLORIDE 0.9% 1,000 ML IV SCH ×3 (01:07→23:38)
[2022-08-30] MEDS ORDERED: FUROSEMIDE 10 MG/ML 10 ML VIAL IV STA (03:29)
--- NOTE | 2022-08-30 05:13 | XR ---
EXAM: XR Chest, 1 View CLINICAL HISTORY: hypoxia TECHNIQUE: Frontal view of the chest. COMPARISON: 08/29/2022. FINDINGS/IMPRESSION: Interval placement of NG tube with distal end overlying the left upper quadrant and likely within the stomach. Hypoventilation with bilateral multifocal atelectasis and/or infiltrates, interval worsening. Small left pleural effusion likely present, new since prior study. No other significant interval change. Continued attention on follow-up recommended.
[2022-08-30] MEDS ORDERED: IPRATROPIUM-ALBUTEROL 3 ML NEB INHALATION PRN (05:21)
[2022-08-30] MEDS: LEVOTHYROXINE 25 MCG TAB PO SCH ×2 (05:48→23:39)
[2022-08-30] MEDS: LEVOTHYROXINE 100 MCG TAB PO SCH ×2 (05:48→23:39)
[2022-08-30 06:14] LABS: Glucose,Whole Blood 174 mg/dL (70-110)
--- NOTE | 2022-08-30 06:24 | P.CNPUL ---
History of Present Illness Consult date: 08/30/22 Requesting physician: Erick Issa Reason for consult: dyspnea Chief complaint: Epigastric pain History of present illness: I am seeing this patient in new consultation today 08/30/2022 for acute h ypoxemic respiratory failure following a perforated duodenal ulcer repair. Patient is a 46-year-old white male with past medical history significant for obstructive sleep apnea with home CPAP, morbid obesity, hypothyroidism, hypertension, diabetes mellitus, and chronic nicotine dependence. Patient came into the emergency room yesterday morning complaining of epigastric abdominal pain. A CT of the abdomen pelvis with contrast showed scattered foci of nondependent free air in the right upper quadrant with a small perihepatic free fluid and extensive periduodenal stranding suspicious for a perforated duodenal ulcer. It also showed right middle lobe, lingula, and bilateral lateral lower lobe groundglass consolidation felt to be related to edema or infection. The patient went for an exploratory laparotomy yesterday and was found to have a perforated duodenal ulcer which was repaired with a modified Osmany patch. No immediate perioperative complications were reported, and the patient was sent to the general medical floor. Apparently, earlier this morning, the patient did develop some respiratory distress. Oxygen demands increased from 2 L to 15 L high flow nasal cannula. The chest x-ray was taken and I'm unable to view the chest x-ray, but was read as hypoventilatory with bilateral multifocal atelectasis and/or infiltrates with interval worsening from prior imaging. There was also a small left pleural effusion which was new. The patient was given 80 mg of Lasix, and has diuresed well over a liter in the last hour. His oxygen demands have also improved, and is currently on 9 L high flow cannula. The patient states that he is feeling more comfortable. CPAP with pressure support of 8 is at the bedside, however, the patient was unable to tolerate this due to an NG tube. Incentive spirometer is at the bedside, and requires frequent encouragement. He does have a midline abdominal incision that appears clean and approximated. There is an abdominal binder in place. CBC on arrival shows a WBC count of 13.2, hemoglobin 11.8, hematocrit 35.7, platelets 503. BMP on arrival shows a sodium 137, potassium 3.8, chloride 102, serum CO2 19, BUN 18, creatinine 0.78, glucose 214. Troponin negative 1. NT proBNP 96. He was negative for influenza, RSV, COVID-19. Patient's oxygen requirements have improved, and vital signs are stable at the moment. Review of Systems REVIEW OF SYSTEMS: CONSTITUTIONAL: Denies any recent significant weight loss or weight gain. EYES: Denies change in vision. EARS, NOSE, MOUTH, THROAT: Denies headaches, denies sore throat. CARDIOVASCULAR: Denies chest pain, palpitations or syncopal episodes. RESPIRATORY: Denies cough, congestion or hemoptysis. Admits shortness of breath GASTROINTESTINAL: Denies change in appetite, nausea and vomiting, or diarrhea. Admits incisional abdominal pain GENITOURINARY: Denies hematuria, denies infections. MUSKULOSKELETAL: Denies pain, denies swelling. INTEGUMENTARY: Denies rash, denies eczema. NEUROLOGICAL: Denies recent memory loss, no recent seizure activity. PSYCHIATRIC: Denies anxiety, denies depression. HEMATOLOGIC/LYMPHATIC: Denies anemia, denies enlarged lymph node Past Medical History Past Medical History: Diabetes Mellitus, Hypertension, Sleep Apnea/CPAP/BIPAP, Thyroid Disorder Additional Past Medical History / Comment(s): Morbid obesity with interval we ight loss, obstructive sleep apnea maintained on CPAP, hypothyroidism History of Any Multi-Drug Resistant Organisms: None Reported Past Surgical History: Orthopedic Surgery Additional Past Surgical History / Comment(s): right quad muscle tendon repair, POSTERIOR NECK I&D, COLONOSCOPY, Right knee arthroscopy, Perforated duodenal ulcer repair with grahm patch 08/27/2022. Past Anesthesia/Blood Transfusion Reactions: No Reported Reaction Past Psychological History: No Psychological Hx Reported Additional Psychological History / Comment(s): PT LIVES WITH HIS MOM . NO PETS. HAS 10 STEPS TO ENTER HOME AND SLEEPS IN BASEMENT SO HE HAD 15 STEPS TO GO DOWN. NO OUTSIDE SERVICES RECIEVIED, HAS A CPAP MACHINE. Smoking Status: Current every day smoker Past Alcohol Use History: Rare Additional Past Alcohol Use History / Comment(s): STARTED SMOKING IN 1993 ,QUIT 09-15-16 WAS SMOKING 1.5 PPD Past Drug Use History: None Reported - Past Family History Father Family Medical History: No Reported History Additional Family Medical History / Comment(s): FATHER'S DAD HAD COLON CANCER Mother Family Medical History: Cancer Additional Family Medical History / Comment(s): COLON CANCER Medications and Allergies Home Medications Medication Instructions Recorded Confirmed Type Levothyroxine Sodium [Synthroid] 200 mcg PO DAILY 05/09/20 08/29/22 History metFORMIN HCL [Glucophage] 1,000 mg PO BID 05/09/20 08/29/22 History Levothyroxine Sodium [Synthroid] 25 mcg PO DAILY 08/29/22 08/29/22 History Naproxen Sodium [Aleve] 1 tab 08/29/22 History amLODIPine [Norvasc] 5 mg PO DAILY 08/29/22 08/29/22 History Allergies Allergy/AdvReac Type Severity Reaction Status Date / Time ibuprofen [From Motrin] Allergy Swelling Verified 08/29/22 07:39 aspirin AdvReac Swelling Verified 08/29/22 07:39 Physical Exam Vitals: Vital Signs Temp Pulse Pulse Resp BP BP Pulse Ox 08/30/22 04:17 93 L 08/30/22 04:01 32 H 97 08/30/22 03:45 98 08/30/22 03:30 08/30/22 02:53 30 H 87 L 08/30/22 02:00 98.9 F 95 17 145/80 90 L 08/29/22 19:21 98.9 F 95 18 122/77 93 L 08/29/22 14:13 94 139/86 95 08/29/22 13:48 89 144/85 95 08/29/22 13:31 91 144/84 96 08/29/22 13:30 98.2 F 98 16 153/93 95 08/29/22 12:00 93 20 107/56 96 08/29/22 11:30 96 16 111/63 94 L 08/29/22 11:00 95 16 101/62 96 08/29/22 10:30 95 16 102/73 93 L 08/29/22 10:15 93 16 115/66 98 08/29/22 10:00 93 16 110/67 98 08/29/22 09:45 95 16 113/70 96 08/29/22 09:30 90 16 123/62 99 08/29/22 09:19 90 16 119/69 94 L 08/29/22 09:04 90 16 141/75 95 08/29/22 08:49 86 16 154/69 97 08/29/22 08:34 97.3 F L 93 14 164/69 96 08/29/22 07:15 99.2 F 91 18 121/66 99 FiO2 08/30/22 04:17 08/30/22 04:01 08/30/22 03:45 08/30/22 03:30 50 08/30/22 02:53 08/30/22 02:00 08/29/22 19:21 08/29/22 14:13 08/29/22 13:48 08/29/22 13:31 08/29/22 13:30 08/29/22 12:00 08/29/22 11:30 08/29/22 11:00 08/29/22 10:30 08/29/22 10:15 08/29/22 10:00 08/29/22 09:45 08/29/22 09:30 08/29/22 09:19 08/29/22 09:04 08/29/22 08:49 08/29/22 08:34 08/29/22 07:15 Intake and Output 08/29/22 08/29/22 08/30/22 14:59 22:59 06:59 Intake Total 1650 Output Total 665 230 400 Balance 985 -230 -400 Intake: IV 1650 Output: Drainage 30 Abdomen 30 Urine 615 200 400 Estimated Blood Loss 50 Other: Voiding Method Indwelling Catheter Weight 114.759 kg GENERAL EXAM: Alert, 46-year-old white male, comfortable in no apparent distress. HEAD: Normocephalic and atraumatic EYES: Normal reaction of pupils, equal size. NOSE: Clear with pink turbinates. THROAT: No erythema or exudates. NECK: No masses, no JVD. CHEST: No chest wall deformity. LUNGS: Equal air entry with rhonchi and expiratory wheezes throughout. On 9 L high flow nasal cannula. No conversational dyspnea or accessory muscle use.. CVS: S1 and S2 normal with no audible murmur, regular rhythm. No extra heart sounds ABDOMEN: There is a midline abdominal incision. No hepatosplenomegaly, bowel sounds are hypoactive, no guarding or rigidity SPINE: No scoliosis or deformity SKIN: No rashes CENTRAL NERVOUS SYSTEM: No focal deficits, tone is normal in all 4 extremities. EXTREMITIES: There is no peripheral edema, clubbing, or cyanosis. Peripheral pulses are intact. Results - Laboratory Findings CBC and BMP: 08/29/22 04:50 08/29/22 04:50 PT/INR, D-dimer PT 10.2 sec (9.0-12.0) 08/29/22 04:50 INR 1.0 (<1.2) 08/29/22 04:50 Abnormal lab findings: Abnormal Labs 08/29/22 08/29/22 08/29/22 04:50 04:50 16:01 WBC 13.2 H RBC 3.59 L Hgb 11.8 L Hct 35.7 L Plt Count 503 H Neutrophils # 10.3 H Carbon Dioxide 19 L Glucose 214 H POC Glucose (mg/dL) 224 H 08/29/22 20:50 WBC RBC Hgb Hct Plt Count Neutrophils # Carbon Dioxide Glucose POC Glucose (mg/dL) 201 H - Diagnostic Findings Chest x-ray: report reviewed (PACS is down) Assessment and Plan Assessment: Postop day #1 following a repair of a perforated duodenal ulcer with modified Osmany patch Acute hypoxemic respiratory failure possibly secondary to fluid overload versus SIRS response. Currently requiring 9 L high flow nasal cannula. Chest x-ray is hypoventilatory with bilateral multifocal atelectasis and/or infiltrates with interval worsening from prior study. There was also a new small left pleural effusion. Obstructive sleep apnea with home CPAP Obesity with a BMI of 34 Diabetes mellitus 2, [id number] Hypertension Hypothyroidism Chronic nicotine dependence, currently 1 pack per day smoker Plan: Patient's medications, labs, chest x-ray were reviewed Continue supplemental oxygen to maintain oxygen saturation 92% or greater CPAP is at the bedside with a pressure support of 8, however, the patient is unable to tolerate this due to the NG tube 80 mg of Lasix was given IV once, and the patient has already diuresed over 1 L Start the patient on bronchodilators Encourage incentive spirometer Start the patient on empiric antibiotics Repeat labs Check procalcitonin level and lactic acid Pain management Nasogastric tube to LIS for gastric decompression Lovenox for DVT prophylaxis Protonix for GI prophylaxis Nicotine replacement offered We will continue to follow I have personally seen and examined the patient, performed the documentation and the assessment and plan as written. Number of minutes spent on the visit:20 Time with Patient: Greater than 30
[2022-08-30] MEDS: PIPERACILLIN-TAZOBACTAM 3.375 GM in SODIUM CHLORIDE 0.9% 100 ML IVPB SCH ×3 (06:52→23:37)
[2022-08-30] MEDS: INSULIN ASPART (NovoLOG) 100 UNIT/ML VIAL SQ SCH ×4 (06:58→20:49)
[2022-08-30] MEDS: PANTOPRAZOLE 40 MG/10 ML VIAL IVP SCH ×2 (08:43→20:49)
[2022-08-30] MEDS: ENOXAPARIN 40 MG/0.4 ML SYRINGE SQ SCH (08:43)
[2022-08-30] MEDS: NICOTINE 21MG/24HR PATCH TRANSDERM SCH (08:43)
[2022-08-30] MEDS: IPRATROPIUM-ALBUTEROL 3 ML NEB INHALATION SCH ×4 (09:03→20:46)
[2022-08-30] MEDS ORDERED: FUROSEMIDE 10 MG/ML 4 ML VIAL IV STA (09:57)
[2022-08-30 11:07] LABS: Basophils # (A) 0.05 X 10*3/uL (0.00-0.10); Basophils % (A) 0.3 %; Eosinophils # (A) 0.07 X 10*3/uL (0.04-0.35); Eosinophils % (A) 0.4 %; HCT 30.3 % (39.6-50.0); HGB 9.4 g/dL (13.0-17.0); Immature Grans, Automated 0.5 %; Lymphocytes # (A) 1.37 X 10*3/uL (0.90-5.00); MCH 31.4 pg (27.0-32.0); MCV 101.3 fL (80.0-97.0); Mean Platelet Volume 11.4 fL (9.5-12.2); Monocytes % (A) 4.7 %; NRBC Per 100 WBC 0 /100 WBCS (0.0-0.0); Neutrophils # (A) 14.77 X 10*3/uL (1.80-7.70); Neutrophils % (A) 86.1 %; Platelet Count 329 X 10*3/uL (140-440); RBC 2.99 X 10*6/uL (4.40-5.60); RDW 13.5 % (11.5-14.5); WBC 17.14 X 10*3/uL (4.50-10.00)
[2022-08-30 11:17] LABS: Glucose,Whole Blood 177 mg/dL (70-110)
[2022-08-30] MEDS: methylPREDNISolone SOD SUCCI 40 MG/ML 1 ML VIAL IV SCH ×3 (11:36→23:37)
[2022-08-30 12:16] LABS: African American GFR (CKD) 126.5 (60.0-200.0); Albumin 3.2 g/dL (3.8-4.9); Albumin/Globulin Ratio 1.3 (1.60-3.17); Anion Gap 12.4 mmol/L (10.00-18.00); BUN/Creat Ratio 21.57 Ratio (12.00-20.00); Blood Urea Nitrogen 16.2 mg/dL (9.0-27.0); Carbon Dioxide 23.7 mmol/L (20.0-27.5); Globulin 2.5 g/dL (1.6-3.3); Non-African American GFR(CKD) 109.2 (60.0-200.0); Potassium 4.3 mmol/L (3.5-5.5); Total Bilirubin 0.3 mg/dL (0.30-1.20); Total Protein 5.7 g/dL (6.2-8.2)
--- NOTE | 2022-08-30 14:51 | P.PN ---
Subjective Progress Note Date: 08/30/22 (Delayed charting seen at 10:30 AM) Patient is a 46-year-old male with osteoarthritis, hypothyroidism, hypertension, and diabetes who presented to the hospital complaining of abdominal pain. In the ER he underwent an extensive evaluation and was found to have possible perforated duodenal ulcer on CT abdomen and pelvis. He was emergently taken to the OR where the perforated duodenal ulcer was confirmed and he had a Osmany patch placed. Return to the general medical floor and was doing well other than being lethargic. Overnight on 08/29 he developed worsening respiratory distress and received Lasix. He did require a nonrebreather. Patient seen and examined at bedside. He is feeling somewhat better with his breathing. His abdominal pain is much improved since yesterday. He was pre- short of breath in the middle the night but is improved. Vital signs reviewed General: nontoxic, no distress, appears at stated age Cardiovascular: S1S2 reg, no murmur, positive posterior tibial pulse bilateral, Lungs: Diffuse wheezing bilateral, no rhonchi, no rales , no accessory muscle use Abdominal: soft, + tender to palpation bilateral, no guarding, no appreciable organomegaly Ext: no gross muscle atrophy, no edema, no contractures Neuro: CN II-XI grossly intact, no focal neuro deficits Psych: Alert, oriented, appropriate affect Assessment: Acute hypoxic respiraoty failure -aspiration pneumonia versus fluid overload versus ARDS related to surgery. Perforated duodenal ulcer Hypertension Acute blood loss anemia and anticipated outcome of surgery Diabetes mellitus type 2 [id number], A1C 6.8 Obstructive sleep apnea Obesity with BMI 34.3 Nicotine dependency Imaging: X-rays reviewed by myself from the morning of 08/30/22 shows bilateral interstitial infiltrates Data Review: Vitals reviewed temperature 98.8, pulse 95, respirations 21, blood pressure 151/84, O2 sat 91% on 10 L Labs reviewed White blood cell count 17.43, hemoglobin 9.4, platelets 329, glucose 177, A1c 6.8, pro calcitonin 2.9 Influenza A/B/RCA/COVID-19 were negative Plan: -Case discussed with Dr. Han who was also at bedside. He is concerned about the patient's breathing pattern would like him transferred to the ICU. He recommended optimizing bronchodilators with the addition of Symbicort, albuterol, Solu-Medrol 40 mg IV every 8 hours, and Zosyn 3.375 g every 8 hours. He also recommended one additional dose of Lasix. -Protonix 40 mg IV push twice daily -Hold Norvasc -Hold metformin -Sliding scale insulin -nicotine patch 21 g daily -Currently unable to use CPAP due to NG tube in place - follow CBC and BMP regarding sepsis and acute blood loss anemia -Repeat chest x-ray in a.m. DVT prophylaxis: Lovenox Discussed with: Patient, nursing, Dr. Medeiros This dictation was prepared using [employer] voice recognition software. Though every attempt is made to correct errors during during dictation some may still exist. Objective - Vital Signs Vital signs: Vital Signs Temp 98.4 F 08/30/22 11:30 Pulse 92 08/30/22 14:00 Resp 30 H 08/30/22 14:00 BP 140/77 08/30/22 14:00 Pulse Ox 96 08/30/22 14:00 FiO2 90 08/30/22 14:00 Intake & Output 08/29/22 08/30/22 08/30/22 18:59 06:59 18:59 Intake Total 1650 600 60 Output Total 895 1920 1375 Balance 755 -1320 -1315 Weight 114.759 kg Intake: IV 1650 Intake, IV Titration 600 60 Amount Sodium Chloride 0.9% 1, 600 60 000 ml @ 75 mls/hr IV . [id number] [facility] Rx#:[id number] Output: Gastric Drainage 100 Drainage 30 20 Abdomen 30 20 Urine 815 1900 1275 Uretheral (Hale) 1500 Estimated Blood Loss 50 Other: Voiding Method Indwelling Catheter Indwelling Catheter - Labs CBC & Chem 7: 08/30/22 05:56 08/30/22 05:56 Labs: Abnormal Lab Results - Last 24 Hours (Table) 08/29/22 08/29/22 08/30/22 Range/Units 16:01 20:50 05:56 WBC (4.50-10.00) X 10*3/uL RBC (4.40-5.60) X 10*6/uL Hgb (13.0-17.0) g/dL Hct (39.6-50.0) % MCV (80.0-97.0) fL MCHC (32.0-37.0) g/dL Immature Gran # (0.00-0.04) X 10*3/uL Neutrophils # (1.80-7.70) X 10*3/uL BUN/Creatinine Ratio (12.00-20.00) Ratio Glucose (70-110) mg/dL POC Glucose (mg/dL) 224 H 201 H (70-110) mg/dL Hemoglobin A1c 6.8 H (0.0-6.0) % Total Protein (6.2-8.2) g/dL Albumin (3.8-4.9) g/dL Albumin/Globulin Ratio (1.60-3.17) g/dL Procalcitonin (0.02-0.09) ng/mL 08/30/22 08/30/22 08/30/22 Range/Units 05:56 05:56 06:09 WBC 17.14 H (4.50-10.00) X 10*3/uL RBC 2.99 L (4.40-5.60) X 10*6/uL Hgb 9.4 L (13.0-17.0) g/dL Hct 30.3 L (39.6-50.0) % MCV 101.3 H (80.0-97.0) fL MCHC 31.0 L (32.0-37.0) g/dL Immature Gran # 0.08 H (0.00-0.04) X 10*3/uL Neutrophils # 14.77 H (1.80-7.70) X 10*3/uL BUN/Creatinine Ratio 21.57 H (12.00-20.00) Ratio Glucose 168 H (70-110) mg/dL POC Glucose (mg/dL) (70-110) mg/dL Hemoglobin A1c (0.0-6.0) % Total Protein 5.7 L (6.2-8.2) g/dL Albumin 3.2 L (3.8-4.9) g/dL Albumin/Globulin Ratio 1.30 L (1.60-3.17) g/dL Procalcitonin 2.91 H (0.02-0.09) ng/mL 08/30/22 08/30/22 Range/Units 06:12 11:15 WBC (4.50-10.00) X 10*3/uL RBC (4.40-5.60) X 10*6/uL Hgb (13.0-17.0) g/dL Hct (39.6-50.0) % MCV (80.0-97.0) fL MCHC (32.0-37.0) g/dL Immature Gran # (0.00-0.04) X 10*3/uL Neutrophils # (1.80-7.70) X 10*3/uL BUN/Creatinine Ratio (12.00-20.00) Ratio Glucose (70-110) mg/dL POC Glucose (mg/dL) 174 H 177 H (70-110) mg/dL Hemoglobin A1c (0.0-6.0) % Total Protein (6.2-8.2) g/dL Albumin (3.8-4.9) g/dL Albumin/Globulin Ratio (1.60-3.17) g/dL Procalcitonin (0.02-0.09) ng/mL
--- NOTE | 2022-08-30 14:52 | P.PN ---
Subjective Progress Note Date: 08/30/22 CHIEF COMPLAINT: Perforated duodenal ulcer HISTORY OF PRESENT ILLNESS: Patient is postop day #1 status post exploratory laparotomy, repair of perforated duodenal ulcer with modified Osmany patch. Patient reports his pain is controlled. He had been requiring a nonrebreather 15 L. He is now currently on 10 5 L high flow oxygen. He did receive a dose of IV Lasix for possible overload. He's been evaluated pulmonary service and will be transferred to the ICU. DARIUS drain had no evidence of bile did have 50 mL of serosanguineous output. NG tube with 100 mL dark output. Patient seen and examined with Dr. angel PHYSICAL EXAM: VITAL SIGNS: Reviewed. GENERAL: Well-developed in no acute distress. HEENT: No sclera icterus. Extraocular movements grossly intact. Moist buccal mucosa. Head is atraumatic, normocephalic. ABDOMEN: Soft. Nondistended. DARIUS drain with serosanguineous output abdominal binder in place NEUROLOGIC: Alert and oriented. Cranial nerves II through XII grossly intact. ASSESSMENT: 1. Perforated duodenal ulcer status post exploratory laparotomy, repair of perforated duodenal ulcer with modified Osmany patch 2. Hypoxia PLAN: -Agree with transfer to the ICU for closer monitoring -Continue monitor DARIUS drain output -Continue NG tube -Keep patient nothing by mouth -No aspirin or NSAIDs Physician [employer] note has been reviewed by physician. Signing provider agrees with the documented findings, assessment, and plan of care. Objective - Vital Signs Vital signs: Vital Signs Temp 98.8 F 08/30/22 07:03 Pulse 98 08/30/22 09:23 Resp 21 08/30/22 07:03 BP 151/84 08/30/22 07:03 Pulse Ox 91 L 08/30/22 09:03 FiO2 50 08/30/22 03:30 Intake & Output 08/29/22 08/30/22 08/30/22 18:59 06:59 18:59 Intake Total 1650 600 Output Total 895 1920 Balance 755 -1320 Weight 114.759 kg Intake: IV 1650 Intake, IV Titration 600 Amount Sodium Chloride 0.9% 1, 600 000 ml @ 75 mls/hr IV . [id number] [facility] Rx#:[id number] Output: Drainage 30 20 Abdomen 30 20 Urine 815 1900 Uretheral (Hale) 1500 Estimated Blood Loss 50 Other: Voiding Method Indwelling Catheter - Labs CBC & Chem 7: 08/30/22 05:56 08/30/22 05:56 Labs: Abnormal Lab Results - Last 24 Hours (Table) 08/29/22 08/29/22 08/30/22 Range/Units 16:01 20:50 06:12 POC Glucose (mg/dL) 224 H 201 H 174 H (70-110) mg/dL
[2022-08-30] MEDS: HYDROmorphone 0.5 MG/0.5 ML SYRINGE IVP PRN ×2 (15:27→18:31)
[2022-08-30] MEDS ORDERED: MELATONIN 5 MG TABLET PO PRN (15:37)
[2022-08-30 17:40] LABS: Glucose,Whole Blood 223 mg/dL (70-110)
[2022-08-30 20:43] LABS: Glucose,Whole Blood 224 mg/dL (70-110)
[2022-08-30] MEDS: SYMBICORT 160-4.5 MCG INHALER INHALATION SCH ×2 (20:46→21:00)
[2022-08-31 06:18] LABS: Glucose,Whole Blood 190 mg/dL (70-110)
[2022-08-31] MEDS: PIPERACILLIN-TAZOBACTAM 3.375 GM in SODIUM CHLORIDE 0.9% 100 ML IVPB SCH ×3 (06:38→23:52)
[2022-08-31] MEDS: INSULIN ASPART (NovoLOG) 100 UNIT/ML VIAL SQ SCH ×4 (06:38→21:33)
[2022-08-31 07:26] LABS: Amorphous Sediment,Urine Rare /hpf; Appearance,Urine Turbid (Clear); Bacteria,Urine Rare /hpf; Bilirubin,Urine Negative (Negative); Blood,Urine Large (Negative); Color,Urine Yellow; Glucose,Urine (UA) Negative (Negative); Hyaline Casts,Urine 3 /lpf (0-2); Ketones,Urine 1+ (Negative); Leukocyte Esterase,Urine Negative (Negative); Mucus,Urine Rare /hpf; Nitrite,Urine Negative (Negative); Protein,Urine 2+ (Negative); RBC,Urine >182 /hpf (0-5); Specific Gravity,Urine 1.026 (1.001-1.035); Squamous Epithelial Cell,Urine <1 /hpf (0-4); Uric Acid Crystals,Urine Moderate /hpf; Urobilinogen,Urine <2.0 mg/dL (<2.0); WBC,Urine 6 /hpf (0-5)
[2022-08-31 07:59] LABS: Basophils % (A) 0 %; Eosinophils % (A) 0 %; Hypochromasia Moderate; Lymphocytes # (A) 1.4 k/uL (1.0-4.8); Lymphocytes % (A) 9 %; MCH 32.1 pg (25.0-35.0); MCHC 32.1 g/dL (31.0-37.0); MCV 99.8 fL (80.0-100.0); Mean Platelet Volume 9.3; Monocytes # (A) 0.5 k/uL (0-1.0); Monocytes % (A) 3 %; Neutrophils # (A) 13.8 k/uL (1.3-7.7); Neutrophils % (A) 86 %; Platelet Count 337 k/uL (150-450); RBC 2.81 m/uL (4.30-5.90); RDW 13.9 % (11.5-15.5)
[2022-08-31] MEDS: NICOTINE 21MG/24HR PATCH TRANSDERM SCH (08:00)
[2022-08-31] MEDS: methylPREDNISolone SOD SUCCI 40 MG/ML 1 ML VIAL IV SCH ×3 (08:00→23:52)
[2022-08-31] MEDS: ENOXAPARIN 40 MG/0.4 ML SYRINGE SQ SCH (08:00)
[2022-08-31] MEDS: PANTOPRAZOLE 40 MG/10 ML VIAL IVP SCH ×2 (08:00→21:31)
[2022-08-31] MEDS ORDERED: hydrALAZINE HCL 20 MG/ML 1 ML VIAL IM PRN (08:09)
[2022-08-31 08:10] LABS: ALT 18 U/L (4-49); AST 23 U/L (17-59); African American GFR (CKD) >90 (>60 ml/min/1.73 sqM); Alkaline Phosphatase 96 U/L (38-126); Anion Gap 9 mmol/L; Blood Urea Nitrogen 29 mg/dL (9-20); Calcium 8.7 mg/dL (8.4-10.2); Carbon Dioxide 27 mmol/L (22-30); Chloride 106 mmol/L (98-107); Glucose 169 mg/dL (74-99); Non-African American GFR(CKD) >90 (>60 ml/min/1.73 sqM); Potassium 3.8 mmol/L (3.5-5.1); Sodium 142 mmol/L (137-145); Total Bilirubin 0.4 mg/dL (0.2-1.3); Total Protein 5.7 g/dL (6.3-8.2)
[2022-08-31] MEDS ORDERED: hydrALAZINE HCL 20 MG/ML 1 ML VIAL IV PRN (08:17)
[2022-08-31] MEDS: SYMBICORT 160-4.5 MCG INHALER INHALATION SCH ×2 (08:31→20:39)
[2022-08-31] MEDS: IPRATROPIUM-ALBUTEROL 3 ML NEB INHALATION SCH ×4 (08:32→20:40)
--- NOTE | 2022-08-31 08:44 | XR ---
EXAMINATION TYPE: XR chest 1V DATE OF EXAM: 08/31/2022 COMPARISON: 08/30/2022 HISTORY: Hypoxia TECHNIQUE: Single frontal view of the chest is obtained. FINDINGS: Bilateral infiltrates are stable. There are small bilateral effusion. NG tube stable. Limi germain inspiration. No pneumothorax. IMPRESSION: Stable bilateral
[2022-08-31] MEDS ORDERED: FUROSEMIDE 10 MG/ML 4 ML VIAL IV STA (09:29)
[2022-08-31] MEDS: CLEVIDIPINE BUTYRATE 25 MG in EMPTY BAG 1 BAG IV SCH ×5 (09:39→21:44)
[2022-08-31] MEDS ORDERED: cloNIDine 0.2 MG/24HR PATCH TRANSDERM SCH (10:00)
[2022-08-31 11:56] LABS: Glucose,Whole Blood 249 mg/dL (70-110)
[2022-08-31] MEDS ORDERED: Potassium Replacement Protocol 1 EACH MISC MISCELLANE PRN (12:04)
--- NOTE | 2022-08-31 12:39 | P.PN ---
Subjective Progress Note Date: 08/31/22 Principal diagnosis: Perforated duodenal ulcer I am seeing this patient in new consultation today 08/30/2022 for acute hypoxemic respiratory failure following a perforated duodenal ulcer repair. Patient is a 46-year-old white male with past medical history significant for obstructive sleep apnea with home CPAP, morbid obesity, hypothyroidism, hypertension, diabetes mellitus, and chronic nicotine dependence. Patient came into the emergency room yesterday morning complaining of epigastric abdominal pain. A CT of the abdomen pelvis with contrast showed scattered foci of n ondependent free air in the right upper quadrant with a small perihepatic free fluid and extensive periduodenal stranding suspicious for a perforated duodenal ulcer. It also showed right middle lobe, lingula, and bilateral lateral lower lobe groundglass consolidation felt to be related to edema or infection. The patient went for an exploratory laparotomy yesterday and was found to have a perforated duodenal ulcer which was repaired with a modified Osmany patch. No immediate perioperative complications were reported, and the patient was sent to the general medical floor. Apparently, earlier this morning, the patient did develop some respiratory distress. Oxygen demands increased from 2 L to 15 L high flow nasal cannula. The chest x-ray was taken and I'm unable to view the chest x-ray, but was read as hypoventilatory with bilateral multifocal atelectasis and/or infiltrates with interval worsening from prior imaging. There was also a small left pleural effusion which was new. The patient was given 80 mg of Lasix, and has diuresed well over a liter in the last hour. His oxygen demands have also improved, and is currently on 9 L high flow cannula. The patient states that he is feeling more comfortable. CPAP with pressure support of 8 is at the bedside, however, the patient was unable to tolerate this due to an NG tube. Incentive spirometer is at the bedside, and requires frequent encouragement. He does have a midline abdominal incision that appears clean and approximated. There is an abdominal binder in place. CBC on arrival shows a WBC count of 13.2, hemoglobin 11.8, hematocrit 35.7, platelets 503. BMP on arrival shows a sodium 137, potassium 3.8, chloride 102, serum CO2 19, BUN 18, creatinine 0.78, glucose 214. Troponin negative 1. NT proBNP 96. He was negative for influenza, RSV, COVID-19. Patient's oxygen requirements have improved, and vital signs are stable at the moment. Reevaluated today on 08/31/2022, patient remains in the ICU, I actually arrange for the patient to be transferred yesterday. Patient remains on airvo at 60% FiO2 and 50 L flow, O2 saturation is in the 90s. Patient is feeling better, feels more comfortable today compared to yesterday. Nonetheless on physical examination he continues to have crackles or rhonchi and wheezes bilaterally. Remains nothing by mouth, continues to have nasogastric tube in place, he is -2 L since yesterday. Remains on Zosyn empirically. Patient received another dose of Lasix today 40 mg IV push, and for his blood pressure I'm recommending a clevidipine drip and clonidine patch. Chest x-ray is suggestive of bilateral interstitial infiltrates/edema small bilateral pleural effusions, hence more Lasix was given this morning. And again the patient remains empirically on antibiotics/Zosyn. Labs today showed leukocytosis with WBC of 16.0, hemoglobin of 9 hematocrit of 28 lites are normal renal profile is normal Objective - Vital Signs Vital signs: Vital Signs Temp 98.9 F 08/31/22 08:00 Pulse 96 08/31/22 12:07 Resp 25 H 08/31/22 11:00 BP 170/96 08/31/22 11:00 Pulse Ox 91 L 08/31/22 12:00 FiO2 62 08/31/22 12:00 Intake & Output 08/30/22 08/31/22 08/31/22 18:59 06:59 18:59 Intake Total 140 360 109.667 Output Total 9240 258 5630 Balance -1465 -360 -1040.333 Weight 115 kg Intake: IV 340 100 Piperacillin-Tazobactam 3 100 .375 gm In Sodium Chloride 0.9% 100 ml @ 25 mls/hr IVPB Q8H [facility] Rx#: [id number] Sodium Chloride 0.9% 1, 240 100 000 ml @ 50 mls/hr IV . Q20H [facility] Rx#:[id number] Intake, IV Titration 140 20 9.667 Amount Clevidipine Butyrate 25 9.667 mg In Empty Bag 1 bag @ 1 MG/HR 2 mls/hr IV .Q24H [facility] Rx#:[id number] Sodium Chloride 0.9% 1, 140 20 000 ml @ 50 mls/hr IV . Q[facility] Rx#:[id number] Output: Gastric Drainage 100 150 Drainage 20 Abdomen 20 Urine [phone] Other: Voiding Method Indwelling Catheter Indwelling Catheter Indwelling Catheter - Exam Physical Exam: Revealed a 46-year-old white male pleasant in no distress on airvo, 60%/50 L flow Head: Atraumatic normocephalic nasogastric tube in place. HEENT:[Neck is supple.] [No neck masses.] [No thyromegaly.] [No JVD.] Chest: [Crackles and rhonchi and wheezes noted bilaterally. Assist slightly improved compared to yesterday Cardiac Exam: [Normal S1 and S2, no S3 gallop, no murmur.] Abdomen: [Postsurgical Soft, nontender, no megaly, no rebound, no guarding, negative bowel sounds Extremities: [No clubbing, no edema, no cyanosis.] Neurological Exam: [No focal neurologic deficit.] Alert oriented 3. Psychiatric: Normal mood affect and normal status examination - Labs CBC & Chem 7: 08/31/22 07:33 08/31/22 07:33 Labs: Abnormal Lab Results - Last 24 Hours (Table) 08/30/22 08/30/22 08/31/22 Range/Units 17:38 20:42 06:16 WBC (3.8-10.6) k/uL RBC (4.30-5.90) m/uL Hgb (13.0-17.5) gm/dL Hct (39.0-53.0) % Neutrophils # (1.3-7.7) k/uL BUN (9-20) mg/dL Glucose (74-99) mg/dL POC Glucose (mg/dL) 223 H 224 H 190 H (70-110) mg/dL Total Protein (6.3-8.2) g/dL Albumin (3.5-5.0) g/dL Urine Protein (Negative) Urine Ketones (Negative) Urine Blood (Negative) Urine RBC (0-5) /hpf Urine WBC (0-5) /hpf Uric Acid Crystals (None) /hpf Amorphous Sediment (None) /hpf Urine Bacteria (None) /hpf Hyaline Casts (0-2) /lpf Urine Mucus (None) /hpf 0508/31/22 08/31/22 Range/Units 06:45 07:33 07:33 WBC 16.0 H (3.8-10.6) k/uL RBC 2.81 L (4.30-5.90) m/uL Hgb 9.0 L D (13.0-17.5) gm/dL Hct 28.0 L (39.0-53.0) % Neutrophils # 13.8 H (1.3-7.7) k/uL BUN 29 H (9-20) mg/dL Glucose 169 H (74-99) mg/dL POC Glucose (mg/dL) (70-110) mg/dL Total Protein 5.7 L (6.3-8.2) g/dL Albumin 3.0 L (3.5-5.0) g/dL Urine Protein 2+ H (Negative) Urine Ketones 1+ H (Negative) Urine Blood Large H (Negative) Urine RBC >182 H (0-5) /hpf Urine WBC 6 H (0-5) /hpf Uric Acid Crystals Moderate H (None) /hpf Amorphous Sediment Rare H (None) /hpf Urine Bacteria Rare H (None) /hpf Hyaline Casts 3 H (0-2) /lpf Urine Mucus Rare H (None) /hpf 08/31/22 Range/Units 11:55 WBC (3.8-10.6) k/uL RBC (4.30-5.90) m/uL Hgb (13.0-17.5) gm/dL Hct (39.0-53.0) % Neutrophils # (1.3-7.7) k/uL BUN (9-20) mg/dL Glucose (74-99) mg/dL POC Glucose (mg/dL) 249 H (70-110) mg/dL Total Protein (6.3-8.2) g/dL Albumin (3.5-5.0) g/dL Urine Protein (Negative) Urine Ketones (Negative) Urine Blood (Negative) Urine RBC (0-5) /hpf Urine WBC (0-5) /hpf Uric Acid Crystals (None) /hpf Amorphous Sediment (None) /hpf Urine Bacteria (None) /hpf Hyaline Casts (0-2) /lpf Urine Mucus (None) /hpf Assessment and Plan Assessment: Impression: Postoperative day #2 following repair of duodenal ulcer with modified Osmany patch. Acute hypoxic respiratory failure secondary to fluid overload, possibility of aspiration pneumonia is not entirely ruled out. Or could be a picture of noncardiogenic pulmonary edema/acute lung injury. Also related to acute exacerbation of COPD, patient is requiring relatively high FiO2 via airvo. Acute exacerbation of COPD suspect aspiration pneumonia protocol started level is 2.91, and possible acute lung injury from aspiration pneumonia or from duodenal ulcer perforation Possible sepsis but no septic shock. Obstructive sleep apnea syndrome normal mood on CPAP at home. Obesity with BMI of 34 Type 2 diabetes without complications Benign essential hypertension Hypothyroidism History of underlying COPD, chronic nicotine dependence. Recommendation: Continue airvo and titrate accordingly Continue diuretics, monitor electrolytes and renal profile closely Continue bronchodilators and steroids for now. Continue to monitor in the ICU. Continue antibiotics empirically/Zosyn Continue to monitor labs Continue nasogastric tube to low intermittent suction Continue Lovenox for DVT prophylaxis and Protonix for GI prophylaxis Remains quite ill and prognosis is guarded his pulmonary status is marginal at best. Critical care time is over 30 minutes We will continue to follow. Time with Patient: Greater than 30
[2022-08-31] MEDS: POTASSIUM CHLORIDE 10 MEQ in WATER FOR INJECTION 1 100ML.BAG IVPB SCH ×2 (12:50→14:26)
--- NOTE | 2022-08-31 13:21 | CDI ---
Documentation Clarification Form Date: 08/31/2022 1:07:10 PM From: Michelle Gillespie RN, CCDS Email: [email or web address] Admit Date: 08/29/2022 6:29:00 AM Patient Name: Oli Heredia Visit Number: [id number] Discharge Date: ATTENTION: The Clinical Documentation Specialists (CDI) and [facility] Coding Staff appreciate your assistance in clarifying documentation. Please respond to the clarification below the line at the bottom and electronically sign. The CDI & [facility] Coding staff will review the response and follow-up if needed. Please note: Queries are made part of the Legal Health Record. If you have any questions, please contact the author of this message via ITS. Dr. Swati Larson Sepsis is documented in the progress notes starting on 08/30. For each diagnosis, documentation must be clear to determine if the condition was present at the time of the patients inpatient admission or developed during the hospital stay. Additional clarification regarding Sepsis is requested. History/Risk Factors: osteoarthritis, hypothyroidism, hypertension and diabetes who presented to the hospital complaining of abdominal pain. Found to have possible perforated duodenal ulcer on CT abdomen and pelvis. He was emergently taken to the OR where perforated duodenal ulcer was confirmed and he had a Osmany patch placed. Clinical Indicators: 08/30 IM: "Overnight on 08/29 he developed worsening respiratory distress and received Lasix. He did require a nonrebreather. Follow CBC and BMP regarding sepsis and acute blood loss anemia." 08/31 Pulmonary: "Possible sepsis but no septic shock." 08/29 WBC: 13.2 08/30 WBC: 17.14, Procalcitonin 2.91 08/31 WBC: 16.0 08/29 Temp 97, HR 100 08/30 Temp 100.0, HR 98 Treatment: 0.9 NS @50/hr, IV Zosyn 3.375gm Q8H 08/30-current, monitor daily labs Definition of Present on Admission (POA): A diagnosis present at the time the order for admission to inpatient status was written. Please clarify if Sepsis was POA [ ] Y = Yes, the condition was present at the time of the order for inpatient admission. [ X ] N = No, the condition was not present at the time of the order for inpatient admission. [ ] W = Clinically undetermined if the condition was present at the time of the order for inpatient admission. MTDD
--- NOTE | 2022-08-31 15:34 | P.PN ---
Subjective Progress Note Date: 08/31/22 (delayed charting seen at 0930) Patient is a 46-year-old male with osteoarthritis, hypothyroidism, hypertension, and diabetes who presented to the hospital complaining of abdominal pain. In the ER he underwent an extensive evaluation and was found to have possible perforated duodenal ulcer on CT abdomen and pelvis. He was emergently taken to the OR where the perforated duodenal ulcer was confirmed and he had a Osmany patch placed. Return to the general medical floor and was doing well other than being lethargic. Overnight on 08/29 he developed worsening respiratory distress and received Lasix. He did require a nonrebreather. He was started on IV Lasix. He was transitioned to the ICU and required AIRVO. Chest x-ray demonstrated bilateral interstitial infiltrate and Propulsid total was elevated consistent with pneumonia. Patient seen and examined at bedside. He states his abdominal pain is controlled at this time. He says the shortness of breath is somewhat better th an yesterday. He feels is exceedingly dry today. Vital signs reviewed General: nontoxic, no distress, appears at stated age Cardiovascular: S1S2 reg, no murmur, positive posterior tibial pulse bilateral, Lungs: Diffuse wheezing bilateral, no rhonchi, no rales , no accessory muscle use Abdominal: soft, + tender to palpation bilateral, no guarding, no appreciable organomegaly Ext: no gross muscle atrophy, no edema, no contractures Neuro: CN II-XI grossly intact, no focal neuro deficits Psych: Alert, oriented, appropriate affect Assessment: Acute hypoxic respiraoty failure due to aspiration pneumonia vs fluid overload vs ARDS, elevated procalcitonin Perforated duodenal ulcer Hypertension Acute exacerbation of COPD Acute blood loss anemia and anticipated outcome of surgery Diabetes mellitus type 2 [id number], A1C 6.8 Obstructive sleep apnea Obesity with BMI 34.3 Nicotine dependency Imaging: Chest x-ray shows bilateral interstitial infiltrates right greater than left on 08/31/22 Data Review: Vitals reviewed temperature 98.9, pulse 89, respirations 29, blood pressure 169/86, O2 sat 95% onAirvo CBC shows white blood cell count of 16, hemoglobin 9, hematocrit 28, BUN 29, glucose 149, albumin 3. Urinalysis shows red blood cell count in the urine of greater than 182. Plan: -Catapres 0.2 mg patch and Cleveprex drip started due to hypertension ordered by critical care - Symbicort, albuterol, Solu-Medrol 40 mg IV every 8 hours, and Zosyn 3.375 g every 8 hours. - ZOzyn 3.375 g IV q 8 hours D # 2 -Protonix 40 mg IV push twice daily -Strict NPO -Sliding scale insulin -nicotine patch 21 g daily - follow CBC and BMP regarding sepsis and acute blood loss anemia -Repeat chest x-ray in a.m. DVT prophylaxis: Lovenox Discussed with: Patient, nursing, This dictation was prepared using [employer] voice recognition software. Though every attempt is made to correct errors during during dictation some may still exist. Objective - Vital Signs Vital signs: Vital Signs Temp 99.2 F 08/31/22 12:00 Pulse 93 08/31/22 15:00 Resp 31 H 08/31/22 15:00 BP 159/89 08/31/22 15:00 Pulse Ox 95 08/31/22 15:00 FiO2 60 08/31/22 12:00 Intake & Output 08/30/22 08/31/22 08/31/22 18:59 06:59 18:59 Intake Total 140 360 407.634 Output Total 2985 752 7956 Balance -1465 -360 -1217.366 Weight 115 kg Intake: IV 340 160 Piperacillin-Tazobactam 3 100 .375 gm In Sodium Chloride 0.9% 100 ml @ 25 mls/hr IVPB Q8H [facility] Rx#: [id number] Sodium Chloride 0.9% 1, 240 160 000 ml @ 50 mls/hr IV . Q20H [facility] Rx#:[id number] Intake, IV Titration 140 20 247.634 Amount Clevidipine Butyrate 25 47.634 mg In Empty Bag 1 bag @ 1 MG/HR 2 mls/hr IV .Q24H [facility] Rx#:[id number] Potassium Chloride 10 meq 200 In Water For Injection 1 100ml.bag @ 100 mls/hr IVPB Q1H [facility] Rx#: [id number] Sodium Chloride 0.9% 1, 140 20 000 ml @ 50 mls/hr IV . Q20H [facility] Rx#:[id number] Output: Gastric Drainage 100 150 Drainage 20 Abdomen 20 Urine [id number] Other: Voiding Method Indwelling Catheter Indwelling Catheter Indwelling Catheter - Labs CBC & Chem 7: 08/31/22 07:33 08/31/22 07:33 Labs: Abnormal Lab Results - Last 24 Hours (Table) 08/30/22 08/30/22 08/31/22 Range/Units 17:38 20:42 06:16 WBC (3.8-10.6) k/uL RBC (4.30-5.90) m/uL Hgb (13.0-17.5) gm/dL Hct (39.0-53.0) % Neutrophils # (1.3-7.7) k/uL BUN (9-20) mg/dL Glucose (74-99) mg/dL POC Glucose (mg/dL) 223 H 224 H 190 H (70-110) mg/dL Total Protein (6.3-8.2) g/dL Albumin (3.5-5.0) g/dL Urine Protein (Negative) Urine Ketones (Negative) Urine Blood (Negative) Urine RBC (0-5) /hpf Urine WBC (0-5) /hpf Uric Acid Crystals (None) /hpf Amorphous Sediment (None) /hpf Urine Bacteria (None) /hpf Hyaline Casts (0-2) /lpf Urine Mucus (None) /hpf 08/31/22 08/31/22 08/31/22 Range/Units 06:45 07:33 07:33 WBC 16.0 H (3.8-10.6) k/uL RBC 2.81 L (4.30-5.90) m/uL Hgb 9.0 L D (13.0-17.5) gm/dL Hct 28.0 L (39.0-53.0) % Neutrophils # 13.8 H (1.3-7.7) k/uL BUN 29 H (9-20) mg/dL Glucose 169 H (74-99) mg/dL POC Glucose (mg/dL) (70-110) mg/dL Total Protein 5.7 L (6.3-8.2) g/dL Albumin 3.0 L (3.5-5.0) g/dL Urine Protein 2+ H (Negative) Urine Ketones 1+ H (Negative) Urine Blood Large H (Negative) Urine RBC >182 H (0-5) /hpf Urine WBC 6 H (0-5) /hpf Uric Acid Crystals Moderate H (None) /hpf Amorphous Sediment Rare H (None) /hpf Urine Bacteria Rare H (None) /hpf Hyaline Casts 3 H (0-2) /lpf Urine Mucus Rare H (None) /hpf 08/31/22 Range/Units 11:55 WBC (3.8-10.6) k/uL RBC (4.30-5.90) m/uL Hgb (13.0-17.5) gm/dL Hct (39.0-53.0) % Neutrophils # (1.3-7.7) k/uL BUN (9-20) mg/dL Glucose (74-99) mg/dL POC Glucose (mg/dL) 249 H (70-110) mg/dL Total Protein (6.3-8.2) g/dL Albumin (3.5-5.0) g/dL Urine Protein (Negative) Urine Ketones (Negative) Urine Blood (Negative) Urine RBC (0-5) /hpf Urine WBC (0-5) /hpf Uric Acid Crystals (None) /hpf Amorphous Sediment (None) /hpf Urine Bacteria (None) /hpf Hyaline Casts (0-2) /lpf Urine Mucus (None) /hpf
--- NOTE | 2022-08-31 16:16 | P.PN ---
Subjective Progress Note Date: 08/31/22 CHIEF COMPLAINT: Perforated duodenal ulcer HISTORY OF PRESENT ILLNESS: Patient is postop day #2 status post exploratory laparotomy, repair of perforated duodenal ulcer with modified Osmany patch. Patient currently in the ICU on AIRVO. He is followed by pulmonary. He reports no abdominal pain. Denies any nausea. DARIUS drain serosanguineous output. NG tube with only 50 mL output reported this morning. Low-grade temp of 100 last night. WBC 16 H Shobha is 9 platelets 337 Patient seen and examined with Dr. angel PHYSICAL EXAM: VITAL SIGNS: Reviewed. GENERAL: Well-developed in no acute distress. HEENT: No sclera icterus. Extraocular movements grossly intact. Moist buccal mucosa. Head is atraumatic, normocephalic. ABDOMEN: Soft. Nondistended. DARIUS drain with serosanguineous output abdominal binder in place NEUROLOGIC: Alert and oriented. Cranial nerves II through XII grossly intact. ASSESSMENT: 1. Perforated duodenal ulcer status post exploratory laparotomy, repair of perforated duodenal ulcer with modified Osmany patch 2. Hypoxia PLAN: -Continue ICU management -Plan to discontinue NG tube possibly tomorrow -Keep patient nothing by mouth and no po medications at this time -No aspirin or NSAIDs Physician Strainer Tender note has been reviewed by physician. Signing provider agrees with the documented findings, assessment, and plan of care. Objective - Vital Signs Vital signs: Vital Signs Temp 99.1 F 08/31/22 04:00 Pulse 86 08/31/22 07:00 Resp 29 H 08/31/22 07:00 BP 169/86 08/31/22 07:00 Pulse Ox 94 L 08/31/22 06:00 FiO2 75 08/31/22 04:19 Intake & Output 08/30/22 08/31/22 08/31/22 18:59 06:59 18:59 Intake Total 140 360 Output Total 1605 720 Balance -1465 -360 Weight 115 kg Intake: IV 340 Piperacillin-Tazobactam 3 100 .375 gm In Sodium Chloride 0.9% 100 ml @ 25 mls/hr IVPB Q8H [facility] Rx#: [id number] Sodium Chloride 0.9% 1, 240 000 ml @ 75 mls/hr IV . [id number] [facility] Rx#:[id number] Intake, IV Titration 140 20 Amount Sodium Chloride 0.9% 1, 140 20 000 ml @ 75 mls/hr IV . [id number] [facility] Rx#:[id number] Output: Gastric Drainage 100 150 Drainage 20 Abdomen 20 Urine 1505 550 Other: Voiding Method Indwelling Catheter Indwelling Catheter - Labs CBC & Chem 7: 08/31/22 07:33 08/31/22 07:33 Labs: Abnormal Lab Results - Last 24 Hours (Table) 08/30/22 08/30/22 08/30/22 Range/Units 05:56 05:56 05:56 WBC 17.14 H (4.50-10.00) X 10*3/uL RBC 2.99 L (4.40-5.60) X 10*6/uL Hgb 9.4 L (13.0-17.0) g/dL Hct 30.3 L (39.6-50.0) % MCV 101.3 H (80.0-97.0) fL MCHC 31.0 L (32.0-37.0) g/dL Immature Gran # 0.08 H (0.00-0.04) X 10*3/uL Neutrophils # 14.77 H (1.80-7.70) X 10*3/uL BUN/Creatinine Ratio 21.57 H (12.00-20.00) Ratio Glucose 168 H (70-110) mg/dL POC Glucose (mg/dL) (70-110) mg/dL Hemoglobin A1c 6.8 H (0.0-6.0) % Total Protein 5.7 L (6.2-8.2) g/dL Albumin 3.2 L (3.8-4.9) g/dL Albumin/Globulin Ratio 1.30 L (1.60-3.17) g/dL Procalcitonin (0.02-0.09) ng/mL Urine Protein (Negative) Urine Ketones (Negative) Urine Blood (Negative) Urine RBC (0-5) /hpf Urine WBC (0-5) /hpf Uric Acid Crystals (None) /hpf Amorphous Sediment (None) /hpf Urine Bacteria (None) /hpf Hyaline Casts (0-2) /lpf Urine Mucus (None) /hpf 08/30/22 08/30/22 08/30/22 Range/Units 06:09 11:15 17:38 WBC (4.50-10.00) X 10*3/uL RBC (4.40-5.60) X 10*6/uL Hgb (13.0-17.0) g/dL Hct (39.6-50.0) % MCV (80.0-97.0) fL MCHC (32.0-37.0) g/dL Immature Gran # (0.00-0.04) X 10*3/uL Neutrophils # (1.80-7.70) X 10*3/uL BUN/Creatinine Ratio (12.00-20.00) Ratio Glucose (70-110) mg/dL POC Glucose (mg/dL) 177 H 223 H (70-110) mg/dL Hemoglobin A1c (0.0-6.0) % Total Protein (6.2-8.2) g/dL Albumin (3.8-4.9) g/dL Albumin/Globulin Ratio (1.60-3.17) g/dL Procalcitonin 2.91 H (0.02-0.09) ng/mL Urine Protein (Negative) Urine Ketones (Negative) Urine Blood (Negative) Urine RBC (0-5) /hpf Urine WBC (0-5) /hpf Uric Acid Crystals (None) /hpf Amorphous Sediment (None) /hpf Urine Bacteria (None) /hpf Hyaline Casts (0-2) /lpf Urine Mucus (None) /hpf 08/30/22 08/31/22 08/31/22 Range/Units 20:42 06:16 06:45 WBC (4.50-10.00) X 10*3/uL RBC (4.40-5.60) X 10*6/uL Hgb (13.0-17.0) g/dL Hct (39.6-50.0) % MCV (80.0-97.0) fL MCHC (32.0-37.0) g/dL Immature Gran # (0.00-0.04) X 10*3/uL Neutrophils # (1.80-7.70) X 10*3/uL BUN/Creatinine Ratio (12.00-20.00) Ratio Glucose (70-110) mg/dL POC Glucose (mg/dL) 224 H 190 H (70-110) mg/dL Hemoglobin A1c (0.0-6.0) % Total Protein (6.2-8.2) g/dL Albumin (3.8-4.9) g/dL Albumin/Globulin Ratio (1.60-3.17) g/dL Procalcitonin (0.02-0.09) ng/mL Urine Protein 2+ H (Negative) Urine Ketones 1+ H (Negative) Urine Blood Large H (Negative) Urine RBC >182 H (0-5) /hpf Urine WBC 6 H (0-5) /hpf Uric Acid Crystals Moderate H (None) /hpf Amorphous Sediment Rare H (None) /hpf Urine Bacteria Rare H (None) /hpf Hyaline Casts 3 H (0-2) /lpf Urine Mucus Rare H (None) /hpf
[2022-08-31 16:54] LABS: Glucose,Whole Blood 245 mg/dL (70-110)
[2022-08-31] MEDS: SODIUM CHLORIDE 0.9% 1,000 ML IV SCH ×2 (17:07→23:53)
[2022-08-31 20:30] LABS: Glucose,Whole Blood 198 mg/dL (70-110)
[2022-09-01] MEDS: CLEVIDIPINE BUTYRATE 25 MG in EMPTY BAG 1 BAG IV SCH ×8 (00:39→23:45)
[2022-09-01 05:22] LABS: HCT 28.8 % (39.0-53.0); HGB 9.3 gm/dL (13.0-17.5); Hypochromasia Moderate; MCH 32.2 pg (25.0-35.0); MCHC 32.1 g/dL (31.0-37.0); MCV 100.1 fL (80.0-100.0); Mean Platelet Volume 9.1; Platelet Count 357 k/uL (150-450); RBC 2.88 m/uL (4.30-5.90); RDW 13.7 % (11.5-15.5); WBC 13.9 k/uL (3.8-10.6)
[2022-09-01 05:32] LABS: African American GFR (CKD) >90 (>60 ml/min/1.73 sqM); Anion Gap 10 mmol/L; Blood Urea Nitrogen 29 mg/dL (9-20); Calcium 8.9 mg/dL (8.4-10.2); Carbon Dioxide 28 mmol/L (22-30); Chloride 104 mmol/L (98-107); Glucose 221 mg/dL (74-99); Magnesium 2.3 mg/dL (1.6-2.3); Non-African American GFR(CKD) >90 (>60 ml/min/1.73 sqM); Phosphorus 4.4 mg/dL (2.5-4.5); Potassium 3.8 mmol/L (3.5-5.1); Sodium 142 mmol/L (137-145)
[2022-09-01] MEDS: LEVOTHYROXINE 25 MCG TAB PO SCH (05:55)
[2022-09-01] MEDS: LEVOTHYROXINE 100 MCG TAB PO SCH (05:55)
[2022-09-01] MEDS: POTASSIUM CHLORIDE 10 MEQ in WATER FOR INJECTION 1 100ML.BAG IVPB SCH ×2 (06:28→08:54)
[2022-09-01 06:38] LABS: Glucose,Whole Blood 242 mg/dL (70-110)
[2022-09-01] MEDS: INSULIN ASPART (NovoLOG) 100 UNIT/ML VIAL SQ SCH ×4 (07:12→20:47)
[2022-09-01] MEDS: PIPERACILLIN-TAZOBACTAM 3.375 GM in SODIUM CHLORIDE 0.9% 100 ML IVPB SCH ×3 (07:13→23:42)
[2022-09-01] MEDS: SYMBICORT 160-4.5 MCG INHALER INHALATION SCH ×3 (07:37→21:03)
[2022-09-01] MEDS: IPRATROPIUM-ALBUTEROL 3 ML NEB INHALATION SCH ×4 (07:37→21:03)
[2022-09-01] MEDS: methylPREDNISolone SOD SUCCI 40 MG/ML 1 ML VIAL IV SCH ×3 (07:59→23:42)
[2022-09-01] MEDS: PANTOPRAZOLE 40 MG/10 ML VIAL IVP SCH ×2 (08:54→20:48)
[2022-09-01] MEDS: NICOTINE 21MG/24HR PATCH TRANSDERM SCH (08:54)
[2022-09-01] MEDS: ENOXAPARIN 40 MG/0.4 ML SYRINGE SQ SCH (08:54)
--- NOTE | 2022-09-01 10:25 | P.PN ---
Subjective Progress Note Date: 09/01/22 Principal diagnosis: Perforated ulcer Patient doing well today. Still with relatively low oxygen saturation however patient looks quite comfortable. Denies shortness of breath. Since his pain is minimal at this time. DARIUS is serous. Nasogastric tube is bilious and slightly blood-tinged. White blood cell count 13.9, hemoglobin 9.3. T-max 99.2. NG output 350. Objective - Vital Signs Vital signs: Vital Signs Temp 98.3 F 09/01/22 08:00 Pulse 86 09/01/22 09:00 Resp 35 H 09/01/22 09:00 BP 145/88 09/01/22 09:00 Pulse Ox 92 L 09/01/22 09:00 FiO2 65 09/01/22 07:35 Intake & Output 08/31/22 09/01/22 09/01/22 18:59 06:59 18:59 Intake Total 707.634 750.000 306.667 Output Total 2045 1080 225 Balance -1337.366 -330.000 81.667 Weight 113 kg Intake: IV 410 550 250 Piperacillin-Tazobactam 3 100 100 50 .375 gm In Sodium Chloride 0.9% 100 ml @ 25 mls/hr IVPB Q8H [facility] Rx#: [id number] Potassium Chloride 10 meq 200 In Water For Injection 1 100ml.bag @ 100 mls/hr IVPB Q1H [facility] Rx#: [id number] Sodium Chloride 0.9% 1, 310 450 000 ml @ 50 mls/hr IV . Q20H [facility] Rx#:[id number] Intake, IV Titration 297.634 200.000 56.667 Amount Clevidipine Butyrate 25 97.634 200.000 56.667 mg In Empty Bag 1 bag @ 1 MG/HR 2 mls/hr IV .Q24H [facility] Rx#:[id number] Potassium Chloride 10 meq 200 In Water For Injection 1 100ml.bag @ 100 mls/hr IVPB Q1H [facility] Rx#: [id number] Output: Gastric Drainage 350 Drainage 5 5 Abdomen 5 5 Urine 2040 725 225 Other: Voiding Method Indwelling Catheter Indwelling Catheter Indwelling Catheter - Exam Abdomen: Soft, mild distention, dressing clean and dry, minimal tenderness - Labs CBC & Chem 7: 09/01/22 04:34 09/01/22 04:34 Labs: Abnormal Lab Results - Last 24 Hours (Table) 08/31/22 08/31/22 08/31/22 Range/Units 11:55 16:52 20:28 WBC (3.8-10.6) k/uL RBC (4.30-5.90) m/uL Hgb (13.0-17.5) gm/dL Hct (39.0-53.0) % MCV (80.0-100.0) fL BUN (9-20) mg/dL Glucose (74-99) mg/dL POC Glucose (mg/dL) 249 H 245 H 198 H (70-110) mg/dL 09/01/22 09/01/22 09/01/22 Range/Units 04:34 04:34 06:36 WBC 13.9 H (3.8-10.6) k/uL RBC 2.88 L (4.30-5.90) m/uL Hgb 9.3 L (13.0-17.5) gm/dL Hct 28.8 L (39.0-53.0) % MCV 100.1 H (80.0-100.0) fL BUN 29 H (9-20) mg/dL Glucose 221 H (74-99) mg/dL POC Glucose (mg/dL) 242 H (70-110) mg/dL Assessment and Plan (1) Duodenal ulcer perforation Narrative/Plan: 46-year-old male with perforated duodenal ulcer. Doing well after recent repair. Keep nasogastric tube in place given the increased output. Continue antibiotics. Reevaluate tomorrow. Current Visit: Yes Status: Acute Code(s): K26.5 - CHRONIC OR UNSPECIFIED DUODENAL ULCER WITH PERFORATION SNOMED Code(s): 55661929
--- NOTE | 2022-09-01 11:02 | P.PN ---
Subjective Progress Note Date: 09/01/22 Patient is a 46-year-old male with osteoarthritis, hypothyroidism, hypertension, and diabetes who presented to the hospital complaining of abdominal pain. In the ER he underwent an extensive evaluation and was found to have possible perforated duodenal ulcer on CT abdomen and pelvis. He was emergently taken to the OR where the perforated duodenal ulcer was confirmed and he had a Osmany patch placed. Return to the general medical floor and was doing well other than being lethargic. Overnight on 08/29 he developed worsening respiratory distress and received Lasix. He did require a nonrebreather. He was started on IV Lasix. He was transitioned to the ICU and required AIRVO. Chest x-ray demonstrated bilateral interstitial infiltrate and Procalcitonin was elevated consistent with pneumonia. He was started on Zosyn, steroids, and bronchdilators. Patient seen and examined at bedside. He reports that he is breathing easier. He denies any nausea or vomiting. His abdominal pain is well controlled. He has not passed any flatus or had a bowel movement. D/W Nursing patient still with elevated BP Vital signs reviewed General: nontoxic, no distress, appears at stated age Cardiovascular: S1S2 reg, no murmur, positive posterior tibial pulse bilateral, Lungs: Diffuse wheezing bilateral, no rhonchi, no rales , no accessory muscle use Abdominal: soft, + tender to palpation bilateral, no guarding, no appreciable organomegaly Ext: no gross muscle atrophy, no edema, no contractures Neuro: CN II-XI grossly intact, no focal neuro deficits Psych: Alert, oriented, appropriate affect Assessment: Acute hypoxic respiraoty failure due to aspiration pneumonia vs fluid overload vs ARDS, elevated procalcitonin Perforated duodenal ulcer Hypertension Acute exacerbation of COPD Acute blood loss anemia and anticipated outcome of surgery Diabetes mellitus type 2 [id number], A1C 6.8 Obstructive sleep apnea Obesity with BMI 34.3 Nicotine dependency Imaging: none new Data Review: Vital signs reviewed and temperature 98.3, pulse 86, respirations 29, blood pressure 166/82, O2 sat 94% on Airvo Laboratory analysis revealed white blood cell count 13.9, hemoglobin 9.3, hematocrit 28.8, BUN 29, creatinine 0.94, glucose 221 A.m. fasting blood sugar 221 Plan: - Surgery note reviewed continue with NGT. NPO - Catapres 0.2 mg patch and Cleveprex drip started due to hypertension ordered by critical care - Symbicort, albuterol, Solu-Medrol 40 mg IV every 8 hours, and Zosyn 3.375 g every 8 hours. - Zosyn 3.375 g IV q 8 hours D #3 -Protonix 40 mg IV push twice daily -Strict NPO -Sliding scale insulin -nicotine patch 21 g daily - follow CBC and BMP regarding sepsis and acute blood loss anemia - add levemir 10 units at night DVT prophylaxis: Lovenox Discussed with: Patient, nursing, This dictation was prepared using [employer] voice recognition software. Though every attempt is made to correct errors during during dictation some may still exist. Objective - Vital Signs Vital signs: Vital Signs Temp 98.3 F 09/01/22 08:00 Pulse 85 09/01/22 10:00 Resp 21 09/01/22 10:00 BP 150/84 09/01/22 10:00 Pulse Ox 90 L 09/01/22 10:00 FiO2 65 09/01/22 10:58 Intake & Output 08/31/22 09/01/22 09/01/22 18:59 06:59 18:59 Intake Total 707.634 750.000 356.667 Output Total 2045 1080 335 Balance -1337.366 -330.000 21.667 Weight 113 kg Intake: IV 410 550 300 Piperacillin-Tazobactam 3 100 100 100 .375 gm In Sodium Chloride 0.9% 100 ml @ 25 mls/hr IVPB Q8H [facility] Rx#: [id number] Potassium Chloride 10 meq 200 In Water For Injection 1 100ml.bag @ 100 mls/hr IVPB Q1H [facility] Rx#: [id number] Sodium Chloride 0.9% 1, 310 450 000 ml @ 50 mls/hr IV . Q20H [facility] Rx#:[id number] Intake, IV Titration 297.634 200.000 56.667 Amount Clevidipine Butyrate 25 97.634 200.000 56.667 mg In Empty Bag 1 bag @ 1 MG/HR 2 mls/hr IV .Q24H [facility] Rx#:[id number] Potassium Chloride 10 meq 200 In Water For Injection 1 100ml.bag @ 100 mls/hr IVPB Q1H [facility] Rx#: [id number] Output: Gastric Drainage 350 Drainage 5 5 Abdomen 5 5 Urine 2040 725 335 Other: Voiding Method Indwelling Catheter Indwelling Catheter Indwelling Catheter - Labs CBC & Chem 7: 09/01/22 04:34 09/01/22 04:34 Labs: Abnormal Lab Results - Last 24 Hours (Table) 08/31/22 08/31/22 08/31/22 Range/Units 11:55 16:52 20:28 WBC (3.8-10.6) k/uL RBC (4.30-5.90) m/uL Hgb (13.0-17.5) gm/dL Hct (39.0-53.0) % MCV (80.0-100.0) fL BUN (9-20) mg/dL Glucose (74-99) mg/dL POC Glucose (mg/dL) 249 H 245 H 198 H (70-110) mg/dL 09/01/22 09/01/22 09/01/22 Range/Units 04:34 04:34 06:36 WBC 13.9 H (3.8-10.6) k/uL RBC 2.88 L (4.30-5.90) m/uL Hgb 9.3 L (13.0-17.5) gm/dL Hct 28.8 L (39.0-53.0) % MCV 100.1 H (80.0-100.0) fL BUN 29 H (9-20) mg/dL Glucose 221 H (74-99) mg/dL POC Glucose (mg/dL) 242 H (70-110) mg/dL
[2022-09-01 11:25] LABS: Glucose,Whole Blood 232 mg/dL (70-110)
--- NOTE | 2022-09-01 12:13 | P.PN ---
Subjective Progress Note Date: 09/01/22 Principal diagnosis: Perforated duodenal ulcer I am seeing this patient in new consultation today 08/30/2022 for acute hypoxemic respiratory failure following a perforated duodenal ulcer repair. Patient is a 46-year-old white male with past medical history significant for obstructive sleep apnea with home CPAP, morbid obesity, hypothyroidism, hypertension, diabetes mellitus, and chronic nicotine dependence. Patient came into the emergency room yesterday morning complaining of epigastric abdominal pain. A CT of the abdomen pelvis with contrast showed scattered foci of n ondependent free air in the right upper quadrant with a small perihepatic free fluid and extensive periduodenal stranding suspicious for a perforated duodenal ulcer. It also showed right middle lobe, lingula, and bilateral lateral lower lobe groundglass consolidation felt to be related to edema or infection. The patient went for an exploratory laparotomy yesterday and was found to have a perforated duodenal ulcer which was repaired with a modified Osmany patch. No immediate perioperative complications were reported, and the patient was sent to the general medical floor. Apparently, earlier this morning, the patient did develop some respiratory distress. Oxygen demands increased from 2 L to 15 L high flow nasal cannula. The chest x-ray was taken and I'm unable to view the chest x-ray, but was read as hypoventilatory with bilateral multifocal atelectasis and/or infiltrates with interval worsening from prior imaging. There was also a small left pleural effusion which was new. The patient was given 80 mg of Lasix, and has diuresed well over a liter in the last hour. His oxygen demands have also improved, and is currently on 9 L high flow cannula. The patient states that he is feeling more comfortable. CPAP with pressure support of 8 is at the bedside, however, the patient was unable to tolerate this due to an NG tube. Incentive spirometer is at the bedside, and requires frequent encouragement. He does have a midline abdominal incision that appears clean and approximated. There is an abdominal binder in place. CBC on arrival shows a WBC count of 13.2, hemoglobin 11.8, hematocrit 35.7, platelets 503. BMP on arrival shows a sodium 137, potassium 3.8, chloride 102, serum CO2 19, BUN 18, creatinine 0.78, glucose 214. Troponin negative 1. NT proBNP 96. He was negative for influenza, RSV, COVID-19. Patient's oxygen requirements have improved, and vital signs are stable at the moment. Reevaluated today on 08/31/2022, patient remains in the ICU, I actually arrange for the patient to be transferred yesterday. Patient remains on airvo at 60% FiO2 and 50 L flow, O2 saturation is in the 90s. Patient is feeling better, feels more comfortable today compared to yesterday. Nonetheless on physical examination he continues to have crackles or rhonchi and wheezes bilaterally. Remains nothing by mouth, continues to have nasogastric tube in place, he is -2 L since yesterday. Remains on Zosyn empirically. Patient received another dose of Lasix today 40 mg IV push, and for his blood pressure I'm recommending a clevidipine drip and clonidine patch. Chest x-ray is suggestive of bilateral interstitial infiltrates/edema small bilateral pleural effusions, hence more Lasix was given this morning. And again the patient remains empirically on antibiotics/Zosyn. Labs today showed leukocytosis with WBC of 16.0, hemoglobin of 9 hematocrit of 28 lites are normal renal profile is normal Patient was reevaluated today on 09/01/2022, patient remains in the ICU, he is on airvo at 65% FiO2 and 45 L flow. Remains on clevidipine at 8 times per hour. Remains on Zosyn remains on bronchodilators and on steroids. Patient is feeling better on physical examination he sounds much better however he continues to have significant desaturation and requiring relatively high FiO2. His O2 saturation is ranging anywhere between 90 up to 97%. Clinically however the p atient is feeling better. WBC count is 13.9 hemoglobin is 9.3 lites are normal renal profile is normal, no chest x-ray was done today. Objective - Vital Signs Vital signs: Vital Signs Temp 98.3 F 09/01/22 08:00 Pulse 90 09/01/22 11:09 Resp 22 09/01/22 11:00 BP 154/99 09/01/22 11:00 Pulse Ox 97 09/01/22 11:00 FiO2 65 09/01/22 10:58 Intake & Output 08/31/22 09/01/22 09/01/22 18:59 06:59 18:59 Intake Total 707.634 750.000 391.000 Output Total 2045 1080 385 Balance -1337.366 -330.000 6.000 Weight 113 kg Intake: IV 410 550 300 Piperacillin-Tazobactam 3 100 100 100 .375 gm In Sodium Chloride 0.9% 100 ml @ 25 mls/hr IVPB Q8H [facility] Rx#: [id number] Potassium Chloride 10 meq 200 In Water For Injection 1 100ml.bag @ 100 mls/hr IVPB Q1H [facility] Rx#: [id number] Sodium Chloride 0.9% 1, 310 450 000 ml @ 50 mls/hr IV . Q20H [facility] Rx#:[id number] Intake, IV Titration 297.634 200.000 91.000 Amount Clevidipine Butyrate 25 97.634 200.000 91.000 mg In Empty Bag 1 bag @ 1 MG/HR 2 mls/hr IV .Q24H [facility] Rx#:[id number] Potassium Chloride 10 meq 200 In Water For Injection 1 100ml.bag @ 100 mls/hr IVPB Q1H [facility] Rx#: [id number] Output: Gastric Drainage 350 50 Drainage 5 5 Abdomen 5 5 Urine 2040 725 335 Other: Voiding Method Indwelling Catheter Indwelling Catheter Indwelling Catheter - Exam Physical Exam: Revealed a 46-year-old white male pleasant in no distress on airvo, Head: Atraumatic normocephalic nasogastric tube in place. HEENT:[Neck is supple.] [No neck masses.] [No thyromegaly.] [No JVD.] Chest: [Less rhonchi and wheezing noted bilaterally today decent airflow bilaterally. Cardiac Exam: [Normal S1 and S2, no S3 gallop, no murmur.] Abdomen: [Postsurgical Soft, nontender, no megaly, no rebound, no guarding, negative bowel sounds Extremities: [No clubbing, no edema, no cyanosis.] Neurological Exam: [No focal neurologic deficit.] Alert oriented 3. Psychiatric: Normal mood affect and normal status examination - Labs CBC & Chem 7: 09/01/22 04:34 09/01/22 04:34 Labs: Abnormal Lab Results - Last 24 Hours (Table) 08/31/22 08/31/22 09/01/22 Range/Units 16:52 20:28 04:34 WBC 13.9 H (3.8-10.6) k/uL RBC 2.88 L (4.30-5.90) m/uL Hgb 9.3 L (13.0-17.5) gm/dL Hct 28.8 L (39.0-53.0) % MCV 100.1 H (80.0-100.0) fL BUN (9-20) mg/dL Glucose (74-99) mg/dL POC Glucose (mg/dL) 245 H 198 H (70-110) mg/dL 09/01/22 09/01/22 09/01/22 Range/Units 04:34 06:36 11:23 WBC (3.8-10.6) k/uL RBC (4.30-5.90) m/uL Hgb (13.0-17.5) gm/dL Hct (39.0-53.0) % MCV (80.0-100.0) fL BUN 29 H (9-20) mg/dL Glucose 221 H (74-99) mg/dL POC Glucose (mg/dL) 242 H 232 H (70-110) mg/dL Assessment and Plan Assessment: Impression: Postoperative day #3 status post repair of duodenal ulcer with modified Osmany patch. Acute hypoxic respiratory failure secondary to fluid overload, possibility of aspiration pneumonia is not entirely ruled out. Or could be a picture of noncardiogenic pulmonary edema/acute lung injury. Also related to acute exacerbation of COPD, patient is requiring relatively high FiO2 via airvo. Acute exacerbation of COPD suspect aspiration pneumonia protocol started level is 2.91, and possible acute lung injury from aspiration pneumonia or from duodenal ulcer perforation Possible sepsis but no septic shock. Obstructive sleep apnea syndrome normal mood on CPAP at home. Obesity with BMI of 34 Type 2 diabetes without complications Benign essential hypertension Hypothyroidism History of underlying COPD, chronic nicotine dependence. Recommendation: Continue airvo and titrate accordingly Continue diuretics, monitor electrolytes and renal profile closely Continue bronchodilators and steroids for now. Continue to monitor in the ICU. At least for the next 24 hours. Continue Zosyn empirically Continue to monitor labs Continue nasogastric tube to low intermittent suction Continue Lovenox for DVT prophylaxis and Protonix for GI prophylaxis We will continue to follow. Time with Patient: Less than 30
[2022-09-01 16:40] LABS: Glucose,Whole Blood 251 mg/dL (70-110)
[2022-09-01 20:15] LABS: Glucose,Whole Blood 230 mg/dL (70-110)
[2022-09-01] MEDS ORDERED: INSULIN DETEMIR (LEVEMIR) 100 UNIT/ML SYR SQ SCH (21:00)
[2022-09-02 04:14] LABS: HCT 30.1 % (39.0-53.0); HGB 9.5 gm/dL (13.0-17.5); Hypochromasia Moderate; MCH 31.2 pg (25.0-35.0); MCHC 31.5 g/dL (31.0-37.0); MCV 98.8 fL (80.0-100.0); Mean Platelet Volume 9.4; Platelet Count 357 k/uL (150-450); RBC 3.05 m/uL (4.30-5.90); RDW 13.7 % (11.5-15.5); WBC 9.5 k/uL (3.8-10.6)
[2022-09-02 04:27] LABS: African American GFR (CKD) >90 (>60 ml/min/1.73 sqM); Anion Gap 11 mmol/L; Blood Urea Nitrogen 28 mg/dL (9-20); Calcium 8.9 mg/dL (8.4-10.2); Carbon Dioxide 27 mmol/L (22-30); Chloride 105 mmol/L (98-107); Glucose 248 mg/dL (74-99); Magnesium 2.5 mg/dL (1.6-2.3); Non-African American GFR(CKD) >90 (>60 ml/min/1.73 sqM); Sodium 143 mmol/L (137-145)
[2022-09-02] MEDS: CLEVIDIPINE BUTYRATE 25 MG in EMPTY BAG 1 BAG IV SCH ×5 (05:09→18:50)
--- NOTE | 2022-09-02 06:21 | XR ---
EXAMINATION TYPE: XR chest 1V portable DATE OF EXAM: 09/02/2022 CLINICAL HISTORY: Difficulty breathing and pneumonia progress study. TECHNIQUE: Single AP portable semiupright view of the chest is obtained. COMPARISON: Chest x-ray from 2 days earlier FINDINGS: Stable nasogastric tube. Persistent low lung volumes and chronic parenchymal changes with left basilar opacity. Cardiac silhouette size stable and within normal limits. Osseous structures are intact. IMPRESSION: There is small left pleural effusion and associated left basilar atelectasis and/or infil trate redemonstrated. Improved aeration right lung base noted.
[2022-09-02 06:54] LABS: Glucose,Whole Blood 315 mg/dL (70-110)
[2022-09-02] MEDS: LEVOTHYROXINE 25 MCG TAB PO SCH (06:54)
[2022-09-02] MEDS: LEVOTHYROXINE 100 MCG TAB PO SCH (06:54)
[2022-09-02] MEDS: PIPERACILLIN-TAZOBACTAM 3.375 GM in SODIUM CHLORIDE 0.9% 100 ML IVPB SCH ×2 (06:59→14:31)
[2022-09-02] MEDS: INSULIN ASPART (NovoLOG) 100 UNIT/ML VIAL SQ SCH ×4 (06:59→20:56)
[2022-09-02] MEDS: SYMBICORT 160-4.5 MCG INHALER INHALATION SCH ×2 (07:49→20:31)
[2022-09-02] MEDS: IPRATROPIUM-ALBUTEROL 3 ML NEB INHALATION SCH ×4 (07:49→20:31)
[2022-09-02] MEDS: ENOXAPARIN 40 MG/0.4 ML SYRINGE SQ SCH (08:07)
[2022-09-02] MEDS: PANTOPRAZOLE 40 MG/10 ML VIAL IVP SCH ×2 (08:08→20:56)
[2022-09-02] MEDS: methylPREDNISolone SOD SUCCI 40 MG/ML 1 ML VIAL IV SCH ×2 (08:08→15:49)
[2022-09-02] MEDS: NICOTINE 21MG/24HR PATCH TRANSDERM SCH (08:08)
[2022-09-02] MEDS: SODIUM CHLORIDE 0.9% 1,000 ML IV SCH (09:20)
[2022-09-02] MEDS: amLODIPine 5 MG TAB PO SCH ×2 (09:40→19:37)
[2022-09-02] MEDS: LOSARTAN 50 MG TAB PO SCH (09:40)
--- NOTE | 2022-09-02 09:49 | P.PN ---
Subjective Progress Note Date: 09/02/22 Principal diagnosis: Perforated ulcer Patient denies any significant pain. No nausea or vomiting. Nasogastric tube output 2 50 mL. NG aspirate is bilious. White blood cell count 9.5, hemoglobin 9.5. Objective - Vital Signs Vital signs: Vital Signs Temp 98.8 F 09/02/22 08:00 Pulse 77 09/02/22 09:00 Resp 28 H 09/02/22 09:00 BP 160/81 09/02/22 09:00 Pulse Ox 96 09/02/22 09:00 FiO2 55 09/02/22 08:00 Intake & Output 09/01/22 09/02/22 09/02/22 18:59 06:59 18:59 Intake Total 791.000 645 235.6 Output Total 800 1035 195 Balance -9.000 -390 40.6 Weight 111.6 kg Intake: IV 650 500 200 Piperacillin-Tazobactam 3 100 100 .375 gm In Sodium Chloride 0.9% 100 ml @ 25 mls/hr IVPB Q8H [facility] Rx#: [id number] Potassium Chloride 10 meq 200 In Water For Injection 1 100ml.bag @ 100 mls/hr IVPB Q1H [facility] Rx#: [id number] Sodium Chloride 0.9% 1, 350 500 100 000 ml @ 50 mls/hr IV . Q20H [facility] Rx#:[id number] Intake, IV Titration 141.000 145 35.6 Amount Clevidipine Butyrate 25 141.000 145 35.6 mg In Empty Bag 1 bag @ 1 MG/HR 2 mls/hr IV .Q24H [facility] Rx#:[id number] Output: Gastric Drainage 50 250 Drainage 5 Abdomen 5 Urine 750 780 195 Other: Voiding Method Indwelling Catheter Indwelling Catheter Indwelling Catheter - Exam Abdomen: Soft, nondistended, incision clean and dry, minimal tenderness, DARUIS serous - Labs CBC & Chem 7: 09/02/22 03:48 09/02/22 03:48 Labs: Abnormal Lab Results - Last 24 Hours (Table) 09/01/22 09/01/22 09/01/22 Range/Units 11:23 16:39 20:13 RBC (4.30-5.90) m/uL Hgb (13.0-17.5) gm/dL Hct (39.0-53.0) % BUN (9-20) mg/dL Glucose (74-99) mg/dL POC Glucose (mg/dL) 232 H 251 H 230 H (70-110) mg/dL Magnesium (1.6-2.3) mg/dL 09/02/22 09/02/22 09/02/22 Range/Units 03:48 03:48 06:52 RBC 3.05 L (4.30-5.90) m/uL Hgb 9.5 L (13.0-17.5) gm/dL Hct 30.1 L (39.0-53.0) % BUN 28 H (9-20) mg/dL Glucose 248 H (74-99) mg/dL POC Glucose (mg/dL) 315 H (70-110) mg/dL Magnesium 2.5 H (1.6-2.3) mg/dL Microbiology - Last 24 Hours (Table) 08/30/22 06:09 Blood Culture - Preliminary Blood Assessment and Plan (1) Duodenal ulcer perforation Narrative/Plan: Patient doing well today. Will clamp nasogastric tube and remove if no nausea or significant output identified. Keep nothing by mouth for now. Continue antibiotics. Current Visit: Yes Status: Acute Code(s): K26.5 - CHRONIC OR UNSPECIFIED DUODENAL ULCER WITH PERFORATION SNOMED Code(s): 76244320
--- NOTE | 2022-09-02 11:21 | P.PN ---
Subjective Progress Note Date: 09/02/22 Principal diagnosis: Perforated duodenal ulcer I am seeing this patient in new consultation today 08/30/2022 for acute hypoxemic respiratory failure following a perforated duodenal ulcer repair. Patient is a 46-year-old white male with past medical history significant for obstructive sleep apnea with home CPAP, morbid obesity, hypothyroidism, hypertension, diabetes mellitus, and chronic nicotine dependence. Patient came into the emergency room yesterday morning complaining of epigastric abdominal pain. A CT of the abdomen pelvis with contrast showed scattered foci of n ondependent free air in the right upper quadrant with a small perihepatic free fluid and extensive periduodenal stranding suspicious for a perforated duodenal ulcer. It also showed right middle lobe, lingula, and bilateral lateral lower lobe groundglass consolidation felt to be related to edema or infection. The patient went for an exploratory laparotomy yesterday and was found to have a perforated duodenal ulcer which was repaired with a modified Osmany patch. No immediate perioperative complications were reported, and the patient was sent to the general medical floor. Apparently, earlier this morning, the patient did develop some respiratory distress. Oxygen demands increased from 2 L to 15 L high flow nasal cannula. The chest x-ray was taken and I'm unable to view the chest x-ray, but was read as hypoventilatory with bilateral multifocal atelectasis and/or infiltrates with interval worsening from prior imaging. There was also a small left pleural effusion which was new. The patient was given 80 mg of Lasix, and has diuresed well over a liter in the last hour. His oxygen demands have also improved, and is currently on 9 L high flow cannula. The patient states that he is feeling more comfortable. CPAP with pressure support of 8 is at the bedside, however, the patient was unable to tolerate this due to an NG tube. Incentive spirometer is at the bedside, and requires frequent encouragement. He does have a midline abdominal incision that appears clean and approximated. There is an abdominal binder in place. CBC on arrival shows a WBC count of 13.2, hemoglobin 11.8, hematocrit 35.7, platelets 503. BMP on arrival shows a sodium 137, potassium 3.8, chloride 102, serum CO2 19, BUN 18, creatinine 0.78, glucose 214. Troponin negative 1. NT proBNP 96. He was negative for influenza, RSV, COVID-19. Patient's oxygen requirements have improved, and vital signs are stable at the moment. Reevaluated today on 08/31/2022, patient remains in the ICU, I actually arrange for the patient to be transferred yesterday. Patient remains on airvo at 60% FiO2 and 50 L flow, O2 saturation is in the 90s. Patient is feeling better, feels more comfortable today compared to yesterday. Nonetheless on physical examination he continues to have crackles or rhonchi and wheezes bilaterally. Remains nothing by mouth, continues to have nasogastric tube in place, he is -2 L since yesterday. Remains on Zosyn empirically. Patient received another dose of Lasix today 40 mg IV push, and for his blood pressure I'm recommending a clevidipine drip and clonidine patch. Chest x-ray is suggestive of bilateral interstitial infiltrates/edema small bilateral pleural effusions, hence more Lasix was given this morning. And again the patient remains empirically on antibiotics/Zosyn. Labs today showed leukocytosis with WBC of 16.0, hemoglobin of 9 hematocrit of 28 lites are normal renal profile is normal Patient was reevaluated today on 09/01/2022, patient remains in the ICU, he is on airvo at 65% FiO2 and 45 L flow. Remains on clevidipine at 8 times per hour. Remains on Zosyn remains on bronchodilators and on steroids. Patient is feeling better on physical examination he sounds much better however he continues to have significant desaturation and requiring relatively high FiO2. His O2 saturation is ranging anywhere between 90 up to 97%. Clinically however the p atient is feeling better. WBC count is 13.9 hemoglobin is 9.3 lites are normal renal profile is normal, no chest x-ray was done today. Reevaluated today on 09/02/2022, remains in the ICU, remains on relatively high FiO2 of 55% and 40 L flow, O2 saturation is in the mid 90s. Remains on clevidipine at 6 mg/h for his elevated blood pressure today I am recommending amlodipine 5 mg via nasogastric tube twice a day losartan 100 mg daily and the patient has a clonidine patch. Continues to have nasogastric tube in place and continues to have some fairly good output from the nasogastric tube. However pulmonary-jeong the patient is feeling much per her today compared to the last couple of days. Less shortness of breath breathing a lot easier, and on physical examination he has mostly diminished breath sounds no crackles or rhonchi or wheezes WBC count is 9.5 hemoglobin 9.5 lites are normal renal profile is normal Objective - Vital Signs Vital signs: Vital Signs Temp 98.8 F 09/02/22 08:00 Pulse 78 09/02/22 11:11 Resp 28 H 09/02/22 11:00 BP 156/81 09/02/22 11:00 Pulse Ox 95 09/02/22 11:00 FiO2 55 09/02/22 08:00 Intake & Output 09/01/22 09/02/22 09/02/22 18:59 06:59 18:59 Intake Total 791.000 645 361.4 Output Total 800 1035 265 Balance -9.000 -390 96.4 Weight 111.6 kg Intake: IV 650 500 300 Piperacillin-Tazobactam 3 100 100 .375 gm In Sodium Chloride 0.9% 100 ml @ 25 mls/hr IVPB Q8H DEA Rx#: [id number] Potassium Chloride 10 meq 200 In Water For Injection 1 100ml.bag @ 100 mls/hr IVPB Q1H DEA Rx#: [id number] Sodium Chloride 0.9% 1, 350 500 200 000 ml @ 50 mls/hr IV . Q20H DEA Rx#:[id number] Intake, IV Titration 141.000 145 61.4 Amount Clevidipine Butyrate 25 141.000 145 61.4 mg In Empty Bag 1 bag @ 1 MG/HR 2 mls/hr IV .Q24H DEA Rx#:[id number] Output: Gastric Drainage 50 250 Drainage 5 Abdomen 5 Urine 750 780 265 Other: Voiding Method Indwelling Catheter Indwelling Catheter Indwelling Catheter - Exam Physical Exam: Revealed a 46-year-old white male pleasant in no distress on airvo, Head: Atraumatic normocephalic nasogastric tube in place. HEENT:[Neck is supple.] [No neck masses.] [No thyromegaly.] [No JVD.] Chest: [Less rhonchi and wheezing noted bilaterally today decent airflow bilaterally. Cardiac Exam: [Normal S1 and S2, no S3 gallop, no murmur.] Abdomen: [Postsurgical Soft, nontender, no megaly, no rebound, no guarding, negative bowel sounds Extremities: [No clubbing, no edema, no cyanosis.] Neurological Exam: [No focal neurologic deficit.] Alert oriented 3. Psychiatric: Normal mood affect and normal status examination - Labs CBC & Chem 7: 09/02/22 03:48 09/02/22 03:48 Labs: Abnormal Lab Results - Last 24 Hours (Table) 09/01/22 09/01/22 09/01/22 Range/Units 11:23 16:39 20:13 RBC (4.30-5.90) m/uL Hgb (13.0-17.5) gm/dL Hct (39.0-53.0) % BUN (9-20) mg/dL Glucose (74-99) mg/dL POC Glucose (mg/dL) 232 H 251 H 230 H (70-110) mg/dL Magnesium (1.6-2.3) mg/dL 09/02/22 09/02/22 09/02/22 Range/Units 03:48 03:48 06:52 RBC 3.05 L (4.30-5.90) m/uL Hgb 9.5 L (13.0-17.5) gm/dL Hct 30.1 L (39.0-53.0) % BUN 28 H (9-20) mg/dL Glucose 248 H (74-99) mg/dL POC Glucose (mg/dL) 315 H (70-110) mg/dL Magnesium 2.5 H (1.6-2.3) mg/dL Microbiology - Last 24 Hours (Table) 08/30/22 06:09 Blood Culture - Preliminary Blood Assessment and Plan Assessment: Impression: Postoperative day #4 status post repair of duodenal ulcer with modified Osmany patch. Acute hypoxic respiratory failure secondary to fluid overload, possibility of aspiration pneumonia is not entirely ruled out. Or could be a picture of noncardiogenic pulmonary edema/acute lung injury. Also related to acute e xacerbation of COPD, patient is requiring relatively high FiO2 via airvo. Acute exacerbation of COPD suspect aspiration pneumonia protocol started level is 2.91, and possible acute lung injury from aspiration pneumonia or from duodenal ulcer perforation Possible sepsis but no septic shock. Obstructive sleep apnea syndrome normal mood on CPAP at home. Obesity with BMI of 34 Type 2 diabetes without complications Benign essential hypertension Hypothyroidism History of underlying COPD, chronic nicotine dependence. Recommendation: Transition airvo to high flow nasal cannula today Continue diuretics, monitor electrolytes and renal profile closely Continue bronchodilators and steroids for now. Optimize blood pressure and hopefully discontinue clevidipine. Continue Zosyn empirically Continue nasogastric tube to low intermittent suction Continue Lovenox for DVT prophylaxis and Protonix for GI prophylaxis once the patient is off clevidipine, could consider transferring the patient to medical surgical floor. We will continue to follow. Time with Patient: Less than 30
[2022-09-02 11:50] LABS: Glucose,Whole Blood 228 mg/dL (70-110)
--- NOTE | 2022-09-02 13:29 | P.PN ---
Subjective Progress Note Date: 09/02/22 Principal diagnosis: Abdominal pain Doing well, he is having discomfort at the NG tube site at the nose. otherwise denied any abdominal pain, chest pain, nausea, no sob. No fevers. Objective - Vital Signs Vital signs: Vital Signs Temp 98.8 F 09/02/22 12:00 Pulse 74 09/02/22 12:00 Resp 26 H 09/02/22 12:00 BP 156/83 09/02/22 12:00 Pulse Ox 95 09/02/22 12:00 FiO2 55 09/02/22 08:00 Intake & Output 09/01/22 09/02/22 09/02/22 18:59 06:59 18:59 Intake Total 791.000 645 435.6 Output Total 800 1035 265 Balance -9.000 -390 170.6 Weight 111.6 kg Intake: IV 650 500 350 Piperacillin-Tazobactam 3 100 100 .375 gm In Sodium Chloride 0.9% 100 ml @ 25 mls/hr IVPB Q8H DEA Rx#: [id number] Potassium Chloride 10 meq 200 In Water For Injection 1 100ml.bag @ 100 mls/hr IVPB Q1H DEA Rx#: [id number] Sodium Chloride 0.9% 1, 350 500 250 000 ml @ 50 mls/hr IV . Q20H DEA Rx#:[id number] Intake, IV Titration 141.000 145 85.6 Amount Clevidipine Butyrate 25 141.000 145 85.6 mg In Empty Bag 1 bag @ 1 MG/HR 2 mls/hr IV .Q24H DEA Rx#:[id number] Output: Gastric Drainage 50 250 Drainage 5 Abdomen 5 Urine 750 780 265 Other: Voiding Method Indwelling Catheter Indwelling Catheter Indwelling Catheter - Exam Vital signs reviewed General: nontoxic, no distress, appears at stated age Cardiovascular: S1S2 reg, no murmur, positive posterior tibial pulse bilateral, Lungs: Clear, no rhonchi, no rales , no accessory muscle use Abdominal: soft, + tender to palpation bilateral, no guarding, no appreciable organomegaly Ext: no gross muscle atrophy, no edema, no contractures Neuro: CN II-XI grossly intact, no focal neuro deficits Psych: Alert, oriented, appropriate affect - Labs CBC & Chem 7: 09/02/22 03:48 09/02/22 03:48 Labs: Abnormal Lab Results - Last 24 Hours (Table) 09/01/22 09/01/22 09/02/22 Range/Units 16:39 20:13 03:48 RBC 3.05 L (4.30-5.90) m/uL Hgb 9.5 L (13.0-17.5) gm/dL Hct 30.1 L (39.0-53.0) % BUN (9-20) mg/dL Glucose (74-99) mg/dL POC Glucose (mg/dL) 251 H 230 H (70-110) mg/dL Magnesium (1.6-2.3) mg/dL 09/02/22 09/02/22 09/02/22 Range/Units 03:48 06:52 11:48 RBC (4.30-5.90) m/uL Hgb (13.0-17.5) gm/dL Hct (39.0-53.0) % BUN 28 H (9-20) mg/dL Glucose 248 H (74-99) mg/dL POC Glucose (mg/dL) 315 H 228 H (70-110) mg/dL Magnesium 2.5 H (1.6-2.3) mg/dL Microbiology - Last 24 Hours (Table) 08/30/22 06:09 Blood Culture - Preliminary Blood Assessment and Plan Plan: Acute hypoxic respiraoty failure due to aspiration pneumonia vs fluid overload vs ARDS, elevated procalcitonin Perforated duodenal ulcer Hypertension urgency Acute exacerbation of COPD Acute blood loss anemia and anticipated outcome of surgery Diabetes mellitus type 2 [id number], with hyperglycemia A1C 6.8 Obstructive sleep apnea Obesity with BMI 34.3 Nicotine dependency Imaging: Chest x-ray revealed left lower lobe atelectasis and/or infiltrate with left pleural effusion, improved areation on the right chest. Data Review: Laboratory data reviewed. Plan: - Surgery note reviewed, we'll discontinue NGT later today - Catapres 0.2 mg patch and Cleveprex drip - Symbicort, albuterol, Solu-Medrol 40 mg IV every 8 hours for COPD - Zosyn 3.375 g IV q 8 hours D #4 -Protonix 40 mg IV push twice daily -Sliding scale insulin, increase Lantus dose to 13 units daily -nicotine patch 21 g daily - follow CBC and BMP regarding sepsis and acute blood loss anemia DVT prophylaxis: Lovenox Discussed with: Patient, nursing,
[2022-09-02 16:37] LABS: Glucose,Whole Blood 280 mg/dL (70-110)
[2022-09-02 20:08] LABS: Glucose,Whole Blood 276 mg/dL (70-110)
[2022-09-02] MEDS ORDERED: INSULIN DETEMIR (LEVEMIR) 100 UNIT/ML SYR SQ SCH (21:00)
[2022-09-03] MEDS: PIPERACILLIN-TAZOBACTAM 3.375 GM in SODIUM CHLORIDE 0.9% 100 ML IVPB SCH ×4 (00:20→23:33)
[2022-09-03] MEDS: methylPREDNISolone SOD SUCCI 40 MG/ML 1 ML VIAL IV SCH ×4 (00:20→23:33)
[2022-09-03] MEDS: CLEVIDIPINE BUTYRATE 25 MG in EMPTY BAG 1 BAG IV SCH ×3 (00:21→09:57)
[2022-09-03] MEDS: SODIUM CHLORIDE 0.9% 1,000 ML IV SCH ×2 (03:36→09:57)
[2022-09-03 04:04] LABS: Basophils % (A) 0 %; Eosinophils % (A) 0 %; HCT 30.4 % (39.0-53.0); HGB 9.7 gm/dL (13.0-17.5); Hypochromasia Moderate; Lymphocytes # (A) 1.3 k/uL (1.0-4.8); Lymphocytes % (A) 14 %; MCH 31.7 pg (25.0-35.0); MCHC 31.7 g/dL (31.0-37.0); MCV 99.8 fL (80.0-100.0); Mean Platelet Volume 9.3; Monocytes # (A) 0.4 k/uL (0-1.0); Monocytes % (A) 5 %; Neutrophils # (A) 6.9 k/uL (1.3-7.7); Neutrophils % (A) 78 %; Platelet Count 332 k/uL (150-450); RBC 3.05 m/uL (4.30-5.90); RDW 13.8 % (11.5-15.5); WBC 8.9 k/uL (3.8-10.6)
[2022-09-03 04:43] LABS: African American GFR (CKD) >90 (>60 ml/min/1.73 sqM); Anion Gap 8 mmol/L; Blood Urea Nitrogen 23 mg/dL (9-20); Calcium 8.7 mg/dL (8.4-10.2); Carbon Dioxide 28 mmol/L (22-30); Chloride 105 mmol/L (98-107); Glucose 230 mg/dL (74-99); Non-African American GFR(CKD) >90 (>60 ml/min/1.73 sqM); Potassium 4.3 mmol/L (3.5-5.1); Sodium 141 mmol/L (137-145)
[2022-09-03] MEDS: LEVOTHYROXINE 25 MCG TAB PO SCH (05:37)
[2022-09-03] MEDS: LEVOTHYROXINE 100 MCG TAB PO SCH (05:37)
[2022-09-03 05:44] LABS: Glucose,Whole Blood 254 mg/dL (70-110)
[2022-09-03] MEDS: INSULIN ASPART (NovoLOG) 100 UNIT/ML VIAL SQ SCH ×4 (05:46→20:31)
[2022-09-03] MEDS: IPRATROPIUM-ALBUTEROL 3 ML NEB INHALATION SCH ×4 (07:50→20:50)
[2022-09-03] MEDS: SYMBICORT 160-4.5 MCG INHALER INHALATION SCH ×2 (07:50→20:50)
--- NOTE | 2022-09-03 07:57 | XR ---
EXAMINATION TYPE: XR chest 1V portable DATE OF EXAM: 09/03/2022 Comparison: 09/03/2019 Clinical History: 46 year-old male shortness of breath, dyspnea Findings: Slightly low lung volumes. Heart upper limits of normal in size. There is mild interstitial prominenc e. Similar to prior exam. Patchy retrocardiac and left basilar opacity is some blunting of the left c ostophrenic angle. Impression: 1. Borderline heart size. Interstitial prominence persists, possible mild pulmonary vascular congesti on. Clinically correlate. 2. There may be a developing small left pleural effusion with adjacent atelectasis and/or consolidati on.
[2022-09-03] MEDS: PANTOPRAZOLE 40 MG/10 ML VIAL IVP SCH ×2 (09:33→20:13)
[2022-09-03] MEDS: ENOXAPARIN 40 MG/0.4 ML SYRINGE SQ SCH (09:33)
[2022-09-03] MEDS: amLODIPine 5 MG TAB PO SCH ×2 (09:33→20:13)
[2022-09-03] MEDS: NICOTINE 21MG/24HR PATCH TRANSDERM SCH (09:34)
[2022-09-03] MEDS: LOSARTAN 50 MG TAB PO SCH (09:34)
--- NOTE | 2022-09-03 10:59 | P.PN ---
Subjective Progress Note Date: 09/03/22 I am seeing this patient in new consultation today 08/30/2022 for acute hypoxemic respiratory failure following a perforated duodenal ulcer repair. Patient is a 46-year-old white male with past medical history significant for obstructive sleep apnea with home CPAP, morbid obesity, hypothyroidism, hyperte nsion, diabetes mellitus, and chronic nicotine dependence. Patient came into the emergency room yesterday morning complaining of epigastric abdominal pain. A CT of the abdomen pelvis with contrast showed scattered foci of nondependent free air in the right upper quadrant with a small perihepatic free fluid and extensive periduodenal stranding suspicious for a perforated duodenal ulcer. It also showed right middle lobe, lingula, and bilateral lateral lower lobe groundglass consolidation felt to be related to edema or infection. The patient went for an exploratory laparotomy yesterday and was found to have a perforated duodenal ulcer which was repaired with a modified Osmany patch. No immediate perioperative complications were reported, and the patient was sent to the general medical floor. Apparently, earlier this morning, the patient did develop some respiratory distress. Oxygen demands increased from 2 L to 15 L high flow nasal cannula. The chest x-ray was taken and I'm unable to view the chest x-ray, but was read as hypoventilatory with bilateral multifocal atelectasis and/or infiltrates with interval worsening from prior imaging. There was also a small left pleural effusion which was new. The patient was given 80 mg of Lasix, and has diuresed well over a liter in the last hour. His oxygen demands have also improved, and is currently on 9 L high flow cannula. The patient states that he is feeling more comfortable. CPAP with pressure support of 8 is at the bedside, however, the patient was unable to tolerate this due to an NG tube. Incentive spirometer is at the bedside, and requires frequent encouragement. He does have a midline abdominal incision that appears clean and approximated. There is an abdominal binder in place. CBC on arrival shows a WBC count of 13.2, hemoglobin 11.8, hematocrit 35.7, platelets 503. BMP on arrival shows a sodium 137, potassium 3.8, chloride 102, serum CO2 19, BUN 18, creatinine 0.78, glucose 214. Troponin negative 1. NT proBNP 96. He was negative for influenza, RSV, COVID-19. Patient's oxygen requirements have improved, and vital signs are stable at the moment. Reevaluated today on 08/31/2022, patient remains in the ICU, I actually arrange for the patient to be transferred yesterday. Patient remains on airvo at 60% FiO2 and 50 L flow, O2 saturation is in the 90s. Patient is feeling better, feels more comfortable today compared to yesterday. Nonetheless on physical examination he continues to have crackles or rhonchi and wheezes bilaterally. Remains nothing by mouth, continues to have nasogastric tube in place, he is -2 L since yesterday. Remains on Zosyn empirically. Patient received another dose of Lasix today 40 mg IV push, and for his blood pressure I'm recommending a clevidipine drip and clonidine patch. Chest x-ray is suggestive of bilateral interstitial infiltrates/edema small bilateral pleural effusions, hence more Lasix was given this morning. And again the patient remains empirically on antibiotics/Zosyn. Labs today showed leukocytosis with WBC of 16.0, hemoglobin of 9 hematocrit of 28 lites are normal renal profile is normal Patient was reevaluated today on 09/01/2022, patient remains in the ICU, he is on airvo at 65% FiO2 and 45 L flow. Remains on clevidipine at 8 times per hour. Remains on Zosyn remains on bronchodilators and on steroids. Patient is feeling better on physical examination he sounds much better however he continues to have significant desaturation and requiring relatively high FiO2. His O2 saturation is ranging anywhere between 90 up to 97%. Clinically however the patient is feeling better. WBC count is 13.9 hemoglobin is 9.3 lites are normal renal profile is normal, no chest x-ray was done today. Reevaluated today on 09/02/2022, remains in the ICU, remains on relatively high FiO2 of 55% and 40 L flow, O2 saturation is in the mid 90s. Remains on clevidipine at 6 mg/h for his elevated blood pressure today I am recommending amlodipine 5 mg via nasogastric tube twice a day losartan 100 mg daily and the patient has a clonidine patch. Continues to have nasogastric tube in place and continues to have some fairly good output from the nasogastric tube. However pulmonary-jeong the patient is feeling much per her today compared to the last couple of days. Less shortness of breath breathing a lot easier, and on physical examination he has mostly diminished breath sounds no crackles or rhonchi or wheezes WBC count is 9.5 hemoglobin 9.5 lites are normal renal profile is normal The patient is seen today 09/03/2022 in follow-up in the intensive care unit. He is currently resting comfortably in bed. Awake and alert in no acute d istress. He denies any worsening shortness of breath, cough or congestion. He is on 6 L high flow nasal cannula currently. His x-ray reveals interstitial prominence with possible pulmonary vascular congestion. There is a developing small left pleural effusion with adjacent atelectasis. He remains on clevidipine 6 mg per hour. He is normal saline at 50 MLS per hour. He is status post repair of a ruptured duodenal ulcer with Osmany patch on 08/29/2022. He remains nothing by mouth. Nasogastric tube was removed. He is continued on DuoNeb inhalations, Symbicort, IV Solu-Medrol. NicoDerm patch in place. Remains on antibiotics in the form of Zosyn. He remains somewhat hypertensive. He is been initiated on amlodipine 5 mg twice a day. Losartan 100 mg daily and a Catapres patch. Objective - Vital Signs Vital signs: Vital Signs Temp 98 F 09/03/22 08:00 Pulse 63 09/03/22 10:00 Resp 23 09/03/22 10:00 BP 180/102 09/03/22 10:00 Pulse Ox 99 09/03/22 10:00 FiO2 40 09/02/22 22:37 Intake & Output 09/02/22 09/03/22 09/03/22 18:59 06:59 18:59 Intake Total 811.766 737.4 201.8 Output Total 670 1050 600 Balance 141.766 -312.6 -398.2 Weight 110 kg Intake: IV 650 650 Piperacillin-Tazobactam 3 100 .375 gm In Sodium Chloride 0.9% 100 ml @ 25 mls/hr IVPB Q8H DEA Rx#: [id number] Sodium Chloride 0.9% 1, 550 650 000 ml @ 50 mls/hr IV . Q20H DEA Rx#:[id number] Intake, IV Titration 161.766 87.4 201.8 Amount Clevidipine Butyrate 25 161.766 87.4 51.8 mg In Empty Bag 1 bag @ 1 MG/HR 2 mls/hr IV .Q24H DEA Rx#:[id number] Sodium Chloride 0.9% 1, 150 000 ml @ 50 mls/hr IV . Q20H DEA Rx#:[id number] Oral 0 Output: Drainage 5 0 Abdomen 5 0 Urine 665 1050 600 Other: Voiding Method Indwelling Catheter Indwelling Catheter Indwelling Catheter - Exam GENERAL EXAM: Alert, pleasant 46-year-old male patient, obese, on 6 L high flow nasal cannula, comfortable in no apparent distress. HEAD: Normocephalic. EYES: Normal reaction of pupils, equal size. NOSE: Clear with pink turbinates. THROAT: No erythema or exudates. NECK: No masses, no JVD. CHEST: No chest wall deformity. LUNGS: Equal air entry with no crackles, wheeze, rhonchi or dullness. CVS: S1 and S2 normal with no audible murmur, regular rhythm. ABDOMEN: Incision clean and dry, DARIUS drain remains in place with serous drainage, hypoactive bowel sounds, no guarding or rigidity. SPINE: No scoliosis or deformity SKIN: No rashes CENTRAL NERVOUS SYSTEM: No focal deficits, tone is normal in all 4 extremities. EXTREMITIES: There is no peripheral edema. No clubbing, no cyanosis. Peripheral pulses are intact. - Labs CBC & Chem 7: 09/03/22 03:32 09/03/22 03:32 Labs: Abnormal Lab Results - Last 24 Hours (Table) 09/02/22 09/02/22 09/02/22 Range/Units 11:48 16:36 20:06 RBC (4.30-5.90) m/uL Hgb (13.0-17.5) gm/dL Hct (39.0-53.0) % BUN (9-20) mg/dL Glucose (74-99) mg/dL POC Glucose (mg/dL) 228 H 280 H 276 H (70-110) mg/dL 09/03/22 09/03/22 09/03/22 Range/Units 03:32 03:32 05:42 RBC 3.05 L (4.30-5.90) m/uL Hgb 9.7 L (13.0-17.5) gm/dL Hct 30.4 L (39.0-53.0) % BUN 23 H (9-20) mg/dL Glucose 230 H (74-99) mg/dL POC Glucose (mg/dL) 254 H (70-110) mg/dL Microbiology - Last 24 Hours (Table) 08/30/22 06:09 Blood Culture - Preliminary Blood Assessment and Plan Assessment: Postoperative day #5 status post repair of duodenal ulcer with modified Osmany patch. Acute hypoxic respiratory failure secondary to fluid overload, possibility of aspiration pneumonia is not entirely ruled out. Or could be a picture of noncardiogenic pulmonary edema/acute lung injury. Also related to acute exacerbation of COPD, patient was requiring high FiO2 via airvo. Now currently on 6 L high flow nasal cannula Acute exacerbation of COPD Suspect aspiration pneumonia procalcitonin level is 2.91, and possible acute lung injury from aspiration pneumonia or from duodenal ulcer perforation Possible sepsis but no septic shock. Obstructive sleep apnea syndrome normal mood on CPAP at home. Obesity with BMI of 34 Type 2 diabetes without complications Benign essential hypertension Hypothyroidism History of underlying COPD, chronic nicotine dependence Plan: The patient was seen and evaluated Chest x-ray, labs and medications reviewed Continue to titrate down both clevidipine Continue amlodipine, losartan, Catapres Continue bronchodilators and steroids Titrate down the FiO2 as tolerated Continue Zosyn Add incentive spirometer Educated regarding the importance of complete smoking cessation NicoDerm patch in place Increase his activity as tolerated We will continue to follow I have personally seen and examined the patient, performed the documentation and the assessment and plan as written. Number of minutes spent on the visit: 10.
[2022-09-03 11:00] LABS: Glucose,Whole Blood 227 mg/dL (70-110)
--- NOTE | 2022-09-03 11:37 | P.PN ---
Subjective Progress Note Date: 09/03/22 Patient is a 46-year-old male with osteoarthritis, hypothyroidism, hypertension, and diabetes who presented to the hospital complaining of abdominal pain. In the ER he underwent an extensive evaluation and was found to have possible perforated duodenal ulcer on CT abdomen and pelvis. He was emergently taken to the OR where the perforated duodenal ulcer was confirmed and he had a Osmany patch placed. Return to the general medical floor and was doing well other than being lethargic. Overnight on 08/29 he developed worsening respiratory distress and received Lasix. He did require a nonrebreather. He was started on IV Lasix. He was transitioned to the ICU and required AIRVO. Chest x-ray demonstrated bilateral interstitial infiltrate and Procalcitonin was elevated consistent with pneumonia. He was started on Zosyn, steroids, and bronchdilators. He continued to progress slowly. Patient seen and examined at bedside. Doing well today. Breathing well. Abdominal pain is controlled. He did pass some flatus. Vital signs reviewed General: nontoxic, no distress, appears at stated age Cardiovascular: S1S2 reg, no murmur, positive posterior tibial pulse bilateral, Lungs: Decreased bs b/l, no rhonchi, no rales , no accessory muscle use Abdominal: soft, nontender to palpation bilateral, no guarding, no appreciable organomegaly Ext: no gross muscle atrophy, no edema, no contractures Neuro: CN II-XI grossly intact, no focal neuro deficits Psych: Alert, oriented, appropriate affect Assessment: Acute hypoxic respiraoty failure due to aspiration pneumonia vs fluid overload vs ARDS, elevated procalcitonin Perforated duodenal ulcer Hypertension Acute exacerbation of COPD Acute blood loss anemia and anticipated outcome of surgery Diabetes mellitus type 2 [id number], A1C 6.8 Obstructive sleep apnea Obesity with BMI 34.3 Nicotine dependency Imaging: This x-ray from 09/01 to reviewed by myself which revealed poor inspiratory effort with increased vasculature markings Data Review: Vital signs reviewed temperature 90.8, pulse 67, respirations 25, blood pressure 137/77, O2 sat 99% on 6 L. Labs reviewed and remarkable for hemoglobin 9.7-unchanged from yesterday, BUN 23, glucose 227. Plan: -Discussed with nursing. Attempt to wean Clevidipine presents today, patient was restarted on his oral blood pressure medications yesterday. -Pulmonary note reviewed: Continue with bronchodilators, steroids, and Zosyn -Patient will remain in the ICU until off of Clevidipine -Surgery note reviewed from 09/02: NG tube was clamped and then removed. Keep patient nothing by mouth. -Norvasc 5 mg twice daily, Synthroid 200 g and 25 g on alternate days, Cozaar 100 mg daily -Protonix 40 mg IVP BID - Morphine 4 mg IVP q 4 hours prn pain - Symbicort, albuterol, Solu-Medrol 40 mg IV every 8 hours= - Zosyn 3.375 g IV q 8 hours D # 5 -Protonix 40 mg IV push twice daily - NPO -Sliding scale insulin, Increase levemir 15 units at night -nicotine patch 21 g daily - follow CBC and BMP regarding sepsis and acute blood loss anemia DVT prophylaxis: Lovenox Discussed with: Patient, nursing, This dictation was prepared using [employer] voice recognition software. Though every attempt is made to correct errors during during dictation some may still exist. Objective - Vital Signs Vital signs: Vital Signs Temp 98 F 09/03/22 08:00 Pulse 63 09/03/22 10:00 Resp 23 09/03/22 10:00 BP 180/102 09/03/22 10:00 Pulse Ox 99 09/03/22 10:00 FiO2 40 09/02/22 22:37 Intake & Output 09/02/22 09/03/22 09/03/22 18:59 06:59 18:59 Intake Total 811.766 737.4 201.8 Output Total 670 1050 600 Balance 141.766 -312.6 -398.2 Weight 110 kg Intake: IV 650 650 Piperacillin-Tazobactam 3 100 .375 gm In Sodium Chloride 0.9% 100 ml @ 25 mls/hr IVPB Q8H DEA Rx#: [id number] Sodium Chloride 0.9% 1, 550 650 000 ml @ 50 mls/hr IV . Q20H DEA Rx#:[id number] Intake, IV Titration 161.766 87.4 201.8 Amount Clevidipine Butyrate 25 161.766 87.4 51.8 mg In Empty Bag 1 bag @ 1 MG/HR 2 mls/hr IV .Q24H DEA Rx#:[id number] Sodium Chloride 0.9% 1, 150 000 ml @ 50 mls/hr IV . Q20H DEA Rx#:[id number] Oral 0 Output: Drainage 5 0 Abdomen 5 0 Urine 665 1050 600 Other: Voiding Method Indwelling Catheter Indwelling Catheter Indwelling Catheter - Labs CBC & Chem 7: 09/03/22 03:32 09/03/22 03:32 Labs: Abnormal Lab Results - Last 24 Hours (Table) 09/02/22 09/02/22 09/02/22 Range/Units 11:48 16:36 20:06 RBC (4.30-5.90) m/uL Hgb (13.0-17.5) gm/dL Hct (39.0-53.0) % BUN (9-20) mg/dL Glucose (74-99) mg/dL POC Glucose (mg/dL) 228 H 280 H 276 H (70-110) mg/dL 09/03/22 09/03/22 09/03/22 Range/Units 03:32 03:32 05:42 RBC 3.05 L (4.30-5.90) m/uL Hgb 9.7 L (13.0-17.5) gm/dL Hct 30.4 L (39.0-53.0) % BUN 23 H (9-20) mg/dL Glucose 230 H (74-99) mg/dL POC Glucose (mg/dL) 254 H (70-110) mg/dL 09/03/22 Range/Units 10:59 RBC (4.30-5.90) m/uL Hgb (13.0-17.5) gm/dL Hct (39.0-53.0) % BUN (9-20) mg/dL Glucose (74-99) mg/dL POC Glucose (mg/dL) 227 H (70-110) mg/dL Microbiology - Last 24 Hours (Table) 08/30/22 06:09 Blood Culture - Preliminary Blood
--- NOTE | 2022-09-03 12:46 | P.PN ---
Subjective Progress Note Date: 09/03/22 CHIEF COMPLAINT: Perforated duodenal ulcer HISTORY OF PRESENT ILLNESS: Patient is postop day #5 status post exploratory laparotomy, repair of perforated duodenal ulcer with modified Osmany patch. patient is on 3 liters of oxygen. He reports no abdominal pain. He is afebrile. He is having flatus denies any nausea or vomiting. Able to tolerate sips of water to take his meds. WBC 8.9 Hgb 9.7 platelets 332 creatinine 0.81 glucose 227. BP meds being adjusted per critical care service Patient seen and examined with Dr. angel PHYSICAL EXAM: VITAL SIGNS: Reviewed. GENERAL: Well-developed in no acute distress. HEENT: No sclera icterus. Extraocular movements grossly intact. Moist buccal mucosa. Head is atraumatic, normocephalic. ABDOMEN: Soft. Nondistended. Incisional dressing clean dry and intact DARIUS drain with serosanguineous minimal output abdominal binder in place NEUROLOGIC: Alert and oriented. Cranial nerves II through XII grossly intact. ASSESSMENT: 1. Perforated duodenal ulcer status post exploratory laparotomy, repair of perforated duodenal ulcer with modified Osmany patch 2. Hypoxia PLAN: -Advance diet to full liquids -Continue IV Protonix -No aspirin or NSAIDs -Continue antibiotics -Increase activity as tolerated Physician Human Resources Compensation Analyst note has been reviewed by physician. Signing provider agrees with the documented findings, assessment, and plan of care. Objective - Vital Signs Vital signs: Vital Signs Temp 98.3 F 09/03/22 12:00 Pulse 57 L 09/03/22 12:00 Resp 17 09/03/22 12:00 BP 139/73 09/03/22 12:00 Pulse Ox 96 09/03/22 12:00 FiO2 40 09/02/22 22:37 Intake & Output 09/02/22 09/03/22 09/03/22 18:59 06:59 18:59 Intake Total 811.766 737.4 321.667 Output Total 670 1050 600 Balance 141.766 -312.6 -278.333 Weight 110 kg Intake: IV 650 650 Piperacillin-Tazobactam 3 100 .375 gm In Sodium Chloride 0.9% 100 ml @ 25 mls/hr IVPB Q8H DEA Rx#: [id number] Sodium Chloride 0.9% 1, 550 650 000 ml @ 50 mls/hr IV . Q20H DEA Rx#:[id number] Intake, IV Titration 161.766 87.4 321.667 Amount Clevidipine Butyrate 25 161.766 87.4 71.667 mg In Empty Bag 1 bag @ 1 MG/HR 2 mls/hr IV .Q24H DEA Rx#:[id number] Sodium Chloride 0.9% 1, 250 000 ml @ 50 mls/hr IV . Q20H DEA Rx#:[id number] Oral 0 Output: Drainage 5 0 Abdomen 5 0 Urine 665 1050 600 Other: Voiding Method Indwelling Catheter Indwelling Catheter Indwelling Catheter - Labs CBC & Chem 7: 09/03/22 03:32 09/03/22 03:32 Labs: Abnormal Lab Results - Last 24 Hours (Table) 09/02/22 09/02/22 09/03/22 Range/Units 16:36 20:06 03:32 RBC 3.05 L (4.30-5.90) m/uL Hgb 9.7 L (13.0-17.5) gm/dL Hct 30.4 L (39.0-53.0) % BUN (9-20) mg/dL Glucose (74-99) mg/dL POC Glucose (mg/dL) 280 H 276 H (70-110) mg/dL 09/03/22 09/03/22 09/03/22 Range/Units 03:32 05:42 10:59 RBC (4.30-5.90) m/uL Hgb (13.0-17.5) gm/dL Hct (39.0-53.0) % BUN 23 H (9-20) mg/dL Glucose 230 H (74-99) mg/dL POC Glucose (mg/dL) 254 H 227 H (70-110) mg/dL Microbiology - Last 24 Hours (Table) 08/30/22 06:09 Blood Culture - Preliminary Blood
[2022-09-03 17:08] LABS: Glucose,Whole Blood 529 mg/dL (70-110)
[2022-09-03 17:08] LABS: Glucose,Whole Blood 501 mg/dL (70-110)
[2022-09-03] MEDS ORDERED: INSULIN ASPART (NovoLOG) 100 UNIT/ML VIAL SQ ONE ×2 (17:24→20:45)
[2022-09-03 20:21] LABS: Glucose,Whole Blood 449 mg/dL (70-110)
[2022-09-03] MEDS ORDERED: INSULIN DETEMIR (LEVEMIR) 100 UNIT/ML SYR SQ SCH ×2 (21:00)
[2022-09-04 04:07] LABS: Basophils % (A) 0 %; Eosinophils % (A) 0 %; HCT 31.6 % (39.0-53.0); HGB 10.2 gm/dL (13.0-17.5); Hypochromasia Moderate; Lymphocytes # (A) 1.3 k/uL (1.0-4.8); Lymphocytes % (A) 12 %; MCH 31.7 pg (25.0-35.0); MCHC 32.4 g/dL (31.0-37.0); MCV 97.7 fL (80.0-100.0); Mean Platelet Volume 9.5; Monocytes # (A) 0.3 k/uL (0-1.0); Monocytes % (A) 3 %; Neutrophils # (A) 8.9 k/uL (1.3-7.7); Neutrophils % (A) 84 %; Platelet Count 321 k/uL (150-450); RBC 3.23 m/uL (4.30-5.90); RDW 13.8 % (11.5-15.5); WBC 10.6 k/uL (3.8-10.6)
[2022-09-04 04:21] LABS: African American GFR (CKD) >90 (>60 ml/min/1.73 sqM); Anion Gap 10 mmol/L; Blood Urea Nitrogen 21 mg/dL (9-20); Calcium 8.6 mg/dL (8.4-10.2); Carbon Dioxide 26 mmol/L (22-30); Chloride 98 mmol/L (98-107); Glucose 299 mg/dL (74-99); Non-African American GFR(CKD) >90 (>60 ml/min/1.73 sqM); Potassium 4.3 mmol/L (3.5-5.1); Sodium 134 mmol/L (137-145)
[2022-09-04 06:25] LABS: Glucose,Whole Blood 305 mg/dL (70-110)
[2022-09-04] MEDS: PIPERACILLIN-TAZOBACTAM 3.375 GM in SODIUM CHLORIDE 0.9% 100 ML IVPB SCH ×3 (06:33→22:20)
[2022-09-04] MEDS: INSULIN ASPART (NovoLOG) 100 UNIT/ML VIAL SQ SCH ×6 (06:33→22:03)
[2022-09-04] MEDS: LEVOTHYROXINE 100 MCG TAB PO SCH (06:33)
[2022-09-04] MEDS: LEVOTHYROXINE 25 MCG TAB PO SCH (06:33)
[2022-09-04] MEDS: hydroCHLOROthiazide 12.5 MG CAP PO SCH (06:41)
--- NOTE | 2022-09-04 06:59 | XR ---
EXAMINATION TYPE: XR chest 1V portable DATE OF EXAM: 09/04/2022 Comparison: 09/03/2022 Clinical History: 46-year-old male shortness of breath, dyspnea Findings: Heart and lungs are normal in size. Aorta within normal limits. Mild interstitial prominence is uncha nged. Continued patchy left basilar opacity. Impression: Similar mild diffuse interstitial density. Patchy retrocardiac and left basilar opacity is also uncha nged. Possible trace left effusion.
[2022-09-04] MEDS: IPRATROPIUM-ALBUTEROL 3 ML NEB INHALATION SCH ×4 (07:33→22:06)
[2022-09-04] MEDS: SYMBICORT 160-4.5 MCG INHALER INHALATION SCH ×2 (07:33→22:06)
[2022-09-04] MEDS: ENOXAPARIN 40 MG/0.4 ML SYRINGE SQ SCH (09:09)
[2022-09-04] MEDS: LOSARTAN 50 MG TAB PO SCH (09:09)
[2022-09-04] MEDS: amLODIPine 5 MG TAB PO SCH ×2 (09:09→22:02)
[2022-09-04] MEDS: PANTOPRAZOLE 40 MG/10 ML VIAL IVP SCH ×2 (09:09→22:02)
[2022-09-04] MEDS: NICOTINE 21MG/24HR PATCH TRANSDERM SCH (09:09)
--- NOTE | 2022-09-04 10:09 | P.PN ---
Subjective Progress Note Date: 09/04/22 I am seeing this patient in new consultation today 08/30/2022 for acute hypoxemic respiratory failure following a perforated duodenal ulcer repair. Patient is a 46-year-old white male with past medical history significant for obstructive sleep apnea with home CPAP, morbid obesity, hypothyroidism, hyperte nsion, diabetes mellitus, and chronic nicotine dependence. Patient came into the emergency room yesterday morning complaining of epigastric abdominal pain. A CT of the abdomen pelvis with contrast showed scattered foci of nondependent free air in the right upper quadrant with a small perihepatic free fluid and extensive periduodenal stranding suspicious for a perforated duodenal ulcer. It also showed right middle lobe, lingula, and bilateral lateral lower lobe groundglass consolidation felt to be related to edema or infection. The patient went for an exploratory laparotomy yesterday and was found to have a perforated duodenal ulcer which was repaired with a modified Osmany patch. No immediate perioperative complications were reported, and the patient was sent to the general medical floor. Apparently, earlier this morning, the patient did develop some respiratory distress. Oxygen demands increased from 2 L to 15 L high flow nasal cannula. The chest x-ray was taken and I'm unable to view the chest x-ray, but was read as hypoventilatory with bilateral multifocal atelectasis and/or infiltrates with interval worsening from prior imaging. There was also a small left pleural effusion which was new. The patient was given 80 mg of Lasix, and has diuresed well over a liter in the last hour. His oxygen demands have also improved, and is currently on 9 L high flow cannula. The patient states that he is feeling more comfortable. CPAP with pressure support of 8 is at the bedside, however, the patient was unable to tolerate this due to an NG tube. Incentive spirometer is at the bedside, and requires frequent encouragement. He does have a midline abdominal incision that appears clean and approximated. There is an abdominal binder in place. CBC on arrival shows a WBC count of 13.2, hemoglobin 11.8, hematocrit 35.7, platelets 503. BMP on arrival shows a sodium 137, potassium 3.8, chloride 102, serum CO2 19, BUN 18, creatinine 0.78, glucose 214. Troponin negative 1. NT proBNP 96. He was negative for influenza, RSV, COVID-19. Patient's oxygen requirements have improved, and vital signs are stable at the moment. Reevaluated today on 08/31/2022, patient remains in the ICU, I actually arrange for the patient to be transferred yesterday. Patient remains on airvo at 60% FiO2 and 50 L flow, O2 saturation is in the 90s. Patient is feeling better, feels more comfortable today compared to yesterday. Nonetheless on physical examination he continues to have crackles or rhonchi and wheezes bilaterally. Remains nothing by mouth, continues to have nasogastric tube in place, he is -2 L since yesterday. Remains on Zosyn empirically. Patient received another dose of Lasix today 40 mg IV push, and for his blood pressure I'm recommending a clevidipine drip and clonidine patch. Chest x-ray is suggestive of bilateral interstitial infiltrates/edema small bilateral pleural effusions, hence more Lasix was given this morning. And again the patient remains empirically on antibiotics/Zosyn. Labs today showed leukocytosis with WBC of 16.0, hemoglobin of 9 hematocrit of 28 lites are normal renal profile is normal Patient was reevaluated today on 09/01/2022, patient remains in the ICU, he is on airvo at 65% FiO2 and 45 L flow. Remains on clevidipine at 8 times per hour. Remains on Zosyn remains on bronchodilators and on steroids. Patient is feeling better on physical examination he sounds much better however he continues to have significant desaturation and requiring relatively high FiO2. His O2 saturation is ranging anywhere between 90 up to 97%. Clinically however the patient is feeling better. WBC count is 13.9 hemoglobin is 9.3 lites are normal renal profile is normal, no chest x-ray was done today. Reevaluated today on 09/02/2022, remains in the ICU, remains on relatively high FiO2 of 55% and 40 L flow, O2 saturation is in the mid 90s. Remains on clevidipine at 6 mg/h for his elevated blood pressure today I am recommending amlodipine 5 mg via nasogastric tube twice a day losartan 100 mg daily and the patient has a clonidine patch. Continues to have nasogastric tube in place and continues to have some fairly good output from the nasogastric tube. However pulmonary-jeong the patient is feeling much per her today compared to the last couple of days. Less shortness of breath breathing a lot easier, and on physical examination he has mostly diminished breath sounds no crackles or rhonchi or wheezes WBC count is 9.5 hemoglobin 9.5 lites are normal renal profile is normal The patient is seen today 09/03/2022 in follow-up in the intensive care unit. He is currently resting comfortably in bed. Awake and alert in no acute d istress. He denies any worsening shortness of breath, cough or congestion. He is on 6 L high flow nasal cannula currently. His x-ray reveals interstitial prominence with possible pulmonary vascular congestion. There is a developing small left pleural effusion with adjacent atelectasis. He remains on clevidipine 6 mg per hour. He is normal saline at 50 MLS per hour. He is status post repair of a ruptured duodenal ulcer with Osmany patch on 08/29/2022. He remains nothing by mouth. Nasogastric tube was removed. He is continued on DuoNeb inhalations, Symbicort, IV Solu-Medrol. NicoDerm patch in place. Remains on antibiotics in the form of Zosyn. He remains somewhat hypertensive. He is been initiated on amlodipine 5 mg twice a day. Losartan 100 mg daily and a Catapres patch. The patient is seen today 09/04/2022 in follow-up in the intensive care unit. He is awake and alert in no acute distress. Resting in bed. Maintaining O2 saturations in the 90s on 2 L/m per nasal cannula. His normal saline at 50 mL per hour. He denies any worsening shortness of breath, cough or congestion. Chest x-ray shows mild diffuse interstitial density. Patchy retrocardiac and left basilar opacity unchanged. Trace left pleural effusion. He is working well with the incentive spirometer. He's been weaned off the clevidipine. On Lovenox for DVT prophylaxis. Remains on antibiotics in the form of Zosyn. NicoDerm patches in place. Tolerating a full liquid diet. Objective - Vital Signs Vital signs: Vital Signs Temp 98.2 F 09/04/22 08:00 Pulse 63 09/04/22 09:00 Resp 18 09/04/22 09:00 BP 138/78 09/04/22 09:00 Pulse Ox 96 09/04/22 09:00 FiO2 40 09/02/22 22:37 Intake & Output 09/03/22 09/04/22 09/04/22 18:59 06:59 18:59 Intake Total 3266.600 1100 200 Output Total 1370 700 200 Balance 1896.600 400 0 Weight 110 kg Intake: IV 100 100 Piperacillin-Tazobactam 3 100 100 .375 gm In Sodium Chloride 0.9% 100 ml @ 25 mls/hr IVPB Q8H DEA Rx#: [id number] Intake, IV Titration 776.600 550 100 Amount Clevidipine Butyrate 25 76.600 mg In Empty Bag 1 bag @ 1 MG/HR 2 mls/hr IV .Q24H DEA Rx#:[id number] Piperacillin-Tazobactam 3 100 .375 gm In Sodium Chloride 0.9% 100 ml @ 25 mls/hr IVPB Q8H DEA Rx#: [id number] Sodium Chloride 0.9% 1, 600 550 100 000 ml @ 50 mls/hr IV . Q20H DEA Rx#:[id number] Oral 2490 450 Output: Drainage 20 0 Abdomen 20 0 Urine 1350 700 200 Other: Voiding Method Indwelling Catheter Indwelling Catheter Urinal # Voids 1 - Exam GENERAL EXAM: Alert, 46-year-old male, obese, on 2 L nasal cannula, comfortable in no apparent distress. HEAD: Normocephalic. EYES: Normal reaction of pupils, equal size. NOSE: Clear with pink turbinates. THROAT: No erythema or exudates. NECK: No masses, no JVD. CHEST: No chest wall deformity. LUNGS: Equal air entry with no crackles, wheeze, rhonchi or dullness. CVS: S1 and S2 normal with no audible murmur, regular rhythm. ABDOMEN: Incision clean and dry, DARIUS drain remains in place with serous drainage, hypoactive bowel sounds, no guarding or rigidity. SPINE: No scoliosis or deformity SKIN: No rashes CENTRAL NERVOUS SYSTEM: No focal deficits, tone is normal in all 4 extremities. EXTREMITIES: There is no peripheral edema. No clubbing, no cyanosis. Peripheral pulses are intact. - Labs CBC & Chem 7: 09/04/22 03:27 09/04/22 03:27 Labs: Abnormal Lab Results - Last 24 Hours (Table) 09/03/22 09/03/22 09/03/22 Range/Units 10:59 17:04 17:06 RBC (4.30-5.90) m/uL Hgb (13.0-17.5) gm/dL Hct (39.0-53.0) % Neutrophils # (1.3-7.7) k/uL Sodium (137-145) mmol/L BUN (9-20) mg/dL Glucose (74-99) mg/dL POC Glucose (mg/dL) 227 H 529 H 501 H (70-110) mg/dL 09/03/22 09/04/22 09/04/22 Range/Units 20:18 03:27 03:27 RBC 3.23 L (4.30-5.90) m/uL Hgb 10.2 L (13.0-17.5) gm/dL Hct 31.6 L (39.0-53.0) % Neutrophils # 8.9 H (1.3-7.7) k/uL Sodium 134 L (137-145) mmol/L BUN 21 H (9-20) mg/dL Glucose 299 H (74-99) mg/dL POC Glucose (mg/dL) 449 H (70-110) mg/dL 09/04/22 Range/Units 06:24 RBC (4.30-5.90) m/uL Hgb (13.0-17.5) gm/dL Hct (39.0-53.0) % Neutrophils # (1.3-7.7) k/uL Sodium (137-145) mmol/L BUN (9-20) mg/dL Glucose (74-99) mg/dL POC Glucose (mg/dL) 305 H (70-110) mg/dL Microbiology - Last 24 Hours (Table) 08/30/22 06:09 Blood Culture - Preliminary Blood Assessment and Plan Assessment: Postoperative day #6 status post repair of duodenal ulcer with modified Osmany patch. Acute hypoxic respiratory failure secondary to fluid overload, possibility of aspiration pneumonia is not entirely ruled out. Or could be a picture of noncardiogenic pulmonary edema/acute lung injury. Also related to acute exacerbation of COPD, patient was requiring high FiO2 via airvo. Improving. Now currently on 2 L high flow nasal cannula Acute exacerbation of COPD Suspect aspiration pneumonia procalcitonin level is 2.91, and possible acute lung injury from aspiration pneumonia or from duodenal ulcer perforation Possible sepsis but no septic shock. Obstructive sleep apnea syndrome normal mood on CPAP at home. Obesity with BMI of 34 Type 2 diabetes without complications Benign essential hypertension Hypothyroidism History of underlying COPD, chronic nicotine dependence Plan: The patient was seen and evaluated Chest x-ray, labs and medications reviewed Improved and down to 2 L nasal cannula Remains on Zosyn Off Clevidipine Continue amlodipine, losartan, Catapres Continue bronchodilators and steroids Continue to work well with the incentive spirometer Again educated regarding the importance of complete smoking cessation NicoDerm patch in place Increase his activity as tolerated Could transfer to regular medical floor today We will continue to follow I have personally seen and examined the patient, performed the documentation and the assessment and plan as written. Number of minutes spent on the visit: 10.
[2022-09-04 11:11] LABS: Glucose,Whole Blood 431 mg/dL (70-110)
[2022-09-04 11:58] VITALS: BMI 32.8
--- NOTE | 2022-09-04 12:08 | P.PN ---
Subjective Progress Note Date: 09/04/22 Subjective: Patient seen and examined at bedside. No acute events overnight. He claims that he's able to tolerate liquids. He denies any significant abdominal pain. Pertinent positives and negatives as discussed above, a complete review of systems was performed and all other systems are negative. Vitals Signs Reviewed. General: nontoxic, no distress, appears at stated age Derm: warm, dry Head: atraumatic, normocephalic, symmetric Eyes: EOMI, no lid lag, anicteric sclera Mouth: no lip lesion, mucus membranes moist Cardiovascular: S1S2 reg, no murmur Lungs: CTA bilateral, no rhonchi, no rales , no accessory muscle use, supplemental oxygen Abdominal: Soft, nondistended, DARIUS drain in place Ext: no gross muscle atrophy, no edema, no contractures Neuro: CN II-XI grossly intact, no focal neuro deficits Psych: Alert, oriented, appropriate affect Data Reviewed Today: Pertinent Labs: WBC 10.6, hemoglobin 10.2, sodium 134, creatinine 0.81, blood sugars range between 299 05/19/1949 Imaging: Chest x-ray independently interpreted, shows bilateral interstitial prominence, similar to yesterday Assessment and Plan: Acute hypoxic respiraoty failure possibly due to aspiration pneumonia Acute exacerbation of COPD Perforated duodenal ulcer, status post surgery Hypertension Acute blood loss anemia and anticipated outcome of surgery Diabetes mellitus type 2 [id number], A1C 6.8 , hyperglycemia Obstructive sleep apnea Obesity with BMI 34.3 Nicotine dependency Hypothyroidism -Pulmonology note reviewed, transferred to regular medical floor, on Zosyn, continue bronchodilators, steroids discontinued -Continue to wean oxygen -Surgery following, patient on liquid diet -Norvasc 5 mg twice daily, clonidine patch, losartan 100 mg daily, hydrochlorothiazide 12.5 -Protonix 40 mg IVP BID - Morphine 4 mg IVP q 4 hours prn pain , also on IV Dilaudid as needed -Sliding scale insulin, Increase levemir 25 units, insulin aspart 5 units 3 times a day -nicotine patch 21 g daily - follow CBC and BMP regarding sepsis and acute blood loss anemia -Continue home levothyroxine Thank you for allowing us to participate in the care of this pleasant patient. Do not hesitate to contact us with questions. Someone can be reached from the [facility] hospitalist group all hours of the day at [phone] or via perfect serve. Objective - Vital Signs Vital signs: Vital Signs Temp 98.2 F 09/04/22 08:00 Pulse 68 09/04/22 11:17 Resp 18 09/04/22 09:00 BP 138/76 09/04/22 10:00 Pulse Ox 96 09/04/22 09:00 FiO2 40 09/02/22 22:37 Intake & Output 09/03/22 09/04/22 09/04/22 18:59 06:59 18:59 Intake Total 3266.600 1100 200 Output Total 1370 700 200 Balance 1896.600 400 0 Weight 110 kg 110 kg Intake: IV 100 100 Piperacillin-Tazobactam 3 100 100 .375 gm In Sodium Chloride 0.9% 100 ml @ 25 mls/hr IVPB Q8H DEA Rx#: [id number] Intake, IV Titration 776.600 550 100 Amount Clevidipine Butyrate 25 76.600 mg In Empty Bag 1 bag @ 1 MG/HR 2 mls/hr IV .Q24H DEA Rx#:[id number] Piperacillin-Tazobactam 3 100 .375 gm In Sodium Chloride 0.9% 100 ml @ 25 mls/hr IVPB Q8H DEA Rx#: [id number] Sodium Chloride 0.9% 1, 600 550 100 000 ml @ 50 mls/hr IV . Q20H DEA Rx#:[id number] Oral 2490 450 Output: Drainage 20 0 Abdomen 20 0 Urine 1350 700 200 Other: Voiding Method Indwelling Catheter Indwelling Catheter Urinal # Voids 1 - Labs CBC & Chem 7: 09/04/22 03:27 09/04/22 03:27 Labs: Abnormal Lab Results - Last 24 Hours (Table) 09/03/22 09/03/22 09/03/22 Range/Units 17:04 17:06 20:18 RBC (4.30-5.90) m/uL Hgb (13.0-17.5) gm/dL Hct (39.0-53.0) % Neutrophils # (1.3-7.7) k/uL Sodium (137-145) mmol/L BUN (9-20) mg/dL Glucose (74-99) mg/dL POC Glucose (mg/dL) 529 H 501 H 449 H (70-110) mg/dL 09/04/22 09/04/22 09/04/22 Range/Units 03:27 03:27 06:24 RBC 3.23 L (4.30-5.90) m/uL Hgb 10.2 L (13.0-17.5) gm/dL Hct 31.6 L (39.0-53.0) % Neutrophils # 8.9 H (1.3-7.7) k/uL Sodium 134 L (137-145) mmol/L BUN 21 H (9-20) mg/dL Glucose 299 H (74-99) mg/dL POC Glucose (mg/dL) 305 H (70-110) mg/dL 09/04/22 Range/Units 11:10 RBC (4.30-5.90) m/uL Hgb (13.0-17.5) gm/dL Hct (39.0-53.0) % Neutrophils # (1.3-7.7) k/uL Sodium (137-145) mmol/L BUN (9-20) mg/dL Glucose (74-99) mg/dL POC Glucose (mg/dL) 431 H (70-110) mg/dL Microbiology - Last 24 Hours (Table) 08/30/22 06:09 Blood Culture - Preliminary Blood
--- NOTE | 2022-09-04 15:08 | P.PN ---
Subjective Progress Note Date: 09/04/22 CHIEF COMPLAINT: Perforated duodenal ulcer HISTORY OF PRESENT ILLNESS: Patient is postop day #6 status post exploratory laparotomy, repair of perforated duodenal ulcer with modified Osmany patch. Patient is in the ICU but is considered stepped-down MedSurg telemetry. He is having flatus. No bowel movement. DARIUS drain with only 20 mL serosanguineous output. Patient has been no abdominal pain. Denies any nausea or vomiting. Tolerating full liquid diet. Afebrile. WBC 10.6 Hgb 10.2 Patient seen and examined with Dr. angel PHYSICAL EXAM: VITAL SIGNS: Reviewed. GENERAL: Well-developed in no acute distress. HEENT: No sclera icterus. Extraocular movements grossly intact. Moist buccal mucosa. Head is atraumatic, normocephalic. ABDOMEN: Soft. Nondistended. Incisional dressing clean dry and intact NEUROLOGIC: Alert and oriented. Cranial nerves II through XII grossly intact. ASSESSMENT: 1. Perforated duodenal ulcer status post exploratory laparotomy, repair of perforated duodenal ulcer with modified Osmany patch PLAN: -Advanced diet regular -Agree with transfer out of the ICU -Discontinue DARIUS drain -Continue IV Protonix -No aspirin or NSAIDs -Continue antibiotics -Increase activity as tolerated -Possible discharge tomorrow Physician Track Fitter note has been reviewed by physician. Signing provider agrees with the documented findings, assessment, and plan of care. Objective - Vital Signs Vital signs: Vital Signs Temp 98.2 F 09/04/22 08:00 Pulse 68 09/04/22 11:17 Resp 18 09/04/22 09:00 BP 138/76 09/04/22 10:00 Pulse Ox 96 09/04/22 09:00 FiO2 40 09/02/22 22:37 Intake & Output 09/03/22 09/04/22 09/04/22 18:59 06:59 18:59 Intake Total 3266.600 1100 200 Output Total 1370 700 200 Balance 1896.600 400 0 Weight 110 kg 110 kg Intake: IV 100 100 Piperacillin-Tazobactam 3 100 100 .375 gm In Sodium Chloride 0.9% 100 ml @ 25 mls/hr IVPB Q8H [facility] Rx#: [id number] Intake, IV Titration 776.600 550 100 Amount Clevidipine Butyrate 25 76.600 mg In Empty Bag 1 bag @ 1 MG/HR 2 mls/hr IV .Q24H [facility] Rx#:[id number] Piperacillin-Tazobactam 3 100 .375 gm In Sodium Chloride 0.9% 100 ml @ 25 mls/hr IVPB Q8H [facility] Rx#: [id number] Sodium Chloride 0.9% 1, 600 550 100 000 ml @ 50 mls/hr IV . Q20H [facility] Rx#:[id number] Oral 2490 450 Output: Drainage 20 0 0 Abdomen 20 0 0 Urine 1350 700 200 Other: Voiding Method Indwelling Catheter Indwelling Catheter Urinal # Voids 1 - Labs CBC & Chem 7: 09/04/22 03:27 09/04/22 03:27 Labs: Abnormal Lab Results - Last 24 Hours (Table) 09/03/22 09/03/22 09/03/22 Range/Units 17:04 17:06 20:18 RBC (4.30-5.90) m/uL Hgb (13.0-17.5) gm/dL Hct (39.0-53.0) % Neutrophils # (1.3-7.7) k/uL Sodium (137-145) mmol/L BUN (9-20) mg/dL Glucose (74-99) mg/dL POC Glucose (mg/dL) 529 H 501 H 449 H (70-110) mg/dL 09/04/22 09/04/22 09/04/22 Range/Units 03:27 03:27 06:24 RBC 3.23 L (4.30-5.90) m/uL Hgb 10.2 L (13.0-17.5) gm/dL Hct 31.6 L (39.0-53.0) % Neutrophils # 8.9 H (1.3-7.7) k/uL Sodium 134 L (137-145) mmol/L BUN 21 H (9-20) mg/dL Glucose 299 H (74-99) mg/dL POC Glucose (mg/dL) 305 H (70-110) mg/dL 09/04/22 Range/Units 11:10 RBC (4.30-5.90) m/uL Hgb (13.0-17.5) gm/dL Hct (39.0-53.0) % Neutrophils # (1.3-7.7) k/uL Sodium (137-145) mmol/L BUN (9-20) mg/dL Glucose (74-99) mg/dL POC Glucose (mg/dL) 431 H (70-110) mg/dL Microbiology - Last 24 Hours (Table) 08/30/22 06:09 Blood Culture - Preliminary Blood
[2022-09-04 16:13] LABS: Glucose,Whole Blood 319 mg/dL (70-110)
[2022-09-04 21:22] LABS: Glucose,Whole Blood 188 mg/dL (70-110)
[2022-09-04] MEDS: INSULIN DETEMIR (LEVEMIR) 100 UNIT/ML SYR SQ SCH (22:03)
[2022-09-04] MEDS: HYDROmorphone 0.5 MG/0.5 ML SYRINGE IVP PRN (22:20)
[2022-09-05] MEDS: HYDROmorphone 0.5 MG/0.5 ML SYRINGE IVP PRN (04:10)
[2022-09-05 06:14] LABS: Glucose,Whole Blood 135 mg/dL (70-110)
[2022-09-05] MEDS: LEVOTHYROXINE 100 MCG TAB PO SCH (06:37)
[2022-09-05] MEDS: LEVOTHYROXINE 25 MCG TAB PO SCH (06:38)
[2022-09-05] MEDS: PIPERACILLIN-TAZOBACTAM 3.375 GM in SODIUM CHLORIDE 0.9% 100 ML IVPB SCH ×3 (06:38→23:11)
[2022-09-05] MEDS: INSULIN ASPART (NovoLOG) 100 UNIT/ML VIAL SQ SCH ×7 (06:38→21:53)
[2022-09-05] MEDS: IPRATROPIUM-ALBUTEROL 3 ML NEB INHALATION SCH ×4 (07:20→20:24)
[2022-09-05] MEDS: SYMBICORT 160-4.5 MCG INHALER INHALATION SCH ×2 (07:21→20:24)
[2022-09-05] MEDS ORDERED: INSULIN ASPART (NovoLOG) 100 UNIT/ML VIAL SQ SCH ×2 (07:30)
[2022-09-05] MEDS: LOSARTAN 50 MG TAB PO SCH (08:35)
[2022-09-05] MEDS: ENOXAPARIN 40 MG/0.4 ML SYRINGE SQ SCH (08:35)
[2022-09-05] MEDS: NICOTINE 21MG/24HR PATCH TRANSDERM SCH (08:36)
[2022-09-05] MEDS: amLODIPine 5 MG TAB PO SCH ×2 (08:36→21:53)
[2022-09-05] MEDS: PANTOPRAZOLE 40 MG/10 ML VIAL IVP SCH ×2 (08:36→21:53)
[2022-09-05] MEDS: hydroCHLOROthiazide 12.5 MG CAP PO SCH (08:36)
[2022-09-05 08:51] LABS: Basophils # (A) 0.06 X 10*3/uL (0.00-0.10); Basophils % (A) 0.3 %; Eosinophils # (A) 0.16 X 10*3/uL (0.04-0.35); Eosinophils % (A) 0.9 %; HGB 10.4 g/dL (13.0-17.0); Immature Grans, Automated 2.8 %; Lymphocytes # (A) 3.51 X 10*3/uL (0.90-5.00); Lymphocytes % (A) 18.7 %; MCH 30.5 pg (27.0-32.0); MCHC 31.5 g/dL (32.0-37.0); MCV 96.8 fL (80.0-97.0); Mean Platelet Volume 12.3 fL (9.5-12.2); Monocytes # (A) 0.82 X 10*3/uL (0.20-1.00); Monocytes % (A) 4.4 %; NRBC Per 100 WBC 0 /100 WBCS (0.0-0.0); Neutrophils # (A) 13.69 X 10*3/uL (1.80-7.70); Neutrophils % (A) 72.9 %; Platelet Count 346 X 10*3/uL (140-440); RBC 3.41 X 10*6/uL (4.40-5.60); RDW 13.3 % (11.5-14.5); WBC 18.77 X 10*3/uL (4.50-10.00)
[2022-09-05 09:01] LABS: African American GFR (CKD) 121.4 (60.0-200.0); Anion Gap 11.4 mmol/L (10.00-18.00); BUN/Creat Ratio 21.57 Ratio (12.00-20.00); Blood Urea Nitrogen 17.9 mg/dL (9.0-27.0); Calcium 8.7 mg/dL (8.7-10.3); Carbon Dioxide 25.8 mmol/L (20.0-27.5); Non-African American GFR(CKD) 104.8 (60.0-200.0); Potassium 3.8 mmol/L (3.5-5.5)
[2022-09-05 11:19] LABS: Glucose,Whole Blood 287 mg/dL (70-110)
--- NOTE | 2022-09-05 11:28 | P.PN ---
Subjective Progress Note Date: 09/05/22 Principal diagnosis: Abdominal pain. Reevaluated today on 09/02/2022, remains in the ICU, remains on relatively high FiO2 of 55% and 40 L flow, O2 saturation is in the mid 90s. Remains on clevidipine at 6 mg/h for his elevated blood pressure today I am recommending amlodipine 5 mg via nasogastric tube twice a day losartan 100 mg daily and the patient has a clonidine patch. Continues to have nasogastric tube in place and continues to have some fairly good output from the nasogastric tube. However pulmonary-jeong the patient is feeling much per her today compared to the last couple of days. Less shortness of breath breathing a lot easier, and on physical examination he has mostly diminished breath sounds no crackles or rhonchi or wheezes WBC count is 9.5 hemoglobin 9.5 lites are normal renal profile is normal The patient is seen today 09/03/2022 in follow-up in the intensive care unit. He is currently resting comfortably in bed. Awake and alert in no acute distr ess. He denies any worsening shortness of breath, cough or congestion. He is on 6 L high flow nasal cannula currently. His x-ray reveals interstitial prominence with possible pulmonary vascular congestion. There is a developing small left pleural effusion with adjacent atelectasis. He remains on clevidipine 6 mg per hour. He is normal saline at 50 MLS per hour. He is status post repair of a ruptured duodenal ulcer with Osmany patch on 08/29/2022. He remains nothing by mouth. Nasogastric tube was removed. He is continued on DuoNeb inhalations, Symbicort, IV Solu-Medrol. NicoDerm patch in place. Remains on antibiotics in the form of Zosyn. He remains somewhat hypertensive. He is been initiated on amlodipine 5 mg twice a day. Losartan 100 mg daily and a Catapres patch. The patient is seen today 09/04/2022 in follow-up in the intensive care unit. He is awake and alert in no acute distress. Resting in bed. Maintaining O2 saturations in the 90s on 2 L/m per nasal cannula. His normal saline at 50 mL per hour. He denies any worsening shortness of breath, cough or congestion. Chest x-ray shows mild diffuse interstitial density. Patchy retrocardiac and left basilar opacity unchanged. Trace left pleural effusion. He is working well with the incentive spirometer. He's been weaned off the clevidipine. On Lovenox for DVT prophylaxis. Remains on antibiotics in the form of Zosyn. NicoDerm patches in place. Tolerating a full liquid diet. Progress note dated 09/05/2022. The patient was transferred out of the intensive care unit yesterday. He is currently in room 457. The patient remains on 2 L of oxygen. On room air, his saturations were in the mid 80s. He's not receiving any IV fluids. He is on Zosyn. The patient states that he is being considered for possible discharge. His white blood cell count is 18.77, hemoglobin 10.4, hematocrit 33, and a p latelet count 346,000. Sodium 136, potassium 3.8, chlorides 99, CO2 26, anion gap 11, BUN 17.9, with a creatinine of 0.8. Calcium is normal. No chest x-ray today. Objective - Vital Signs Vital signs: Vital Signs Temp 97.4 F L 09/05/22 06:45 Pulse 96 09/05/22 09:13 Resp 15 09/05/22 06:45 BP 104/69 09/05/22 08:31 Pulse Ox 98 09/05/22 09:21 FiO2 40 09/02/22 22:37 Intake & Output 09/04/22 09/05/22 09/05/22 18:59 06:59 18:59 Intake Total 300 200 Output Total 450 850 Balance -150 -650 Intake: IV 200 Piperacillin-Tazobactam 3 200 .375 gm In Sodium Chloride 0.9% 100 ml @ 25 mls/hr IVPB Q8H [facility] Rx#: [id number] Intake, IV Titration 100 200 Amount Piperacillin-Tazobactam 3 200 .375 gm In Sodium Chloride 0.9% 100 ml @ 25 mls/hr IVPB Q8H [facility] Rx#: [id number] Sodium Chloride 0.9% 1, 100 000 ml @ 50 mls/hr IV . Q20H [facility] Rx#:[id number] Output: Drainage 0 Abdomen 0 Urine 450 850 Other: Voiding Method Urinal Urinal # Voids 400 - Exam No acute distress, oriented 3. Currently on 2 L of oxygen. No conversational dyspnea or use of accessory muscles. HEENT examination is grossly unremarkable. Mucous membranes are moist. No oral lesions. Neck supple. Full range of motion. No adenopathy thyromegaly or neck vein distention. Cardiovascular examination reveals regular rhythm rate. S1-S2 normal. No S3 or S4. No discernible murmur noted. Heart rate 82 bpm. Lungs reveal mostly clear breath sounds. Minimal basilar crackles and rhonchi noted. Breath sounds are equal bilaterally. Saturations are excellent on 2 L. Abdomen is soft, with occasional bowel sounds. Minimal tenderness. No masses. Extremities are intact. No cyanosis clubbing or edema. Skin is without rash or lesion. Neurologic examination is brief but nonfocal. - Labs CBC & Chem 7: 09/05/22 04:41 09/05/22 04:41 Labs: Abnormal Lab Results - Last 24 Hours (Table) 09/04/22 09/04/22 09/05/22 Range/Units 16:11 21:21 04:41 WBC 18.77 H (4.50-10.00) X 10*3/uL RBC 3.41 L (4.40-5.60) X 10*6/uL Hgb 10.4 L (13.0-17.0) g/dL Hct 33.0 L (39.6-50.0) % MCHC 31.5 L (32.0-37.0) g/dL MPV 12.3 H (9.5-12.2) fL Immature Gran # 0.53 H (0.00-0.04) X 10*3/uL Neutrophils # 13.69 H (1.80-7.70) X 10*3/uL BUN/Creatinine Ratio (12.00-20.00) Ratio Glucose (70-110) mg/dL POC Glucose (mg/dL) 319 H 188 H (70-110) mg/dL 09/05/22 09/05/22 09/05/22 Range/Units 04:41 06:13 11:18 WBC (4.50-10.00) X 10*3/uL RBC (4.40-5.60) X 10*6/uL Hgb (13.0-17.0) g/dL Hct (39.6-50.0) % MCHC (32.0-37.0) g/dL MPV (9.5-12.2) fL Immature Gran # (0.00-0.04) X 10*3/uL Neutrophils # (1.80-7.70) X 10*3/uL BUN/Creatinine Ratio 21.57 H (12.00-20.00) Ratio Glucose 152 H (70-110) mg/dL POC Glucose (mg/dL) 135 H 287 H (70-110) mg/dL Microbiology - Last 24 Hours (Table) 08/30/22 06:09 Blood Culture - Final Blood Assessment and Plan Assessment: Postoperative day #7 status post repair of duodenal ulcer with modified Osmany patch. Acute hypoxic respiratory failure secondary to fluid overload, possibility of aspiration pneumonia is not entirely ruled out. Or could be a picture of noncardiogenic pulmonary edema/acute lung injury. Also related to acute exacerbation of COPD, patient was requiring high FiO2 via AIRVO. Acute exacerbation of COPD. Suspect aspiration pneumonia procalcitonin level is 2.91, and possible acute lung injury from aspiration pneumonia or from duodenal ulcer perforation. Possible sepsis but no septic shock. Obstructive sleep apnea syndrome normal mood on CPAP at home. Obesity with BMI of 34, Type 2 diabetes without complications, Benign essential hypertension, Hypothyroidism, History of underlying COPD, and chronic nicotine dependence. Plan: Plan dated 09/05/2022. The patient appears to be doing relatively well. He's currently on 2 L. Room air saturations are in the mid 80s. The patient may need to be discharged home on oxygen therapy. We continued to encourage him to deep breathe, cough, and clear secretions, also using incentive spirometer every hour. Labs, x-rays, and medications are reviewed. Prognosis is guarded. We will continue to follow make recommendations along the way. The patient continues on Zosyn. Time with Patient: Less than 30
--- NOTE | 2022-09-05 11:32 | P.PN ---
Subjective Progress Note Date: 09/05/22 CHIEF COMPLAINT: Perforated duodenal ulcer HISTORY OF PRESENT ILLNESS: Patient is postop day #7 status post exploratory laparotomy, repair of perforated duodenal ulcer with modified Osmany patch. Patient currently in a regular medical floor. He did report abdominal pain with coughing. He is having flatus. Denies any bowel movement. Tolerating regular diet. Afebrile. On room air O2 drops to 84%. He is currently on 2 L 98%. WBC did go up from 10.6-18.77 Hgb 10.4 platelets 346 sons 136 potassium 3.8 creatinine 0.8. DARIUS drain discontinued yesterday Patient seen and examined with Dr. angel PHYSICAL EXAM: VITAL SIGNS: Reviewed. GENERAL: Well-developed in no acute distress. HEENT: No sclera icterus. Extraocular movements grossly intact. Moist buccal mucosa. Head is atraumatic, normocephalic. ABDOMEN: Soft. Nondistended. Incisional dressing clean dry and intact NEUROLOGIC: Alert and oriented. Cranial nerves II through XII grossly intact. ASSESSMENT: 1. Perforated duodenal ulcer status post exploratory laparotomy, repair of perforated duodenal ulcer with modified Osmany patch 2. Leukocytosis PLAN: -Repeat CBC in AM -Continue regular diet -Continue IV Protonix BID -No aspirin or NSAIDs -Continue antibiotics -Encouraged patient to ambulate and to use incentive spirometer -Add [place] for pain control Physician Business Administrator note has been reviewed by physician. Signing provider agrees with the documented findings, assessment, and plan of care. Objective - Vital Signs Vital signs: Vital Signs Temp 97.4 F L 09/05/22 06:45 Pulse 96 09/05/22 09:13 Resp 15 09/05/22 06:45 BP 104/69 09/05/22 08:31 Pulse Ox 98 09/05/22 09:21 FiO2 40 09/02/22 22:37 Intake & Output 09/04/22 09/05/22 09/05/22 18:59 06:59 18:59 Intake Total 300 200 Output Total 450 850 Balance -150 -650 Intake: IV 200 Piperacillin-Tazobactam 3 200 .375 gm In Sodium Chloride 0.9% 100 ml @ 25 mls/hr IVPB Q8H [facility] Rx#: [id number] Intake, IV Titration 100 200 Amount Piperacillin-Tazobactam 3 200 .375 gm In Sodium Chloride 0.9% 100 ml @ 25 mls/hr IVPB Q8H [facility] Rx#: [id number] Sodium Chloride 0.9% 1, 100 000 ml @ 50 mls/hr IV . Q20H [facility] Rx#:[id number] Output: Drainage 0 Abdomen 0 Urine 450 850 Other: Voiding Method Urinal Urinal # Voids 400 - Labs CBC & Chem 7: 09/05/22 04:41 09/05/22 04:41 Labs: Abnormal Lab Results - Last 24 Hours (Table) 09/04/22 09/04/22 09/04/22 Range/Units 11:10 16:11 21:21 WBC (4.50-10.00) X 10*3/uL RBC (4.40-5.60) X 10*6/uL Hgb (13.0-17.0) g/dL Hct (39.6-50.0) % MCHC (32.0-37.0) g/dL MPV (9.5-12.2) fL Immature Gran # (0.00-0.04) X 10*3/uL Neutrophils # (1.80-7.70) X 10*3/uL BUN/Creatinine Ratio (12.00-20.00) Ratio Glucose (70-110) mg/dL POC Glucose (mg/dL) 431 H 319 H 188 H (70-110) mg/dL 09/05/22 09/05/22 09/05/22 Range/Units 04:41 04:41 06:13 WBC 18.77 H (4.50-10.00) X 10*3/uL RBC 3.41 L (4.40-5.60) X 10*6/uL Hgb 10.4 L (13.0-17.0) g/dL Hct 33.0 L (39.6-50.0) % MCHC 31.5 L (32.0-37.0) g/dL MPV 12.3 H (9.5-12.2) fL Immature Gran # 0.53 H (0.00-0.04) X 10*3/uL Neutrophils # 13.69 H (1.80-7.70) X 10*3/uL BUN/Creatinine Ratio 21.57 H (12.00-20.00) Ratio Glucose 152 H (70-110) mg/dL POC Glucose (mg/dL) 135 H (70-110) mg/dL Microbiology - Last 24 Hours (Table) 08/30/22 06:09 Blood Culture - Final Blood
[2022-09-05] MEDS: FLUCONAZOLE 100 MG TAB PO SCH (13:25)
--- NOTE | 2022-09-05 15:06 | P.PN ---
Subjective Progress Note Date: 09/05/22 Subjective: Patient seen and examined at bedside. No acute events overnight. He claims that he's able to tolerate oral intake. He denies any significant abdominal pain. Still not having bowel movements Pertinent positives and negatives as discussed above, a complete review of systems was performed and all other systems are negative. Vitals Signs Reviewed. General: nontoxic, no distress, appears at stated age Derm: warm, dry Head: atraumatic, normocephalic, symmetric Eyes: EOMI, no lid lag, anicteric sclera Mouth: no lip lesion, mucus membranes moist Cardiovascular: S1S2 reg, no murmur Lungs: CTA bilateral, no rhonchi, no rales , no accessory muscle use, supplemental oxygen Abdominal: Soft, nondistended, DARIUS drain in place Ext: no gross muscle atrophy, no edema, no contractures Neuro: CN II-XI grossly intact, no focal neuro deficits Psych: Alert, oriented, appropriate affect Data Reviewed Today: Pertinent Labs: WBC 18.77, hemoglobin 10.4, creatinine 0.8, blood sugars range between 152-287 Imaging: No new imaging today Assessment and Plan: Acute hypoxic respiraoty failure possibly due to aspiration pneumonia Acute exacerbation of COPD Perforated duodenal ulcer, status post surgery Hypertension Acute blood loss anemia and anticipated outcome of surgery Diabetes mellitus type 2 [id number], A1C 6.8 , hyperglycemia Obstructive sleep apnea Obesity with BMI 34.3 Nicotine dependency Hypothyroidism Leukocytosis, likely in the setting of steroid use and reactive -personally discussed management with pulmonology, continue incentive spirometer, continue bronchodilators -Continue to wean oxygen -Surgery note reviewed, norco added for pain -Norvasc 5 mg twice daily, clonidine patch, losartan 100 mg daily, hydrochlorothiazide 12.5 -Protonix 40 mg IVP BID - Morphine 4 mg IVP q 4 hours prn pain , also on IV Dilaudid as needed -Sliding scale insulin, levemir 25 units, insulin aspart 5 units 3 times a day, no changes today -nicotine patch 21 g daily - follow CBC and BMP regarding sepsis and acute blood loss anemia -Continue home levothyroxine Thank you for allowing us to participate in the care of this pleasant patient. Do not hesitate to contact us with questions. Someone can be reached from the [facility] hospitalist group all hours of the day at [phone] or via perfect serve. Objective - Vital Signs Vital signs: Vital Signs Temp 97.5 F L 09/05/22 13:30 Pulse 105 H 09/05/22 13:40 Resp 18 09/05/22 13:30 BP 88/59 09/05/22 13:40 Pulse Ox 94 L 09/05/22 13:30 FiO2 40 09/02/22 22:37 Intake & Output 09/04/22 09/05/22 09/05/22 18:59 06:59 18:59 Intake Total 300 200 Output Total 450 850 Balance -150 -650 Intake: IV 200 Piperacillin-Tazobactam 3 200 .375 gm In Sodium Chloride 0.9% 100 ml @ 25 mls/hr IVPB Q8H [facility] Rx#: [id number] Intake, IV Titration 100 200 Amount Piperacillin-Tazobactam 3 200 .375 gm In Sodium Chloride 0.9% 100 ml @ 25 mls/hr IVPB Q8H [facility] Rx#: [id number] Sodium Chloride 0.9% 1, 100 000 ml @ 50 mls/hr IV . Q20H [facility] Rx#:[id number] Output: Drainage 0 Abdomen 0 Urine 450 850 Other: Voiding Method Urinal Urinal Urinal # Voids 400 - Labs CBC & Chem 7: 09/05/22 04:41 09/05/22 04:41 Labs: Abnormal Lab Results - Last 24 Hours (Table) 09/04/22 09/04/22 09/05/22 Range/Units 16:11 21:21 04:41 WBC 18.77 H (4.50-10.00) X 10*3/uL RBC 3.41 L (4.40-5.60) X 10*6/uL Hgb 10.4 L (13.0-17.0) g/dL Hct 33.0 L (39.6-50.0) % MCHC 31.5 L (32.0-37.0) g/dL MPV 12.3 H (9.5-12.2) fL Immature Gran # 0.53 H (0.00-0.04) X 10*3/uL Neutrophils # 13.69 H (1.80-7.70) X 10*3/uL BUN/Creatinine Ratio (12.00-20.00) Ratio Glucose (70-110) mg/dL POC Glucose (mg/dL) 319 H 188 H (70-110) mg/dL C-Reactive Protein (<1.0) mg/dL 09/05/22 09/05/22 09/05/22 Range/Units 04:41 06:13 11:18 WBC (4.50-10.00) X 10*3/uL RBC (4.40-5.60) X 10*6/uL Hgb (13.0-17.0) g/dL Hct (39.6-50.0) % MCHC (32.0-37.0) g/dL MPV (9.5-12.2) fL Immature Gran # (0.00-0.04) X 10*3/uL Neutrophils # (1.80-7.70) X 10*3/uL BUN/Creatinine Ratio 21.57 H (12.00-20.00) Ratio Glucose 152 H (70-110) mg/dL POC Glucose (mg/dL) 135 H 287 H (70-110) mg/dL C-Reactive Protein (<1.0) mg/dL 09/05/22 Range/Units 13:11 WBC (4.50-10.00) X 10*3/uL RBC (4.40-5.60) X 10*6/uL Hgb (13.0-17.0) g/dL Hct (39.6-50.0) % MCHC (32.0-37.0) g/dL MPV (9.5-12.2) fL Immature Gran # (0.00-0.04) X 10*3/uL Neutrophils # (1.80-7.70) X 10*3/uL BUN/Creatinine Ratio (12.00-20.00) Ratio Glucose (70-110) mg/dL POC Glucose (mg/dL) (70-110) mg/dL C-Reactive Protein 5.9 H (<1.0) mg/dL Microbiology - Last 24 Hours (Table) 08/30/22 06:09 Blood Culture - Final Blood
[2022-09-05 16:40] LABS: Glucose,Whole Blood 292 mg/dL (70-110)
[2022-09-05 21:41] LABS: Glucose,Whole Blood 344 mg/dL (70-110)
[2022-09-05] MEDS: INSULIN DETEMIR (LEVEMIR) 100 UNIT/ML SYR SQ SCH (21:53)
[2022-09-05] MEDS: HYDROcodone/APAP 5-325MG 1 EACH TAB PO PRN (21:53)
--- NOTE | 2022-09-05 22:11 | P.CONS ---
History of Present Illness - Reason for Consult Consult date: 09/05/22 Leukocytosis Requesting physician: Jeffrey Rivera - Chief Complaint Abdominal pain x few days - History of Present Illness Patient is a 46-year-old male presenting to the hospital about a week ago on 08/29/2022 with abdominal pain work-up that shows evidence of perforated duodenal ulcer in this patient with status post exploratory laparotomy and repair of perforated duodenal ulcer with modified Osmany patch patient on presentation to the hospital did have a low-grade fever of 99.2 and a low-grade fever 100 degrees following height however the patient has been afebrile since then patient did have a elevated white count 13 point on admission and the patient white count subsequently normalized however the patient did have a white count of 18.7 this morning that has prompted this infectious disease consultation patient denies having any fever or any chills, denies having any URI symptoms no chest pain or shortness with minimal cough patient abdominal pa in has decreased in intensity and the patient was started on a regular diet with the patient has been tolerating no nausea vomiting denies any diarrhea or other no bowel movement and no urinary symptoms patient did have a influenza RSV and COVID testing on admission those were negative and the chest x-ray completed yesterday morning mild diffuse interstitial density patchy retrocardiac and left basilar opacity patient has been on Zosyn during this admission which has been continued,Midline abdominal dressing has been changed by the nursing staff just prior to this evaluation mention overall incision looks clean with no evidence of any swelling redness or drainage and the patient is currently not have any problems with his peripheral IV sites Review of Systems Positive point and negatives has been mentioned in the HPI, complete review of systems was performed and all other systems are negative Past Medical History Past Medical History: Diabetes Mellitus, Hypertension, Sleep Apnea/CPAP/BIPAP, Thyroid Disorder Additional Past Medical History / Comment(s): Morbid obesity with interval weight loss, obstructive sleep apnea maintained on CPAP, hypothyroidism History of Any Multi-Drug Resistant Organisms: None Reported Past Surgical History: Orthopedic Surgery Additional Past Surgical History / Comment(s): right quad muscle tendon repair, POSTERIOR NECK I&D, COLONOSCOPY, Right knee arthroscopy, Perforated duodenal ulcer repair with grahm patch 08/27/2022. Past Anesthesia/Blood Transfusion Reactions: No Reported Reaction Past Psychological History: No Psychological Hx Reported Additional Psychological History / Comment(s): PT LIVES WITH HIS MOM . NO PETS. HAS 10 STEPS TO ENTER HOME AND SLEEPS IN BASEMENT SO HE HAD 15 STEPS TO GO DOWN. NO OUTSIDE SERVICES RECIEVIED, HAS A CPAP MACHINE. Smoking Status: Current every day smoker Past Alcohol Use History: Rare Additional Past Alcohol Use History / Comment(s): STARTED SMOKING IN 1993 ,QUIT 09-15-16 WAS SMOKING 1.5 PPD Past Drug Use History: None Reported - Past Family History Father Family Medical History: No Reported History Additional Family Medical History / Comment(s): FATHER'S DAD HAD COLON CANCER Mother Family Medical History: Cancer Additional Family Medical History / Comment(s): COLON CANCER Medications and Allergies Home Medications Medication Instructions Recorded Confirmed Type Levothyroxine Sodium [Synthroid] 200 mcg PO DAILY 05/09/20 08/29/22 History metFORMIN HCL [Glucophage] 1,000 mg PO BID 05/09/20 08/29/22 History Levothyroxine Sodium [Synthroid] 25 mcg PO DAILY 08/29/22 08/29/22 History amLODIPine [Norvasc] 5 mg PO DAILY 08/29/22 08/29/22 History Amoxic-Pot Clav 875-125Mg 1 tab PO Q12HR 10 Days #20 tab 09/06/22 Rx [Augmentin 875-125] Fluconazole [Diflucan] 200 mg PO DAILY 10 Days #10 tab 09/06/22 Rx Losartan [Cozaar] 100 mg PO DAILY #90 tab 09/06/22 Rx Pantoprazole [Protonix] 40 mg PO BID #60 tab 09/06/22 Rx hydroCHLOROthiazide [Hydrodiuril] 12.5 mg PO DAILY #60 cap 09/06/22 Rx oxyCODONE HCL [OxyIR] 5 mg PO Q6H PRN 2 Days #5 tab 09/06/22 Rx Allergies Allergy/AdvReac Type Severity Reaction Status Date / Time ibuprofen [From Motrin] Allergy Swelling Verified 08/29/22 07:39 aspirin AdvReac Swelling Verified 08/29/22 07:39 Physical Exam Vitals: Vital Signs Temp Pulse Pulse Pulse Pulse Resp BP 09/05/22 09:21 09/05/22 09:13 96 09/05/22 08:31 82 09/05/22 07:32 73 09/05/22 07:22 72 09/05/22 06:45 97.4 F L 87 15 09/05/22 02:00 97.8 F 79 17 09/04/22 22:20 72 09/04/22 22:08 76 09/04/22 20:15 98.3 F 78 18 09/04/22 16:00 97.7 F 73 20 124/74 09/04/22 14:50 76 09/04/22 14:38 75 BP Pulse Ox 09/05/22 09:21 98 09/05/22 09:13 84 L 09/05/22 08:31 104/69 09/05/22 07:32 09/05/22 07:22 09/05/22 06:45 102/71 94 L 09/05/22 02:00 105/64 92 L 09/04/22 22:20 09/04/22 22:08 09/04/22 20:15 135/83 92 L 09/04/22 16:00 94 L 09/04/22 14:50 09/04/22 14:38 Intake and Output 09/04/22 09/05/22 09/05/22 22:59 06:59 14:59 Intake Total 100 200 Output Total 550 550 Balance -450 -350 Intake: IV 100 Piperacillin-Tazobactam 3 100 .375 gm In Sodium Chloride 0.9% 100 ml @ 25 mls/hr IVPB Q8H [facility] Rx#: [id number] Intake, IV Titration 200 Amount Piperacillin-Tazobactam 3 200 .375 gm In Sodium Chloride 0.9% 100 ml @ 25 mls/hr IVPB Q8H [facility] Rx#: [id number] Output: Urine 550 550 Other: Voiding Method Urinal # Voids 1 400 GENERAL DESCRIPTION: Middle-aged male lying in bed, no distress. No tachypnea or accessory muscle of respiration use. HEENT: Shows Pallor , no scleral icterus. Oral mucous membrane is dry. No pharyngeal erythema or thrush NECK: Trachea central, no thyromegaly. LUNGS: Unlabored breathing. Clear to auscultation anteriorly. No wheeze or crackle. HEART: S1, S2, regular rate and rhythm. No loud murmur ABDOMEN: Soft, no tenderness, abdominal incision is currently dressed, [facility] no redness no drainage EXTREMITIES: No edema of feet. SKIN: No rash, no masses palpable. NEUROLOGICAL: The patient is awake, alert, oriented x3, mood and affect normal. Results CBC & Chem 7: 09/06/22 07:41 09/06/22 07:41 Labs: Abnormal Lab Results - Last 24 Hours (Table) 09/04/22 09/04/22 09/05/22 Range/Units 16:11 21:21 04:41 WBC 18.77 H (4.50-10.00) X 10*3/uL RBC 3.41 L (4.40-5.60) X 10*6/uL Hgb 10.4 L (13.0-17.0) g/dL Hct 33.0 L (39.6-50.0) % MCHC 31.5 L (32.0-37.0) g/dL MPV 12.3 H (9.5-12.2) fL Immature Gran # 0.53 H (0.00-0.04) X 10*3/uL Neutrophils # 13.69 H (1.80-7.70) X 10*3/uL BUN/Creatinine Ratio (12.00-20.00) Ratio Glucose (70-110) mg/dL POC Glucose (mg/dL) 319 H 188 H (70-110) mg/dL 09/05/22 09/05/22 09/05/22 Range/Units 04:41 06:13 11:18 WBC (4.50-10.00) X 10*3/uL RBC (4.40-5.60) X 10*6/uL Hgb (13.0-17.0) g/dL Hct (39.6-50.0) % MCHC (32.0-37.0) g/dL MPV (9.5-12.2) fL Immature Gran # (0.00-0.04) X 10*3/uL Neutrophils # (1.80-7.70) X 10*3/uL BUN/Creatinine Ratio 21.57 H (12.00-20.00) Ratio Glucose 152 H (70-110) mg/dL POC Glucose (mg/dL) 135 H 287 H (70-110) mg/dL Microbiology - Last 24 Hours (Table) 08/30/22 06:09 Blood Culture - Final Blood Assessment and Plan (1) Leukocytosis Status: Acute Code(s): D72.829 - ELEVATED WHITE BLOOD CELL COUNT, UNSPECIFIED SNOMED Code(s): 385452167 Plan: 1patient with a leukocytosis in this patient presented to hospital about a week ago with abdominal pain and has been diagnosed with perforated duodenal ulcer s/p operative repair the patient white condition normalized however has jumped up to 17,000 today, however patient overall clinically doing better symptomatically and is not running any fever 2-we will obtain blood cultures and check his inflammatory markers 3-continue with the Zosyn however and Diflucan 4-repeat CBC in the morning We will follow on clinical condition and cultures to further adjust medication if needed Thank you for this consultation we will follow the patient along with you
[2022-09-06] MEDS: HYDROcodone/APAP 5-325MG 1 EACH TAB PO PRN (02:23)
[2022-09-06] MEDS: LEVOTHYROXINE 100 MCG TAB PO SCH (06:21)
[2022-09-06] MEDS: PIPERACILLIN-TAZOBACTAM 3.375 GM in SODIUM CHLORIDE 0.9% 100 ML IVPB SCH (06:21)
[2022-09-06] MEDS: LEVOTHYROXINE 25 MCG TAB PO SCH (06:21)
[2022-09-06 06:25] LABS: Glucose,Whole Blood 222 mg/dL (70-110)
[2022-09-06] MEDS: IPRATROPIUM-ALBUTEROL 3 ML NEB INHALATION SCH ×3 (07:25→15:09)
[2022-09-06] MEDS: SYMBICORT 160-4.5 MCG INHALER INHALATION SCH (07:25)
[2022-09-06] MEDS: INSULIN ASPART (NovoLOG) 100 UNIT/ML VIAL SQ SCH ×4 (07:50→12:29)
[2022-09-06] MEDS: amLODIPine 5 MG TAB PO SCH (07:50)
[2022-09-06] MEDS: hydroCHLOROthiazide 12.5 MG CAP PO SCH (07:50)
[2022-09-06] MEDS: FLUCONAZOLE 100 MG TAB PO SCH (07:50)
[2022-09-06] MEDS: LOSARTAN 50 MG TAB PO SCH (07:51)
[2022-09-06] MEDS: ENOXAPARIN 40 MG/0.4 ML SYRINGE SQ SCH (07:51)
[2022-09-06] MEDS: NICOTINE 21MG/24HR PATCH TRANSDERM SCH (07:51)
[2022-09-06] MEDS: PANTOPRAZOLE 40 MG/10 ML VIAL IVP SCH (07:51)
[2022-09-06 08:39] VITALS: RESP 16
[2022-09-06 10:54] LABS: HCT 35.3 % (39.6-50.0); HGB 11.2 g/dL (13.0-17.0); MCH 30.4 pg (27.0-32.0); MCHC 31.7 g/dL (32.0-37.0); MCV 95.9 fL (80.0-97.0); Mean Platelet Volume 12.4 fL (9.5-12.2); NRBC Per 100 WBC 0 /100 WBCS (0.0-0.0); Platelet Count 391 X 10*3/uL (140-440); RBC 3.68 X 10*6/uL (4.40-5.60); RDW 13.5 % (11.5-14.5); WBC 24.77 X 10*3/uL (4.50-10.00)
[2022-09-06 11:13] LABS: Albumin 3.3 g/dL (3.8-4.9); Albumin/Globulin Ratio 1.26 (1.60-3.17); Anion Gap 13.1 mmol/L (10.00-18.00); BUN/Creat Ratio 20.79 Ratio (12.00-20.00); Blood Urea Nitrogen 15.2 mg/dL (9.0-27.0); Calcium 8.9 mg/dL (8.7-10.3); Globulin 2.6 g/dL (1.6-3.3); Non-African American GFR(CKD) 110.4 (60.0-200.0); Potassium 3.6 mmol/L (3.5-5.5); Total Bilirubin 0.4 mg/dL (0.30-1.20)
[2022-09-06 11:36] LABS: Glucose,Whole Blood 174 mg/dL (70-110)
--- NOTE | 2022-09-06 12:15 | P.PN ---
Subjective Progress Note Date: 09/06/22 Principal diagnosis: Abdominal pain. Reevaluated today on 09/02/2022, remains in the ICU, remains on relatively high FiO2 of 55% and 40 L flow, O2 saturation is in the mid 90s. Remains on clevidipine at 6 mg/h for his elevated blood pressure today I am recommending amlodipine 5 mg via nasogastric tube twice a day losartan 100 mg daily and the patient has a clonidine patch. Continues to have nasogastric tube in place and continues to have some fairly good output from the nasogastric tube. However pulmonary-jeong the patient is feeling much per her today compared to the last couple of days. Less shortness of breath breathing a lot easier, and on physical examination he has mostly diminished breath sounds no crackles or rhonchi or wheezes WBC count is 9.5 hemoglobin 9.5 lites are normal renal profile is normal The patient is seen today 09/03/2022 in follow-up in the intensive care unit. He is currently resting comfortably in bed. Awake and alert in no acute distr ess. He denies any worsening shortness of breath, cough or congestion. He is on 6 L high flow nasal cannula currently. His x-ray reveals interstitial prominence with possible pulmonary vascular congestion. There is a developing small left pleural effusion with adjacent atelectasis. He remains on clevidipine 6 mg per hour. He is normal saline at 50 MLS per hour. He is status post repair of a ruptured duodenal ulcer with Osmany patch on 08/29/2022. He remains nothing by mouth. Nasogastric tube was removed. He is continued on DuoNeb inhalations, Symbicort, IV Solu-Medrol. NicoDerm patch in place. Remains on antibiotics in the form of Zosyn. He remains somewhat hypertensive. He is been initiated on amlodipine 5 mg twice a day. Losartan 100 mg daily and a Catapres patch. The patient is seen today 09/04/2022 in follow-up in the intensive care unit. He is awake and alert in no acute distress. Resting in bed. Maintaining O2 saturations in the 90s on 2 L/m per nasal cannula. His normal saline at 50 mL per hour. He denies any worsening shortness of breath, cough or congestion. Chest x-ray shows mild diffuse interstitial density. Patchy retrocardiac and left basilar opacity unchanged. Trace left pleural effusion. He is working well with the incentive spirometer. He's been weaned off the clevidipine. On Lovenox for DVT prophylaxis. Remains on antibiotics in the form of Zosyn. NicoDerm patches in place. Tolerating a full liquid diet. Progress note dated 09/05/2022. The patient was transferred out of the intensive care unit yesterday. He is currently in room 457. The patient remains on 2 L of oxygen. On room air, his saturations were in the mid 80s. He's not receiving any IV fluids. He is on Zosyn. The patient states that he is being considered for possible discharge. His white blood cell count is 18.77, hemoglobin 10.4, hematocrit 33, and a p latelet count 346,000. Sodium 136, potassium 3.8, chlorides 99, CO2 26, anion gap 11, BUN 17.9, with a creatinine of 0.8. Calcium is normal. No chest x-ray today. Progress note dated 09/06/2022. The patient appears to be doing well. He is seen today in room 457. The patient is apparently being considered for possible discharge. The patient remains on oxygen at 2 L. He is not receiving any IV fluids. White count 24.8, hemoglobin 11.2, hematocrit 35.3, with a normal platelet count. Sodium 136, potassium 3.6, chlorides 96, CO2 27, anion gap 13, BUN 15, creatinine 0.7. Blood cultures are negative. No recent chest x-rays. Objective - Vital Signs Vital signs: Vital Signs Temp 97.9 F 09/06/22 07:30 Pulse 88 09/06/22 11:33 Resp 16 09/06/22 07:30 BP 117/79 09/06/22 07:30 Pulse Ox 95 09/06/22 07:30 FiO2 40 09/02/22 22:37 Intake & Output 09/05/22 09/06/22 09/06/22 18:59 06:59 18:59 Intake Total 340 Balance 340 Intake: Intake, IV Titration 100 Amount Piperacillin-Tazobactam 3 100 .375 gm In Sodium Chloride 0.9% 100 ml @ 25 mls/hr IVPB Q8H [facility] Rx#: [id number] Oral 240 Other: Voiding Method Urinal # Voids 3 2 1 # Bowel Movements 2 2 - Exam No acute distress, oriented 3. Currently on 2 L of oxygen. No conversational dyspnea or use of accessory muscles. HEENT examination is grossly unremarkable. Mucous membranes are moist. No oral lesions. Neck supple. Full range of motion. No adenopathy thyromegaly or neck vein distention. Cardiovascular examination reveals regular rhythm rate. S1-S2 normal. No S3 or S4. No discernible murmur noted. Heart rate 88 bpm. Lungs reveal mostly clear breath sounds. Minimal basilar crackles and rhonchi noted. Breath sounds are equal bilaterally. Saturations on 2 L of oxygen, or documented at 95%. Abdomen is soft, with occasional bowel sounds. Minimal tenderness. No masses. Extremities are intact. No cyanosis clubbing or edema. Skin is without rash or lesion. Neurologic examination is brief but nonfocal. - Labs CBC & Chem 7: 09/06/22 07:41 09/06/22 07:41 Labs: Abnormal Lab Results - Last 24 Hours (Table) 09/05/22 09/05/22 09/05/22 Range/Units 13:11 13:11 16:39 WBC (4.50-10.00) X 10*3/uL RBC (4.40-5.60) X 10*6/uL Hgb (13.0-17.0) g/dL Hct (39.6-50.0) % MCHC (32.0-37.0) g/dL MPV (9.5-12.2) fL BUN/Creatinine Ratio (12.00-20.00) Ratio Glucose (70-110) mg/dL POC Glucose (mg/dL) 292 H (70-110) mg/dL AST (14-35) U/L C-Reactive Protein 5.9 H (<1.0) mg/dL Total Protein (6.2-8.2) g/dL Albumin (3.8-4.9) g/dL Albumin/Globulin Ratio (1.60-3.17) g/dL Procalcitonin 0.15 H (0.02-0.09) ng/mL 09/05/22 09/06/22 09/06/22 Range/Units 21:40 06:23 07:41 WBC 24.77 H (4.50-10.00) X 10*3/uL RBC 3.68 L (4.40-5.60) X 10*6/uL Hgb 11.2 L (13.0-17.0) g/dL Hct 35.3 L (39.6-50.0) % MCHC 31.7 L (32.0-37.0) g/dL MPV 12.4 H (9.5-12.2) fL BUN/Creatinine Ratio (12.00-20.00) Ratio Glucose (70-110) mg/dL POC Glucose (mg/dL) 344 H 222 H (70-110) mg/dL AST (14-35) U/L C-Reactive Protein (<1.0) mg/dL Total Protein (6.2-8.2) g/dL Albumin (3.8-4.9) g/dL Albumin/Globulin Ratio (1.60-3.17) g/dL Procalcitonin (0.02-0.09) ng/mL 09/06/22 09/06/22 Range/Units 07:41 11:35 WBC (4.50-10.00) X 10*3/uL RBC (4.40-5.60) X 10*6/uL Hgb (13.0-17.0) g/dL Hct (39.6-50.0) % MCHC (32.0-37.0) g/dL MPV (9.5-12.2) fL BUN/Creatinine Ratio 20.79 H (12.00-20.00) Ratio Glucose 185 H (70-110) mg/dL POC Glucose (mg/dL) 174 H (70-110) mg/dL AST 12 L (14-35) U/L C-Reactive Protein (<1.0) mg/dL Total Protein 6.0 L (6.2-8.2) g/dL Albumin 3.3 L (3.8-4.9) g/dL Albumin/Globulin Ratio 1.26 L (1.60-3.17) g/dL Procalcitonin (0.02-0.09) ng/mL Microbiology - Last 24 Hours (Table) 08/30/22 06:09 Blood Culture - Final Blood Assessment and Plan Assessment: Postoperative day #8 status post repair of duodenal ulcer with modified Osmany patch. Acute hypoxic respiratory failure secondary to fluid overload, possibility of a spiration pneumonia is not entirely ruled out. Or could be a picture of noncardiogenic pulmonary edema/acute lung injury. Also related to acute exacerbation of COPD, patient was requiring high FiO2 via AIRVO. Acute exacerbation of COPD. Suspect aspiration pneumonia procalcitonin level is 2.91, and possible acute lung injury from aspiration pneumonia or from duodenal ulcer perforation. Possible sepsis but no septic shock. Obstructive sleep apnea syndrome normal mood on CPAP at home. Obesity with BMI of 34, Type 2 diabetes without complications, Benign essential hypertension, Hypothyroidism, History of underlying COPD, and chronic nicotine dependence. Plan: Plan dated 09/05/2022. The patient appears to be doing relatively well. He's currently on 2 L. Room air saturations are in the mid 80s. The patient may need to be discharged home on oxygen therapy. We continued to encourage him to deep breathe, cough, and clear secretions, also using incentive spirometer every hour. Labs, x-rays, and medications are reviewed. Prognosis is guarded. We will continue to follow make recommendations along the way. The patient continues on Zosyn. Plan dated 09/06/2022. The patient is not receiving any IV fluids. He is eating, without difficulty. The patient continues on oxygen at 2 L. The patient continues on fluconazole, and Zosyn. He was seen by the infectious disease specialist. From the pulmonary perspective, the patient could be considered for possible discharge. We continue to encourage deep breathing, coughing, clearing of secretions, as well as continued use of the incentive spirometer. No additional recommendations are made. Prognosis is guarded. Time with Patient: Less than 30
[2022-09-06 12:29] LABS: Basophils # (A) 0.07 X 10*3/uL (0.00-0.10); Basophils % (A) 0.3 %; Eosinophils % (A) 0.8 %; Immature Grans, Automated 2.9 %; Lymphocytes # (A) 4.48 X 10*3/uL (0.90-5.00); Lymphocytes % (A) 18.1 %; Monocytes # (A) 0.93 X 10*3/uL (0.20-1.00); Monocytes % (A) 3.8 %; Neutrophils # (A) 18.36 X 10*3/uL (1.80-7.70); Neutrophils % (A) 74.1 %
--- NOTE | 2022-09-06 13:00 | P.PN ---
Subjective Progress Note Date: 09/06/22 Subjective: Patient seen and examined at bedside. No acute events overnight. He claims that he's able to tolerate oral intake. He denies any significant abdominal pain. Having bowel movements Pertinent positives and negatives as discussed above, a complete review of systems was performed and all other systems are negative. Vitals Signs Reviewed. General: nontoxic, no distress, appears at stated age Derm: warm, dry Head: atraumatic, normocephalic, symmetric Eyes: EOMI, no lid lag, anicteric sclera Mouth: no lip lesion, mucus membranes moist Cardiovascular: S1S2 reg, no murmur Lungs: CTA bilateral, no rhonchi, no rales , no accessory muscle use, supplemental oxygen Abdominal: Soft, nondistended, DARIUS drain in place Ext: no gross muscle atrophy, no edema, no contractures Neuro: CN II-XI grossly intact, no focal neuro deficits Psych: Alert, oriented, appropriate affect Data Reviewed Today: Pertinent Labs: WBC 24.77, hemoglobin 11.2, creatinine 0.7, blood sugars range between 185- 222 Imaging: No new imaging today Assessment and Plan: Acute hypoxic respiraoty failure possibly due to aspiration pneumonia Acute exacerbation of COPD Perforated duodenal ulcer, status post surgery Hypertension Acute blood loss anemia and anticipated outcome of surgery Diabetes mellitus type 2 [id number], A1C 6.8 , hyperglycemia Obstructive sleep apnea Obesity with BMI 34.3 Nicotine dependency Hypothyroidism Leukocytosis, likely in the setting of steroid use and reactive -Pulmonology note reviewed, continue incentive spirometer, continue bronchodilators, possible discharge from their standpoint -Continue to wean oxygen -Surgery following -ID following, patient remains on Zosyn as well as fluconazole added -Norvasc 5 mg twice daily, clonidine patch, losartan 100 mg daily, hydrochlorothiazide 12.5 -Protonix 40 mg IVP BID - Morphine 4 mg IVP q 4 hours prn pain , also on IV Dilaudid as needed, and [place] -Sliding scale insulin, levemir 25 units, insulin aspart 5 units 3 times a day, no changes today -nicotine patch 21 g daily - follow CBC and BMP regarding sepsis and acute blood loss anemia -Continue home levothyroxine Thank you for allowing us to participate in the care of this pleasant patient. Do not hesitate to contact us with questions. Someone can be reached from the [facility] hospitalist group all hours of the day at [phone] or via perfect serve. Objective - Vital Signs Vital signs: Vital Signs Temp 97.9 F 09/06/22 07:30 Pulse 88 09/06/22 11:33 Resp 16 09/06/22 07:30 BP 117/79 09/06/22 07:30 Pulse Ox 95 09/06/22 07:30 FiO2 40 09/02/22 22:37 Intake & Output 09/05/22 09/06/22 09/06/22 18:59 06:59 18:59 Intake Total 340 Balance 340 Intake: Intake, IV Titration 100 Amount Piperacillin-Tazobactam 3 100 .375 gm In Sodium Chloride 0.9% 100 ml @ 25 mls/hr IVPB Q8H [facility] Rx#: [id number] Oral 240 Other: Voiding Method Urinal # Voids 3 2 1 # Bowel Movements 2 2 - Labs CBC & Chem 7: 09/06/22 07:41 09/06/22 07:41 Labs: Abnormal Lab Results - Last 24 Hours (Table) 09/05/22 09/05/22 09/05/22 Range/Units 13:11 13:11 16:39 WBC (4.50-10.00) X 10*3/uL RBC (4.40-5.60) X 10*6/uL Hgb (13.0-17.0) g/dL Hct (39.6-50.0) % MCHC (32.0-37.0) g/dL MPV (9.5-12.2) fL Immature Gran # (0.00-0.04) X 10*3/uL Neutrophils # (1.80-7.70) X 10*3/uL BUN/Creatinine Ratio (12.00-20.00) Ratio Glucose (70-110) mg/dL POC Glucose (mg/dL) 292 H (70-110) mg/dL AST (14-35) U/L C-Reactive Protein 5.9 H (<1.0) mg/dL Total Protein (6.2-8.2) g/dL Albumin (3.8-4.9) g/dL Albumin/Globulin Ratio (1.60-3.17) g/dL Procalcitonin 0.15 H (0.02-0.09) ng/mL 09/05/22 09/06/22 09/06/22 Range/Units 21:40 06:23 07:41 WBC 24.77 H (4.50-10.00) X 10*3/uL RBC 3.68 L (4.40-5.60) X 10*6/uL Hgb 11.2 L (13.0-17.0) g/dL Hct 35.3 L (39.6-50.0) % MCHC 31.7 L (32.0-37.0) g/dL MPV 12.4 H (9.5-12.2) fL Immature Gran # 0.73 H (0.00-0.04) X 10*3/uL Neutrophils # 18.36 H (1.80-7.70) X 10*3/uL BUN/Creatinine Ratio (12.00-20.00) Ratio Glucose (70-110) mg/dL POC Glucose (mg/dL) 344 H 222 H (70-110) mg/dL AST (14-35) U/L C-Reactive Protein (<1.0) mg/dL Total Protein (6.2-8.2) g/dL Albumin (3.8-4.9) g/dL Albumin/Globulin Ratio (1.60-3.17) g/dL Procalcitonin (0.02-0.09) ng/mL 09/06/22 09/06/22 Range/Units 07:41 11:35 WBC (4.50-10.00) X 10*3/uL RBC (4.40-5.60) X 10*6/uL Hgb (13.0-17.0) g/dL Hct (39.6-50.0) % MCHC (32.0-37.0) g/dL MPV (9.5-12.2) fL Immature Gran # (0.00-0.04) X 10*3/uL Neutrophils # (1.80-7.70) X 10*3/uL BUN/Creatinine Ratio 20.79 H (12.00-20.00) Ratio Glucose 185 H (70-110) mg/dL POC Glucose (mg/dL) 174 H (70-110) mg/dL AST 12 L (14-35) U/L C-Reactive Protein (<1.0) mg/dL Total Protein 6.0 L (6.2-8.2) g/dL Albumin 3.3 L (3.8-4.9) g/dL Albumin/Globulin Ratio 1.26 L (1.60-3.17) g/dL Procalcitonin (0.02-0.09) ng/mL
[2022-09-06 13:58] VITALS: BP 93/61; TEMP 98.2
--- NOTE | 2022-09-06 14:48 | P.PN ---
Subjective Progress Note Date: 09/06/22 Principal diagnosis: Leukocytosis Patient is a 46-year-old male presenting to the hospital on 08/29/2022 with abdominal pain work-up that shows evidence of perforated duodenal ulcer in this patient with status post exploratory laparotomy and repair of perforated duodenal ulcer with modified Osmany patch, patient was noticed to have worsening white count that has prompted this infection disease consultation. On today's evaluation and that is 09/06/2022, the patient denies having any fever or any chills, the patient is breathing comfortably on 2 L nasal cannula oxygen denies any chest pain or shortness of the patient cough. Denies any abdominal pain no nausea no vomiting has been tolerating his diet Objective - Vital Signs Vital signs: Vital Signs Temp 97.9 F 09/06/22 07:30 Pulse 88 09/06/22 11:33 Resp 16 09/06/22 07:30 BP 117/79 09/06/22 07:30 Pulse Ox 95 09/06/22 07:30 FiO2 40 09/02/22 22:37 Intake & Output 09/05/22 09/06/22 09/06/22 18:59 06:59 18:59 Intake Total 340 Balance 340 Intake: Intake, IV Titration 100 Amount Piperacillin-Tazobactam 3 100 .375 gm In Sodium Chloride 0.9% 100 ml @ 25 mls/hr IVPB Q8H [facility] Rx#: [id number] Oral 240 Other: Voiding Method Urinal # Voids 3 2 1 # Bowel Movements 2 2 - Exam GENERAL DESCRIPTION: Middle-age male lying in bed in no distress RESPIRATORY SYSTEM: Unlabored breathing , decreased breath sounds at bases HEART: S1 S2 regular rate and rhythm , ABDOMEN: Soft , no tenderness, midline incision ngoc intact no redness or drainage EXTREMITIES: No edema feet - Labs CBC & Chem 7: 09/06/22 07:41 09/06/22 07:41 Labs: Abnormal Lab Results - Last 24 Hours (Table) 09/05/22 09/05/22 09/05/22 Range/Units 13:11 13:11 16:39 WBC (4.50-10.00) X 10*3/uL RBC (4.40-5.60) X 10*6/uL Hgb (13.0-17.0) g/dL Hct (39.6-50.0) % MCHC (32.0-37.0) g/dL MPV (9.5-12.2) fL BUN/Creatinine Ratio (12.00-20.00) Ratio Glucose (70-110) mg/dL POC Glucose (mg/dL) 292 H (70-110) mg/dL AST (14-35) U/L C-Reactive Protein 5.9 H (<1.0) mg/dL Total Protein (6.2-8.2) g/dL Albumin (3.8-4.9) g/dL Albumin/Globulin Ratio (1.60-3.17) g/dL Procalcitonin 0.15 H (0.02-0.09) ng/mL 09/05/22 09/06/22 09/06/22 Range/Units 21:40 06:23 07:41 WBC 24.77 H (4.50-10.00) X 10*3/uL RBC 3.68 L (4.40-5.60) X 10*6/uL Hgb 11.2 L (13.0-17.0) g/dL Hct 35.3 L (39.6-50.0) % MCHC 31.7 L (32.0-37.0) g/dL MPV 12.4 H (9.5-12.2) fL BUN/Creatinine Ratio (12.00-20.00) Ratio Glucose (70-110) mg/dL POC Glucose (mg/dL) 344 H 222 H (70-110) mg/dL AST (14-35) U/L C-Reactive Protein (<1.0) mg/dL Total Protein (6.2-8.2) g/dL Albumin (3.8-4.9) g/dL Albumin/Globulin Ratio (1.60-3.17) g/dL Procalcitonin (0.02-0.09) ng/mL 09/06/22 09/06/22 Range/Units 07:41 11:35 WBC (4.50-10.00) X 10*3/uL RBC (4.40-5.60) X 10*6/uL Hgb (13.0-17.0) g/dL Hct (39.6-50.0) % MCHC (32.0-37.0) g/dL MPV (9.5-12.2) fL BUN/Creatinine Ratio 20.79 H (12.00-20.00) Ratio Glucose 185 H (70-110) mg/dL POC Glucose (mg/dL) 174 H (70-110) mg/dL AST 12 L (14-35) U/L C-Reactive Protein (<1.0) mg/dL Total Protein 6.0 L (6.2-8.2) g/dL Albumin 3.3 L (3.8-4.9) g/dL Albumin/Globulin Ratio 1.26 L (1.60-3.17) g/dL Procalcitonin (0.02-0.09) ng/mL Microbiology - Last 24 Hours (Table) 08/30/22 06:09 Blood Culture - Final Blood Assessment and Plan (1) Leukocytosis Current Visit: Yes Status: Acute Code(s): D72.829 - ELEVATED WHITE BLOOD CELL COUNT, UNSPECIFIED SNOMED Code(s): 620092134 Plan: 1patient with a leukocytosis in this patient presented to hospital about a week ago with abdominal pain and has been diagnosed with perforated duodenal ulcer s/p operative repair the patient white condition normalized however has jumped up to 17,000 yesterday and is up to 24,000 today 2- obtain blood cultures and inflammatory markers, all currently pending 3-we will continue with the Zosyn and Diflucan, however if any further worsening of the white count may need repeat imaging of abdomen but this point clinical suspicious low as the patient did not have any abdominal pain and soft on clinical examination 4-repeat CBC in the morning Time with Patient: Less than 30
--- NOTE | 2022-09-06 15:05 | P.DS ---
Providers Date of admission: 08/29/22 06:29 Expected date of discharge: 09/06/22 Attending physician: Jeffrey Rivera Consults: 08/29/22 08:33 Consult Physician Routine Consulting Provider: Swati Larson Consult Reason/Comments: Medical management Do you want consulting provider notified?: Yes 08/30/22 04:55 Consult Physician Urgent Consulting Provider: Harvey Kline Consult Reason/Comments: hypoxia Do you want consulting provider notified?: Yes 09/05/22 12:17 Consult Physician Routine Consulting Provider: Kelsea Hill Consult Reason/Comments: elevated WBC Do you want consulting provider notified?: Yes Primary care physician: Nasim Muller MD Hospital Course: Discharge diagnosis 1. Perforated duodenal ulcer status post exploratory laparotomy, repair of per forated duodenal ulcer with modified Osmany patch 2. Leukocytosis 3. Hypoxia with COPD exacerbation, fluid overload and possibility of aspiration pneumonia. Patient requires home O2. Followed by pulmonary service. Hospital course This is a 46-year-old male who presented to the emergency room with abdominal pain. Computed tomography scan his chest and perforated duodenal ulcer. Patient takes Aleve 8 tablets per day. Patient is status post exploratory laparotomy, repair of perforated duodenal ulcer with modified Osmany patch. Patient did require transfer to the ICU during this admission due to hypoxia with evidence of COPD exacerbation, fluid overload and possibility of aspiration pneumonia. Patient was able to be transferred out of to a regular medical floor. His pain is controlled. He has tolerated advancement of diet. He is having bowel movements. He is afebrile. His white count is elevated. Patient will be discharged with antibiotics. Incision site is clean dry and intact. Patient has been up and ambulating. He is stable for discharge. Please refer to chart for any further details. Patient educated to avoid NSAID use. Physician Performance Improvement Specialist note has been reviewed by physician. Signing provider agrees with the documented findings, assessment, and plan of care. Patient Condition at Discharge: Stable Plan - Discharge Summary Discharge Rx Participant: Yes New Discharge Prescriptions: New Fluconazole [Diflucan] 200 mg PO DAILY 10 Days #10 tab Amoxic-Pot Clav 875-125Mg [Augmentin 875-125] 1 tab PO Q12HR 10 Days #20 tab Pantoprazole [Protonix] 40 mg PO BID #60 tab oxyCODONE HCL [OxyIR] 5 mg PO Q6H PRN 2 Days #5 tab PRN Reason: Pain Discontinued Naproxen Sodium [Aleve] 1 tab No Action metFORMIN HCL [Glucophage] 1,000 mg PO BID Levothyroxine Sodium [Synthroid] 200 mcg PO DAILY amLODIPine [Norvasc] 5 mg PO DAILY Levothyroxine Sodium [Synthroid] 25 mcg PO DAILY Discharge Medication List Levothyroxine Sodium [Synthroid] 200 mcg PO DAILY 05/09/20 [History] metFORMIN HCL [Glucophage] 1,000 mg PO BID 05/09/20 [History] Levothyroxine Sodium [Synthroid] 25 mcg PO DAILY 08/29/22 [History] amLODIPine [Norvasc] 5 mg PO DAILY 08/29/22 [History] Amoxic-Pot Clav 875-125Mg [Augmentin 875-125] 1 tab PO Q12HR 10 Days #20 tab 09/06/22 [Rx] Fluconazole [Diflucan] 200 mg PO DAILY 10 Days #10 tab 09/06/22 [Rx] Pantoprazole [Protonix] 40 mg PO BID #60 tab 09/06/22 [Rx] oxyCODONE HCL [OxyIR] 5 mg PO Q6H PRN 2 Days #5 tab 09/06/22 [Rx] Follow up Appointment(s)/Referral(s): [facility],Equipment [NON-STAFF] - As Needed (*Call [facility] once home to arrange delivery of the oxygen concentrator. ) Nasim Muller MD [Primary Care Provider] - 1-2 days Jeffrey Rivera MD [STAFF PHYSICIAN] - 1 Week Activity/Diet/Wound Care/Special Instructions: Medicine service to complete discharge med rec Patient requires home oxygen to manage his COPD at home. No driving while taking OxyIR No lifting over 10 pounds Shower daily. No soaking or tub baths for 2 weeks Very light activity until you are reevaluated at your follow up appointment with your surgeon No NSAIDs Discharge Disposition: HOME WITH HOME HEALTH SERVICES
[2022-09-06 15:23] VITALS: PULSE 92
== END 2022-09-06 17:22 | disposition home health service (06) | DRG 329 ==
LOC: EC 04:05 → 4SSUR 06:29 → 2SICU 08-30 11:12 → 4SSUR 09-04 20:24
PROVIDERS: ADMIT Surgery; ATTEND Surgery
PROC: 0W9G0ZX Drainage of Peritoneal Cavity, Open Approach, Diagnostic (ICD-10-PCS; 2022-08-29)
PROC: 0D9670Z Drainage of Stomach with Drainage Device, Via Natural or Artificial Opening (ICD-10-PCS; 2022-08-29)
PROC: 0DU907Z Supplement Duodenum with Autologous Tissue Substitute, Open Approach (ICD-10-PCS; principal; 2022-08-29 06:32)
PROC: 5A0935A Assistance with Respiratory Ventilation, Less than 24 Consecutive Hours, High Flow/Velocity Cannula (ICD-10-PCS; 2022-08-30)
DX: K26.1 Acute duodenal ulcer with perforation (principal); A41.9 Sepsis, unspecified organism; J96.01 Acute respiratory failure with hypoxia; J69.0 Pneumonitis due to inhalation of food and vomit; R18.8 Other ascites; J44.1 Chronic obstructive pulmonary disease with (acute) exacerbation; D62 Acute posthemorrhagic anemia; E03.9 Hypothyroidism, unspecified; I10 Essential (primary) hypertension; E11.9 Type 2 diabetes mellitus without complications; E66.9 Obesity, unspecified; Z68.34 Body mass index [BMI] 34.0-34.9, adult; F17.210 Nicotine dependence, cigarettes, uncomplicated; G47.33 Obstructive sleep apnea (adult) (pediatric); G47.30 Sleep apnea, unspecified; E87.70 Fluid overload, unspecified; M19.90 Unspecified osteoarthritis, unspecified site; Z20.822 Contact with and (suspected) exposure to COVID-19; Z87.19 Personal history of other diseases of the digestive system; Z80.0 Family history of malignant neoplasm of digestive organs; Z88.6 Allergy status to analgesic agent; Z79.899 Other long term (current) drug therapy; Z79.890 Hormone replacement therapy; Z79.84 Long term (current) use of oral hypoglycemic drugs
CPT/HCPCS: 36415; 71045; 71046; 74177; 80048; 80053; 81001; 83036; 83605; 83690; 83735; 83880; 84100; 84145; 84484; 85025; 85027; 85610; 85730; 86140; 86850; 86900; 86901; 87040; 87636; 93005; 94640; 94660; 94760; 96372; 96374; 96375; 99285

== ENCOUNTER → 2022-09-15 | Outpatient (CLI) | payer BC ==
[2022-09-15 10:25] LABS: Basophils # (A) 0.1 k/uL (0-0.2); Basophils % (A) 1 %; Eosinophils # (A) 0.3 k/uL (0-0.7); Eosinophils % (A) 2 %; HCT 32.5 % (39.0-53.0); HGB 9.7 gm/dL (13.0-17.5); Hypochromasia Moderate; Lymphocytes # (A) 4.2 k/uL (1.0-4.8); Lymphocytes % (A) 32 %; MCH 28.8 pg (25.0-35.0); MCHC 29.8 g/dL (31.0-37.0); MCV 96.8 fL (80.0-100.0); Mean Platelet Volume 10.1; Monocytes # (A) 0.5 k/uL (0-1.0); Monocytes % (A) 4 %; Neutrophils % (A) 60 %; Platelet Count 452 k/uL (150-450); RBC 3.36 m/uL (4.30-5.90); RDW 14.6 % (11.5-15.5); WBC 13.4 k/uL (3.8-10.6)
== END | disposition home or self-care (01) ==
LOC: LABWHC1 09:01
PROVIDERS: ATTEND Physician Assistant
DX: D72.829 Elevated white blood cell count, unspecified (principal)
CPT/HCPCS: 36415; 85025

== ENCOUNTER 2022-11-26 12:13 | Day surgery (SDC) | payer BC ==
[2022-11-23 08:39] VITALS: BMI 31.4
[~2022-11-26 12:13] MED LIST changes: +LIDOCAINE 1% (10MG/ML) FOR IV START INTRADERMA PRN
[2022-11-26 12:37] VITALS: RESP 16; TEMP 97.2
[2022-11-26 12:42] LABS: Glucose,Whole Blood 147 mg/dL (70-110)
[2022-11-26] MEDS ORDERED: PROPOFOL 10 MG/ML 20 ML VIAL IV ONE (13:17)
--- NOTE | 2022-11-26 13:44 | P.GSHP ---
History of Present Illness H&P Date: 11/26/22 Chief Complaint: Colon polyps This a 39-year-old male presents today for colonoscopy. Patient's previous history of colon polyps. His last colonoscopy was many years ago. Past Medical History Past Medical History: Diabetes Mellitus, Hypertension, Sleep Apnea/CPAP/BIPAP, Thyroid Disorder Additional Past Medical History / Comment(s): Morbid obesity with interval weight loss, obstructive sleep apnea maintained on CPAP, hypothyroidism, RECENT 08/29/22-RUPTURED DUODENAL ULCER WITH REPAIR History of Any Multi-Drug Resistant Organisms: None Reported Past Surgical History: Orthopedic Surgery Additional Past Surgical History / Comment(s): right quad muscle tendon repair, POSTERIOR NECK I&D, COLONOSCOPY, Right knee arthroscopy, Perforated duodenal ulcer repair with espinoza patch 08/29/2022. Past Anesthesia/Blood Transfusion Reactions: No Reported Reaction Smoking Status: Current every day smoker - Past Family History Father Family Medical History: No Reported History Additional Family Medical History / Comment(s): FATHER'S DAD HAD COLON CANCER Mother Family Medical History: Cancer Additional Family Medical History / Comment(s): COLON CANCER Medications and Allergies Home Medications Medication Instructions Recorded Confirmed Type Levothyroxine Sodium [Synthroid] 200 mcg PO DAILY 05/09/20 11/26/22 History metFORMIN HCL [Glucophage] 1,000 mg PO BID 05/09/20 11/26/22 History Levothyroxine Sodium [Synthroid] 25 mcg PO DAILY 08/29/22 11/26/22 History amLODIPine [Norvasc] 5 mg PO DAILY 08/29/22 11/26/22 History Losartan [Cozaar] 100 mg PO DAILY #90 tab 09/06/22 11/26/22 Rx Allergies Allergy/AdvReac Type Severity Reaction Status Date / Time ibuprofen [From Motrin] Allergy Swelling Verified 11/26/22 12:27 aspirin AdvReac Swelling Verified 11/26/22 12:27 Surgical - Exam Vital Signs Temp Pulse Resp BP Pulse Ox 97.2 F L 100 16 123/73 98 11/26/22 12:36 11/26/22 12:36 11/26/22 12:36 11/26/22 12:36 11/26/22 12:36 - General well developed, well nourished, no distress - Eyes PERRL - ENT normal pinna - Neck no masses - Respiratory normal expansion - Cardiovascular Rhythm: regular - Abdomen Abdomen: soft, non tender Results - Labs Abnormal Lab Results - Last 24 Hours (Table) 11/26/22 Range/Units 12:40 POC Glucose (mg/dL) 147 H (70-110) mg/dL Assessment and Plan Assessment: History of colon polyps. We'll perform colonoscopy
--- NOTE | 2022-11-26 13:46 | P.OP ---
Date of Procedure: 11/26/22 Preoperative Diagnosis: History of colon polyps Postoperative Diagnosis: External hemorrhoids Procedure(s) Performed: Colonoscopy Anesthesia: MAC Surgeon: Jeffrey Rivera Pathology: none sent Condition: stable Disposition: PACU Description of Procedure: The patient's placed on the endoscopy table in the lateral position. He received IV sedation. Digital rectal exam was performed. This revealed no ebonized. Flexible colonoscope was then placed patient anus and passed throughout the entire colon. The ileocecal valve was visualized. Cecum, ascending and transverse colon appeared normal. The descending and sigmoid colon appeared normal. Scope summer back the rectum this appeared normal. Scope was then withdrawn for patient. Internal and external hemorrhoids are noted. Scope withdrawn for patient.
[2022-11-26 13:59] VITALS: BP 133/85; PULSE 70
== END 2022-11-26 14:23 | disposition home or self-care (01) ==
LOC: ORWHC2ENDO 12:13
PROVIDERS: ATTEND Surgery
DX: Z12.11 Encounter for screening for malignant neoplasm of colon (principal); K64.4 Residual hemorrhoidal skin tags; I10 Essential (primary) hypertension; E78.5 Hyperlipidemia, unspecified; G47.33 Obstructive sleep apnea (adult) (pediatric); F17.200 Nicotine dependence, unspecified, uncomplicated; E03.9 Hypothyroidism, unspecified; Z86.010 Personal history of colon polyps; Z80.0 Family history of malignant neoplasm of digestive organs; Z79.84 Long term (current) use of oral hypoglycemic drugs
CPT/HCPCS: 45378; J2704

== ENCOUNTER 2023-02-25 08:38 | Day surgery (SDC) | payer BC ==
[2023-02-20 16:04] VITALS: BMI 36.2
[~2023-02-25 08:38] MED LIST changes: +ACETAMINOPHEN TAB 500 MG TAB PO PRN; +DEXAMETHASONE SOD PHOSPHATE 4 MG/ML 1 ML VIAL IV ONE; +HEPARIN SODIUM,PORCINE/PF 5,000 UNIT/0.5 ML SYRINGE SQ PRN; -LACTATED RINGERS 1,000 ML IV SCH; +ONDANSETRON 4 MG/2 ML VIAL IVP ONE; +droPERidol 5 MG/2 ML VIAL IVP ONE
[2023-02-25 09:37] LABS: Anisocytosis Slight; Basophils % (A) 0 %; Eosinophils # (A) 0.3 k/uL (0-0.7); Eosinophils % (A) 3 %; HGB 12.2 gm/dL (13.0-17.5); Lymphocytes # (A) 4.1 k/uL (1.0-4.8); Lymphocytes % (A) 34 %; MCH 30.1 pg (25.0-35.0); MCHC 32.1 g/dL (31.0-37.0); MCV 93.8 fL (80.0-100.0); Mean Platelet Volume 8.8; Monocytes # (A) 0.4 k/uL (0-1.0); Monocytes % (A) 3 %; Neutrophils % (A) 58 %; Platelet Count 228 k/uL (150-450); RBC 4.05 m/uL (4.30-5.90)
[2023-02-25] MEDS ORDERED: fentaNYL (PF) 50 MCG/ML 2 ML AMP IVP ONE (09:39)
[2023-02-25] MEDS ORDERED: MIDAZOLAM 2 MG/2 ML VIAL IVP ONE (09:39)
[2023-02-25 09:46] LABS: Glucose,Whole Blood 119 mg/dL (70-110)
[2023-02-25] MEDS: LACTATED RINGERS 1,000 ML IV SCH ×2 (09:47→19:35)
[2023-02-25] MEDS ORDERED: ROPIVACAINE 5 MG/ML 30 ML VIAL ONE (10:01)
[2023-02-25] MEDS ORDERED: PHENYLEPHRINE 10 MG/ML 5 ML VIAL ONE (10:01)
[2023-02-25] MEDS ORDERED: LIDOCAINE 1% INJ 10MG/ML (20 ML MDV) ONE (10:01)
[2023-02-25] MEDS ORDERED: ROCURONIUM 10 MG/ML (5 ML VIAL) IV ONE (10:01)
[2023-02-25] MEDS ORDERED: SODIUM CHLORIDE 0.9% (PF) 10 ML VIAL ONE (10:01)
[2023-02-25] MEDS ORDERED: GLYCOPYRROLATE 0.2 MG/ML 2 ML VIAL ONE (10:01)
[2023-02-25] MEDS ORDERED: MIDAZOLAM 2 MG/2 ML VIAL ONE (10:01)
[2023-02-25] MEDS ORDERED: NEOSTIGMINE 1 MG/ML 10 ML VIAL ONE (10:01)
[2023-02-25] MEDS ORDERED: SUCCINYLCHOLINE CHLORIDE 200 MG/10 ML VIAL IV ONE (10:01)
[2023-02-25] MEDS ORDERED: HYDROmorphone (PF) 1 MG/ML ONE (10:01)
[2023-02-25] MEDS ORDERED: fentaNYL (PF) 50 MCG/ML 2 ML AMP ONE (10:01)
[2023-02-25] MEDS ORDERED: PROPOFOL 10 MG/ML 20 ML VIAL IV ONE (10:01)
--- NOTE | 2023-02-25 10:03 | P.ANPRN ---
Procedure Note - Anesthesia - Nerve Block Performed Bilateral Erector Spinae Single Time Out Performed: Yes Date of Procedure: 02/25/23 Procedure Start Time: :38 Procedure Stop Time: :45 Location of Patient: PreOp Indication: Acute Post-Operative Pain, Requested by Surgeon Sedation Type: Sedate with meaningful contact maintained Preparation: Sterile Prep Position: Sitting Needle Types: Pajunk Needle Gauge: 21 Ultrasound used to visualize needle placement: Yes Ultrasound used to observe medication spread: Yes Injectate: 0.5% Ropivacaine (see comment for volume) (Ropiv 10ml+NS 10ml -on each side) Blood Aspirated: No Pain Paresthesia on Injection Noted: No Resistance on Injection: Normal Image Stored and Saved: Yes Events: Uneventful and Well Tolerated
[2023-02-25] MEDS ORDERED: LIDOCAINE 0.5%-EPI 1:200,000 50 ML VIAL SQ ONE (10:23)
[2023-02-25] MEDS ORDERED: LACTATED RINGERS 1,000 ML IV ONE ×2 (10:35→11:11)
[2023-02-25] MEDS ORDERED: HYDROmorphone 0.5 MG/0.5 ML SYRINGE IVP PRN (11:11)
[2023-02-25] MEDS ORDERED: ACETAMINOPHEN TAB 325 MG TAB PO PRN (11:11)
[2023-02-25] MEDS ORDERED: ONDANSETRON 4 MG/2 ML VIAL IVP PRN (11:11)
[2023-02-25] MEDS ORDERED: NALOXONE 0.4 MG/ML 1 ML VIAL IV PRN (11:11)
[2023-02-25 11:37] LABS: Glucose,Whole Blood 141 mg/dL (70-110)
[2023-02-25] MEDS: HYDROmorphone 0.5 MG/0.5 ML SYRINGE IVP PRN ×4 (11:39→12:12)
[2023-02-25] MEDS ORDERED: KETOROLAC 15 MG/ML 1 ML VIAL IVP SCH (12:00)
[2023-02-25 13:59] VITALS: RESP 18
[2023-02-25] MEDS ORDERED: IV FLUID CONTINUATION 1,000 ML IV ONE (14:06)
--- NOTE | 2023-02-25 15:31 | P.OP ---
Date of Procedure: 02/25/23 Preoperative Diagnosis: Incisional hernia Postoperative Diagnosis: Incisional hernia Procedure(s) Performed: (Incisional hernia with Prolene mesh Anesthesia: JOHN Surgeon: Jeffrey Rivera Estimated Blood Loss (ml): 10 Pathology: none sent Condition: stable Disposition: PACU Operative Findings: Hernia defect measured 15 x 8 cm [place] Prolene mesh Description of Procedure: Patient's placed in the operative table in the supine position. He received general endotracheal tube anesthesia. His abdomen was prepped and draped usual fashion. The skin was incised. Midline scar. Hernia sac was opened. The fascial edges were exposed his left cautery. The hernia defect measured prostate 15 x 8 cm. Using #1 Ethibond suture the fascial defect was closed. Fashion. Next using the Lore fix suture the hernia was much was repaired. Next a piece of Prolene mesh was over top apparent secured secure strap tacker. A DARIUS drains placed over top the mesh and brought through separate stab incision. Reece's fascia close Remington. Skin was closed ngoc. Patient top she will sent to recovery room in stable condition.
[2023-02-25] MEDS: HYDROmorphone 1 MG/ML 1 ML SYRINGE IVP PRN ×3 (15:43→23:14)
[2023-02-26] MEDS: HYDROmorphone 1 MG/ML 1 ML SYRINGE IVP PRN ×2 (03:37→08:01)
[2023-02-26] MEDS ORDERED: HYDROcodone/APAP 5-325MG 1 EACH TAB PO PRN (08:07)
[2023-02-26] MEDS ORDERED: DEXTROSE 50% SYRINGE 50 ML IVP PRN ×2 (08:32)
[2023-02-26] MEDS ORDERED: amLODIPine 5 MG TAB PO SCH (09:00)
[2023-02-26] MEDS ORDERED: NICOTINE 21MG/24HR PATCH TRANSDERM SCH (09:00)
[2023-02-26] MEDS ORDERED: MULTIVITAMINS, THERA 1 EACH TAB PO SCH (09:00)
[2023-02-26] MEDS ORDERED: ENOXAPARIN 40 MG/0.4 ML SYRINGE SQ SCH (09:00)
[2023-02-26] MEDS ORDERED: LEVOTHYROXINE 75 MCG TAB PO SCH (09:00)
[2023-02-26 11:44] LABS: Anisocytosis Slight; Basophils % (A) 0 %; Eosinophils # (A) 0.2 k/uL (0-0.7); Eosinophils % (A) 1 %; HCT 35.1 % (39.0-53.0); HGB 11.2 gm/dL (13.0-17.5); Hypochromasia Slight; Lymphocytes # (A) 3.6 k/uL (1.0-4.8); Lymphocytes % (A) 28 %; MCH 30.6 pg (25.0-35.0); MCHC 31.8 g/dL (31.0-37.0); MCV 96.1 fL (80.0-100.0); Mean Platelet Volume 9.2; Monocytes # (A) 0.5 k/uL (0-1.0); Monocytes % (A) 4 %; Neutrophils # (A) 8.4 k/uL (1.3-7.7); Neutrophils % (A) 66 %; Platelet Count 230 k/uL (150-450); RBC 3.66 m/uL (4.30-5.90); RDW 17.2 % (11.5-15.5); WBC 12.8 k/uL (3.8-10.6)
--- NOTE | 2023-02-26 11:44 | P.CONS ---
History of Present Illness - Reason for Consult Consult date: 02/26/23 Medical management Requesting physician: Jeffrey Rivera - History of Present Illness History of Presenting Illness: Patient is a very pleasant 39-year-old male with a past medical history of hypertension, hypothyroidism, type II gaw-ckdyzsj-sycwycnes diabetes mellitus, and history of perforated duodenal ulcer status post repair with Osmany patch on 08/29/22, and obstructive sleep apnea CPAP dependent nightly. Patient is currently admitted under Gen. surgery team status post incisional hernia repair. We were consulted for medical management secondary to concerns of elevated blood pressures. Patient seen and fully evaluated at bedside this morning. Patient was sitting up in the chair and showing no signs of acute distress at this time. Patient has abdominal binder, DARIUS drain, and wound VAC in place. Patient's blood pressures were elevated this morning with blood pressure 171/82 and heart rate of 71. Patient currently reports postoperative pain is controlled and denies having any postoperative nausea or vomiting. Patient denies having headache, lightheadedness, dizziness, chest pain, palpitations, shortness of breath, or any other complaints at this time. Reports urinating without any difficulties and postoperative period. Surgical procedure was completed by Dr. Rivera 02/25/23. Patient did not receive his daily nighttime medications, current hypertension is likely secondary to missed medication. Review of systems: Pertinent positives and negatives as discussed in HPI, a complete review of systems was performed and all other systems are negative. Physical exam: Vital signs reviewed and stable. General: Nontoxic, no distress and appears stated age. Derm: Skin warm and dry, normal coloration for ethnicity. Head: Atraumatic, normocephalic and symmetric. Eyes: EOMs intact, no lid lag, and anicteric sclera Mouth: no lip lesions, mucus membranes moist Cardiovascular: regular rate and rhythm with normal S1S2, no murmur, positive posterior tibial pulses bilaterally, and cap refill < 2 seconds. Lungs: Respirations even, regular, and unlabored on room air. Lungs CTA bilaterally, no rhonchi, no rales, no wheezing, and no accessory muscle usage. Abdominal: soft, nontender to palpation, no guarding, no appreciable organomegaly. Abdominal binder in place, postoperative drain and wound VAC in place. Ext: ROM intact. No gross muscle atrophy, no edema, no contractures Neuro: Speech clear, face symmetrical and CN II-XII grossly intact with no noted focal neuro deficits Psych: Alert and oriented to person, place, time, and situation. Appropriate and pleasant affect. Assessment and Plan of Care: Hypertension -Patient hypertensive this morning with blood pressure 171/82 and heart rate 71. Patient hypertensive likely secondary to missing a home dose of losartan last night. -At this time we will continue patient's home medication regimen with amlodipine 5 mg daily and losartan 100 mg nightly. -Discussed with RN if no improvement after patient receives antihypertensive medications as ordered to notify provider and additional orders may be placed based upon these findings. Type II fjz-axnxbdo-jfjwnchwn Diabetes mellitus with hyperglycemia -Glucose 162. Metformin held and patient placed on glycemic protocol with No voLog sliding scale. Hypomagnesemia -Magnesium slightly low 1.7 order placed for magnesium oxide 400 mg by mouth 1 dose. Hypothyroidism -Patient to continue with levothyroxine 225 g daily. Postoperative blood loss anemia, stable and expected finding with hemoglobin of 11.2 no need for further testing or interventions at this time. Leukocytosis, likely reactive resulting from surgical procedure. Status post incisional hernia repair -Management per primary admitting general surgery team including DVT prophylaxis, pain management, wound/dressing care, drain management, and wound VAC care. Data reviewed: Morning labs reviewed. CBC showing mild postoperative blood loss anemia with hemoglobin stable at 11.2 and mild leukocytosis with WBC count 12.8. BMP revealing hyperglycemia with glucose of 162. Vital signs reviewed. Blood pressure 171/82, heart rate 71, respiratory rate 18, temp 98.7F, SpO2 of 93% on room air. Thank you for allowing us to participate in the care of this pleasant patient. Do not hesitate to contact us with questions. Someone can be reached from the [facility] hospitalist group all hours of the day at [phone] or via perfect serve. Patient was seen independently by Nurse Practitioner. This document was prepared using [employer] dictation software. Please allow for errors in chicken stuffer while rare they do occur. Past Medical History Past Medical History: Diabetes Mellitus, Hypertension, Sleep Apnea/CPAP/BIPAP, Thyroid Disorder Additional Past Medical History / Comment(s): -incisional hernia ,Morbid obesity with interval weight loss, obstructive sleep apnea maintained on CPAP, hypothyroidism, 08/29/22-RUPTURED DUODENAL ULCER WITH REPAIR was transferred to [facility] postop day 1 with low O@ sats-pt stated had pneumonia, History of Any Multi-Drug Resistant Organisms: None Reported Past Surgical History: Orthopedic Surgery Additional Past Surgical History / Comment(s): right quad muscle tendon repair, POSTERIOR NECK I&D, COLONOSCOPY, Right knee arthroscopy, Perforated duodenal ulcer repair with osmany patch 08/29/2022. Past Anesthesia/Blood Transfusion Reactions: No Reported Reaction Additional Past Anesthesia/Blood Transfusion Reaction / Comm: no hx blood transfusions Smoking Status: Former smoker - Past Family History Father Family Medical History: No Reported History Additional Family Medical History / Comment(s): paternal grandfather-HAD COLON CANCER Mother Family Medical History: Cancer Additional Family Medical History / Comment(s): COLON CANCER Medications and Allergies Home Medications Medication Instructions Recorded Confirmed Type Levothyroxine Sodium [Synthroid] 225 mcg PO DAILY 05/09/20 02/25/23 History metFORMIN HCL [Glucophage] 1,000 mg PO BID 05/09/20 02/25/23 History amLODIPine [Norvasc] 5 mg PO QAM 08/29/22 02/25/23 History Cholecalciferol [Vitamin D3 (25 25 mcg PO DAILY 02/20/23 02/25/23 History Mcg = 1000 Iu)] Losartan [Cozaar] 100 mg PO HS 02/20/23 02/25/23 History Multivitamins, Thera [Multivitamin 1 tab PO DAILY 02/20/23 02/25/23 History (formulary)] Nicotine 21Mg/24Hr Patch [Habitrol] 1 each TRANSDERM DAILY 02/20/23 02/25/23 History Acetaminophen Tab [Tylenol] 1,000 mg PO Q6HR PRN #30 tablet 02/26/23 Rx Levofloxacin [Levaquin] 500 mg PO DAILY 7 Days #7 tab 02/26/23 Rx oxyCODONE HCL [OxyIR] 5 mg PO Q6H PRN 3 Days #12 tab 02/26/23 Rx Allergies Allergy/AdvReac Type Severity Reaction Status Date / Time aspirin Allergy Swelling Verified 02/25/23 15:55 ibuprofen [From Motrin] Allergy Swelling Verified 02/25/23 09:09 Physical Exam Vitals: Vital Signs Temp Pulse Pulse Pulse Resp BP Pulse Ox 02/26/23 07:49 98.7 F 71 18 171/82 93 L 02/26/23 01:04 98.4 F 86 18 146/83 96 11/13/23 18:58 97.5 F L 89 18 131/77 93 L 02/25/23 14:28 97.8 F 71 18 148/83 94 L 02/25/23 13:30 66 18 118/58 98 02/25/23 13:00 67 16 114/60 98 02/25/23 12:45 66 17 113/60 97 02/25/23 12:30 64 18 119/64 96 02/25/23 12:15 68 16 131/61 95 02/25/23 12:00 65 15 142/64 95 02/25/23 11:45 69 15 152/74 96 02/25/23 11:30 78 16 90/56 98 02/25/23 11:21 96.9 F L 93 14 97/56 99 02/25/23 10:00 90 16 115/79 100 02/25/23 09:39 97.6 F 96 16 144/87 100 Intake and Output 02/25/23 02/26/23 02/26/23 22:59 06:59 14:59 Output Total 110 150 Balance -110 -150 Output: Drainage 10 Abdomen 10 Urine 100 150 Results CBC & Chem 7: 02/26/23 11:21 02/26/23 11:21 Labs: Abnormal Lab Results - Last 24 Hours (Table) 02/25/23 02/25/23 02/25/23 Range/Units 09:22 09:43 11:35 WBC 12.0 H (3.8-10.6) k/uL RBC 4.05 L (4.30-5.90) m/uL Hgb 12.2 L (13.0-17.5) gm/dL Hct 38.0 L (39.0-53.0) % RDW 17.0 H (11.5-15.5) % POC Glucose (mg/dL) 119 H 141 H (70-110) mg/dL
[2023-02-26 11:54] LABS: ALT 17 U/L (4-49); AST 23 U/L (17-59); African American GFR (CKD) >90 (>60 ml/min/1.73 sqM); Albumin 3.8 g/dL (3.5-5.0); Albumin/Globulin Ratio 1.2; Alkaline Phosphatase 88 U/L (38-126); Anion Gap 10 mmol/L; Blood Urea Nitrogen 9 mg/dL (9-20); Calcium 9.3 mg/dL (8.4-10.2); Carbon Dioxide 26 mmol/L (22-30); Chloride 104 mmol/L (98-107); Globulin 3.1 g/dL; Glucose 162 mg/dL (74-99); Magnesium 1.7 mg/dL (1.6-2.3); Non-African American GFR(CKD) >90 (>60 ml/min/1.73 sqM); Potassium 4.1 mmol/L (3.5-5.1); Sodium 140 mmol/L (137-145); Total Bilirubin 0.5 mg/dL (0.2-1.3); Total Protein 6.9 g/dL (6.3-8.2)
--- NOTE | 2023-02-26 12:28 | P.DS ---
Providers Expected date of discharge: 02/26/23 Attending physician: Jeffrey Rivera Consults: 02/26/23 07:50 Consult Physician Routine Consulting Provider: Swati Larson Consult Reason/Comments: medical management Do you want consulting provider notified?: Yes Primary care physician: Nasim Muller MD Hospital Course: Discharge diagnosis 1. Open incisional hernia repair with Prolene mesh Hospital course This is a 47-year-old male with incisional hernia. He is status post open repair of incisional hernia with mesh. Patient's pain is controlled. He has been up and ambulating. He is having a small amount of flatus. Denies any difficulty urinating. He is tolerating diet. He is afebrile. He is stable for discharge. Please refer to chart for any further details. Physician Crank Hand note has been reviewed by physician. Signing provider agrees with the documented findings, assessment, and plan of care. Patient Condition at Discharge: Stable Plan - Discharge Summary Discharge Rx Participant: No New Discharge Prescriptions: New Levofloxacin [Levaquin] 500 mg PO DAILY 7 Days #7 tab oxyCODONE HCL [OxyIR] 5 mg PO Q6H PRN 3 Days #12 tab PRN Reason: Pain Acetaminophen Tab [Tylenol] 1,000 mg PO Q6HR PRN #30 tablet PRN Reason: Pain Continue metFORMIN HCL [Glucophage] 1,000 mg PO BID Levothyroxine Sodium [Synthroid] 225 mcg PO DAILY amLODIPine [Norvasc] 5 mg PO QAM Multivitamins, Thera [Multivitamin (formulary)] 1 tab PO DAILY Losartan [Cozaar] 100 mg PO HS Cholecalciferol [Vitamin D3 (25 Mcg = 1000 Iu)] 25 mcg PO DAILY Nicotine 21Mg/24Hr Patch [Habitrol] 1 each TRANSDERM DAILY Discontinued Acetaminophen [Tylenol Extra Strength] 500 - 1,000 mg PO Q12HR PRN PRN Reason: Pain Discharge Medication List Levothyroxine Sodium [Synthroid] 225 mcg PO DAILY 05/09/20 [History] metFORMIN HCL [Glucophage] 1,000 mg PO BID 05/09/20 [History] amLODIPine [Norvasc] 5 mg PO QAM 08/29/22 [History] Cholecalciferol [Vitamin D3 (25 Mcg = 1000 Iu)] 25 mcg PO DAILY 02/20/23 [History] Losartan [Cozaar] 100 mg PO HS 02/20/23 [History] Multivitamins, Thera [Multivitamin (formulary)] 1 tab PO DAILY 02/20/23 [History] Nicotine 21Mg/24Hr Patch [Habitrol] 1 each TRANSDERM DAILY 02/20/23 [History] Acetaminophen Tab [Tylenol] 1,000 mg PO Q6HR PRN #30 tablet 02/26/23 [Rx] Levofloxacin [Levaquin] 500 mg PO DAILY 7 Days #7 tab 02/26/23 [Rx] oxyCODONE HCL [OxyIR] 5 mg PO Q6H PRN 3 Days #12 tab 02/26/23 [Rx] Follow up Appointment(s)/Referral(s): Jeffrey Rivera MD [STAFF PHYSICIAN] - 03/05/23 2:20 pm Activity/Diet/Wound Care/Special Instructions: No driving while taking OxyIR No lifting over 10 pounds You may shower. No soaking or tub baths for 2 weeks Very light activity until you are reevaluated at your follow up appointment with your surgeon Keep a log of DARIUS drain output and bring with you to your follow-up appointment Milk/strip drains 2-3 times a day Continue Prevana wound vac until seen by surgeon. Ok to shower with the Prevana wound vac. Discharge Disposition: HOME SELF-CARE
[2023-02-26] MEDS ORDERED: INSULIN ASPART (NovoLOG) 100 UNIT/ML VIAL SQ SCH (12:30)
[2023-02-26 13:37] VITALS: BP 143/91; PULSE 90; TEMP 98.4
[2023-02-26] MEDS ORDERED: MAGNESIUM OXIDE 400 MG TAB PO STA (14:05)
[2023-02-26] MEDS ORDERED: LOSARTAN 50 MG TAB PO SCH (21:00)
== END 2023-02-26 16:11 | disposition home or self-care (01) ==
LOC: OR 08:38 → 5NMEDONC 14:00 → OR 02-26 16:11
PROVIDERS: ATTEND Surgery
DX: T81.41XA Infection following a procedure, superficial incisional surgical site, initial encounter (principal); K43.2 Incisional hernia without obstruction or gangrene; I10 Essential (primary) hypertension; G47.33 Obstructive sleep apnea (adult) (pediatric); E11.9 Type 2 diabetes mellitus without complications; E07.9 Disorder of thyroid, unspecified; L98.499 Non-pressure chronic ulcer of skin of other sites with unspecified severity; Z79.890 Hormone replacement therapy; F17.210 Nicotine dependence, cigarettes, uncomplicated; Z79.84 Long term (current) use of oral hypoglycemic drugs; Z98.890 Other specified postprocedural states; Z88.6 Allergy status to analgesic agent; Z79.899 Other long term (current) drug therapy
CPT/HCPCS: 64999; 80053; 83735; 85025 ×2; 83036; 49591; C1781; S4990; J2250; J1100; J0690; J2405; J1650; J3010; J1170 ×3; J1644

== ENCOUNTER → 2023-08-02 | Outpatient (CLI) | payer BC ==
[2023-08-02 18:30] LABS: Basophils # (A) 0.11 X 10*3/uL (0.00-0.10); Basophils % (A) 0.9 %; Eosinophils # (A) 0.26 X 10*3/uL (0.04-0.35); Eosinophils % (A) 2.2 %; HGB 11.5 g/dL (13.0-17.0); Lymphocytes # (A) 4.02 X 10*3/uL (0.90-5.00); Lymphocytes % (A) 34.1 %; MCH 33.1 pg (27.0-32.0); MCHC 32.9 g/dL (32.0-37.0); MCV 100.9 FL (80.0-97.0); Mean Platelet Volume 12.3 FL (9.5-12.2); Monocytes # (A) 0.58 X 10*3/uL (0.20-1.00); Monocytes % (A) 4.9 %; NRBC Per 100 WBC 0 X 10*3/uL (0.00-0.01); Neutrophils # (A) 6.75 X 10*3/uL (1.80-7.70); Neutrophils % (A) 57.4 %; Platelet Count 201 X 10*3/uL (140-440); RBC 3.47 X 10*6/uL (4.40-5.60); RDW 14.4 % (11.5-14.5); WBC 11.78 X 10*3/uL (4.50-10.00)
[2023-08-02 18:34] LABS: ALT 16 U/L (10-49); AST 15 U/L (14-35); Albumin 4.3 g/dL (3.8-4.9); Albumin/Globulin Ratio 1.48 Ratio (1.60-3.17); Alkaline Phosphatase 104 U/L (41-126); BUN/Creat Ratio 19.45 Ratio (12.00-20.00); Blood Urea Nitrogen 21.4 mg/dL (9.0-27.0); Calcium 9.7 mg/dL (8.7-10.3); Chloride 102 mmol/L (96-109); Globulin 2.9 g/dL (1.6-3.3); Glucose 130 mg/dL (70-110); Sodium 136 mmol/L (135-145); Total Bilirubin 0.2 mg/dL (0.3-1.2); Total Protein 7.2 g/dL (6.2-8.2)
== END | disposition home or self-care (01) ==
LOC: LABWHC1 15:48
PROVIDERS: ATTEND Internal Medicine
DX: Z01.810 Encounter for preprocedural cardiovascular examination (principal)
CPT/HCPCS: 36415; 80053; 85025; 85610; 85730